=== PATIENT | male | born 1950 | race Caucasian/White ===

== ENCOUNTER → 2016-08-15 | Outpatient (CLI) | payer MEDICAID ==
[2016-08-15 12:03] LABS: Basophils # (A) 0.1 k/uL (0-0.2); Basophils % (A) 1 %; CH 31.1; CHCM 34.1; Eosinophils # (A) 0.3 k/uL (0-0.7); Eosinophils % (A) 3 %; HCT 46.8 % (39.0-53.0); HDW 2.59; HGB 15.7 gm/dL (13.0-17.5); Luc # (Auto) 0.24; Luc % (Auto) 2; Lymphocytes # (A) 2.9 k/uL (1.0-4.8); Lymphocytes % (A) 23 %; MCH 30.7 pg (25.0-35.0); MCHC 33.5 g/dL (31.0-37.0); MCV 91.7 fL (80.0-100.0); Mean Platelet Volume 8.7; Monocytes # (A) 0.8 k/uL (0-1.0); Monocytes % (A) 7 %; Neutrophils # (A) 7.9 k/uL (1.3-7.7); Neutrophils % (A) 65 %; RBC 5.11 m/uL (4.30-5.90); RDW 12.9 % (11.5-15.5); WBC 12.3 k/uL (3.8-10.6); WBC (Perox) 11.82
[2016-08-15 12:16] LABS: ALT 28 U/L (21-72); AST 17 U/L (17-59); Alkaline Phosphatase 65 U/L (38-126); Anion Gap 11 mmol/L; Blood Urea Nitrogen 22 mg/dL (9-20); Calcium 9.6 mg/dL (8.4-10.2); Carbon Dioxide 22 mmol/L (22-30); Chloride 105 mmol/L (98-107); Cholesterol 143 mg/dL (<200); Creatine Kinase 64 U/L (55-170); Glucose 204 mg/dL (74-99); HDL Cholesterol 31 mg/dL (40-60); Non-African American GFR(MDRD) >60 (>60 ml/min/1.73 sqM); Potassium 5.1 mmol/L (3.5-5.1); Sodium 138 mmol/L (137-145); Total Bilirubin 0.4 mg/dL (0.2-1.3); Total Protein 7.7 g/dL (6.3-8.2); Triglycerides 434 mg/dL (<150)
[2016-08-15 12:49] LABS: Prostate Specific Antigen <0.06 ng/mL (0.00-4.00)
== END | disposition home or self-care (01) ==
LOC: LABWHC1 11:32
PROVIDERS: ATTEND Family Medicine
DX: Z00.01 Encounter for general adult medical examination with abnormal findings (principal); E11.9 Type 2 diabetes mellitus without complications; E03.9 Hypothyroidism, unspecified; E78.5 Hyperlipidemia, unspecified; Z12.5 Encounter for screening for malignant neoplasm of prostate
CPT/HCPCS: 36415; 80053; 80061; 82550; 84153; 84439; 84443; 84681; 85025; 86337

== ENCOUNTER 2016-09-28 12:38 | Emergency (ER) | payer MEDICAID ==
[2016-09-28 12:42] VITALS: TEMP 98.3
[2016-09-28 13:30] VITALS: BP 169/74; PULSE 62; RESP 17
--- NOTE | 2016-09-28 13:30 | ED ---
Eye Problem HPI - General Chief complaint: Eye Problems Stated complaint: Lost Vision in Right Eye Time Seen by Provider: 09/28/16 13:05 Source: patient Mode of arrival: ambulatory Limitations: no limitations - History of Present Illness Initial comments: This is a 65-year-old male with history of hypertension and cataract surgery who states he had the sudden onset at 1207 this afternoon of central vision loss in his right eye. He had no headache no nausea vomiting no focal weakness was upper or lower extremities or other complaints. He states since that time the vision is starting to come back. He states it did not come down like a shade Gradually went away quickly. He has no other complaints it was noted when he came to the emergency department blood pressure was elevated he does state that his blood pressure medication weight today. MD chief complaint: vision change - Related Data Home Medications Medication Instructions Recorded Confirmed Aspirin 81 mg PO DAILY 06/05/15 03/04/16 DULoxetine HCL [Cymbalta] 90 mg PO QAM 06/05/15 03/04/16 Insulin Glargine [Lantus] 25 unit SQ BID 06/05/15 03/04/16 Levothyroxine Sodium [Unithroid] 225 mcg PO QAM 06/05/15 03/04/16 Losartan [Cozaar] 100 mg PO QAM 06/05/15 03/04/16 amLODIPine [Norvasc] 10 mg PO QAM 06/05/15 03/04/16 Ascorbic Acid [Vitamin C] 500 mg PO DAILY 02/22/16 03/04/16 Atorvastatin [Lipitor] 20 mg PO HS 02/22/16 03/04/16 Carvedilol [Coreg] 25 mg PO BID 02/22/16 03/04/16 Cephalexin [Keflex] 500 mg PO Q12HR 02/22/16 03/04/16 Cholecalciferol [Vitamin D3] 5,000 unit PO DAILY 02/22/16 03/04/16 Empagliflozin [Jardiance] 25 mg PO QAM 02/22/16 03/04/16 Nitroglycerin Sl Tabs [Nitrostat] 0.4 mg SL DIRECTED PRN 02/22/16 03/04/16 Spironolactone [Aldactone] 25 mg PO BID 02/22/16 03/04/16 Vitamin B Complex 1 tab PO DAILY 02/22/16 03/04/16 Vorapaxar Sulfate [Zontivity] 2.08 mg PO QAM 02/22/16 03/04/16 Zinc Gluconate [Zinc Lozenge] 10 mg PO MOWEFR 02/22/16 03/04/16 hydrALAZINE HCL 25 mg PO BID 02/22/16 03/04/16 sitaGLIPtin [Januvia] 25 mg PO QAM 02/22/16 03/04/16 Fenofibrate Nanocrystallized 145 mg PO QAM 02/23/16 03/04/16 [Tricor] Allergies Allergy/AdvReac Type Severity Reaction Status Date / Time No Known Allergies Allergy Verified 09/28/16 12:42 Review of Systems ROS Statement: Those systems with pertinent positive or pertinent negative responses have been documented in the HPI. ROS Other: All systems not noted in ROS Statement are negative. Past Medical History Past Medical History: Coronary Artery Disease (CAD), Cancer, Hypertension, Myocardial Infarction ([place]), Thyroid Disorder Additional Past Medical History / Comment(s): Prostate and renal and basal cell cancers. Last Myocardial Infarction Date:: MAY 2015 History of Any Multi-Drug Resistant Organisms: None Reported Past Surgical History: Coronary Bypass/CABG, Heart Catheterization, Prostate Surgery Additional Past Surgical History / Comment(s): Partial right nephrectomy, fem pop bypass in apr 07 which became infected and his is still on iv abx. MOS PROCEDURE OF BASAL CELL OF UPPER LIP. Past Anesthesia/Blood Transfusion Reactions: No Reported Reaction Past Psychological History: Depression Smoking Status: Current every day smoker Past Alcohol Use History: None Reported Additional Past Alcohol Use History / Comment(s): 48YR SMOKER, 1/2 PPD. Past Drug Use History: None Reported General Exam - General Exam Comments Initial Comments: This is a well-developed well-nourished awake alert oriented times 3 male Limitations: no limitations General appearance: alert, in no apparent distress Head exam: Present: atraumatic, normocephalic, normal inspection Eye exam: Present: normal appearance, PERRL, EOMI, other (Examination of the eyegrounds is limited no gross had male he is noted) ENT exam: Present: normal exam, mucous membranes moist Neck exam: Present: normal inspection. Absent: tenderness, meningismus, lymphadenopathy Respiratory exam: Present: normal lung sounds bilaterally. Absent: respiratory distress, wheezes, rales, rhonchi, stridor Cardiovascular Exam: Present: regular rate, normal rhythm, normal heart sounds. Absent: systolic murmur, diastolic murmur, rubs, gallop, clicks GI/Abdominal exam: Present: soft, normal bowel sounds. Absent: distended, tenderness, guarding, rebound, rigid Extremities exam: Present: normal inspection, full ROM, normal capillary refill. Absent: tenderness, pedal edema, joint swelling, calf tenderness Back exam: Present: normal inspection Neurological exam: Present: alert, oriented X3, CN II-XII intact Psychiatric exam: Present: normal affect, normal mood Skin exam: Present: warm, dry, intact, normal color. Absent: rash Course Vital Signs 09/28/16 12:40 Temperature 98.3 F Pulse Rate 76 Respiratory 20 Rate Blood Pressure 233/107 O2 Sat by Pulse 95 Oximetry Medical Decision Making - Medical Decision Making Clinically the patient appears unremarkable I did have him schedule the vision loss in a circular grid he does have peripheral vision his central vision is somewhat sketchy. His blood pressure has improved. I did discuss case with Dr. Gonzalez with the patient will follow up immediately after leaving the emergency department. Disposition Clinical Impression: Vision loss of right eye Disposition: HOME SELF-CARE Condition: Stable Additional Instructions: Follow-up with Dr. Gonzalez immediately Referrals: Toby Long MD [Primary Care Provider] - 1-2 days Yovani Gonzalez MD [STAFF PHYSICIAN] - 1-2 days
== END 2016-09-28 13:53 | disposition home or self-care (01) ==
LOC: EC 12:38
DX: H54.7 Unspecified visual loss (principal); I10 Essential (primary) hypertension; E07.9 Disorder of thyroid, unspecified; F17.200 Nicotine dependence, unspecified, uncomplicated; Z85.46 Personal history of malignant neoplasm of prostate; Z85.528 Personal history of other malignant neoplasm of kidney; Z79.82 Long term (current) use of aspirin; Z79.4 Long term (current) use of insulin; Z79.899 Other long term (current) drug therapy
CPT/HCPCS: 99282

== ENCOUNTER → 2017-05-23 | Outpatient (CLI) | payer MEDICAID ==
--- NOTE | 2017-05-23 10:23 | XR ---
EXAMINATION TYPE: XR Hip Bilateral and AP pelvis DATE OF EXAM: 05/23/2017 COMPARISON: NONE HISTORY: Pelvic and bilateral hip pain. TECHNIQUE: A single AP view of the pelvis is obtained. Two views of the bilateral hips are obtained. FINDINGS: There is no acute fracture/dislocation evident in the pelvis. The sacroiliac joints appea r symmetric and felt within normal limits. Numerous surgical clips overlie the lower pelvis in the mi dline just superior to pubic symphysis. Two views of bilateral hips hip show no acute fracture or dislocation. There is well-defined lytic le darin with sclerotic margins intertrochanteric region of right proximal femur measuring 2.5 x 2.3 cm f avor nonaggressive in etiology such as enchondroma. There is moderate axial joint space loss in both hips with mild acetabular spurring. Surgical clips left groin region are seen. Bilateral vascular ca lcification in the groin region is noted. IMPRESSION: There is fairly moderate symmetric degenerative change of both hip joints. Primary 2.5 c m bone lesion intertrochanteric region right proximal femur favor enchondroma or other nonaggressive etiology.
[2017-05-23 10:41] LABS: Basophils # (A) 0.1 k/uL (0-0.2); Basophils % (A) 1 %; Eosinophils # (A) 0.3 k/uL (0-0.7); Eosinophils % (A) 3 %; HCT 45.9 % (39.0-53.0); HGB 15.2 gm/dL (13.0-17.5); Lymphocytes # (A) 3.1 k/uL (1.0-4.8); Lymphocytes % (A) 28 %; MCH 30.1 pg (25.0-35.0); Mean Platelet Volume 8.4; Monocytes # (A) 0.6 k/uL (0-1.0); Monocytes % (A) 6 %; Neutrophils # (A) 6.6 k/uL (1.3-7.7); Neutrophils % (A) 60 %; Platelet Count 324 k/uL (150-450); RBC 5.05 m/uL (4.30-5.90); RDW 12.6 % (11.5-15.5)
[2017-05-23 11:04] LABS: ALT 26 U/L (21-72); AST 19 U/L (17-59); Albumin 4.7 g/dL (3.5-5.0); Alkaline Phosphatase 76 U/L (38-126); Anion Gap 13 mmol/L; Blood Urea Nitrogen 21 mg/dL (9-20); Calcium 10.3 mg/dL (8.4-10.2); Carbon Dioxide 26 mmol/L (22-30); Chloride 101 mmol/L (98-107); Cholesterol 152 mg/dL (<200); Creatine Kinase 98 U/L (55-170); Glucose 246 mg/dL (74-99); HDL Cholesterol 29 mg/dL (40-60); LDL Cholesterol,Calculated 48 mg/dL (0-99); Potassium 4.9 mmol/L (3.5-5.1); Sodium 140 mmol/L (137-145); Total Bilirubin 0.3 mg/dL (0.2-1.3); Triglycerides 375 mg/dL (<150)
[2017-05-23 11:18] LABS: T4, Free (Free Thyroxine) 1.16 ng/dL (0.78-2.19)
[2017-05-23 11:45] LABS: Prostate Specific Antigen <0.10 ng/mL (0.00-4.00)
[2017-05-23 16:52] LABS: Vitamin D 25 Hydroxy 20.9 ng/mL (30.0-100.0)
[2017-05-23 17:40] LABS: Hepatitis A Antibody IgM Non-Reactive (Non-Reactive)
[2017-05-23 17:41] LABS: Hepatitis B Core IgM Non-Reactive (Non-Reactive)
== END | disposition home or self-care (01) ==
LOC: RADXRMAIN 09:56
PROVIDERS: ATTEND Family Medicine
DX: M89.9 Disorder of bone, unspecified (principal); E78.5 Hyperlipidemia, unspecified; E03.9 Hypothyroidism, unspecified; E55.9 Vitamin D deficiency, unspecified; M25.559 Pain in unspecified hip; Z11.59 Encounter for screening for other viral diseases; Z12.5 Encounter for screening for malignant neoplasm of prostate
CPT/HCPCS: 36415; 73521; 80053; 80061; 80074; 82306; 82550; 84153; 84439; 84443; 85025

== ENCOUNTER → 2018-08-06 | Outpatient (CLI) | payer MEDICAID ==
--- NOTE | 2018-08-07 07:36 | US ---
EXAMINATION TYPE: US thyroid st tissue head/neck DATE OF EXAM: 08/06/2018 COMPARISON: NONE CLINICAL HISTORY: E03.9 Hypothyroidism. Pt states on thyroid meds x 3 years, pt states recent abnorma l labs GLAND SIZE: Right Lobe: 3.4 x 1.7 x 1.8 cm Overall Parenchyma: heterogenous Left Lobe: 2.4 x 0.9 x 0.7 cm Overall Parenchyma: heterogeneous Isthmus Thickness: 0.3 cm Bilateral neck scanned, no evidence of lymphadenopathy. Thyroid gland heterogeneous and small in size bilaterally. No definite nodules visualized. IMPRESSION: 1. No suspicious nodules within the small thyroid lobes.
== END ==
LOC: RADUSWWP 15:56
PROVIDERS: ATTEND Nurse Practitioner Adult Health
DX: E03.9 Hypothyroidism, unspecified (principal)
CPT/HCPCS: 76536

== ENCOUNTER 2018-11-17 12:07 | Emergency (ER) | payer MEDICAID ==
--- NOTE | 2018-11-17 12:37 | ED ---
General Adult HPI - General Chief complaint: GI Bleed Stated complaint: GI Bleed Time Seen by Provider: 11/17/18 12:18 Source: patient Mode of arrival: ambulatory Limitations: no limitations - History of Present Illness Initial comments: Dictation was produced using [employer] dictation software. please excuse any grammatical, word or spelling errors. Chief Complaint: 68-year-old male with past medical history coronary artery disease, hypertension status post bypass grafting presents today with GI bleed. History of Present Illness: Patient is a 68-year-old male who is brought in by family members. He was at his primary care physician's office earlier today being evaluated for lightheadedness. Patient also had symptoms of Estratest of bleeding over the last 2-3 days. He has had multiple bowel movements that appeared black. Patient denies any history of GI bleed. He reports feeling lightheaded. He doesn't complain of any pain complaints. Denies any rectal pain or abdominal pain. Patient is not on any anticoagulation medications. He has been feeling faint. Denies any focal neurologic deficits. Family friend at bedside reports that patient does appear much more pale worsen usual. Patient denies any history of liver disease. The ROS documented in this emergency department record has been reviewed and confirmed by me. Those systems with pertinent positive or negative responses have been documented in the HPI. All other systems are other negative and/or noncontributory. PHYSICAL EXAM: General Impression: Alert and oriented x3, not in acute distress, pale HEENT: Normocephalic atraumatic, extra-ocular movements intact, pupils equal and reactive to light bilaterally, mucous membranes moist. Cardiovascular: Heart regular rate and rhythm, S1&S2 audible, no murmurs, rubs or gallops Chest: Lungs clear to auscultation bilaterally, no rhonchi, no wheeze, no rales Abdomen: Bowel sounds present, abdomen soft, non-tender, non-distended, no organomegaly Musculoskeletal: Pulses present and equal in all extremities, no peripheral edema Motor: no focal deficits noted Neurological: CN II-XII grossly intact, no focal motor or sensory deficits noted Skin: Intact with no visualized rashes Psych: Normal affect and mood ED course: 68 yo male presents with clinical presentation concerning for symp tomatic GI bleed. Vital signs upon arrival shows blood pressure of 77/44, rest of vital signs within acceptable limits. After initial fluids patient has blood pressure 115/70. To evaluation obtained. Patient is leukocytosis of 15.0. This is elevated from last available labs from April of last year. Patient is a hemoglobin of 8.5 which is lower right 2 last year. Patient did report that he is minimal hemoglobin is around 10. Does have elevated RDW. Coag panel unremarkable. Blood gases negative. Metabolic panel is positive for hyperglycemia 235. No elevated liver markers. Cardiac enzymes negative. Chest x-ray shows no acute processes. Patient is given intravenous fluids he was observed in the emergency department for several hours. Results were discussed with patient. I rec ommended that patient be admitted to the hospital however he refused. 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 Patient is told that his blood pressure was very low when he initially came in and he is evidence of GI bleed with depressed hemoglobin and that for his safety be beneficial to him to be admitted to the hospital. Patient states he does not want to be here because he rather be at home. States that he can take care of self at home and return to emergency department if there are any issues. Patient understands that if he is discharged he could experience significant morbidity and even mortality. He is told that he could bleed out and possibly e fidencio . He understands this risk and continues to endorse wanting to be discharge. He understands that this is against my recommendation. Patient given Protonix. IV push and given a prescription for protonix take twice a day. He is given referral to outpatient gastroenterology. Patient understands that he should return to emergency department with any worsening symptoms. At time of discussion patient is understandable and coherent. EKG interpretation: Ventricular rate 59, sinus bradycardia, MO interval 150, QS 90, QTc 439. No MO prolongation, no QTC prolongation, no ST or T-wave changes noted. Overall, this EKG is unremarkable - Related Data Home Medications Medication Instructions Recorded Confirmed Aspirin 81 mg PO DAILY 06/05/15 11/17/18 DULoxetine HCL [Cymbalta] 90 mg PO QAM 06/05/15 11/17/18 Insulin Glargine [Lantus] 45 unit SQ BID 06/05/15 11/17/18 Levothyroxine Sodium [Unithroid] 225 mcg PO QAM 06/05/15 11/17/18 Losartan [Cozaar] 100 mg PO QAM 06/05/15 11/17/18 amLODIPine [Norvasc] 10 mg PO QAM 06/05/15 11/17/18 Ascorbic Acid [Vitamin C] 500 mg PO DAILY 02/22/16 11/17/18 Atorvastatin [Lipitor] 20 mg PO HS 02/22/16 11/17/18 Carvedilol [Coreg] 25 mg PO BID 02/22/16 11/17/18 Cephalexin [Keflex] 500 mg PO Q12HR 02/22/16 11/17/18 Cholecalciferol [Vitamin D3] 5,000 unit PO DAILY 02/22/16 11/17/18 Nitroglycerin Sl Tabs [Nitrostat] 0.4 mg SL DIRECTED PRN 02/22/16 11/17/18 Spironolactone [Aldactone] 25 mg PO BID 02/22/16 11/17/18 Vitamin B Complex 1 tab PO DAILY 02/22/16 11/17/18 hydrALAZINE HCL 25 mg PO BID 02/22/16 11/17/18 Fenofibrate Nanocrystallized 145 mg PO QAM 02/23/16 11/17/18 [Tricor] Clopidogrel [Plavix] 75 mg PO DAILY 11/17/18 11/17/18 INSULIN LISPRO (HumaLOG) [HumaLOG] See Protocol SQ AC-TID 11/17/18 11/17/18 Previous Rx's Medication Instructions Recorded Pantoprazole [Protonix] 40 mg PO BID 12 Days #24 tablet. 11/17/18 Allergies Allergy/AdvReac Type Severity Reaction Status Date / Time No Known Allergies Allergy Verified 11/17/18 13:20 Review of Systems ROS Statement: Those systems with pertinent positive or pertinent negative responses have been documented in the HPI. ROS Other: All systems not noted in ROS Statement are negative. Past Medical History Past Medical History: Coronary Artery Disease (CAD), Cancer, Hypertension, Myocardial Infarction ([place]), Thyroid Disorder Additional Past Medical History / Comment(s): Prostate and renal and basal cell cancers. Last Myocardial Infarction Date:: MAY 2015 History of Any Multi-Drug Resistant Organisms: None Reported Past Surgical History: Coronary Bypass/CABG, Heart Catheterization, Prostate Surgery Additional Past Surgical History / Comment(s): Partial right nephrectomy, fem pop bypass in apr 07 which became infected and his is still on iv abx. MOS PROCEDURE OF BASAL CELL OF UPPER LIP. Past Anesthesia/Blood Transfusion Reactions: No Reported Reaction Past Psychological History: Depression Smoking Status: Current every day smoker Past Alcohol Use History: None Reported Past Drug Use History: None Reported General Exam Limitations: no limitations Course Vital Signs 11/17/18 11/17/18 11/17/18 12:13 12:32 13:27 Temperature 97.0 F L 98 F Pulse Rate 54 L 58 L 55 L Respiratory 22 20 16 Rate Blood Pressure 77/44 115/70 102/48 O2 Sat by Pulse 98 97 100 Oximetry 11/17/18 11/17/18 14:00 14:47 Temperature Pulse Rate 66 63 Respiratory 18 18 Rate Blood Pressure 117/52 121/49 O2 Sat by Pulse 99 99 Oximetry Medical Decision Making - Lab Data Result diagrams: 11/17/18 12:28 11/17/18 12:28 Lab Results 11/17/18 11/17/18 11/17/18 Range/Units 12:28 12:28 12:28 WBC 15.0 H (3.8-10.6) k/uL RBC 2.77 L (4.30-5.90) m/uL Hgb 8.5 L (13.0-17.5) gm/dL Hct 25.7 L (39.0-53.0) % MCV 92.6 (80.0-100.0) fL MCH 30.5 (25.0-35.0) pg MCHC 33.0 (31.0-37.0) g/dL RDW 15.7 H (11.5-15.5) % Plt Count 421 (150-450) k/uL Neutrophils % 70 % Lymphocytes % 20 % Monocytes % 5 % Eosinophils % 2 % Basophils % 1 % Neutrophils # 10.4 H (1.3-7.7) k/uL Lymphocytes # 3.1 (1.0-4.8) k/uL Monocytes # 0.8 (0-1.0) k/uL Eosinophils # 0.4 (0-0.7) k/uL Basophils # 0.1 (0-0.2) k/uL PT (9.0-12.0) sec INR (<1.2) VBG pH (7.31-7.41) VBG pCO2 (37-51) mmHg VBG HCO3 (24-28) mmol/L Sodium 138 (137-145) mmol/L Potassium 4.3 (3.5-5.1) mmol/L Chloride 106 (98-107) mmol/L Carbon Dioxide 21 L (22-30) mmol/L Anion Gap 11 mmol/L BUN 46 H (9-20) mg/dL Creatinine 1.52 H (0.66-1.25) mg/dL Est GFR (CKD-EPI)AfAm 53 (>60 ml/min/1.73 sqM) Est GFR (CKD-EPI)NonAf 46 (>60 ml/min/1.73 sqM) Glucose 235 H (74-99) mg/dL Plasma Lactic Acid Fidencio (0.7-2.0) mmol/L Calcium 9.0 (8.4-10.2) mg/dL Magnesium 1.9 (1.6-2.3) mg/dL Total Bilirubin 0.2 (0.2-1.3) mg/dL AST 14 L (17-59) U/L ALT 19 L (21-72) U/L Alkaline Phosphatase 45 (38-126) U/L Ammonia (<30) umol/L Troponin I (0.000-0.034) ng/mL NT-Pro-B Natriuret Pep pg/mL Total Protein 6.1 L (6.3-8.2) g/dL Albumin 3.6 (3.5-5.0) g/dL Lipase 65 (23-300) U/L Blood Type O Positive Blood Type Confirm Blood Type Recheck CABO Indicated Antibody Screen NEGATIVE Spec Expiration Date 11/20/2018232711/17/18 11/17/18 11/17/18 Range/Units 12:28 12:28 12:28 WBC (3.8-10.6) k/uL RBC (4.30-5.90) m/uL Hgb (13.0-17.5) gm/dL Hct (39.0-53.0) % MCV (80.0-100.0) fL MCH (25.0-35.0) pg MCHC (31.0-37.0) g/dL RDW (11.5-15.5) % Plt Count (150-450) k/uL Neutrophils % % Lymphocytes % % Monocytes % % Eosinophils % % Basophils % % Neutrophils # (1.3-7.7) k/uL Lymphocytes # (1.0-4.8) k/uL Monocytes # (0-1.0) k/uL Eosinophils # (0-0.7) k/uL Basophils # (0-0.2) k/uL PT 11.6 (9.0-12.0) sec INR 1.1 (<1.2) VBG pH (7.31-7.41) VBG pCO2 (37-51) mmHg VBG HCO3 (24-28) mmol/L Sodium (137-145) mmol/L Potassium (3.5-5.1) mmol/L Chloride (98-107) mmol/L Carbon Dioxide (22-30) mmol/L Anion Gap mmol/L BUN (9-20) mg/dL Creatinine (0.66-1.25) mg/dL Est GFR (CKD-EPI)AfAm (>60 ml/min/1.73 sqM) Est GFR (CKD-EPI)NonAf (>60 ml/min/1.73 sqM) Glucose (74-99) mg/dL Plasma Lactic Acid Fidencio 1.6 (0.7-2.0) mmol/L Calcium (8.4-10.2) mg/dL Magnesium (1.6-2.3) mg/dL Total Bilirubin (0.2-1.3) mg/dL AST (17-59) U/L ALT (21-72) U/L Alkaline Phosphatase (38-126) U/L Ammonia <9 (<30) umol/L Troponin I (0.000-0.034) ng/mL NT-Pro-B Natriuret Pep 50 pg/mL Total Protein (6.3-8.2) g/dL Albumin (3.5-5.0) g/dL Lipase (23-300) U/L Blood Type Blood Type Confirm Blood Type Recheck Antibody Screen Spec Expiration Date 11/17/18 11/17/18 11/17/18 Range/Units 12:28 12:28 12:29 WBC (3.8-10.6) k/uL RBC (4.30-5.90) m/uL Hgb (13.0-17.5) gm/dL Hct (39.0-53.0) % MCV (80.0-100.0) fL MCH (25.0-35.0) pg MCHC (31.0-37.0) g/dL RDW (11.5-15.5) % Plt Count (150-450) k/uL Neutrophils % % Lymphocytes % % Monocytes % % Eosinophils % % Basophils % % Neutrophils # (1.3-7.7) k/uL Lymphocytes # (1.0-4.8) k/uL Monocytes # (0-1.0) k/uL Eosinophils # (0-0.7) k/uL Basophils # (0-0.2) k/uL PT (9.0-12.0) sec INR (<1.2) VBG pH 7.37 (7.31-7.41) VBG pCO2 38 (37-51) mmHg VBG HCO3 21 L (24-28) mmol/L Sodium (137-145) mmol/L Potassium (3.5-5.1) mmol/L Chloride (98-107) mmol/L Carbon Dioxide (22-30) mmol/L Anion Gap mmol/L BUN (9-20) mg/dL Creatinine (0.66-1.25) mg/dL Est GFR (CKD-EPI)AfAm (>60 ml/min/1.73 sqM) Est GFR (CKD-EPI)NonAf (>60 ml/min/1.73 sqM) Glucose (74-99) mg/dL Plasma Lactic Acid Fidencio (0.7-2.0) mmol/L Calcium (8.4-10.2) mg/dL Magnesium (1.6-2.3) mg/dL Total Bilirubin (0.2-1.3) mg/dL AST (17-59) U/L ALT (21-72) U/L Alkaline Phosphatase (38-126) U/L Ammonia (<30) umol/L Troponin I <0.012 (0.000-0.034) ng/mL NT-Pro-B Natriuret Pep pg/mL Total Protein (6.3-8.2) g/dL Albumin (3.5-5.0) g/dL Lipase (23-300) U/L Blood Type Blood Type Confirm O Positive Blood Type Recheck Antibody Screen Spec Expiration Date Disposition Clinical Impression: GI bleed Disposition: Left Against Medical Advice Condition: Poor Instructions (If sedation given, give patient instructions): Gastrointestinal Bleeding (ED) Prescriptions: Pantoprazole [Protonix] 40 mg PO BID 12 Days #24 tablet.dr Is patient prescribed a controlled substance at d/c from ED?: No Referrals: oTby Long MD [Primary Care Provider] - 1-2 days Time of Disposition: 14:50
[2018-11-17 12:55] LABS: Basophils # (A) 0.1 k/uL (0-0.2); Basophils % (A) 1 %; Eosinophils # (A) 0.4 k/uL (0-0.7); Eosinophils % (A) 2 %; HCT 25.7 % (39.0-53.0); HGB 8.5 gm/dL (13.0-17.5); Lymphocytes # (A) 3.1 k/uL (1.0-4.8); Lymphocytes % (A) 20 %; MCH 30.5 pg (25.0-35.0); MCV 92.6 fL (80.0-100.0); Mean Platelet Volume 9.2; Monocytes # (A) 0.8 k/uL (0-1.0); Monocytes % (A) 5 %; Neutrophils # (A) 10.4 k/uL (1.3-7.7); Neutrophils % (A) 70 %; Platelet Count 421 k/uL (150-450); RBC 2.77 m/uL (4.30-5.90); RDW 15.7 % (11.5-15.5)
[2018-11-17 13:03] LABS: Albumin 3.6 g/dL (3.5-5.0); INR 1.1 (<1.2); Magnesium 1.9 mg/dL (1.6-2.3); Potassium 4.3 mmol/L (3.5-5.1); Prothrombin Time 11.6 sec (9.0-12.0); Total Bilirubin 0.2 mg/dL (0.2-1.3); Total Protein 6.1 g/dL (6.3-8.2)
[2018-11-17 13:04] LABS: Ammonia <9 umol/L (<30); Lactic Acid, Venous 1.6 mmol/L (0.7-2.0)
[2018-11-17 13:23] LABS: VBG PH 7.37 (7.31-7.41)
--- NOTE | 2018-11-17 13:23 | XR ---
EXAMINATION TYPE: XR chest 1V portable DATE OF EXAM: 11/17/2018 HISTORY: dizziness/gi bleed. REFERENCE: None. FINDINGS: There has been a midline sternotomy. The heart is mildly enlarged. Lungs appear clear. Ther e is blunting of the left CP angle. I could not exclude a small left effusion. IMPRESSION: 1. CARDIOMEGALY. 2. I COULD NOT EXCLUDE A SMALL LEFT EFFUSION.
[2018-11-17 13:29] VITALS: TEMP 98
[2018-11-17 14:47] VITALS: RESP 18
[2018-11-17] MEDS ORDERED: PANTOPRAZOLE 40 MG/10 ML VIAL IVP ONE (14:48)
[2018-11-17 16:37] VITALS: BP 124/58; PULSE 60
== END 2018-11-17 15:15 | disposition left against medical advice (07) ==
LOC: EC 12:07
DX: K92.2 Gastrointestinal hemorrhage, unspecified (principal); D72.829 Elevated white blood cell count, unspecified; R73.9 Hyperglycemia, unspecified; I25.10 Atherosclerotic heart disease of native coronary artery without angina pectoris; I10 Essential (primary) hypertension; I25.2 Old myocardial infarction; E07.9 Disorder of thyroid, unspecified; F32.9 Major depressive disorder, single episode, unspecified; F17.200 Nicotine dependence, unspecified, uncomplicated; Z85.46 Personal history of malignant neoplasm of prostate; Z85.828 Personal history of other malignant neoplasm of skin; Z85.528 Personal history of other malignant neoplasm of kidney; Z95.1 Presence of aortocoronary bypass graft; Z95.818 Presence of other cardiac implants and grafts; Z79.82 Long term (current) use of aspirin; Z79.4 Long term (current) use of insulin; Z79.890 Hormone replacement therapy; Z79.02 Long term (current) use of antithrombotics/antiplatelets; Z79.899 Other long term (current) drug therapy; Z53.29 Procedure and treatment not carried out because of patient's decision for other reasons
CPT/HCPCS: 36415; 71045; 80053; 82140; 82803; 83605; 83690; 83735; 83880; 84484; 85025; 85610; 86850; 86900; 86901; 93005; 99284

== ENCOUNTER 2018-11-19 12:09 | Inpatient (IN) | payer MEDICAID, MEDICARE ==
--- NOTE | 2018-11-19 12:39 | ED ---
General Adult HPI - General Chief complaint: Syncope Stated complaint: GI Bleed Time Seen by Provider: 11/19/18 12:20 Source: patient Mode of arrival: ambulatory Limitations: no limitations - History of Present Illness Initial comments: Dictation was produced using [employer] dictation software. please excuse any grammatical, word or spelling errors. Chief Complaint: Patient is a 68-year-old male presents after syncope. History of Present Illness: [id number] male he was seen by me 2 days ago for the same complaint. Patient had episode of syncope. He was also follow up with primary care physician today. He was seen in the waiting room and thought to be unstable. He has history of GI bleed. Patient was seen 2 days ago by myself. He did have low hemoglobin. Patient has no complaints at this time. He is with a family friend states that he had episode of syncope today while walking. Patient did slump and slide needing the wall to support his weight. He was slowly let down 2 days ago patient signed out AGAINST MEDICAL ADVICE. He states he does not have any physical complaints today. The ROS documented in this emergency department record has been reviewed and confirmed by me. Those systems with pertinent positive or negative responses have been documented in the HPI. All other systems are other negative and/or noncontributory. PHYSICAL EXAM: General Impression: Alert and oriented x3, not in acute distress, pale HEENT: Normocephalic atraumatic, extra-ocular movements intact, pupils equal and reactive to light bilaterally, mucous membranes moist. Cardiovascular: Heart regular rate and rhythm, S1&S2 audible, no murmurs, rubs or gallops Chest: Lungs clear to auscultation bilaterally, no rhonchi, no wheeze, no rales Abdomen: Bowel sounds present, abdomen soft, non-tender, non-distended, no organomegaly Musculoskeletal: Pulses present and equal in all extremities, no peripheral edema Motor: no focal deficits noted Neurological: CN II-XII grossly intact, no focal motor or sensory deficits noted Skin: Intact with no visualized rashes Psych: Normal affect and mood ED course: 68 yo Male presents after episode of syncope. Patient suffered from gastric intestinal bleed recently. Upon arrival shows heart rate of 57, rest of vital signs within acceptable limits. Patient has no GI bleed. Patient hemodynamically stable upon arrival. His blood pressure was remeasured and found to be 8358. His given intravenous fluids. Lab return evaluation obtained showing hemoglobin of 7.0. Metabolic panel shows mild acidosis that is non-gap. There is slight elevation of renal markers. Repeat vital signs are improved. Patient transfuse 1 unit of PRBCs. Patient given Protonix. Will be admitted with GI consultation. EKG interpretation: Ventricular rate 57, sinus bradycardia, NV interval 160, QS 180, QTc 436. No NV prolongation, no QTC prolongation, no ST or T-wave changes noted. Compared to EKG from 11/17/2018 with no significant changes. - Related Data Home Medications Medication Instructions Recorded Confirmed Aspirin 81 mg PO DAILY 06/05/15 11/19/18 Insulin Glargine [Lantus] 45 unit SQ BID@0500,1700 06/05/15 11/19/18 Losartan [Cozaar] 100 mg PO QAM 06/05/15 11/19/18 amLODIPine [Norvasc] 10 mg PO QAM 06/05/15 11/19/18 Ascorbic Acid [Vitamin C] 500 mg PO DAILY 02/22/16 11/19/18 Atorvastatin [Lipitor] 20 mg PO HS 02/22/16 11/19/18 Carvedilol [Coreg] 25 mg PO BID 02/22/16 11/19/18 Cephalexin [Keflex] 500 mg PO Q12HR 02/22/16 11/19/18 Cholecalciferol [Vitamin D3] 5,000 unit PO DAILY 02/22/16 11/19/18 Nitroglycerin Sl Tabs [Nitrostat] 0.4 mg SL DIRECTED PRN 02/22/16 11/19/18 Spironolactone [Aldactone] 25 mg PO BID 02/22/16 11/19/18 Vitamin B Complex 1 tab PO DAILY 02/22/16 11/19/18 hydrALAZINE HCL 25 mg PO BID 02/22/16 11/19/18 Fenofibrate Nanocrystallized 145 mg PO QAM 02/23/16 11/19/18 [Tricor] Clopidogrel [Plavix] 75 mg PO DAILY 11/17/18 11/19/18 Ascorbic Acid [Vitamin C] 500 mg PO DAILY 11/19/18 11/19/18 DULoxetine HCL [Cymbalta] 90 mg PO DAILY 11/19/18 11/19/18 INSULIN LISPRO (humaLOG) [humaLOG] See Protocol PO ACHS 11/19/18 11/19/18 Levothyroxine Sodium [Synthroid] 25 mcg PO DAILY 11/19/18 11/19/18 Levothyroxine Sodium [Synthroid] 200 mcg PO DAILY 11/19/18 11/19/18 Magnesium Oxide [Clarke] 500 mg PO DAILY 11/19/18 11/19/18 cloNIDine HCL [Catapres] 0.1 mg PO TID 11/19/18 11/19/18 Previous Rx's Medication Instructions Recorded Pantoprazole [Protonix] 40 mg PO BID 12 Days #24 tablet. 11/17/18 Allergies Allergy/AdvReac Type Severity Reaction Status Date / Time No Known Allergies Allergy Verified 11/19/18 12:12 Review of Systems ROS Statement: Those systems with pertinent positive or pertinent negative responses have been documented in the HPI. ROS Other: All systems not noted in ROS Statement are negative. Past Medical History Past Medical History: Coronary Artery Disease (CAD), Cancer, GI Bleed, Hypertension, Myocardial Infarction ([place]), Syncope, Thyroid Disorder Additional Past Medical History / Comment(s): Prostate and renal and basal cell cancers. Last Myocardial Infarction Date:: MAY 2015 History of Any Multi-Drug Resistant Organisms: None Reported Past Surgical History: Coronary Bypass/CABG, Heart Catheterization, Prostate Surgery Additional Past Surgical History / Comment(s): Partial right nephrectomy, fem pop bypass in apr 07 which became infected and his is still on iv abx. MOS PROCEDURE OF BASAL CELL OF UPPER LIP. Past Anesthesia/Blood Transfusion Reactions: No Reported Reaction Past Psychological History: Depression Smoking Status: Current every day smoker Past Alcohol Use History: None Reported Past Drug Use History: None Reported General Exam Limitations: no limitations Course Vital Signs 11/19/18 11/19/18 12:12 12:42 Temperature 98.2 F Pulse Rate 57 L 57 L Respiratory 18 18 Rate Blood Pressure 106/50 83/58 O2 Sat by Pulse 99 100 Oximetry Medical Decision Making - Lab Data Result diagrams: 11/19/18 12:34 11/19/18 12:34 Lab Results 11/19/18 11/19/18 11/19/18 Range/Units 12:34 12:34 12:34 WBC 10.0 (3.8-10.6) k/uL RBC 2.24 L (4.30-5.90) m/uL Hgb 7.0 L D (13.0-17.5) gm/dL Hct 21.1 L (39.0-53.0) % MCV 94.5 (80.0-100.0) fL MCH 31.5 (25.0-35.0) pg MCHC 33.3 (31.0-37.0) g/dL RDW 16.1 H (11.5-15.5) % Plt Count 354 (150-450) k/uL Anisocytosis Slight PT 11.6 (9.0-12.0) sec INR 1.1 (<1.2) Sodium 137 (137-145) mmol/L Potassium 3.9 (3.5-5.1) mmol/L Chloride 108 H (98-107) mmol/L Carbon Dioxide 21 L (22-30) mmol/L Anion Gap 8 mmol/L BUN 24 H (9-20) mg/dL Creatinine 1.31 H (0.66-1.25) mg/dL Est GFR (CKD-EPI)AfAm 64 (>60 ml/min/1.73 sqM) Est GFR (CKD-EPI)NonAf 55 (>60 ml/min/1.73 sqM) Glucose 135 H (74-99) mg/dL Calcium 8.8 (8.4-10.2) mg/dL Disposition Clinical Impression: GI bleed, Syncope Disposition: ADMITTED IP TO THIS [facility] Condition: Fair Referrals: Toby Long MD [Primary Care Provider] - 1-2 days Decision Time: 13:58
[2018-11-19] MEDS ORDERED: SODIUM CHLORIDE 0.9% 1,000 ML IV ONE (12:43)
[2018-11-19 13:00] LABS: INR 1.1 (<1.2); Prothrombin Time 11.6 sec (9.0-12.0)
[2018-11-19 13:01] LABS: Calcium 8.8 mg/dL (8.4-10.2); Potassium 3.9 mmol/L (3.5-5.1)
[2018-11-19 13:17] LABS: Anisocytosis Slight; Basophils # (A) 0.1 k/uL (0-0.2); Basophils % (A) 1 %; Eosinophils # (A) 0.3 k/uL (0-0.7); Eosinophils % (A) 3 %; HCT 21.1 % (39.0-53.0); Lymphocytes # (A) 2.5 k/uL (1.0-4.8); Lymphocytes % (A) 25 %; MCH 31.5 pg (25.0-35.0); MCHC 33.3 g/dL (31.0-37.0); MCV 94.5 fL (80.0-100.0); Mean Platelet Volume 9.1; Monocytes # (A) 0.6 k/uL (0-1.0); Monocytes % (A) 6 %; Neutrophils # (A) 6.4 k/uL (1.3-7.7); Neutrophils % (A) 64 %; Platelet Count 354 k/uL (150-450); RBC 2.24 m/uL (4.30-5.90); RDW 16.1 % (11.5-15.5)
[2018-11-19] MEDS ORDERED: NALOXONE 0.4 MG/ML 1 ML VIAL IV PRN (13:53)
[2018-11-19] MEDS ORDERED: ACETAMINOPHEN TAB 325 MG TAB PO PRN (13:53)
[2018-11-19] MEDS ORDERED: PANTOPRAZOLE 40 MG/10 ML VIAL IVP ONE (13:53)
[2018-11-19] MEDS: SODIUM CHLORIDE 0.9% 1,000 ML IV SCH (14:06)
[2018-11-19 14:21] LABS: Glucose,Whole Blood 119 mg/dL (75-99)
[2018-11-19 14:52] LABS: Polychromasia Present
[2018-11-19 17:23] VITALS: BMI 32.1
[2018-11-19 17:45] LABS: Glucose,Whole Blood 85 mg/dL (75-99)
[2018-11-19 21:16] LABS: Glucose,Whole Blood 75 mg/dL (75-99)
[2018-11-19] MEDS: ATORVASTATIN 20 MG TAB PO SCH (21:46)
[2018-11-19] MEDS: CEPHALEXIN 500 MG CAP PO SCH (21:46)
--- NOTE | 2018-11-19 22:20 | P.HPIM ---
History of Present Illness H&P Date: 11/19/18 Chief Complaint: Dark stools History of presenting complaint: This is a very pleasant 68-year-old patient of Dr. Long. Chronic stable medical conditions include coronary artery disease, hypertension, hypothyroid and blind in the right eye. Patient for his ago had about 6 bouts of dark starry stools. Patient felt pale and diaphoretic. Patient presented to ER. Systolic blood pressure was 77. Was given IV fluids. Patient decided to leave AMA. Patient and went to see his family doctor today. That in the waiting room he nearly passed out. He was sent down to the ER again. Hemoglobin was found to be 7.. Unit of blood was ordered. Patient has been feeling dizzy lightheaded. Tired. Rundown. No chest pain. Patient had been on aspirin and Plavix. That he stopped taking 3 days ago. Review of systems: GEN.: Weak tired EYES: Blind in the right eye HEENT: None NECK: None RESPIRATORY: Baseline shortness of breath and wheezing CARDIOVASCULAR: No chest pain GASTROINTESTINAL: No abdominal pain. 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 Lives by himself. 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 EYES: [Pupils equal. Conjunctiva pale l. HEENT: External appearance of nose and ears normal, oral cavity grossly normal. NECK: JVD not raised; masses not palpable. HEART: First and second heart sounds are normal; no edema. LUNGS: Respiratory rate normal; decreased breath sounds and some wheezing. ABDOMEN: Soft, nontender, liver spleen not palpable, no masses palpable. PSYCH: Alert and oriented x3; mood and affect normal. NEUROLOGICAL: Cranial nerves grossly intact; no facial asymmetry, power and sensation grossly intact, blind in the right eye. LYMPHATICS: No lymph nodes palpable in the axilla and neck MUSCULOSKELETAL: Evidence of OA especially in the hands Investigations: White count and hemoglobin 7 platelets 354 potassium 3.9 BUN 24 creatinine 1.31 Assessment: -Acute severe GI bleed suspected to be upper in a patient who takes both aspirin and Plavix -Acute GI blood loss anemia symptomatic, patient given a unit of blood -Coronary artery disease with a prior history of bypass -Hypotension from GI blood loss -History of essential hypertension -Hypothyroid -Blind in the right eye -Peripheral arterial disease -Chronic nicotine dependence patient cigarette smoker -Acute COPD exacerbation in a current smoker Plan: Home medications were resumed. Hold off any antihypertensive. Antiplatelet agents have been held. Keep a close eye on H&H. GI is being consulted. We'll start the patient on bronchodilators. Patient is advised against smoking. Patient is declining a nicotine patch Past Medical History Past Medical History: Coronary Artery Disease (CAD), Cancer, GI Bleed, Hypertension, Myocardial Infarction ([place]), Syncope, Thyroid Disorder Additional Past Medical History / Comment(s): Prostate and renal and basal cell cancers. right eye blind Last Myocardial Infarction Date:: MAY 2015 History of Any Multi-Drug Resistant Organisms: None Reported Past Surgical History: Coronary Bypass/CABG, Heart Catheterization, Prostate Surgery Additional Past Surgical History / Comment(s): Partial right nephrectomy, fem pop bypass in apr 07 which became infected and his is still on oral abx. PROCEDURE OF BASAL CELL OF UPPER LIP. Past Anesthesia/Blood Transfusion Reactions: No Reported Reaction Past Psychological History: Depression Smoking Status: Current every day smoker Past Alcohol Use History: None Reported Additional Past Alcohol Use History / Comment(s): 48YR SMOKER, 1/2 PPD. Past Drug Use History: None Reported - Past Family History Father Additional Family Medical History / Comment(s): killed in war Mother Family Medical History: Diabetes Mellitus Additional Family Medical History / Comment(s): lung cancer Brother(s) Additional Family Medical History / Comment(s): suicide Sister(s) Family Medical History: Cancer Additional Family Medical History / Comment(s): breast cancer Medications and Allergies Home Medications Medication Instructions Recorded Confirmed Type Aspirin 81 mg PO DAILY 06/05/15 11/19/18 History Insulin Glargine [Lantus] 45 unit SQ BID@0500,1700 06/05/15 11/19/18 History Losartan [Cozaar] 100 mg PO QAM 06/05/15 11/19/18 History amLODIPine [Norvasc] 10 mg PO QAM 06/05/15 11/19/18 History Ascorbic Acid [Vitamin C] 500 mg PO DAILY 02/22/16 11/19/18 History Atorvastatin [Lipitor] 20 mg PO HS 02/22/16 11/19/18 History Carvedilol [Coreg] 25 mg PO BID 02/22/16 11/19/18 History Cephalexin [Keflex] 500 mg PO Q12HR 02/22/16 11/19/18 History Cholecalciferol [Vitamin D3] 5,000 unit PO DAILY 02/22/16 11/19/18 History Nitroglycerin Sl Tabs [Nitrostat] 0.4 mg SL DIRECTED PRN 02/22/16 11/19/18 History Spironolactone [Aldactone] 25 mg PO BID 02/22/16 11/19/18 History Vitamin B Complex 1 tab PO DAILY 02/22/16 11/19/18 History hydrALAZINE HCL 25 mg PO BID 02/22/16 11/19/18 History Fenofibrate Nanocrystallized 145 mg PO QAM 02/23/16 11/19/18 History [Tricor] Clopidogrel [Plavix] 75 mg PO DAILY 11/17/18 11/19/18 History Pantoprazole [Protonix] 40 mg PO BID 12 Days #24 tablet. 11/17/18 11/19/18 Rx Ascorbic Acid [Vitamin C] 500 mg PO DAILY 11/19/18 11/19/18 History DULoxetine HCL [Cymbalta] 90 mg PO DAILY 11/19/18 11/19/18 History INSULIN LISPRO (humaLOG) [humaLOG] See Protocol PO ACHS 11/19/18 11/19/18 History Levothyroxine Sodium [Synthroid] 25 mcg PO DAILY 11/19/18 11/19/18 History Levothyroxine Sodium [Synthroid] 200 mcg PO DAILY 11/19/18 11/19/18 History Magnesium Oxide [Clarke] 500 mg PO DAILY 11/19/18 11/19/18 History cloNIDine HCL [Catapres] 0.1 mg PO TID 11/19/18 11/19/18 History Allergies Allergy/AdvReac Type Severity Reaction Status Date / Time No Known Allergies Allergy Verified 11/19/18 12:12 Physical Exam Vitals: Vital Signs Temp Pulse Pulse Resp BP BP Pulse Ox 11/19/18 20:00 98.2 F 57 L 18 127/60 96 11/19/18 18:28 99.6 F 64 16 116/53 100 11/19/18 16:36 98.6 F 66 20 95/60 100 11/19/18 16:10 99.2 F 64 18 114/56 99 11/19/18 16:03 98.9 F 61 18 83/57 100 11/19/18 15:37 99 F 69 20 97/46 100 11/19/18 14:16 61 20 100/49 99 11/19/18 12:42 57 L 18 83/58 100 11/19/18 12:12 98.2 F 57 L 18 106/50 99 Intake and Output 11/19/18 11/19/18 11/19/18 06:59 14:59 22:59 Intake Total 310 Balance 310 Intake: Oral 0 Blood Product 310 Rc As-1 Unit 310 [id number] Other: Voiding Method Urinal # Voids 0 # Bowel Movements 0 Weight 92.986 kg Results CBC & Chem 7: 11/19/18 12:34 11/19/18 12:34 Labs: Abnormal Lab Results - Last 24 Hours (Table) 11/19/18 11/19/18 11/19/18 Range/Units 12:34 12:34 12:35 RBC 2.24 L (4.30-5.90) m/uL Hgb 7.0 L D (13.0-17.5) gm/dL Hct 21.1 L (39.0-53.0) % RDW 16.1 H (11.5-15.5) % Chloride 108 H (98-107) mmol/L Carbon Dioxide 21 L (22-30) mmol/L BUN 24 H (9-20) mg/dL Creatinine 1.31 H (0.66-1.25) mg/dL Glucose 135 H (74-99) mg/dL POC Glucose (mg/dL) (75-99) mg/dL Crossmatch See Detail 11/19/18 Range/Units 14:20 RBC (4.30-5.90) m/uL Hgb (13.0-17.5) gm/dL Hct (39.0-53.0) % RDW (11.5-15.5) % Chloride (98-107) mmol/L Carbon Dioxide (22-30) mmol/L BUN (9-20) mg/dL Creatinine (0.66-1.25) mg/dL Glucose (74-99) mg/dL POC Glucose (mg/dL) 119 H (75-99) mg/dL Crossmatch Thrombosis Risk Factor Assmnt - Choose All That Apply Any of the Below Risk Factors Present?: Yes Each Factor Represents 1 point: Obesity (BMI >25) Other Risk Factors: Yes Each Risk Factor Represents 2 Points: Age 61-74 years Thrombosis Risk Factor Assessment Total Risk Factor Score: 3 Thrombosis Risk Factor Assessment Level: Moderate Risk
[2018-11-19] MEDS: IPRATROPIUM-ALBUTEROL 3 ML NEB INHALATION SCH (23:14)
[2018-11-20 04:46] LABS: Glucose,Whole Blood 73 mg/dL (75-99)
[2018-11-20] MEDS: INSULIN ASPART (NovoLOG) 100 UNIT/ML VIAL SQ SCH ×5 (04:56→21:00)
[2018-11-20 05:47] LABS: Glucose,Whole Blood 83 mg/dL (75-99)
[2018-11-20 06:53] LABS: Basophils # (A) 0.1 k/uL (0-0.2); Basophils % (A) 1 %; Eosinophils # (A) 0.2 k/uL (0-0.7); Eosinophils % (A) 2 %; HCT 24.3 % (39.0-53.0); HGB 7.7 gm/dL (13.0-17.5); Lymphocytes # (A) 1.9 k/uL (1.0-4.8); Lymphocytes % (A) 18 %; MCHC 31.6 g/dL (31.0-37.0); MCV 91.8 fL (80.0-100.0); Mean Platelet Volume 8.6; Monocytes # (A) 0.8 k/uL (0-1.0); Monocytes % (A) 7 %; Neutrophils # (A) 7.5 k/uL (1.3-7.7); Neutrophils % (A) 71 %; Platelet Count 326 k/uL (150-450); RBC 2.65 m/uL (4.30-5.90); RDW 15.6 % (11.5-15.5); WBC 10.6 k/uL (3.8-10.6)
[2018-11-20] MEDS: LEVOTHYROXINE 25 MCG TAB PO SCH (07:26)
[2018-11-20] MEDS: LEVOTHYROXINE 100 MCG TAB PO SCH (07:26)
[2018-11-20] MEDS: SODIUM CHLORIDE 0.9% 1,000 ML IV SCH ×2 (07:43→16:02)
[2018-11-20] MEDS: DULoxetine HCL 30 MG CAPSULE.DR PO SCH (08:20)
[2018-11-20] MEDS: MAGNESIUM OXIDE 400 MG TAB PO SCH (08:20)
[2018-11-20] MEDS: CEPHALEXIN 500 MG CAP PO SCH ×2 (08:20→21:00)
[2018-11-20] MEDS: FENOFIBRATE 160 MG TAB PO SCH (08:20)
[2018-11-20] MEDS: CHOLECALCIFEROL 1,000 UNIT TAB PO SCH (08:27)
[2018-11-20] MEDS: IPRATROPIUM-ALBUTEROL 3 ML NEB INHALATION SCH ×4 (08:28→22:03)
[2018-11-20] MEDS: NON FORMULARY DRUG (Vitamin B Complex [Vitamin B Complex] 1 TAB) PO SCH (08:28)
[2018-11-20] MEDS ORDERED: PANTOPRAZOLE 40 MG/10 ML VIAL IV SCH (09:00)
[2018-11-20 12:01] LABS: Glucose,Whole Blood 116 mg/dL (75-99)
[2018-11-20] MEDS ORDERED: BISACODYL 5 MG TABLET.DR PO STA (12:18)
--- NOTE | 2018-11-20 12:25 | P.CONS ---
History of Present Illness - Reason for Consult Consult date: 11/20/18 GI bleed Requesting physician: Aravind Edouard - Chief Complaint Dark bowel movements - History of Present Illness 68-year-old male past medical history of CAD maintained on dual antiplatelet therapy, hypertension, right eye blindness admitted with near syncope, dark tarry bowel movements diaphoresis systolic blood pressures in the 70s. Patient states last Monday he had 6 bowel movements back to back that were dark near black in color. Denies gross hematochezia or hematemesis. No history GI bleed peptic ulcer disease EtOH abuse. No history of EGD colonoscopy. Denies abdominal pain. No NSAIDs or Pepto-Bismol. No excessive aspirin usage. No iron supplements. Patient stopped his aspirin and Plavix on Monday. No history of gastric or bowel surgeries. Admission hemoglobin 7.0. MCV 94. Platelets 326. INR 1.1. BUN 24. Creatinine 1.3. Received 1 unit of blood present hemoglobin 7.7. Previous hemoglobin on 11/17/2018 was 8.5 and in April 2017 was 15.2. Review of Systems Constitutional: Denies fever, chills, sweats, weight gain, or loss. Lightheadedness and dizziness. HEENT: Negative for migraines, blurred vision or loss, earaches, drainage, tinnitus, oral mucosal lesions, dysphagia, or odynophagia. Cardiac: Negative for chest pain, arrhythmias, or palpitation. Respiratory: Negative for shortness of breath, hemoptysis, cough, or sputum production. Gastrointestinal: See HPI for pertinent findings. Genitourinary: Negative for hematuria, urgency, frequency, polyuria, dysuria, or penile discharge. Musculoskeletal: Negative for muscle aches, swelling, arthritis, and arthralgias. Neurologic: Negative for stroke or TIA. Endocrine: Negative for thyroid problems. Skin: Negative for rash or itching. Psychiatric: Negative history for depression and anxiety Past Medical History Past Medical History: Coronary Artery Disease (CAD), Cancer, GI Bleed, Hyp ertension, Myocardial Infarction ([place]), Syncope, Thyroid Disorder Additional Past Medical History / Comment(s): Prostate and renal and basal cell cancers. right eye blind Last Myocardial Infarction Date:: MAY 2015 History of Any Multi-Drug Resistant Organisms: None Reported Past Surgical History: Coronary Bypass/CABG, Heart Catheterization, Prostate Surgery Additional Past Surgical History / Comment(s): Partial right nephrectomy, fem pop bypass in apr 07 which became infected and his is still on oral abx. PROCEDURE OF BASAL CELL OF UPPER LIP. Past Anesthesia/Blood Transfusion Reactions: No Reported Reaction Past Psychological History: Depression Smoking Status: Current every day smoker Past Alcohol Use History: None Reported Additional Past Alcohol Use History / Comment(s): 48YR SMOKER, 1/2 PPD. Past Drug Use History: None Reported - Past Family History Father Additional Family Medical History / Comment(s): killed in war Mother Family Medical History: Diabetes Mellitus Additional Family Medical History / Comment(s): lung cancer Brother(s) Additional Family Medical History / Comment(s): suicide Sister(s) Family Medical History: Cancer Additional Family Medical History / Comment(s): breast cancer Medications and Allergies Home Medications Medication Instructions Recorded Confirmed Type Aspirin 81 mg PO DAILY 06/05/15 11/19/18 History Insulin Glargine [Lantus] 45 unit SQ BID@0500,1700 06/05/15 11/19/18 History Losartan [Cozaar] 100 mg PO QAM 06/05/15 11/19/18 History amLODIPine [Norvasc] 10 mg PO QAM 06/05/15 11/19/18 History Ascorbic Acid [Vitamin C] 500 mg PO DAILY 02/22/16 11/19/18 History Atorvastatin [Lipitor] 20 mg PO HS 02/22/16 11/19/18 History Carvedilol [Coreg] 25 mg PO BID 02/22/16 11/19/18 History Cephalexin [Keflex] 500 mg PO Q12HR 02/22/16 11/19/18 History Cholecalciferol [Vitamin D3] 5,000 unit PO DAILY 02/22/16 11/19/18 History Nitroglycerin Sl Tabs [Nitrostat] 0.4 mg SL DIRECTED PRN 02/22/16 11/19/18 History Spironolactone [Aldactone] 25 mg PO BID 02/22/16 11/19/18 History Vitamin B Complex 1 tab PO DAILY 02/22/16 11/19/18 History hydrALAZINE HCL 25 mg PO BID 02/22/16 11/19/18 History Fenofibrate Nanocrystallized 145 mg PO QAM 02/23/16 11/19/18 History [Tricor] Clopidogrel [Plavix] 75 mg PO DAILY 11/17/18 11/19/18 History Pantoprazole [Protonix] 40 mg PO BID 12 Days #24 tablet. 11/17/18 11/19/18 Rx Ascorbic Acid [Vitamin C] 500 mg PO DAILY 11/19/18 11/19/18 History DULoxetine HCL [Cymbalta] 90 mg PO DAILY 11/19/18 11/19/18 History INSULIN LISPRO (humaLOG) [humaLOG] See Protocol PO ACHS 11/19/18 11/19/18 History Levothyroxine Sodium [Synthroid] 25 mcg PO DAILY 11/19/18 11/19/18 History Levothyroxine Sodium [Synthroid] 200 mcg PO DAILY 11/19/18 11/19/18 History Magnesium Oxide [Clarke] 500 mg PO DAILY 11/19/18 11/19/18 History cloNIDine HCL [Catapres] 0.1 mg PO TID 11/19/18 11/19/18 History Allergies Allergy/AdvReac Type Severity Reaction Status Date / Time No Known Allergies Allergy Verified 11/19/18 12:12 Physical Exam Vitals: Vital Signs Temp Pulse Pulse Resp BP BP Pulse Ox 11/20/18 04:00 98.2 F 61 18 123/59 96 11/20/18 00:00 98.1 F 58 L 18 131/62 97 11/19/18 23:25 84 16 11/19/18 23:14 83 16 11/19/18 20:00 98.2 F 57 L 18 127/60 96 11/19/18 18:28 99.6 F 64 16 116/53 100 11/19/18 16:36 98.6 F 66 20 95/60 100 11/19/18 16:10 99.2 F 64 18 114/56 99 11/19/18 16:03 98.9 F 61 18 83/57 100 11/19/18 15:37 99 F 69 20 97/46 100 11/19/18 14:16 61 20 100/49 99 11/19/18 12:42 57 L 18 83/58 100 11/19/18 12:12 98.2 F 57 L 18 106/50 99 Intake and Output 11/19/18 11/20/18 11/20/18 22:59 06:59 14:59 Intake Total 310 Output Total 1825 Balance 310 -1825 Intake: Oral 0 Blood Product 310 Rc As-1 Unit 310 [id number] Output: Urine 1825 Other: Voiding Method Urinal Urinal # Voids 0 0 # Bowel Movements 0 0 Weight 93.6 kg General appearance: The patient is alert, oriented, in no acute distress. HET: Head is normocephalic and atraumatic. Pupils are equal and reactive. Oropharynx is clear without lesions. Neck: Supple without lymphadenopathy. Trachea midline. Heart: S1 S2. Regular rate and rhythm. Lungs: No crackles or wheezes are heard. Abdomen: Soft, nontender, nondistended with bowel sounds. No peritoneal signs. No palpable organomegaly or masses. Extremities: Normal skin color and turgor. No cyanosis, rash, ulceration, clubbing, or edema. Radial and pedal pulses are 2/4 bilaterally. Neurological: No focal deficits. Strength and sensation are grossly intact. Results CBC & Chem 7: 11/20/18 05:44 11/19/18 12:34 Labs: Abnormal Lab Results - Last 24 Hours (Table) 11/19/18 11/19/18 11/19/18 Range/Units 12:34 12:34 12:35 RBC 2.24 L (4.30-5.90) m/uL Hgb 7.0 L D (13.0-17.5) gm/dL Hct 21.1 L (39.0-53.0) % RDW 16.1 H (11.5-15.5) % Chloride 108 H (98-107) mmol/L Carbon Dioxide 21 L (22-30) mmol/L BUN 24 H (9-20) mg/dL Creatinine 1.31 H (0.66-1.25) mg/dL Glucose 135 H (74-99) mg/dL POC Glucose (mg/dL) (75-99) mg/dL Crossmatch See Detail 11/19/18 11/20/18 11/20/18 Range/Units 14:20 04:44 05:44 RBC 2.65 L (4.30-5.90) m/uL Hgb 7.7 L (13.0-17.5) gm/dL Hct 24.3 L (39.0-53.0) % RDW 15.6 H (11.5-15.5) % Chloride (98-107) mmol/L Carbon Dioxide (22-30) mmol/L BUN (9-20) mg/dL Creatinine (0.66-1.25) mg/dL Glucose (74-99) mg/dL POC Glucose (mg/dL) 119 H 73 L (75-99) mg/dL Crossmatch Assessment and Plan (1) GI bleed Narrative/Plan: 68-year-old gentleman with a history of CAD maintained on dual antiplatelet therapy for several years presents with acute episode of multiple dark colored near black bowel movements on Monday 6 without recurrence as well as acute symptomatic normocytic anemia with component of acute blood loss. And underlying upper pathology possible small bowel source, possible lower pathology cannot be excluded. Current Visit: Yes Status: Acute Code(s): K92.2 - GASTROINTESTINAL HEMORRHAGE, UNSPECIFIED SNOMED Code(s): 84721951 (2) Melena Current Visit: Yes Status: Acute Code(s): K92.1 - MELENA SNOMED Code(s): 7929675 (3) Coronary artery disease Current Visit: Yes Status: Acute Code(s): I25.10 - ATHSCL HEART DISEASE OF [place] CORONARY ARTERY W/O ANG PCTRS SNOMED Code(s): 42649768 (4) Encounter for monitoring antiplatelet therapy Current Visit: Yes Status: Acute Code(s): Z51.81 - ENCOUNTER FOR THERAPEUTIC DRUG LEVEL MONITORING; Z79.02 - LONG-TERM (CURRENT) USE OF ANTITHROMBOTICS/ANTIPLATELETS SNOMED Code(s): 893321404 (5) Syncope Current Visit: Yes Status: Acute Code(s): R55 - SYNCOPE AND COLLAPSE SNOMED Code(s): 346116993 (6) Acute blood loss anemia Current Visit: Yes Status: Acute Code(s): D62 - ACUTE POSTHEMORRHAGIC ANEMIA SNOMED Code(s): 173826916 Plan: 1. Protonix 40 mg twice daily. CBC monitoring. EGD colonoscopy possible small ENDOSCOPY TOMORROW. CLEAR LIQUIDS TODAY. NOTHING BY MOUTH AFTER MIDNIGHT. Iron indices. The quality and reliability engineer has discussed the risks, benefits and alternative therapies for the above-mentioned procedure and for both sedation/analgesia as well as necessary blood product administration, if indicated, as they pertain to this patient. The patient has indicated understanding and acceptance of the risks and procedures discussed. Thank you for this kind referral and the opportunity to participate in the care of your patient. This consultation was discussed with Dr. Alonzo. The i mpression and plan of care have been directed as dictated.
[2018-11-20] MEDS ORDERED: PEG 3350-NA SULF,BICARB,CL/KCL 4,000 ML BOTTLE PO ONE (16:00)
[2018-11-20 16:55] LABS: Glucose,Whole Blood 118 mg/dL (75-99)
--- NOTE | 2018-11-20 19:36 | P.PN ---
Progress Note - Text Progress Note Date: 11/20/18 Chief Complaint: Dark stools Interval history: This is a very pleasant 68-year-old patient of Dr. Long. Chronic stable medical conditions include coronary artery disease, hypertension, hypothyroid and blind in the right eye. Patient for his ago had about 6 bouts of dark starry stools. Patient felt pale and diaphoretic. Patient presented to ER. Systolic blood pressure was 77. Was given IV fluids. Patient decided to leave AMA. Patient and went to see his family doctor today. That in the waiting room he nearly passed out. He was sent down to the ER again. Hemoglobin was found to be 7.. Unit of blood was ordered. Patient has been feeling dizzy lighth eaded. Tired. Rundown. No chest pain. Patient had been on aspirin and Plavix. That he stopped taking 3 days ago. Today-no further bleeding. Seen by GI. Schedule for endoscopy tomorrow. No chest pain, but tired family visiting.. Review of systems: Was done for constitutional, cardiovascular, GI, pulmonary. relevant finding as above Active Medications Acetaminophen (Tylenol Tab) 650 mg PO Q6HR PRN PRN Reason: Mild Pain or Fever > 100.5 Albuterol/Ipratropium (Duoneb 0.5 Mg-3 Mg/3 Ml Soln) 3 ml INHALATION RT-QID [facility] Last Admin: 11/20/18 15:02 Dose: 3 ml Documented by: Atorvastatin Calcium (Lipitor) 20 mg PO HS [facility] Last Admin: 11/19/18 21:46 Dose: 20 mg Documented by: Cephalexin (Keflex) 500 mg PO Q12HR [facility] Last Admin: 11/20/18 08:20 Dose: 500 mg Documented by: Cholecalciferol (Vitamin D3 (25 Mcg = 1000 Iu)) 5,000 unit PO DAILY [facility] Last Admin: 11/20/18 08:27 Dose: 5,000 unit Documented by: Duloxetine HCl (Cymbalta) 90 mg PO DAILY [facility] Last Admin: 11/20/18 08:20 Dose: 90 mg Documented by: Fenofibrate (Lofibra) 160 mg PO DAILY [facility] Last Admin: 11/20/18 08:20 Dose: 160 mg Documented by: Sodium Chloride (Saline 0.9%) 1,000 mls @ 80 mls/hr IV .[id number] [facility] Last Admin: 11/20/18 16:02 Dose: 80 mls/hr Documented by: Insulin Aspart (Novolog) 0 unit SQ ACHS [facility]; Protocol Last Admin: 11/20/18 17:16 Dose: Not Given Documented by: Insulin Detemir (Levemir) 45 unit SQ BID@0500,1700 [facility] Levothyroxine Sodium (Synthroid) 200 mcg PO DAILY@0630 [facility] Last Admin: 11/20/18 07:26 Dose: 200 mcg Documented by: Levothyroxine Sodium (Synthroid) 25 mcg PO DAILY@0630 [facility] Last Admin: 11/20/18 07:26 Dose: 25 mcg Documented by: Magnesium Oxide (Mag-Ox) 400 mg PO DAILY [facility] Last Admin: 11/20/18 08:20 Dose: 400 mg Documented by: Naloxone HCl (Narcan) 0.2 mg IV Q2M PRN PRN Reason: Opioid Reversal Non-Formulary Medication (Vitamin B Complex [Vitamin B Complex]) 1 tab PO DAILY [facility] Last Admin: 11/20/18 08:28 Dose: Not Given Documented by: Pantoprazole Sodium (Protonix) 40 mg IV DAILY [facility] Last Admin: 11/20/18 08:22 Dose: 40 mg Documented by: Physical examination: VITAL SIGNS: 98.3, 57, 18, 140/57, 97% room air GENERAL: Sitting at the edge of the bed, tired. EYES: [Pupils equal. Conjunctiva pale l. HEENT: External appearance of nose and ears normal, oral cavity grossly normal. NECK: JVD not raised; masses not palpable. HEART: First and second heart sounds are normal; no edema. LUNGS: Respiratory rate normal; decreased breath sounds and some wheezing. ABDOMEN: Soft, nontender, liver spleen not palpable, no masses palpable. PSYCH: Alert and oriented x3; mood and affect normal. MUSCULOSKELETAL: Evidence of OA especially in the hands Investigations: White count 10.6; 7.7 Accu-Cheks 73, 83, 116 Assessment: -Acute severe GI bleed suspected to be upper in a patient who takes both aspirin and Plavix -Acute GI blood loss anemia symptomatic, patient given a unit of blood -Coronary artery disease with a prior history of bypass -Hypotension from GI blood loss -History of essential hypertension -Hypothyroid -Blind in the right eye -Peripheral arterial disease -Chronic nicotine dependence patient cigarette smoker -Acute COPD exacerbation in a current smoker Plan: Ending endoscopy. Care was discussed with the patient. We will cut back the dose of Levemir. Keep a close eye on hemoglobin.
[2018-11-20 20:13] LABS: Glucose,Whole Blood 170 mg/dL (75-99)
[2018-11-20] MEDS: PANTOPRAZOLE 40 MG TABLET PO SCH (21:00)
[2018-11-20] MEDS: ATORVASTATIN 20 MG TAB PO SCH (21:00)
[2018-11-20] MEDS ORDERED: INSULIN DETEMIR (LEVEMIR) 100 UNIT/ML SYR SQ SCH (21:00)
[2018-11-21 01:50] LABS: Ferritin 14.9 ng/mL (22.0-322.0); Iron Saturation 3.85 (15.00-50.00)
[2018-11-21] MEDS: SODIUM CHLORIDE 0.9% 1,000 ML IV SCH ×2 (05:14→19:35)
[2018-11-21] MEDS: PANTOPRAZOLE 40 MG TABLET PO SCH ×2 (06:06→17:20)
[2018-11-21] MEDS: LEVOTHYROXINE 100 MCG TAB PO SCH (06:06)
[2018-11-21] MEDS: LEVOTHYROXINE 25 MCG TAB PO SCH (06:06)
[2018-11-21 06:28] LABS: Glucose,Whole Blood 111 mg/dL (75-99)
[2018-11-21] MEDS: INSULIN ASPART (NovoLOG) 100 UNIT/ML VIAL SQ SCH ×3 (06:35→17:20)
[2018-11-21 06:55] LABS: Basophils # (A) 0.1 k/uL (0-0.2); Basophils % (A) 1 %; Eosinophils # (A) 0.3 k/uL (0-0.7); Eosinophils % (A) 3 %; HCT 25.6 % (39.0-53.0); HGB 8.3 gm/dL (13.0-17.5); Lymphocytes # (A) 2.1 k/uL (1.0-4.8); Lymphocytes % (A) 25 %; MCH 30.4 pg (25.0-35.0); MCHC 32.5 g/dL (31.0-37.0); MCV 93.7 fL (80.0-100.0); Mean Platelet Volume 8.7; Monocytes # (A) 0.6 k/uL (0-1.0); Monocytes % (A) 7 %; Neutrophils # (A) 5.2 k/uL (1.3-7.7); Neutrophils % (A) 62 %; Platelet Count 369 k/uL (150-450); RBC 2.73 m/uL (4.30-5.90); RDW 15.9 % (11.5-15.5); WBC 8.3 k/uL (3.8-10.6)
[2018-11-21] MEDS: IPRATROPIUM-ALBUTEROL 3 ML NEB INHALATION SCH ×4 (08:12→19:49)
[2018-11-21] MEDS ORDERED: INSULIN DETEMIR (LEVEMIR) 100 UNIT/ML SYR SQ SCH (09:00)
[2018-11-21] MEDS: CEPHALEXIN 500 MG CAP PO SCH (11:22)
[2018-11-21 11:45] LABS: Glucose,Whole Blood 119 mg/dL (75-99)
[2018-11-21] MEDS ORDERED: PROPOFOL 10 MG/ML 20 ML VIAL IV ONE (12:17)
[2018-11-21] MEDS ORDERED: LIDOCAINE 1% INJ 10MG/ML (20 ML MDV) ONE (12:17)
[2018-11-21] MEDS ORDERED: IV FLUID CONTINUATION 100 ML IV ONE (12:17)
[2018-11-21] MEDS ORDERED: LACTATED RINGERS 500 ML IV ONE (12:30)
[2018-11-21 13:24] VITALS: RESP 18; TEMP 98.1
--- NOTE | 2018-11-21 13:39 | P.PCN ---
Date of Procedure: 11/21/18 Procedure(s) Performed: Brief history: Patient is a pleasant 68-year-old white male, admitted hospital with severe symptomatic anemia and black tarry stools of 1 day duration. His hemoglobin was 7 g/dL requiring 1 unit of blood transfusion. Today hemoglobin is up to 8.3 g/dL. He is scheduled for an elective upper endoscopy as well as colonoscopy to evaluate further. No history of prior EGD or colonoscopy in the past Procedure performed: Esophagogastroduodenoscopy with biopsy Colonoscopy with snare polypectomy Preoperative diagnosis: Severe symptomatic anemia/black tarry stools of undetermined duration Anesthesia: MAC Procedure: After informed consent was obtained from the patient was brought into the endoscopy unit and IV sedation was administered by anesthesia under continuous monitoring. Initially upper endoscopy was done. The Olympus GF 160 video endoscope was inserted inserted into the mouth and esophagus intubated without any difficulty and was gradually advanced into the stomach and duodenum and carefully examined. The bulb and second part of the duodenum appeared normal. The scope was then withdrawn into the stomach adequately insufflated with air and upon careful examination the antrum and body, and fundus appeared normal. There was a large ulcerated lesion involving the cardia of the stomach extending into the GE junction from 40-40 cm from the incisors and multiple biopsies were done from both the GE junction and the cardia of the stomach. The scope was th en withdrawn into the esophagus. The GE junction was located at 40 cm to the incisors. It appeared regular with no erythema erosions or ulcerations. Rest of the esophagus appeared normal. Patient tolerated the procedure well. At this time the patient continued to remain sedation. Initial digital rectal examination was normal. Olympus CF 160 video colonoscope was then inserted into the rectum and gradually advanced to the cecum without any difficulty. Careful examination was performed as the scope was gradually being withdrawn. The prep was fair. There were 5 polyps in the ascending colon measuring between 1-1.5 cm in size removed by snare polypectomy. In the hepatic flexure of the colon for polyps status post measuring about 2.5 cm in size and others 1 cm to 1.5 cm removed by snare polypectomy. In the transverse colon there were 9 polyps measuring between 1-2 cm in size removed by snare polypectomy. In the descending colon there was a 6 polyps between 1-2 cm in size removed by snare polypectomy. In the sigmoid colon there were 5 polyps and a 2 cm in size removed by snare polypectomy. In the mid rectum at 10 cm from anal was there was a 3 to 4 centimeters broad-based polyp removed by piecemeal snare polypectomy and only 90% the polyp was removed. Retroflexion was performed in the rectum and no lesions were noted. Patient tolerated the procedure well. Impression: 1. Upper endoscopy revealed a large ulcerated lesion involving the GE junction and the cardia of the stomach extending from 40-43 cm from the incisors, suspicious for neoplasm, status post multiple biopsies 2. Colonoscopy revealed" a) 5 polyps in ascending colon measuring between 1-1.5 cm in size status post polypectomy b) 4 polyps in the hepatic flexure measuring between 1 cm 2 cm in size removed by snare polypectomy c) 9 polyps in the transverse colon measuring between 1-2 cm in size removed by snare polypectomy d) 6 polyps in the ascending colon measuring between 1-2 cm in size status post polypectomy e) 5 polyps in the sigmoid colon measuring between under 2 cm in size status post polypectomy f) 3-4 cm broad-based mid rectal polyp at 10 cm from the anal verge status post piecemeal snare polypectomy and complete polypectomy and argon not accomplished Recommendations: Findings of this examination were discussed with the patient. At this time will await the biopsy results. He will be scheduled for CT of the chest abdomen and pelvis to evaluate the ulcerated lesion at the GE junction that was suspicious for neoplasm. He will remain on a clear liquid diet today. Obtain oncology consultation. In regards to colon polyps and is to have a repeat colonoscopy in 3-6 months based on the biopsy results
[2018-11-21] MEDS: MAGNESIUM OXIDE 400 MG TAB PO SCH (14:24)
[2018-11-21] MEDS: FENOFIBRATE 160 MG TAB PO SCH (14:24)
[2018-11-21] MEDS: DULoxetine HCL 30 MG CAPSULE.DR PO SCH (14:24)
[2018-11-21] MEDS: CHOLECALCIFEROL 1,000 UNIT TAB PO SCH (14:24)
[2018-11-21] MEDS: NON FORMULARY DRUG (Vitamin B Complex [Vitamin B Complex] 1 TAB) PO SCH (14:44)
[2018-11-21 15:04] VITALS: BP 140/64
--- NOTE | 2018-11-21 16:14 | CT ---
EXAMINATION TYPE: CT ChestAbdPelvis wo con DATE OF EXAM: 11/21/2018 COMPARISON: Correlation pelvis radiographs 05/23/2017 HISTORY: 68-year-old male evaluate for metastasis TECHNIQUE: Contiguous axial scanning of the chest, abdomen, and pelvis without IV contrast. Coronal a nd sagittal reconstructions performed. CT DLP: 803.1 mGycm Automated exposure control for dose reduction was used. FINDINGS: Chest: Median sternotomy wires are present. There is chronic nonunion of the patient's sternotomy with fract ure of multiple inferior sternotomy wires. Heart upper limits of normal in size. Retained epicardial pacer leads. Low attenuation of the blood p ool can be seen in the setting of anemia. Mild atherosclerotic arch calcifications. Conventional arch vessel branching anatomy with mild athero sclerotic arch calcifications. Large caliber to the main right and left pulmonary arteries measuring 2.9 and 2.6 cm, respectively, s uggesting underlying pulmonary artery hypertension. No thoracic lymphadenopathy by CT size criteria. There is asymmetric left greater than right mild booking clerk ecomastia. Small 9 mm groundglass nodule posterior right upper lobe. Band of atelectasis or scarring at the inferior lingula with an adjacent irregular patchy density, ax ial image 45. Otherwise, no consolidation or pleural effusion is seen. ABDOMEN: Lack of IV contrast limits assessment of the solid abdominal viscera, lymph nodes, and vascular struc tures. Noncontrast appearance of the liver, gallbladder, adrenal glands, and spleen with anterior splenule s how no gross abnormality. Area of dystrophic appearing calcification right lateral aspect of the panc reatic head possible sequela of prior pancreatitis. 4 mm nonobstructive right lower pole renal calculus. Indeterminate 9 mm exophytic nodule upper pole left kidney. No mesenteric or retroperitoneal lymphadenopathy. Moderate to advanced atherosclerotic calcifications lower abdominal aorta and iliac arteries with a l eft iliac artery stent in place. Normal appendix. Gassy colon. No pericolonic inflammatory change. Pelvis: Circumferential bladder wall thickening. Surgical clips related to prior prostatectomy. Suspected right femoral bypass graft. No abnormal fluid collection in the pelvis or pelvic lymphadeno beatriz seen. Bones: A 2.0 x 2.2 cm lucent lesion with sclerotic margin in the right intertrochanteric region shows a narr ow zone of transition and suggestion of some internal fat density. No significant change from 05/23/19 18 radiographs. Benign etiology including a liposclerosing myxofibrous lesion are considered. Moderate endplate spondylosis mid to lower thoracic spine. Ununited median sternotomy as mentioned above. IMPRESSION: 1. CHRONIC UNUNITED MEDIAN STERNOTOMY WITH SOME FRACTURED INFERIOR STERNOTOMY WIRES. 2. SMALL 9 MM GROUNDGLASS NODULE POSTERIOR RIGHT UPPER LOBE COULD REPRESENT A SMALL INFECTIOUS/INFLAM MATORY FOCUS. SIX-MONTH FOLLOW-UP CHEST CT CAN REASSESS. 3. SUSPECT UNDERLYING PULMONARY ARTERIAL HYPERTENSION. 4. LIMITED ASSESSMENT OF THE SOLID ABDOMINAL VISCERA AND VASCULAR STRUCTURES DUE TO LACK OF IV CONTRA ST. 5. DYSTROPHIC CALCIFICATIONS IN THE REGION OF THE PANCREATIC HEAD MAY REPRESENT SEQUELA OF PRIOR PANC REATITIS. SIX-MONTH FOLLOW-UP CONTRAST ENHANCED CT OF THE ABDOMEN CAN REASSESS. 6. CIRCUMFERENTIAL BLADDER WALL THICKENING COULD REPRESENT CHRONIC BLADDER WALL HYPERTROPHY OR CYSTIT IS. THERE ARE POSTSURGICAL CHANGES OF PRIOR PROSTATECTOMY.
[2018-11-21 16:32] LABS: Glucose,Whole Blood 134 mg/dL (75-99)
[2018-11-21] MEDS ORDERED: SODIUM FERRIC GLUCONAT-SUCROSE 125 MG in SODIUM CHLORIDE 0.9% 100 ML IVPB SCH (19:15)
[2018-11-21 19:55] LABS: ALT 14 U/L (21-72); AST 22 U/L (17-59); African American GFR (CKD) >90 (>60 ml/min/1.73 sqM); Albumin 3.8 g/dL (3.5-5.0); Alkaline Phosphatase 42 U/L (38-126); Anion Gap 11 mmol/L; Blood Urea Nitrogen 12 mg/dL (9-20); Carbon Dioxide 21 mmol/L (22-30); Chloride 105 mmol/L (98-107); Glucose 177 mg/dL (74-99); Non-African American GFR(CKD) 84 (>60 ml/min/1.73 sqM); Potassium 3.9 mmol/L (3.5-5.1); Sodium 137 mmol/L (137-145); Total Bilirubin 0.2 mg/dL (0.2-1.3); Total Protein 6.5 g/dL (6.3-8.2)
[2018-11-21 19:56] LABS: Partial Thromboplastin Time 24.2 sec (22.0-30.0); Prothrombin Time 11.1 sec (9.0-12.0)
[2018-11-21 20:39] LABS: Glucose,Whole Blood 152 mg/dL (75-99)
[2018-11-21 22:39] VITALS: PULSE 60
--- NOTE | 2018-11-21 23:00 | P.DS ---
Providers Date of admission: 11/19/18 13:53 Expected date of discharge: 11/21/18 Attending physician: Aravind Edouard Consults: 11/19/18 12:40 Consult Physician Stat Consulting Provider: Jc Yadav Consult Reason/Comments: GI bleed Do you want consulting provider notified?: Yes 11/21/18 14:22 Consult Physician Routine Consulting Provider: Aaron Godoy Consult Reason/Comments: GE junction/esophageal mass Do you want consulting provider notified?: Yes Primary care physician: Toby Long [facility] Course: Hospital course: This is a very pleasant 68-year-old patient of Dr. Long. Chronic stable medical conditions include coronary artery disease, hypertension, hypothyroid and blind in the right eye. Patient for his ago had about 6 bouts of dark starry stools. Patient felt pale and diaphoretic. Patient presented to ER. Systolic blood pressure was 77. Was given IV fluids. Patient decided to leave AMA. Patient and went to see his family doctor today. That in the waiting room he nearly passed out. He was sent down to the ER again. Hemoglobin was found to be 7.. Unit of blood was ordered. Patient has been feeling dizzy lightheaded. Tired. Rundown. No chest pain. Patient had been on aspirin and Plavix. That he stopped taking 3 days ago. Patient did get a unit of blood. Patient did undergo EGD and colonoscopy by Dr. Trupti Alonzo. Earlier today with Valeria from GI discussed the results with me. Large ulcerated mass was found in the cardia of the stomach. There were innumerable polyps in the colon. Several of which were taken out. I came to see the patient in the evening. He wanted to go home. I did explain to him that multiple biopsies were done. And is under the clear liquid. See how he does with diet if he does not started bleeding heavily again. Patient is very insistent and does not want to stay. He was told to return to the ER he starts bleeding. He did see that he was to follow-up with Dr. Vince at [facility]. Told about to take the aspirin and Plavix at the present time. Patient insisted on going home. Consultation: Dr. Trupti Alonzo from GI Dr. Godoy from oncology Physical examination: VITAL SIGNS: 98.1, 60, 18, 140/64 GENERAL: Sitting at the edge of the bed, tired. EYES: [Pupils equal. Conjunctiva pale l. HEENT: External appearance of nose and ears normal, oral cavity grossly normal. NECK: JVD not raised; masses not palpable. HEART: First and second heart sounds are normal; no edema. LUNGS: Respiratory rate normal; decreased breath sounds and some wheezing. ABDOMEN: Soft, nontender, liver spleen not palpable, no masses palpable. PSYCH: Alert and oriented x3; mood and affect but anxious. MUSCULOSKELETAL: Evidence of OA especially in the hands Investigations: Hemoglobin 8.3 from this morning Assessment: -Acute severe GI bleed, the large ulcerated mass in the stomach -Multiple polyps in the colon several of which were snared -Acute GI blood loss anemia symptomatic, patient given a unit of blood -Coronary artery disease with a prior history of bypass -Hypotension from GI blood loss -History of essential hypertension -Hypothyroid -Blind in the right eye -Peripheral arterial disease -Chronic nicotine dependence patient cigarette smoker -Acute COPD exacerbation in a current smoker Plan: Patient is repeatedly asked to stay back. Patient adamant about going home. Told to hold of aspirin and Plavix. I did start some of his blood pressure medication held of the other ones. I did tell the patient is leaving AMA Discussion and discharge planning more than 35 minutes. Patient Condition at Discharge: Undetermined Plan - Discharge Summary Discharge Rx Participant: No New Discharge Prescriptions: New Ipratropium/Albuterol Sulfate [Combivent Respimat Inhaler] 2 puff INHALATION QID #1 inhaler Continue Losartan [Cozaar] 100 mg PO QAM Cholecalciferol [Vitamin D3 (25 Mcg = 1000 Iu)] 5,000 unit PO DAILY Spironolactone [Aldactone] 25 mg PO BID Atorvastatin [Lipitor] 20 mg PO HS Carvedilol [Coreg] 25 mg PO BID Vitamin B Complex 1 tab PO DAILY Nitroglycerin Sl Tabs [Nitrostat] 0.4 mg SL DIRECTED PRN PRN Reason: Chest Pain Ascorbic Acid [Vitamin C] 500 mg PO DAILY Fenofibrate Nanocrystallized [Tricor] 145 mg PO QAM Pantoprazole [Protonix] 40 mg PO BID 12 Days #24 tablet. Magnesium Oxide [Clarke] 500 mg PO DAILY Levothyroxine Sodium [Synthroid] 200 mcg PO DAILY Levothyroxine Sodium [Synthroid] 25 mcg PO DAILY DULoxetine HCL [Cymbalta] 90 mg PO DAILY INSULIN LISPRO (humaLOG) [humaLOG] See Protocol PO ACHS Changed Insulin Glargine [Lantus] 35 unit SQ BID@0500,1700 #0 Discontinued amLODIPine [Norvasc] 10 mg PO QAM Aspirin 81 mg PO DAILY Cephalexin [Keflex] 500 mg PO Q12HR hydrALAZINE HCL 25 mg PO BID Clopidogrel [Plavix] 75 mg PO DAILY Ascorbic Acid [Vitamin C] 500 mg PO DAILY cloNIDine HCL [Catapres] 0.1 mg PO TID Discharge Medication List Losartan [Cozaar] 100 mg PO QAM 06/05/15 [History] Ascorbic Acid [Vitamin C] 500 mg PO DAILY 02/22/16 [History] Atorvastatin [Lipitor] 20 mg PO HS 02/22/16 [History] Carvedilol [Coreg] 25 mg PO BID 02/22/16 [History] Cholecalciferol [Vitamin D3 (25 Mcg = 1000 Iu)] 5,000 unit PO DAILY 02/22/16 [History] Nitroglycerin Sl Tabs [Nitrostat] 0.4 mg SL DIRECTED PRN 02/22/16 [History] Spironolactone [Aldactone] 25 mg PO BID 02/22/16 [History] Vitamin B Complex 1 tab PO DAILY 02/22/16 [History] Fenofibrate Nanocrystallized [Tricor] 145 mg PO QAM 02/23/16 [History] Pantoprazole [Protonix] 40 mg PO BID 12 Days #24 tablet. 11/17/18 [Rx] DULoxetine HCL [Cymbalta] 90 mg PO DAILY 11/19/18 [History] INSULIN LISPRO (humaLOG) [humaLOG] See Protocol PO ACHS 11/19/18 [History] Levothyroxine Sodium [Synthroid] 25 mcg PO DAILY 11/19/18 [History] Levothyroxine Sodium [Synthroid] 200 mcg PO DAILY 11/19/18 [History] Magnesium Oxide [Clarke] 500 mg PO DAILY 11/19/18 [History] Insulin Glargine [Lantus] 35 unit SQ BID@0500,1700 #0 11/21/18 [Rx] Ipratropium/Albuterol Sulfate [Combivent Respimat Inhaler] 2 puff INHALATION QID #1 inhaler 11/21/18 [Rx] Follow up Appointment(s)/Referral(s): Emily Betancourt ANPBC [Nurse Practitioner] - 1 Week (office closed at time of DC patient will make follow up apt.) Toby Long MD [Primary Care Provider] - 1-2 days (office closed at time of DC patient will make follow up apt.) Ronit Alonzo MD [STAFF PHYSICIAN] - 1 Week (office closed at time of DC patient will make follow up apt.) Patient Instructions/Handouts: Gastrointestinal Bleeding (DC), Iron Rich Diet (DC) Activity/Diet/Wound Care/Special Instructions: 1. Take all medication as directed. 2. Avoid foods that can be irritating to your intestines (See dietary teaching). 3. Avoid motrin (ibuprofen) and aleve (naproxen). These medications can increase your risk of internal bleeding. Tylenol (acetaminophen) is safe to take as long as you do not have any liver disease. 4. Avoid drinking alcohol and smoking, these can also irritate your intestines and increase risk of internal bleeding. 5. Increase activity gradually, do not overexert yourself. Your blood count is lower and your body will need time to recover
== END 2018-11-21 22:39 | disposition home or self-care (01) | DRG 378 ==
LOC: EC 12:09 → 3SCARD 13:53
PROVIDERS: ADMIT Hospitalist; ATTEND Hospitalist
PROC: 30233N1 Transfusion of Nonautologous Red Blood Cells into Peripheral Vein, Percutaneous Approach (ICD-10-PCS; 2018-11-19)
PROC: 0DBN8ZX Excision of Sigmoid Colon, Via Natural or Artificial Opening Endoscopic, Diagnostic (ICD-10-PCS; 2018-11-21)
PROC: 0DBP8ZX Excision of Rectum, Via Natural or Artificial Opening Endoscopic, Diagnostic (ICD-10-PCS; 2018-11-21)
PROC: 0DBM8ZX Excision of Descending Colon, Via Natural or Artificial Opening Endoscopic, Diagnostic (ICD-10-PCS; 2018-11-21)
PROC: 0DB68ZX Excision of Stomach, Via Natural or Artificial Opening Endoscopic, Diagnostic (ICD-10-PCS; 2018-11-21)
PROC: 0DBK8ZX Excision of Ascending Colon, Via Natural or Artificial Opening Endoscopic, Diagnostic (ICD-10-PCS; principal; 2018-11-21 11:55)
PROC: 0DBL8ZX Excision of Transverse Colon, Via Natural or Artificial Opening Endoscopic, Diagnostic (ICD-10-PCS; 2018-11-21 11:55)
DX: K25.4 Chronic or unspecified gastric ulcer with hemorrhage (principal); D62 Acute posthemorrhagic anemia; E87.2 Acidosis; J44.1 Chronic obstructive pulmonary disease with (acute) exacerbation; D12.2 Benign neoplasm of ascending colon; D12.3 Benign neoplasm of transverse colon; D12.4 Benign neoplasm of descending colon; D12.5 Benign neoplasm of sigmoid colon; K63.5 Polyp of colon; K62.1 Rectal polyp; E03.9 Hypothyroidism, unspecified; F17.210 Nicotine dependence, cigarettes, uncomplicated; F32.9 Major depressive disorder, single episode, unspecified; H54.61 Unqualified visual loss, right eye, normal vision left eye; I10 Essential (primary) hypertension; I25.10 Atherosclerotic heart disease of native coronary artery without angina pectoris; I25.2 Old myocardial infarction; I73.9 Peripheral vascular disease, unspecified; Z79.02 Long term (current) use of antithrombotics/antiplatelets; Z79.4 Long term (current) use of insulin; Z79.82 Long term (current) use of aspirin; Z79.890 Hormone replacement therapy; Z79.899 Other long term (current) drug therapy; Z80.1 Family history of malignant neoplasm of trachea, bronchus and lung; Z80.3 Family history of malignant neoplasm of breast; Z83.3 Family history of diabetes mellitus; Z90.5 Acquired absence of kidney; Z95.1 Presence of aortocoronary bypass graft; Z85.46 Personal history of malignant neoplasm of prostate; Z85.828 Personal history of other malignant neoplasm of skin; Z85.528 Personal history of other malignant neoplasm of kidney; Z81.8 Family history of other mental and behavioral disorders; Z51.81 Encounter for therapeutic drug level monitoring; Z66 Do not resuscitate; M19.042 Primary osteoarthritis, left hand; M19.041 Primary osteoarthritis, right hand
CPT/HCPCS: 36415; 43239; 45385; 71250; 74176; 80048; 80053; 82728; 83540; 83550; 85025; 85610; 85730; 86850; 86900; 86901; 86920; 88305; 93005; 94640; 94760; 96361; 96374; 99285

== ENCOUNTER → 2018-12-08 | Outpatient (CLI) | payer MEDICAID, MEDICARE ==
--- NOTE | 2018-12-10 16:49 | PE ---
Nuclear medicine PET/CT history: Adenocarcinoma of gastroesophageal junction, initial Patient received 9.4 mCi F-18 FDG intravenously in delayed scanning was performed from the skull base to the mid thighs. Localization and attenuation correction CT scan was performed. Correlation CT chest abdomen pelvis 11/21/2018 Neck and chest: There is no evident cervical, mediastinal, supraclavicular, axillary, or hilar adenop athy. Coronary artery calcifications are dense, patient is post median sternotomy. Epicardial pacing leads are present. Some minimal patchy density within the lingula is noted. No pleural or pericardial effusion. Emphysematous changes are present within the lungs. No suspicious hypermetabolic uptake. ABDOMEN: At the level of the gastroesophageal junction there is some hypermetabolic uptake present. S UV is 4.8. No evident adenopathy. No liver mass. Postop changes are noted to the left groin, patient is post prostatectomy. Nonobstructive calculi present within the right kidney. Calcifications present at the level of the pancreatic head. Osseous structures are stable. Nonaggressive appearing lesion in the right femur, no hypermetabolic u ptake. Degenerative disc changes in the visualized spine. IMPRESSION: Metastatic disease is not evident
== END | disposition home or self-care (01) ==
LOC: RADPETMAIN 15:27
PROVIDERS: ATTEND Internal Medicine Hematology & Oncology
DX: I25.10 Atherosclerotic heart disease of native coronary artery without angina pectoris (principal); J43.9 Emphysema, unspecified; N20.0 Calculus of kidney; K86.89 Other specified diseases of pancreas; G31.89 Other specified degenerative diseases of nervous system; M47.9 Spondylosis, unspecified; C15.5 Malignant neoplasm of lower third of esophagus
CPT/HCPCS: 78815; A9552

== ENCOUNTER 2018-12-19 06:41 | Day surgery (SDC) | payer MEDICAID, MEDICARE ==
[2018-12-17 15:05] VITALS: BMI 33.0
[~2018-12-19 06:41] MED LIST: DEXAMETHASONE SOD PHOSPHATE 10 MG/ML 1 ML VIAL IV ONE; HEPARIN SODIUM,PORCINE 5,000 UNIT/ML 1 ML VIAL SQ ONE; HYDROmorphone 0.5 MG/0.5 ML SYRINGE IVP PRN; LACTATED RINGERS 1,000 ML IV SCH; LIDOCAINE 1% 20 ML VIAL (10MG/ML) FOR IV START INTRADERMA PRN; MIDAZOLAM 2 MG/2 ML VIAL IV PRN; ONDANSETRON 4 MG/2 ML VIAL IVP ONE; Pre Op ABX Message 1 EACH MISC MISCELLANE ONE; fentaNYL (PF) 50 MCG/ML 2 ML AMP IV PRN
[2018-12-19 07:12] VITALS: TEMP 97.8
[2018-12-19] MEDS ORDERED: LACTATED RINGERS 1,000 ML IV ONE (07:17)
[2018-12-19 07:24] LABS: Glucose,Whole Blood 122 mg/dL (75-99)
[2018-12-19] MEDS ORDERED: PROPOFOL 10 MG/ML 20 ML VIAL IV ONE (08:00)
[2018-12-19] MEDS ORDERED: LIDOCAINE 1% INJ 10MG/ML (20 ML MDV) ONE (08:00)
[2018-12-19] MEDS ORDERED: fentaNYL (PF) 50 MCG/ML 2 ML AMP ONE (08:00)
[2018-12-19] MEDS ORDERED: MIDAZOLAM 2 MG/2 ML VIAL ONE (08:00)
[2018-12-19] MEDS ORDERED: LIDOCAINE 1% INJ 10MG/ML (20 ML MDV) SQ ONE (08:00)
[2018-12-19] MEDS ORDERED: NALOXONE 0.4 MG/ML 1 ML VIAL IV PRN (09:01)
--- NOTE | 2018-12-19 09:02 | P.OP ---
Date of Procedure: 12/19/18 Procedure(s) Performed: PREOPERATIVE DIAGNOSIS: GE junction adenocarcinoma POSTOPERATIVE DIAGNOSIS: Same PROCEDURE: Port-A-Cath placement SURGEON: Gerardo EBL: Minimal ANESTHESIA: Sedation COMPLICATIONS: None OPERATIVE PROCEDURE: Patient was brought and placed on the operative table in the supine position. The patient was sedated per anesthesia that time. The chest and neck were prepped and draped in usual sterile fashion. The ultrasound probe was used to identify the location of the right internal jugular vein. The skin was localized with lidocaine. The Seldinger needle was advanced into the IJ under ultrasound guidance. The wire was advanced through the needle under fluoroscopic guidance into the superior vena cava. A port pocket was created in the right infraclavicular location. The catheter was tunneled from the wire entrance site to the port pocket. The port was then connected to the catheter. The dilator introducer was threaded over the guidewire. The guidewire and dilator were then removed. The catheter was advanced through the introducer and introducer was then removed. The tip was seen to be in the right atrial junction. Port was flushed with both saline and a Hep-Lock solution. There was good flow both in and out of the port. The port was sutured in underlying tis sues using 3-0 silk sutures. The subcutaneous tissues were reapproximated using 3-0 Vicryl sutures and the skin at both locations using 4-0 Monocryl sutures. Skin glue and sterile dressings then applied. DISPOSITION: Stable to recovery room
--- NOTE | 2018-12-19 09:17 | FL ---
Fluoroscopy INDICATION: Pain FINDINGS: Fluoroscopy time: 11 seconds. Images obtained: 1. IMPRESSIONS: 1. Documentation of fluoroscopy.
[2018-12-19 09:24] LABS: Glucose,Whole Blood 132 mg/dL (75-99)
[2018-12-19 10:31] VITALS: RESP 18
--- NOTE | 2018-12-19 10:46 | XR ---
EXAMINATION TYPE: XR chest 1V portable DATE OF EXAM: 12/19/2018 COMPARISON: 11/17/2018 INDICATION: Mediport insertion TECHNIQUE: Single frontal view of the chest is obtained. FINDINGS: The heart size is normal. Multiple broken sternotomy wires are present. The pulmonary vasculature is normal. The lungs are clear. Port is been placed on the right with the tip in the region of the superior vena cava. No pneumothora x is evident. IMPRESSION: 1. No acute pulmonary process. 2. Placement of a right central venous catheter with tip in the superior vena cava region.
[2018-12-19 10:55] VITALS: BP 139/62; PULSE 61
== END 2018-12-19 11:19 | disposition home or self-care (01) ==
LOC: OR 06:41
PROVIDERS: ATTEND Surgery
DX: C16.0 Malignant neoplasm of cardia (principal); I25.10 Atherosclerotic heart disease of native coronary artery without angina pectoris; Z95.1 Presence of aortocoronary bypass graft; I25.2 Old myocardial infarction; I10 Essential (primary) hypertension; E11.9 Type 2 diabetes mellitus without complications; F32.9 Major depressive disorder, single episode, unspecified; E03.9 Hypothyroidism, unspecified; N20.0 Calculus of kidney; H54.40 Blindness, one eye, unspecified eye; C44.01 Basal cell carcinoma of skin of lip; F17.200 Nicotine dependence, unspecified, uncomplicated; Z79.02 Long term (current) use of antithrombotics/antiplatelets; Z79.890 Hormone replacement therapy; Z79.4 Long term (current) use of insulin; Z79.899 Other long term (current) drug therapy; Z85.528 Personal history of other malignant neoplasm of kidney; Z90.5 Acquired absence of kidney; Z85.46 Personal history of malignant neoplasm of prostate; Z90.79 Acquired absence of other genital organ(s); Z80.1 Family history of malignant neoplasm of trachea, bronchus and lung; Z80.3 Family history of malignant neoplasm of breast; Z81.8 Family history of other mental and behavioral disorders
CPT/HCPCS: 36561; 77001; 76937; C1788; J2250; J1100; J2405; J2001; J3010; J1642; J2704; 71045

== ENCOUNTER → 2019-03-02 | Outpatient (CLI) | payer MEDICAID ==
--- NOTE | 2019-03-05 10:59 | PE ---
Nuclear medicine PET/CT HISTORY: Esophageal carcinoma, subsequent Patient received 12.3 mCi F-18 FDG intravenously in delayed scanning was performed from skull base to the mid thighs. Localization and attenuation correction CT scan was performed. Correlation to prior nuclear medicine PET/CT dated 12/08/2018 Neck and chest: There is no suspicious hypermetabolic uptake. No evident adenopathy along the cervica l or supraclavicular regions, no mediastinal, axillary, or hilar adenopathy. Coronary artery calcific ations present. No evident lung mass. No pleural or pericardial effusion. Some pleural thickening emiliana ng the left lateral chest margin at the level of the lingula is stable and likely reflects scarring. Port-A-Cath present via right jugular approach, port in the right pectoral region, tip of the cathete r is at the level of the distal superior vena cava. Patient is post median sternotomy. There are frac tured sternal wires, nonunion is present ABDOMEN: There is some thickening of the distal esophagus, there is some associated hypermetabolic up take along the distal esophagus, cardia the stomach stenting towards the body, SUV is 5.3 with some a ssociated wall thickening as compared to prior SUV 4.8. Nonobstructive calculus present at the lower pole the right kidney, suspect there are some additional punctate nonobstructive calculi, there are a lso vascular calcifications. No evident liver mass on this noncontrast exam, however, the medial aspe ct of the right lobe of liver immediately adjacent to the abnormal esophagus there is some mild uptak e noted, SUV 3.4. No retroperitoneal adenopathy or ascites. Aorta shows atheromatous change. Fat-cont aining area along the right flank the inferior margin of the posterior aspect of the liver shows some associated calcification, nonaggressive appearance and no associated hypermetabolic uptake, may be p ostprocedural. The urinary bladder shows a thickened wall and is irregular in appearance. Patient is likely post pro statectomy, multiple surgical clips present. Postop changes are noted to the left groin. No suspiciou s hypermetabolic uptake. Osseous structures are unremarkable. IMPRESSION: Uptake along the stomach and distal esophagus may be related to patient's diagnosis or tr eatment. There is some mild uptake along the medial aspect of the right lobe of the liver as describe d. Additional findings above.
== END | disposition home or self-care (01) ==
LOC: RADPETMAIN 09:31
PROVIDERS: ATTEND Internal Medicine Hematology & Oncology
DX: C15.5 Malignant neoplasm of lower third of esophagus (principal); I25.10 Atherosclerotic heart disease of native coronary artery without angina pectoris; J92.9 Pleural plaque without asbestos; N20.0 Calculus of kidney; I70.0 Atherosclerosis of aorta; K76.89 Other specified diseases of liver; R93.41 Abnormal radiologic findings on diagnostic imaging of renal pelvis, ureter, or bladder; Z92.21 Personal history of antineoplastic chemotherapy; Z96.89 Presence of other specified functional implants; Z95.828 Presence of other vascular implants and grafts; Z98.890 Other specified postprocedural states
CPT/HCPCS: 78815; A9552

== ENCOUNTER → 2019-03-26 | Outpatient (CLI) | payer MEDICAID | END | disposition home or self-care (01) | LOC: CPPFTMAIN 10:09 | PROVIDERS: ATTEND Thoracic Surgery (Cardiothoracic Vascular Surgery) | DX: Z01.818 Encounter for other preprocedural examination (principal); C15.9 Malignant neoplasm of esophagus, unspecified | CPT/HCPCS: 94060; 94726; 94729 ==

== ENCOUNTER → 2019-03-28 | Outpatient (CLI) | payer MEDICAID ==
[~2019-03-28] MED LIST changes: -DEXAMETHASONE SOD PHOSPHATE 10 MG/ML 1 ML VIAL IV ONE; -HEPARIN SODIUM,PORCINE 5,000 UNIT/ML 1 ML VIAL SQ ONE; -HYDROmorphone 0.5 MG/0.5 ML SYRINGE IVP PRN; -LACTATED RINGERS 1,000 ML IV SCH; -LIDOCAINE 1% 20 ML VIAL (10MG/ML) FOR IV START INTRADERMA PRN; -MIDAZOLAM 2 MG/2 ML VIAL IV PRN; -ONDANSETRON 4 MG/2 ML VIAL IVP ONE; -Pre Op ABX Message 1 EACH MISC MISCELLANE ONE; +REGADENOSON 0.4 MG/5 ML SYRINGE IV ONE; -fentaNYL (PF) 50 MCG/ML 2 ML AMP IV PRN
--- NOTE | 2019-03-28 12:28 | EST ---
EXERCISE STRESS AGE: 68 SEX: M HT: 66" WT: 165 PROTOCOL: Lexiscan Cardiolite Stress Test. HEART RATE REST: 60 BLOOD PRESSURE REST: 137/59 MAXIMUM HEART RATE ACHIEVED: 72 MAXIMUM BLOOD PRESSURE: 137/59 INDICATIONS: Preoperative cardiac evaluation. CLINICAL INFORMATION: Baseline EKG shows sinus rhythm, normal axis, normal intervals. The patient was given intravenous Lexiscan as per protocol. Did not have chest pain or diagnostic ST-segment depression. CONCLUSION: 1. Negative stress test by EKG criteria. 2. Cardiolite portion of the stress test will be reported separately. MMODL / IJN: [id number] /
--- NOTE | 2019-03-28 13:03 | NM ---
EXAMINATION TYPE: NM stress lexiscan cardiolite DATE OF EXAM: 03/28/2019 COMPARISON: NONE HISTORY: Preoperative examination. TECHNIQUE: After the intravenous administration of 10.65 mCi Tc 99m Sestamibi - Cardiolite resting S PECT images acquired 60 minutes post injection. The patient received 0.4mg Lexiscan, 26 mCi Tc 99m Sestamibi - Stress images obtained 30 minutes post injection FINDINGS: Review of stress and rest SPECT images demonstrates no distinct reversible abnormality. Fixed defect s are seen in the ventricular apex and septal wall, small involving approximately 3 segments. Apical defect likely represents physiologic apical thinning whereas the septal defect represents prior infar ct. Gated analysis shows hypokinesis of the septal wall with an estimated left ventricular ejection f raction of 60 %. TID is within normal limits calculated at 1.0. IMPRESSION: 1. No scintigraphic evidence for reversible ischemia. 2. 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
== END | disposition home or self-care (01) ==
LOC: RADNMMAIN 08:41
PROVIDERS: ATTEND Thoracic Surgery (Cardiothoracic Vascular Surgery)
DX: Z01.818 Encounter for other preprocedural examination (principal); C15.9 Malignant neoplasm of esophagus, unspecified; I25.2 Old myocardial infarction
CPT/HCPCS: 93017; 78452; A9500; J2785

== ENCOUNTER → 2019-06-22 | Outpatient (CLI) | payer MEDICAID ==
--- NOTE | 2019-06-24 08:15 | PE ---
EXAMINATION TYPE: PET CT fusion skull to thigh DATE OF EXAM: 06/22/2019 COMPARISON: Prior PET/CT March 02, 2019 and older study December 08, 2018 HISTORY: Esophageal cancer progress study. Originally diagnosed December 2019 completed chemotherapy and radiation treatment February. TECHNIQUE: Following the intravenous administration of 11.96 mCi of F-18 FDG, whole body images are performed from the skull base to the midthigh. Images are reviewed on the computer in the coronal, a xial, and sagittal planes. Reconstructed rotating images are created on independent workstation and reviewed on the computer. A noncontrast correction CT is performed in conjunction with the PET scan . SCAN: Subsequent Scan FINDINGS: SKULL BASE AND NECK: No new areas of suspicious hypermetabolic uptake. CHEST, MEDIASTINUM, AND HILAR REGION: No recurrent areas of suspicious hypermetabolic uptake includin g along course of the esophagus. ABDOMEN AND PELVIS: Normal excretion is seen. Nonspecific bowel uptake. No new suspicious hypermetabo lic uptake. OSSEOUS STRUCTURES: No new areas of suspicious hypermetabolic uptake. OTHER CT: Moderate to severe calcified plaque right carotid bulb redemonstrated. Stable right internal jugular Mediport catheter. 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 Tiny nonobstructing bilateral renal calculi are redemonstrated. Surgical clips in the pelvis present from prostatectomy are redemonstrated. Small fat-containing left inguinal hernia. Surgical clips left groin region. Moderate to advanced atherosclerotic change aorta extending into branch vessels. Multilevel spinal spine. Facet arthropathy lower lumbar levels. IMPRESSION: No new areas of suspicious hypermetabolic uptake to suggest recurrent local or metastatic active malignancy.
== END | disposition home or self-care (01) ==
LOC: RADPETMAIN 11:23
PROVIDERS: ATTEND Internal Medicine Hematology & Oncology
DX: C15.5 Malignant neoplasm of lower third of esophagus (principal); Z92.21 Personal history of antineoplastic chemotherapy
CPT/HCPCS: 78815; A9552

== ENCOUNTER → 2020-05-11 | Outpatient (CLI) | payer MEDICARE ==
--- NOTE | 2020-05-11 17:13 | US ---
EXAMINATION TYPE: US carotid duplex BILAT DATE OF EXAM: 05/11/2020 COMPARISON: NONE CLINICAL HISTORY: R09.89 carotid bruit. Right carotid bruit per patient; CABG, smoker, HTN EXAM MEASUREMENTS: RIGHT: Peak Systolic Velocity (PSV) cm/sec ----- Right CCA: 77.0 ----- Right ICA: 123.8 proximal ----- Right ECA: 115.5 ICA/CCA ratio: 1.6 RIGHT: End Diastole cm/sec ----- Right CCA: 22.0 ----- Right ICA: 28.5 ----- Right ECA: 0.0 LEFT: Peak Systolic Velocity (PSV) cm/sec ----- Left CCA: 81.1 ----- Left ICA: 70.0 ----- Left ECA: 110.9 ICA/CCA ratio: 0.9 LEFT: End Diastole cm/sec ----- Left CCA: 11.1 ----- Left ICA: 23.1 ----- Left ECA: 9.8 VERTEBRALS (direction of flow): Right Vertebral: Antegrade Left Vertebral: Antegrade Rhythm: Normal Grayscale, color Doppler, spectral Doppler imaging performed of the carotid arteries. Elevated velocity noted within the common carotid artery on the right could be related to tortuosity. Irregular mixed plaque is seen at bilateral carotid bifurcation. Elevated PSV is noted in tortuous pr oximal Right CCA and in mid Left CCA with mild intimal wall thickening. IMPRESSION: No hemodynamic significant stenosis of the proximal internal carotid arteries by Doppler criteria, an indirect measurement of carotid stenosis. There are elevated, carotid artery velocities , carotid CTA or MRA may be of benefit. Criteria for Assigning % of Stenosis / Diameter reduction (Estimation based on the indirect measurements of the internal carotid artery velocities (ICA PSV). 1. Normal (no stenosis)=ICA PSV < 125 cm/s: ratio < 2.0: ICA EDV<40 cm/s. 2. Less than 50% stenosis=ICA PSV < 125 cm/s: ratio < 2.0: ICA EDV<40 cm/s. 3. 50 to 69% stenosis=ICA PSV of 125 to 230 cm/s: ration 2.0 ? 4.0: ICA EDV 40-100 cm/s. 4. Greater than 70% stenosis to near occlusion= ICA PSV > 230 cm/s: ratio > 4.0: ICA EDV > 100 cm/s. 5. Near occlusion= ICA PSV velocities may be low or undetectable: variable ratio and ICA EDV. 6. Total occlusion=unable to detect flow.
== END | disposition home or self-care (01) ==
LOC: RADUSWWP 16:17
PROVIDERS: ATTEND Family Medicine
DX: R09.89 Other specified symptoms and signs involving the circulatory and respiratory systems (principal)
CPT/HCPCS: 93880

== ENCOUNTER → 2020-05-15 | Outpatient (CLI) | payer MEDICARE ==
--- NOTE | 2020-05-19 17:13 | PE ---
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 Also diagnosed with esophageal cancer in October 2018 with completion of radiation and chemotherapy in February 2019. TECHNIQUE: Following the intravenous administration of 13.1 mCi of F-18 FDG, whole body images are performed from the skull base to the midthigh. Images are reviewed on the computer in the coronal, a xial, and sagittal planes. Reconstructed rotating images are created on independent workstation and reviewed on the computer. A localization and attenuation correction CT is performed in conjunction with the PET scan. Glucose level: 184 mg/dL Injection site: Right AC COMPARISON: 06/22/2019, 03/02/2019. FINDINGS: PET: There is increasing soft tissue nodularity along the medial right supraclavicular region and extendin g down into the right mediastinum axial images 61 through 72). However, this does not show any discre te increased FDG uptake. Otherwise, no cervical lymphadenopathy is seen. Mildly enlarged precarinal and lower right peritracheal lymph nodes measuring up to 1.2 cm, increased from 5 mm, previously, but again, not showing any discrete increased FDG uptake. Redemonstrated round masses within the dorsal subcutaneous layer of the left arm measuring 2.8 and 1. 6 cm. These continue to show [id number] increased FDG uptake, max SUV 3.2. Moderate circumferential thickening distal esophagus. Adjacent focal opacity at the medial left base measuring 5.4 x 3.1 cm should be reassessed on follow-up. No discrete FDG uptake here. Possible postt reatment change. Average liver SUV 2.0. Mild diffuse thickening of the left internal gland without discrete FDG uptake, unchanged. Oval area of mixed fatty and soft tissue density along the right lateral pararenal space measuring 3. 7 x 1.7 cm, unchanged from 06/22/2019, possible old postinflammatory or postsurgical sequela. No discr ete FDG uptake. Increasing size of left periaortic retroperitoneal lymph nodes currently measuring up to 1.6 cm, refe r to axial image 174. 1.3 cm aortocaval lymph node, axial image 172. No discrete FDG uptake. Physiologic FDG uptake within the abdomen and pelvis. ATTENUATION CORRECTION CT: Visualized intracranial structures, paranasal sinuses and mastoid air cells are clear. Orotracheal co lumn is clear. And discarded calcifications of the bilateral carotid bifurcations. Right anterior merry st wall injection port catheter tip at the lower SVC. Heart borderline in size without pericardial effusion. Median sternotomy wires are present but there is sternal dehiscence. Retained epicardial pacer leads. Mild to moderate atherosclerotic arch calcifi cations. Conventional arch vessel branching anatomy. There is moderate diffuse bronchial wall thicken ing, increased from 06/22/2019. Mild underlying centrilobular emphysema. Patchy opacity inferior lingu la slightly increased. Trace left pleural effusion. Some septal lines in the mid and lower lungs. Nonobstructive 4 mm right renal calculus. No dilated small bowel, free fluid, free air. Moderate to s evere atherosclerotic change infrarenal abdominal aorta and iliac arteries with a left common iliac a rtery stent noted. Wrey-lq-oeeaqnlx stool throughout the colon. Proximal sigmoid diverticulosis witho ut pericolonic inflammatory change. Moderate to severe circumferential bladder wall thickening. Surgical clips from prior prostatectomy. No abnormal fluid collection in the pelvis or pelvic adenopathy. Some vascular postsurgical change in the left inguinal region. Bones: Stable peripherally sclerotic centrally lucent lesion within the intertrochanteric proximal ri ght femur without any discrete FDG uptake. IMPRESSION: 1. Increasing soft tissue in the medial right supraclavicular region extending down into the right pineda perior mediastinum could represent lymphadenopathy (reactive or postinflammatory) and shows no discre te FDG uptake. CT follow-up is recommended. If persistent increase in size, tissue sampling will be r ecommended. 2. Mildly enlarged precarinal and lower right paratracheal lymph nodes measuring up to 1.2 cm have in creased in size versus 5 mm, previously. Again, no associated hypermetabolism. CT follow-up recommend ed. 3. Moderate circumferential wall thickening distal esophagus. There is adjacent focal opacity at the medial left base measuring 5.4 x 3.1 cm. This also does not show any discrete FDG uptake. Possible po st radiation therapy change given patient's history of esophageal cancer. CT follow-up recommended. L ow-grade neoplasm of the lung is not excluded at this time. 4. A couple retroperitoneal lymph nodes also show increase in size measuring up to 1.6 cm left para-a ortic and 1.3 cm aortocaval. Possibly reactive/post inflammatory. No associated FDG uptake. Again, CT follow-up recommended. 5. A couple stable, mildly hypermetabolic masses in the subcutaneous adipose layer of the dorsal left arm measuring 2.8 and 1.6 cm. If no prior workup, recommend physical exam correlation and possible t argeted ultrasound. 6. Borderline heart size, some septal lines in the lower lungs, and trace right effusion. Correlate f or any signs/symptoms of fluid overload state/mild CHF. 7. Bladder wall thickening may be chronic in this patient. Clinically to exclude cystitis.
== END | disposition home or self-care (01) ==
LOC: RADPETMAIN 14:46
PROVIDERS: ATTEND Family Medicine
DX: K22.8 Other specified diseases of esophagus (principal); M79.89 Other specified soft tissue disorders; R59.9 Enlarged lymph nodes, unspecified; R91.8 Other nonspecific abnormal finding of lung field; N32.89 Other specified disorders of bladder; N30.90 Cystitis, unspecified without hematuria
CPT/HCPCS: 78815; A9552

== ENCOUNTER 2020-05-29 05:26 | Emergency (ER) | payer MEDICARE ==
[2020-05-29] MEDS ORDERED: GLUCAGON 1 MG/ML VIAL IVP STA (06:01)
--- NOTE | 2020-05-29 06:40 | ED ---
General Adult HPI - General Source: patient Mode of arrival: ambulatory Limitations: no limitations - History of Present Illness -: hour(s) Location: chest Radiation: non-radiation Quality: dull Consistency: constant Improves with: none Worsens with: none Associated Symptoms: nausea/vomiting Treatments Prior to Arrival: none <Toni Esparza - Last Filed: 05/29/20 06:06> <Dwayne Nelson - Last Filed: 05/29/20 09:56> - General Chief complaint: ENT Stated complaint: Trouble Swallowing Time Seen by Provider: 05/29/20 05:42 - History of Present Illness Initial comments: This patient is 69-year-old man who presents to be evaluated for suspected esophageal food impaction. Patient states that he had been eating turkey last night. He states he was able to swallow but then on the second bite he felt like something lodged. He indicates the low retrosternal area. The patient states she was not able to eat or drink anything after that. He states that when he tries to drink even liquids he will regurgitate liquid. This has happened a couple of times within the past month but she states she was able to clear things at home. Tonight things did not clear so he presents here. In addition the patient states that he has past history of malignancy at the border of the esophagus and stomach. This was found in 2017 and he finished treatment in February 2019. The patient states that he did have a PET scan for follow-up approximately 10 days ago and was told that there was no suspicious uptake. (Toni Esparza) - Related Data Home Medications Medication Instructions Recorded Confirmed Losartan [Cozaar] 100 mg PO QAM 06/05/15 12/17/18 Atorvastatin [Lipitor] 20 mg PO HS 02/22/16 12/17/18 Carvedilol [Coreg] 25 mg PO BID 02/22/16 12/17/18 Nitroglycerin Sl Tabs [Nitrostat] 0.4 mg SL DIRECTED PRN 02/22/16 12/17/18 Spironolactone [Aldactone] 25 mg PO BID 02/22/16 12/17/18 DULoxetine HCL [Cymbalta] 90 mg PO DAILY 11/19/18 12/17/18 INSULIN LISPRO (humaLOG) [humaLOG] See Protocol PO ACHS 11/19/18 12/17/18 Levothyroxine Sodium [Synthroid] 25 mcg PO DAILY 11/19/18 12/17/18 Levothyroxine Sodium [Synthroid] 200 mcg PO DAILY 11/19/18 12/17/18 Cephalexin [Keflex] 500 mg PO Q12HR 12/17/18 12/17/18 Clopidogrel [Plavix] 75 mg PO DAILY 12/17/18 12/17/18 Insulin Glargine [Lantus] 80 unit SQ AC-BRKFST 12/17/18 12/17/18 amLODIPine [Norvasc] 10 mg PO DAILY 12/17/18 12/17/18 Previous Rx's Medication Instructions Recorded Pantoprazole [Protonix] 40 mg PO BID 12 Days #24 tablet. 11/17/18 Ipratropium/Albuterol Sulfate 2 puff INHALATION QID #1 inhaler 11/21/18 [Combivent Respimat Inhaler] Allergies Allergy/AdvReac Type Severity Reaction Status Date / Time No Known Allergies Allergy Verified 05/29/20 05:41 Review of Systems ROS Other: All systems not noted in ROS Statement are negative. Constitutional: Denies: fever Respiratory: Denies: cough, dyspnea Cardiovascular: Reports: chest pain. Denies: palpitations, orthopnea, syncope Gastrointestinal: Reports: nausea, vomiting. Denies: abdominal pain, diarrhea, hematemesis Genitourinary: Denies: dysuria, hematuria Musculoskeletal: Denies: back pain Skin: Denies: rash Neurological: Denies: headache <Toni Esparza - Last Filed: 05/29/20 06:06> ROS Other: All systems not noted in ROS Statement are negative. <Dwayne Nelson - Last Filed: 05/29/20 09:56> ROS Statement: Those systems with pertinent positive or pertinent negative responses have been documented in the HPI. Past Medical History Past Medical History: Coronary Artery Disease (CAD), Cancer, Diabetes Mellitus, Eye Disorder, GI Bleed, Hyperlipidemia, Hypertension, Myocardial Infarction (AR), Prostate Disorder, Sleep Apnea/CPAP/BIPAP, Syncope, Thyroid Disorder, Vascular Disorder Additional Past Medical History / Comment(s): Prostate, renal cell, and basal cell cancers. HX kidney stones. Right eye blind. GE CA Currently. Uses CPAP. Last Myocardial Infarction Date:: MAY 2015 History of Any Multi-Drug Resistant Organisms: None Reported Past Surgical History: Coronary Bypass/CABG, Heart Catheterization, Prostate Surgery Additional Past Surgical History / Comment(s): Partial Rt nephrectomy, Lt fem pop bypass in 04/07, which became infected and his is still on oral abx. PROCEDURE OF BASAL CELL OF UPPER LIP. Radical Prostatectomy. CABG X5. EGD, Colonoscopy 11/21/18. Past Anesthesia/Blood Transfusion Reactions: No Reported Reaction Past Psychological History: Depression Smoking Status: Current every day smoker Past Alcohol Use History: None Reported Past Drug Use History: None Reported - Past Family History Father Additional Family Medical History / Comment(s): killed in war Mother Family Medical History: Diabetes Mellitus Additional Family Medical History / Comment(s): Breast, lung cancer Brother(s) Additional Family Medical History / Comment(s): suicide Sister(s) Family Medical History: Cancer Additional Family Medical History / Comment(s): breast cancer <Toni Esparza - Filed: 05/29/20 06:06> General Exam Limitations: no limitations General appearance: alert, in no apparent distress Head exam: Present: atraumatic, normocephalic Eye exam: Present: normal appearance ENT exam: Present: normal oropharynx Neck exam: Present: normal inspection, full ROM Respiratory exam: Present: normal lung sounds bilaterally. Absent: respiratory distress, wheezes, rales, rhonchi, stridor Cardiovascular Exam: Present: regular rate, normal rhythm, normal heart sounds. Absent: systolic murmur, diastolic murmur, rubs, gallop GI/Abdominal exam: Present: soft. Absent: distended, tenderness, guarding, rebound, rigid, mass Extremities exam: Present: normal inspection, normal capillary refill. Absent: pedal edema, calf tenderness Back exam: Present: normal inspection. Absent: CVA tenderness (R), CVA tenderness (L) Neurological exam: Present: alert Skin exam: Present: warm, dry, intact, normal color. Absent: rash <Toni Esparza - Last Filed: 05/29/20 06:06> Course Vital Signs 05/29/20 05/29/20 05/29/20 05:41 07:00 09:24 Temperature 98.6 F Pulse Rate 83 75 Respiratory 16 18 18 Rate Blood Pressure 188/88 157/79 170/85 O2 Sat by Pulse 98 97 Oximetry Medical Decision Making <Toni Esparza - Last Filed: 05/29/20 06:06> <Dwayne Nelson - Last Filed: 05/29/20 09:56> - Medical Decision Making Patient is 69-year-old man presenting with esophageal food impaction. Patient is given glucagon here with no success. Have paged gastroenterology. (Toni Esparza) Dr. Johnson came down and saw the patient and remove the foreign body via endoscopy. Patient will follow-up with Dr. Johnson as an outpatient (Dwayne Nelson) - Lab Data Lab Results 05/29/20 Range/Units 07:13 POC Glucose (mg/dL) 247 H (75-99) mg/dL POC Glu Public Address System Installer ID Brit Trevino Disposition <Toni Esparza - Last Filed: 05/29/20 06:06> Is patient prescribed a controlled substance at d/c from ED?: No Time of Disposition: 09:56 <Dwayne Nelson - Last Filed: 05/29/20 09:56> Clinical Impression: Esophageal foreign body, Esophageal stricture Disposition: HOME SELF-CARE Condition: Good Instructions (If sedation given, give patient instructions): Esophageal Foreign Body (ED) Referrals: Ronit Alonzo MD [STAFF PHYSICIAN] - 1-2 days
[2020-05-29 07:12] VITALS: RESP 18
[2020-05-29 07:15] LABS: Glucose,Whole Blood 247 mg/dL (75-99)
[2020-05-29] MEDS ORDERED: INSULIN REGULAR 100 UNIT/ML VIAL SQ ONE (07:15)
[2020-05-29] MEDS ORDERED: PROPOFOL 10 MG/ML 20 ML VIAL IV ONE (09:19)
[2020-05-29] MEDS ORDERED: LIDOCAINE 1% INJ 10MG/ML (20 ML MDV) ONE (09:19)
[2020-05-29] MEDS ORDERED: SODIUM CHLORIDE 0.9% 500 ML 500 ML IV ONE (09:25)
--- NOTE | 2020-05-29 10:10 | P.PCN ---
Date of Procedure: 05/29/20 Procedure(s) Performed: BRIEF HISTORY: Patient is a 69-year-old, pleasant, white male with history of esophageal cancer diagnosed in 2019 status post chemoradiation therapy and in remission. Prevacid emergency room early this morning after he ate a sandwich 30 sandwich last 7 could not swallow any further. He scheduled for an upper endoscopy foreign body removal. PROCEDURE PERFORMED: Esophagogastroduodenoscopy with foreign body removal PREOPERATIVE DIAGNOSIS: Acute food impaction. IV sedation per anesthesia. PROCEDURE: After informed consent was obtained, the patient was brought into the endoscopy unit. IV sedation was administered by Anesthesia under continuous monitoring. Initially the Olympus GIF-140 video endoscope was inserted into the mouth. Esophagus intubated without any difficulty. It was gradually advanced into the distal esophagus and there was a large food bolus impacted in the distal esophagus. Using a snare and brought out was able to retrieve the impacted meat along with the scope out of the mouth. Subsequently there was small amount of food pieces in the proximal esophagus was gently pushed into the stomach stomach and duodenum and carefully examined. The bulb and the second part of the duodenum appeared normal. The scope at this time was withdrawn to the stomach, adequately insufflated with air, and upon careful examination, mucosa of the antrum, body, cardia and the fundus appeared normal. The scope was then withdrawn into the esophagus. The GE junction was located at 42 cm from the incisors. There was early distal esophageal stricture identified but he did not impede the passage of the scope. The mucosa was slightly friable consistent with radiation esophagitis. There was no evidence of recurrent mass. The rest of the esophagus appeared normal. There were no erosions or ulcerations seen and the patient tolerated the procedure well. IMPRESSION: 1. Distal esophageal early stricture secondary to radiation but no evidence of esophageal mass. 2. Large piece of food bolus in the distal esophagus status post removal as described above. RECOMMENDATIONS: The findings of this examination were discussed with the patient as well as his family. He was advised to have a soft diet today. He'll be seen in office in 2-3 weeks and will plan on upper endoscopy with possible dilation in the near future.
[2020-05-29 10:25] VITALS: BP 123/80; PULSE 73; TEMP 98
--- NOTE | 2020-05-29 10:33 | CONS ---
CONSULTATION DATE OF DICTATION: May 29, 2020. REASON FOR CONSULTATION: Acute food impaction. HISTORY OF PRESENT ILLNESS: The patient is a 69-year-old pleasant white male with history of esophageal cancer diagnosed 2 years ago, status post chemo radiation and in clinical remission. He was eating turkey sandwich last night for dinner and could not swallow any further. He came to the emergency room early this morning and we are consulted for emergency upper endoscopy. The patient has been having intermittent dysphagia to solids for the last one month duration. He never had food impaction in the past. Last EGD in 2018 after his chemoradiation showed no esophageal stricture. The patient denies any heartburn. PAST MEDICAL HISTORY: Significant for hypertension, esophageal cancer as mentioned above, hyperlipidemia, diabetes mellitus, hypothyroidism. MEDICATIONS: Medications at home include Norvasc, Lantus, Plavix, Keflex, Synthroid, Humalog, Cymbalta, Aldactone, Nitrostat, Coreg, Lipitor and Cozaar. ALLERGIES: None. SOCIAL HISTORY: There is remote history of smoking. No alcohol use. FAMILY HISTORY: Unremarkable. REVIEW OF SYSTEMS: CARDIOPULMONARY: He denies any chest pain or shortness of breath. GENITOURINARY: No dysuria or hematuria. MUSCULOSKELETAL: Unremarkable. SKIN: Unremarkable. ENDOCRINE: Unremarkable. PSYCHIATRIC: Unremarkable. NEUROLOGY: Unremarkable. ENT/VISION: Unremarkable. CONSTITUTIONAL: No recent weight loss. No fever, chills, night sweats. ONCOLOGY: Patient states that he just had a PET scan done 10 days ago and it showed pleural effusion. PAST SURGICAL HISTORY: CABG, prostate surgery, right nephrectomy, femoral-popliteal bypass, radical prostatectomy. FAMILY HISTORY: Mother had breast cancer and lung cancer. PHYSICAL EXAMINATION: On physical examination, he appears comfortable, no apparent distress. Vital signs are stable. Blood pressure 170/85, pulse rate 75, temperature 98.6. HEENT EXAMINATION: Unremarkable. Conjunctivae pink. Sclerae anicteric. Oral cavity, no lesions. NECK: No JVD or lymph node enlargement. CHEST: Was clear to auscultation. HEART: Regular rate and rhythm. ABDOMEN: Is soft. Bowel sounds are positive. No organomegaly. EXTREMITIES: No pedal edema. SKIN: No rashes. NEURO: Alert and oriented x3. No focal deficits. LABS: No labs available. IMPRESSION: 1. Acute food impaction. 2. History of esophageal cancer diagnosed in 2019, status post chemo radiation therapy and in clinical remission. RECOMMENDATIONS: Will proceed with EGD with foreign body removal at the bedside. I discussed with the patient risks, benefits and complications and he is agreeable to it. Thank you for this consultation. [place] / ANGEL LUIS: [phone] /
== END 2020-05-29 10:25 | disposition home or self-care (01) ==
LOC: EC 05:26
DX: T18.128A Food in esophagus causing other injury, initial encounter (principal); F32.9 Major depressive disorder, single episode, unspecified; I25.10 Atherosclerotic heart disease of native coronary artery without angina pectoris; E11.9 Type 2 diabetes mellitus without complications; E78.5 Hyperlipidemia, unspecified; I10 Essential (primary) hypertension; I25.2 Old myocardial infarction; G47.33 Obstructive sleep apnea (adult) (pediatric); E07.9 Disorder of thyroid, unspecified; Z79.4 Long term (current) use of insulin; Z79.899 Other long term (current) drug therapy; Z79.02 Long term (current) use of antithrombotics/antiplatelets; Z79.890 Hormone replacement therapy; Z95.1 Presence of aortocoronary bypass graft; Z90.5 Acquired absence of kidney; Z85.46 Personal history of malignant neoplasm of prostate; Z85.528 Personal history of other malignant neoplasm of kidney; Z85.828 Personal history of other malignant neoplasm of skin; F17.200 Nicotine dependence, unspecified, uncomplicated; Z80.3 Family history of malignant neoplasm of breast; Z92.3 Personal history of irradiation; Z92.21 Personal history of antineoplastic chemotherapy
CPT/HCPCS: 36415; 99284; 96374; 43247; J1610; J2001; J2704

== ENCOUNTER 2020-06-22 08:50 | Day surgery (SDC) | payer MEDICARE ==
[2020-06-22 09:41] VITALS: RESP 16; TEMP 98.2
[2020-06-22 12:00] VITALS: BP 149/73; PULSE 68
--- NOTE | 2020-06-22 12:18 | US ---
EXAMINATION TYPE: US biopsy lymph node DATE OF EXAM: 06/22/2020 HISTORY: Abnormal PET/CT, supraclavicular adenopathy. FINDINGS: Maximal barrier technique was utilized. Hand hygiene achieved with soap and water and alco hol-based hand rub. The skin overlying a suitable path to the patient's adenopathy in the right supra clavicular location was localized with ultrasound and the overlying skin prepped and draped. Ultraso und was utilized with sterile technique. Lidocaine was used for local anesthesia. A skin izzy was m zayda with a scalpel. An 18-gauge needle was advanced under direct ultrasound guidance and core specim en obtained of the mass. 2passes were made, one pass submitted in formalin, additional pass on wet Te lfa. Following the procedure, hemostasis achieved and the patient is discharged in stable condition without complication. Impression: status POST ULTRASOUND GUIDED CORE BIOPSY OF right supraclavicular MASS, PATHOLOGY IS MOMO MOTLEY. THIS PROCEDURE IS PERFORMED BY THE UNDERSIGNED.
== END 2020-06-22 11:45 | disposition home or self-care (01) ==
LOC: RADPROMAIN 08:50
PROVIDERS: ATTEND Internal Medicine Hematology & Oncology
DX: C77.0 Secondary and unspecified malignant neoplasm of lymph nodes of head, face and neck (principal); Z79.890 Hormone replacement therapy; Z79.4 Long term (current) use of insulin; Z79.899 Other long term (current) drug therapy; Z95.1 Presence of aortocoronary bypass graft; Z90.5 Acquired absence of kidney; Z90.79 Acquired absence of other genital organ(s); Z98.890 Other specified postprocedural states; Z80.3 Family history of malignant neoplasm of breast; Z80.1 Family history of malignant neoplasm of trachea, bronchus and lung; Z86.19 Personal history of other infectious and parasitic diseases; Z87.891 Personal history of nicotine dependence; D50.9 Iron deficiency anemia, unspecified
CPT/HCPCS: 38505; 76942; 88305; 88341; 88342

== ENCOUNTER 2020-07-10 08:59 | Emergency (ER) | payer MEDICARE ==
[2020-07-10 09:05] VITALS: TEMP 97.7
[2020-07-10] MEDS ORDERED: methylPREDNISolone SOD SUCCI 125 MG/2 ML VIAL IV STA (09:19)
[2020-07-10] MEDS ORDERED: IPRATROPIUM 0.5 MG/2.5 ML NEBU INHALATION STA (09:19)
[2020-07-10] MEDS ORDERED: ALBUTEROL NEBULIZED 2.5 MG/3 ML INHALATION STA (09:19)
--- NOTE | 2020-07-10 09:26 | ED ---
General Adult HPI - General Chief complaint: Shortness of Breath Stated complaint: ALBERT Time Seen by Provider: 07/10/20 09:00 Source: patient, RN notes reviewed, old records reviewed Mode of arrival: wheelchair Limitations: no limitations - History of Present Illness Initial comments: This is a 69-year-old male who has metastatic gastroesophageal cancer. Patient states he resume treatment a week ago. Patient states he's been getting more more short of breath since April but over the last few days is worse. Patient denies any fever chills per patient states he's got quite a cough. Patient denies any chest pain or palpitations. Patient abdominal pain. Patient denies any fever and states his cough is still persistent but no change. Patient states he has metastatic disease to the lymph nodes as well as his long. Patient states he has been a smoker for years and continues to smoke. - Related Data Home Medications Medication Instructions Recorded Confirmed Losartan [Cozaar] 50 mg PO QAM 06/05/15 06/18/20 Carvedilol [Coreg] 25 mg PO BID 02/22/16 06/18/20 Nitroglycerin Sl Tabs [Nitrostat] 0.4 mg SL DIRECTED PRN 02/22/16 06/18/20 DULoxetine HCL [Cymbalta] 90 mg PO DAILY 11/19/18 06/18/20 Levothyroxine Sodium [Synthroid] 50 mcg PO DAILY 11/19/18 06/18/20 Levothyroxine Sodium [Synthroid] 200 mcg PO DAILY 11/19/18 06/18/20 Cephalexin [Keflex] 500 mg PO Q12HR 12/17/18 06/18/20 Insulin Glargine [Lantus] 40 unit SQ [id number] 12/17/18 06/18/20 amLODIPine [Norvasc] 5 mg PO DAILY 12/17/18 06/18/20 Cholecalciferol (Vitamin D3) 4,000 unit PO DAILY 06/18/20 06/18/20 [Vitamin D3 (4,000 Iu)] Insulin NPH Human Isophane 0 units SQ DAILY 06/18/20 06/22/20 [Novolin N Flexpen] Previous Rx's Medication Instructions Recorded Ipratropium/Albuterol Sulfate 2 puff INHALATION QID #1 inhaler 11/21/18 [Combivent Respimat Inhaler] predniSONE [Deltasone] 40 mg PO DAILY #8 tab 07/10/20 Allergies Allergy/AdvReac Type Severity Reaction Status Date / Time No Known Allergies Allergy Verified 07/10/20 09:00 Review of Systems ROS Statement: Those systems with pertinent positive or pertinent negative responses have been documented in the HPI. ROS Other: All systems not noted in ROS Statement are negative. Past Medical History Past Medical History: Coronary Artery Disease (CAD), Cancer, Diabetes Mellitus, Eye Disorder, GI Bleed, Hyperlipidemia, Hypertension, Myocardial Infarction (RI), Prostate Disorder, Sleep Apnea/CPAP/BIPAP, Syncope, Thyroid Disorder, Vascular Disorder Additional Past Medical History / Comment(s): Prostate, renal cell, and basal cell cancers. GastroEsophageal cancer. - treated with chem/rad october 2018 HX kidney stones. Right eye blind. GE CA Currently. Uses CPAP. esophageal stricture Last Myocardial Infarction Date:: MAY 2015 History of Any Multi-Drug Resistant Organisms: None Reported Past Surgical History: Coronary Bypass/CABG, Heart Catheterization, Prostate Ok sohan Additional Past Surgical History / Comment(s): Partial Rt nephrectomy, Lt fem pop bypass in 04/07, which became infected and his is still on oral abx. PROCEDURE OF BASAL CELL OF UPPER LIP. Radical Prostatectomy. CABG X5. EGD, Colonoscopy 11/21/18. Past Anesthesia/Blood Transfusion Reactions: No Reported Reaction Past Psychological History: Depression Smoking Status: Current every day smoker Past Alcohol Use History: None Reported Past Drug Use History: None Reported - Past Family History Father Additional Family Medical History / Comment(s): killed in war Mother Family Medical History: Diabetes Mellitus Additional Family Medical History / Comment(s): Breast, lung cancer Brother(s) Additional Family Medical History / Comment(s): suicide Sister(s) Family Medical History: Cancer Additional Family Medical History / Comment(s): breast cancer General Exam - General Exam Comments Initial Comments: GENERAL: Patient is well-developed and well-nourished. Patient is nontoxic and well- hydrated and is in mild distress. ENT: Neck is soft and supple. No significant lymphadenopathy is noted. Oropharynx is clear. Moist mucous membranes. Neck has full range of motion without eliciting any pain. EYES: The sclera were anicteric and conjunctiva were pink and moist. Extraocular movements were intact and pupils were equal round and reactive to light. Eyelids were unremarkable. PULMONARY: Unlabored respirations. Good breath sounds bilaterally. Patient has diffuse wheezing and some crackles particularly in the left base CARDIOVASCULAR: There is a regular rate and rhythm without any murmurs gallops or rubs. ABDOMEN: Soft and nontender with normal bowel sounds. SKIN: Skin is clear with no lesions or rashes and otherwise unremarkable. NEUROLOGIC: Patient is alert and oriented x3. Cranial nerves II through XII are grossly intact. Motor and sensory are also intact. Normal speech, volume and content. Symmetrical smile. MUSCULOSKELETAL: Normal extremities with adequate strength and full range of motion. No lower extremity swelling or edema. No calf tenderness. LYMPHATICS: No significant lymphadenopathy is noted PSYCHIATRIC: Normal psychiatric evaluation. Limitations: no limitations Course Vital Signs 07/10/20 07/10/20 07/10/20 09:00 09:38 09:57 Temperature 97.7 F Pulse Rate 94 76 Respiratory 22 24 Rate Blood Pressure 128/74 O2 Sat by Pulse 96 Oximetry 07/10/20 10:24 Temperature Pulse Rate 74 Respiratory Rate Blood Pressure O2 Sat by Pulse Oximetry Medical Decision Making - Medical Decision Making EKG shows sinus rhythm with occasional PVCs at a rate of 84 bpm [place] interval 220 QRS is 116 QT interval 392 QTC is 463. Patient's EKG shows no ST segment elevation or depression. Patient's chest x-ray shows lateral effusions and some atelectasis. After the patient received 2 breathing treatments and steroids the patient was breathing much better and her wheezing had improved but he still was wheezing. I spoke with the patient and he did not want to stay he wanted to be discharged home and he was breathing treatments at home. I gave the patient one more breathing treatment and discharge patient home. - Lab Data Result diagrams: 07/10/20 09:27 07/10/20 09:27 Lab Results 07/10/20 07/10/20 07/10/20 Range/Units 09:27 09:27 09:27 WBC 7.1 (3.8-10.6) k/uL RBC 5.94 H (4.30-5.90) m/uL Hgb 17.0 (13.0-17.5) gm/dL Hct 50.9 (39.0-53.0) % MCV 85.6 (80.0-100.0) fL MCH 28.5 (25.0-35.0) pg MCHC 33.3 (31.0-37.0) g/dL RDW 13.6 (11.5-15.5) % Plt Count 351 (150-450) k/uL MPV 7.9 Neutrophils % 81 % Lymphocytes % 13 % Monocytes % 3 % Eosinophils % 2 % Basophils % 1 % Neutrophils # 5.8 (1.3-7.7) k/uL Lymphocytes # 0.9 L (1.0-4.8) k/uL Monocytes # 0.2 (0-1.0) k/uL Eosinophils # 0.1 (0-0.7) k/uL Basophils # 0.1 (0-0.2) k/uL PT 11.7 (9.0-12.0) sec INR 1.1 (<1.2) APTT 25.4 (22.0-30.0) sec Sodium 135 L (137-145) mmol/L Potassium 3.5 (3.5-5.1) mmol/L Chloride 95 L (98-107) mmol/L Carbon Dioxide 30 (22-30) mmol/L Anion Gap 10 mmol/L BUN 14 (9-20) mg/dL Creatinine 0.86 (0.66-1.25) mg/dL Est GFR (CKD-EPI)AfAm >90 (>60 ml/min/1.73 sqM) Est GFR (CKD-EPI)NonAf 87 (>60 ml/min/1.73 sqM) Glucose 171 H (74-99) mg/dL Plasma Lactic Acid Darrin (0.7-2.0) mmol/L Calcium 9.5 (8.4-10.2) mg/dL Total Bilirubin 0.9 (0.2-1.3) mg/dL AST 22 (17-59) U/L ALT 10 (4-49) U/L Alkaline Phosphatase 107 (38-126) U/L Troponin I (0.000-0.034) ng/mL NT-Pro-B Natriuret Pep pg/mL Total Protein 7.4 (6.3-8.2) g/dL Albumin 4.1 (3.5-5.0) g/dL Coronavirus (PCR) (Not Detectd) 07/10/20 07/10/20 07/10/20 Range/Units 09:27 09:27 09:27 WBC (3.8-10.6) k/uL RBC (4.30-5.90) m/uL Hgb (13.0-17.5) gm/dL Hct (39.0-53.0) % MCV (80.0-100.0) fL MCH (25.0-35.0) pg MCHC (31.0-37.0) g/dL RDW (11.5-15.5) % Plt Count (150-450) k/uL MPV Neutrophils % % Lymphocytes % % Monocytes % % Eosinophils % % Basophils % % Neutrophils # (1.3-7.7) k/uL Lymphocytes # (1.0-4.8) k/uL Monocytes # (0-1.0) k/uL Eosinophils # (0-0.7) k/uL Basophils # (0-0.2) k/uL PT (9.0-12.0) sec INR (<1.2) APTT (22.0-30.0) sec Sodium (137-145) mmol/L Potassium (3.5-5.1) mmol/L Chloride (98-107) mmol/L Carbon Dioxide (22-30) mmol/L Anion Gap mmol/L BUN (9-20) mg/dL Creatinine (0.66-1.25) mg/dL Est GFR (CKD-EPI)AfAm (>60 ml/min/1.73 sqM) Est GFR (CKD-EPI)NonAf (>60 ml/min/1.73 sqM) Glucose (74-99) mg/dL Plasma Lactic Acid Darrin 1.3 (0.7-2.0) mmol/L Calcium (8.4-10.2) mg/dL Total Bilirubin (0.2-1.3) mg/dL AST (17-59) U/L ALT (4-49) U/L Alkaline Phosphatase (38-126) U/L Troponin I 0.018 (0.000-0.034) ng/mL NT-Pro-B Natriuret Pep 381 pg/mL Total Protein (6.3-8.2) g/dL Albumin (3.5-5.0) g/dL Coronavirus (PCR) (Not Detectd) 07/10/20 Range/Units 09:27 WBC (3.8-10.6) k/uL RBC (4.30-5.90) m/uL Hgb (13.0-17.5) gm/dL Hct (39.0-53.0) % MCV (80.0-100.0) fL MCH (25.0-35.0) pg MCHC (31.0-37.0) g/dL RDW (11.5-15.5) % Plt Count (150-450) k/uL MPV Neutrophils % % Lymphocytes % % Monocytes % % Eosinophils % % Basophils % % Neutrophils # (1.3-7.7) k/uL Lymphocytes # (1.0-4.8) k/uL Monocytes # (0-1.0) k/uL Eosinophils # (0-0.7) k/uL Basophils # (0-0.2) k/uL PT (9.0-12.0) sec INR (<1.2) APTT (22.0-30.0) sec Sodium (137-145) mmol/L Potassium (3.5-5.1) mmol/L Chloride (98-107) mmol/L Carbon Dioxide (22-30) mmol/L Anion Gap mmol/L BUN (9-20) mg/dL Creatinine (0.66-1.25) mg/dL Est GFR (CKD-EPI)AfAm (>60 ml/min/1.73 sqM) Est GFR (CKD-EPI)NonAf (>60 ml/min/1.73 sqM) Glucose (74-99) mg/dL Plasma Lactic Acid Darrin (0.7-2.0) mmol/L Calcium (8.4-10.2) mg/dL Total Bilirubin (0.2-1.3) mg/dL AST (17-59) U/L ALT (4-49) U/L Alkaline Phosphatase (38-126) U/L Troponin I (0.000-0.034) ng/mL NT-Pro-B Natriuret Pep pg/mL Total Protein (6.3-8.2) g/dL Albumin (3.5-5.0) g/dL Coronavirus (PCR) Not Detected (Not Detectd) Disposition Clinical Impression: COPD exacerbation, History of lung cancer Disposition: HOME SELF-CARE Instructions (If sedation given, give patient instructions): COPD (Chronic Obstructive Pulmonary Disease) (ED) Prescriptions: predniSONE [Deltasone] 40 mg PO DAILY #8 tab Is patient prescribed a controlled substance at d/c from ED?: No Referrals: Toby Long MD [Primary Care Provider] - 1-2 days Time of Disposition: 10:59
--- NOTE | 2020-07-10 09:57 | XR ---
EXAMINATION TYPE: XR chest 1V portable DATE OF EXAM: 07/10/2020 COMPARISON: Chest x-ray December 19, 2018 HISTORY: Shortness of breath TECHNIQUE: Single AP frontal view of the chest is obtained. FINDINGS: Stable right internal jugular Mediport catheter. Overlying broken sternal wires redemonstr ated. Mediastinal clips again seen. Heart size upper limits of normal currently. Chronic parenchymal changes with small to tiny left grea ter than right pleural effusions. Associated left basilar atelectasis and/or infiltrate. Osseous stru ctures are demineralized. IMPRESSION: Chronic changes with multiple tiny left greater right pleural effusions new from prior s tudy. New Left basilar acute atelectasis and/or infiltrate noted.
[2020-07-10 10:07] LABS: Basophils # (A) 0.1 k/uL (0-0.2); Basophils % (A) 1 %; Eosinophils # (A) 0.1 k/uL (0-0.7); Eosinophils % (A) 2 %; HCT 50.9 % (39.0-53.0); Lymphocytes # (A) 0.9 k/uL (1.0-4.8); Lymphocytes % (A) 13 %; MCH 28.5 pg (25.0-35.0); MCHC 33.3 g/dL (31.0-37.0); MCV 85.6 fL (80.0-100.0); Mean Platelet Volume 7.9; Monocytes # (A) 0.2 k/uL (0-1.0); Monocytes % (A) 3 %; Neutrophils # (A) 5.8 k/uL (1.3-7.7); Neutrophils % (A) 81 %; Platelet Count 351 k/uL (150-450); RBC 5.94 m/uL (4.30-5.90); RDW 13.6 % (11.5-15.5); WBC 7.1 k/uL (3.8-10.6)
[2020-07-10 10:14] LABS: ALT 10 U/L (4-49); AST 22 U/L (17-59); African American GFR (CKD) >90 (>60 ml/min/1.73 sqM); Albumin 4.1 g/dL (3.5-5.0); Alkaline Phosphatase 107 U/L (38-126); Anion Gap 10 mmol/L; Blood Urea Nitrogen 14 mg/dL (9-20); Calcium 9.5 mg/dL (8.4-10.2); Carbon Dioxide 30 mmol/L (22-30); Chloride 95 mmol/L (98-107); Glucose 171 mg/dL (74-99); Non-African American GFR(CKD) 87 (>60 ml/min/1.73 sqM); Potassium 3.5 mmol/L (3.5-5.1); Sodium 135 mmol/L (137-145); Total Bilirubin 0.9 mg/dL (0.2-1.3); Total Protein 7.4 g/dL (6.3-8.2)
[2020-07-10 10:17] LABS: INR 1.1 (<1.2); Partial Thromboplastin Time 25.4 sec (22.0-30.0); Prothrombin Time 11.7 sec (9.0-12.0)
[2020-07-10] MEDS ORDERED: IPRATROPIUM-ALBUTEROL 3 ML NEB INHALATION STA (10:57)
[2020-07-10 11:33] VITALS: BP 147/72; PULSE 82; RESP 18
== END 2020-07-10 11:32 | disposition home or self-care (01) ==
LOC: EC 08:59
DX: J44.1 Chronic obstructive pulmonary disease with (acute) exacerbation (principal); Z85.118 Personal history of other malignant neoplasm of bronchus and lung; Z20.822 Contact with and (suspected) exposure to COVID-19; I10 Essential (primary) hypertension; I25.10 Atherosclerotic heart disease of native coronary artery without angina pectoris; E78.5 Hyperlipidemia, unspecified; E11.9 Type 2 diabetes mellitus without complications; F32.9 Major depressive disorder, single episode, unspecified; Z79.4 Long term (current) use of insulin; Z79.899 Other long term (current) drug therapy
CPT/HCPCS: 36415; 94640 ×2; 93005; 83880; 80053; 83605; 84484; 85025; 85610; 85730; 87635; 71045; 99285; 96374; J2930

== ENCOUNTER → 2020-10-02 | Outpatient (CLI) | payer MEDICARE ==
--- NOTE | 2020-10-05 06:28 | PE ---
EXAMINATION TYPE: PET CT fusion skull to thigh DATE OF EXAM: 10/02/2020 COMPARISON: Prior PET/CT May 15, 2020 and older studies. HISTORY: Esophageal cancer progress study. Originally diagnosed 2019 with radiation treatment. C ompleted chemotherapy October 10, 2020. TECHNIQUE: Following the intravenous administration of 12.54 mCi of F-18 FDG, whole body images are performed from the skull base to the midthigh. Images are reviewed on the computer in the coronal, a xial, and sagittal planes. Reconstructed rotating images are created on independent workstation and reviewed on the computer. A localization and attenuation correction CT is performed in conjunction with the PET scan. Blood glucose level equals 154. SCAN: Subsequent Scan FINDINGS: SKULL BASE AND NECK: No new areas of suspicious hypermetabolic uptake. Redemonstrated round masses within the subcutaneous layer of the left arm measuring 2.8 and 1.6 cm. T hese continue to show mild increased FDG uptake, max SUV . CHEST, MEDIASTINUM, AND HILAR REGION: No new or recurrent areas of suspicious hypermetabolic uptake i ncluding along course of the esophagus. Persistent moderate concentric wall thickening distally. Stable focal 5 x 3 cm lateral left basilar opacity remains ametabolic axial image 118 current study. ABDOMEN AND PELVIS: Normal excretion is seen. Nonspecific bowel uptake. No new suspicious hypermetabo lic uptake. OSSEOUS STRUCTURES: No new areas of suspicious hypermetabolic uptake. OTHER CT: Moderate to severe calcified plaque right carotid bulb redemonstrated. Stable right internal jugular Mediport catheter. 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 Tiny nonobstructing bilateral renal calculi are redemonstrated. Surgical clips in the pelvis present from prostatectomy are redemonstrated. Small fat-containing left inguinal hernia. Surgical clips left groin region. Moderate to advanced atherosclerotic change aorta extending into branch vessels. Multilevel spinal spine. Facet arthropathy lower lumbar levels. IMPRESSION: No new areas of suspicious hypermetabolic uptake to suggest recurrent local or metastatic active malignancy.
== END | disposition home or self-care (01) ==
LOC: RADPETMAIN 14:24
PROVIDERS: ATTEND Internal Medicine Hematology & Oncology
DX: Z85.01 Personal history of malignant neoplasm of esophagus (principal)
CPT/HCPCS: 78815; A9552

== ENCOUNTER → 2021-01-29 | Outpatient (CLI) | payer MEDICARE ==
--- NOTE | 2021-02-02 08:20 | PE ---
Nuclear medicine PET/CT HISTORY: Esophageal carcinoma, subsequent Patient received 10.5 mCi F-18 FDG intravenously in delayed scanning was performed from the skull bas e to the mid thighs. A localization and attenuation correction CT scan was performed. Exam is correla jorge luis prior nuclear medicine PET/CT 10/02/2020 Chest and neck: There is no cervical or supraclavicular adenopathy. There is a port coursing via righ t jugular approach with distal tip in the cavoatrial junction level, port is over the right chest. Th ere is no mediastinal, axillary, or hilar adenopathy. Dense coronary artery calcification is present. There is no evident lung mass. No suspicious hypermetabolic uptake or evident pleural or pericardial effusion. No suspicious esophageal uptake. ABDOMEN: There is no evident liver mass, no retroperitoneal adenopathy or suspicious uptake. There is no ascites. No pelvic adenopathy. Osseous structures are stable, mild uptake noted along the sternotomy site is likely postinflammatory , suspected nonunion. There is uptake along the soft tissues of the proximal left upper extremity whi ch is showing SUV 2.4, uptake seen on prior exam at this level shows a similar appearance, soft tissu e masses are noted on prior exam at this level. IMPRESSION: Subcutaneous masses in the left upper extremity are indeterminate and again seen. No lorena tional suspicious uptake is evident.
== END | disposition home or self-care (01) ==
LOC: RADPETMAIN 09:06
PROVIDERS: ATTEND Internal Medicine Hematology & Oncology
DX: C15.5 Malignant neoplasm of lower third of esophagus (principal); I25.10 Atherosclerotic heart disease of native coronary artery without angina pectoris; R22.32 Localized swelling, mass and lump, left upper limb
CPT/HCPCS: 78815; A9552

== ENCOUNTER 2021-05-06 20:33 | Emergency (ER) | payer MEDICARE ==
--- NOTE | 2021-05-06 21:11 | ED ---
SOB HPI - General Chief Complaint: Shortness of Breath Stated Complaint: ALBERT,Sent in by PCP-High Troponin Level Time Seen by Provider: 05/06/21 21:07 Source: patient Mode of arrival: ambulatory Limitations: no limitations - History of Present Illness Initial Comments: This patient is a 70-year-old man who is here to be evaluated for a minimally elevated troponin level. The patient relates that he had seen his primary physician around 1 in the afternoon today as a follow-up related to pleural effusions and a pneumonia that were diagnosed approximately 12-13 days ago. The patient states that he has been taking Bumex for the past 6 days. He followed up today and had labs drawn and then received a call this evening that his troponin was 0.55. The patient states that he has not had any episodes of chest pain. He did have a troponin drawn prior to starting the Bumex and it was normal. The patient relates that he has had decrease in the leg edema he had been experiencing and had lost over 8 pounds since going on the diuretic. The patient is denying any other anginal type symptoms except he is having shortness of breath that is been going on since the first of the year when he had been diagnosed with the effusions and pneumonia. -: hour(s) Severity scale (1-10): 0 Improves With: nothing Worsens With: nothing Known History Of: congestive heart failure Associated Symptoms: cough Treatments Prior to Arrival: oxygen - Related Data Home Oxygen Therapy: Yes Home Medications Medication Instructions Recorded Confirmed Losartan [Cozaar] 50 mg PO DAILY 06/05/15 05/06/21 Carvedilol [Coreg] 25 mg PO DAILY 02/22/16 05/06/21 DULoxetine HCL [Cymbalta] 30 mg PO DAILY 11/19/18 05/06/21 Levothyroxine Sodium [Synthroid] 200 mcg PO DAILY 11/19/18 05/06/21 Cephalexin [Keflex] 500 mg PO Q12HR 12/17/18 05/06/21 Insulin Glargine [Lantus Vial] 26 unit SQ AC-BRKFST 12/17/18 05/06/21 DULoxetine HCL [Cymbalta] 60 mg PO DAILY 07/10/20 05/06/21 Levothyroxine Sodium [Synthroid] 50 mcg PO DAILY 07/10/20 05/06/21 amLODIPine [Norvasc] 5 mg PO DAILY 07/10/20 05/06/21 Albuterol Inhaler [Ventolin Hfa 2 puff INHALATION RT-Q4H PRN 05/06/21 05/06/21 Inhaler] Atorvastatin [Lipitor] 10 mg PO DAILY 05/06/21 05/06/21 Budesonide 1 mg INHALATION RT-DAILY 05/06/21 05/06/21 Bumetanide [BUMEX] 2 mg PO DAILY 05/06/21 05/06/21 Gabapentin [Neurontin] 200 mg PO TID 05/06/21 05/06/21 INSULIN ASPART (NovoLOG) [NovoLOG See Protocol SQ AC-TID 05/06/21 05/06/21 (formulary)] Ipratropium-Albuterol Nebulize 3 ml INHALATION RT-Q4H PRN 05/06/21 05/06/21 [Duoneb 0.5 mg-3 mg/3 ml Soln] Allergies Allergy/AdvReac Type Severity Reaction Status Date / Time No Known Allergies Allergy Verified 05/06/21 20:42 Review of Systems ROS Statement: Those systems with pertinent positive or pertinent negative responses have been documented in the HPI. ROS Other: All systems not noted in ROS Statement are negative. Constitutional: Denies: fever, chills Respiratory: Reports: cough. Denies: dyspnea, wheezes, hemoptysis Cardiovascular: Reports: dyspnea on exertion, orthopnea, edema. Denies: chest pain, palpitations, syncope Gastrointestinal: Denies: abdominal pain, nausea, vomiting, melena, hematochezia Genitourinary: Denies: dysuria, hematuria Musculoskeletal: Denies: back pain Skin: Denies: rash Neurological: Denies: headache, weakness, numbness Past Medical History Past Medical History: Coronary Artery Disease (CAD), Cancer, Diabetes Mellitus, Eye Disorder, GI Bleed, Hyperlipidemia, Hypertension, Myocardial Infarction ([place]), Prostate Disorder, Sleep Apnea/CPAP/BIPAP, Syncope, Thyroid Disorder, Vascular Disorder Additional Past Medical History / Comment(s): Prostate, renal cell, and basal cell cancers. GastroEsophageal cancer. - treated with chem/rad october 2018 HX kidney stones. Right eye blind. GE CA Currently. Uses CPAP. esophageal stricture Last Myocardial Infarction Date:: MAY 2015 History of Any Multi-Drug Resistant Organisms: None Reported Past Surgical History: Coronary Bypass/CABG, Heart Catheterization, Prostate Surgery Additional Past Surgical History / Comment(s): Partial Rt nephrectomy, Lt fem pop bypass in 04/07, which became infected and his is still on oral abx. PROCEDURE OF BASAL CELL OF UPPER LIP. Radical Prostatectomy. CABG X5. EGD, Colonoscopy 11/21/18. Past Anesthesia/Blood Transfusion Reactions: No Reported Reaction Past Psychological History: Depression Smoking Status: Current every day smoker Past Alcohol Use History: None Reported Past Drug Use History: None Reported - Past Family History Father Additional Family Medical History / Comment(s): killed in war Mother Family Medical History: Diabetes Mellitus Additional Family Medical History / Comment(s): Breast, lung cancer Brother(s) Additional Family Medical History / Comment(s): suicide Sister(s) Family Medical History: Cancer Additional Family Medical History / Comment(s): breast cancer General Exam Limitations: no limitations General appearance: alert, in no apparent distress Head exam: Present: atraumatic, normocephalic Neck exam: Present: normal inspection Respiratory exam: Present: normal lung sounds bilaterally, rales, rhonchi. Absent: respiratory distress, wheezes, stridor Cardiovascular Exam: Present: regular rate, normal rhythm, normal heart sounds. Absent: systolic murmur, diastolic murmur, rubs, gallop GI/Abdominal exam: Present: soft. Absent: distended, tenderness, guarding, rebound, rigid, mass Extremities exam: Present: normal inspection, normal capillary refill, pedal edema (Trace edema at the ankles bilaterally). Absent: calf tenderness Back exam: Present: normal inspection. Absent: CVA tenderness (R), CVA tenderness (L) Neurological exam: Present: alert Skin exam: Present: warm, dry, intact, normal color. Absent: rash Course Vital Signs 05/06/21 05/07/21 05/07/21 20:36 00:00 00:03 Temperature 98.6 F 98.3 F Pulse Rate 98 75 Respiratory 18 18 16 Rate Blood Pressure 138/76 154/79 O2 Sat by Pulse 97 98 Oximetry Medical Decision Making - Medical Decision Making Patient is 70-year-old man here to have evaluation of dyspnea. His workup did reveal mildly elevated d-dimer. I discussed this with the patient and recommended CT to rule out pulmonary embolism. The patient is declining to have that. 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 He does agree to return should there be any worsening of his condition. I discussed the x-ray finding of pneumonia and he is also fairly confident that this represents resolving pneumonia he is being treated for. He states that he does have family to help care for him at home and he would much rather be there continues treatment. He will return here if he is feeling worse in anyway - Lab Data Result diagrams: 05/06/21 21:35 05/06/21 21:35 Lab Results 05/06/21 05/06/21 05/06/21 Range/Units 21:35 21:35 21:35 WBC 12.9 H (3.8-10.6) k/uL RBC 5.19 (4.30-5.90) m/uL Hgb 15.5 (13.0-17.5) gm/dL Hct 46.5 (39.0-53.0) % MCV 89.6 (80.0-100.0) fL MCH 29.9 (25.0-35.0) pg MCHC 33.3 (31.0-37.0) g/dL RDW 13.6 (11.5-15.5) % Plt Count 307 (150-450) k/uL MPV 7.5 Neutrophils % 81 % Lymphocytes % 9 % Monocytes % 7 % Eosinophils % 2 % Basophils % 0 % Neutrophils # 10.5 H (1.3-7.7) k/uL Lymphocytes # 1.2 (1.0-4.8) k/uL Monocytes # 0.9 (0-1.0) k/uL Eosinophils # 0.2 (0-0.7) k/uL Basophils # 0.0 (0-0.2) k/uL PT 11.1 (9.0-12.0) sec INR 1.1 (<1.2) APTT 25.1 (22.0-30.0) sec D-Dimer 1.23 H (<0.60) mg/L FEU Sodium 131 L (137-145) mmol/L Potassium 3.6 (3.5-5.1) mmol/L Chloride 98 (98-107) mmol/L Carbon Dioxide 26 (22-30) mmol/L Anion Gap 7 mmol/L BUN 25 H (9-20) mg/dL Creatinine 0.75 (0.66-1.25) mg/dL Est GFR (CKD-EPI)AfAm >90 (>60 ml/min/1.73 sqM) Est GFR (CKD-EPI)NonAf >90 (>60 ml/min/1.73 sqM) Glucose 110 H (74-99) mg/dL Plasma Lactic Acid Darrin (0.7-2.0) mmol/L Calcium 9.0 (8.4-10.2) mg/dL Total Bilirubin 0.5 (0.2-1.3) mg/dL AST 28 (17-59) U/L ALT 22 (4-49) U/L Alkaline Phosphatase 149 H (38-126) U/L Troponin I (0.000-0.034) ng/mL NT-Pro-B Natriuret Pep pg/mL Total Protein 6.4 (6.3-8.2) g/dL Albumin 3.3 L (3.5-5.0) g/dL Procalcitonin (0.02-0.09) ng/mL Coronavirus (PCR) (Not Detectd) 05/06/21 05/06/21 05/06/21 Range/Units 21:35 21:35 21:39 WBC (3.8-10.6) k/uL RBC (4.30-5.90) m/uL Hgb (13.0-17.5) gm/dL Hct (39.0-53.0) % MCV (80.0-100.0) fL MCH (25.0-35.0) pg MCHC (31.0-37.0) g/dL RDW (11.5-15.5) % Plt Count (150-450) k/uL MPV Neutrophils % % Lymphocytes % % Monocytes % % Eosinophils % % Basophils % % Neutrophils # (1.3-7.7) k/uL Lymphocytes # (1.0-4.8) k/uL Monocytes # (0-1.0) k/uL Eosinophils # (0-0.7) k/uL Basophils # (0-0.2) k/uL PT (9.0-12.0) sec INR (<1.2) APTT (22.0-30.0) sec D-Dimer (<0.60) mg/L FEU Sodium (137-145) mmol/L Potassium (3.5-5.1) mmol/L Chloride (98-107) mmol/L Carbon Dioxide (22-30) mmol/L Anion Gap mmol/L BUN (9-20) mg/dL Creatinine (0.66-1.25) mg/dL Est GFR (CKD-EPI)AfAm (>60 ml/min/1.73 sqM) Est GFR (CKD-EPI)NonAf (>60 ml/min/1.73 sqM) Glucose (74-99) mg/dL Plasma Lactic Acid Darrin (0.7-2.0) mmol/L Calcium (8.4-10.2) mg/dL Total Bilirubin (0.2-1.3) mg/dL AST (17-59) U/L ALT (4-49) U/L Alkaline Phosphatase (38-126) U/L Troponin I <0.012 (0.000-0.034) ng/mL NT-Pro-B Natriuret Pep 334 pg/mL Total Protein (6.3-8.2) g/dL Albumin (3.5-5.0) g/dL Procalcitonin 0.04 (0.02-0.09) ng/mL Coronavirus (PCR) (Not Detectd) 05/06/21 05/06/21 Range/Units 21:55 21:55 WBC (3.8-10.6) k/uL RBC (4.30-5.90) m/uL Hgb (13.0-17.5) gm/dL Hct (39.0-53.0) % MCV (80.0-100.0) fL MCH (25.0-35.0) pg MCHC (31.0-37.0) g/dL RDW (11.5-15.5) % Plt Count (150-450) k/uL MPV Neutrophils % % Lymphocytes % % Monocytes % % Eosinophils % % Basophils % % Neutrophils # (1.3-7.7) k/uL Lymphocytes # (1.0-4.8) k/uL Monocytes # (0-1.0) k/uL Eosinophils # (0-0.7) k/uL Basophils # (0-0.2) k/uL PT (9.0-12.0) sec INR (<1.2) APTT (22.0-30.0) sec D-Dimer (<0.60) mg/L FEU Sodium (137-145) mmol/L Potassium (3.5-5.1) mmol/L Chloride (98-107) mmol/L Carbon Dioxide (22-30) mmol/L Anion Gap mmol/L BUN (9-20) mg/dL Creatinine (0.66-1.25) mg/dL Est GFR (CKD-EPI)AfAm (>60 ml/min/1.73 sqM) Est GFR (CKD-EPI)NonAf (>60 ml/min/1.73 sqM) Glucose (74-99) mg/dL Plasma Lactic Acid Darrin 0.7 (0.7-2.0) mmol/L Calcium (8.4-10.2) mg/dL Total Bilirubin (0.2-1.3) mg/dL AST (17-59) U/L ALT (4-49) U/L Alkaline Phosphatase (38-126) U/L Troponin I (0.000-0.034) ng/mL NT-Pro-B Natriuret Pep pg/mL Total Protein (6.3-8.2) g/dL Albumin (3.5-5.0) g/dL Procalcitonin (0.02-0.09) ng/mL Coronavirus (PCR) Not Detected (Not Detectd) - EKG Data -: EKG Interpreted by Me EKG shows normal: sinus rhythm, axis (Rightward axis), QRS complexes (Possible old anterior infact) Rate: normal (Rate 76 bpm) Disposition Clinical Impression: Pneumonia, D-dimer, elevated Disposition: HOME SELF-CARE Condition: Good Instructions (If sedation given, give patient instructions): Pneumonia (ED) Is patient prescribed a controlled substance at d/c from ED?: No Referrals: Toby Long MD [Primary Care Provider] - 1-2 days
[2021-05-06 21:54] LABS: Basophils % (A) 0 %; Eosinophils # (A) 0.2 k/uL (0-0.7); Eosinophils % (A) 2 %; HCT 46.5 % (39.0-53.0); HGB 15.5 gm/dL (13.0-17.5); Lymphocytes # (A) 1.2 k/uL (1.0-4.8); Lymphocytes % (A) 9 %; MCH 29.9 pg (25.0-35.0); MCHC 33.3 g/dL (31.0-37.0); MCV 89.6 fL (80.0-100.0); Mean Platelet Volume 7.5; Monocytes # (A) 0.9 k/uL (0-1.0); Monocytes % (A) 7 %; Neutrophils # (A) 10.5 k/uL (1.3-7.7); Neutrophils % (A) 81 %; Platelet Count 307 k/uL (150-450); RBC 5.19 m/uL (4.30-5.90); RDW 13.6 % (11.5-15.5); WBC 12.9 k/uL (3.8-10.6)
[2021-05-06 22:09] LABS: ALT 22 U/L (4-49); AST 28 U/L (17-59); African American GFR (CKD) >90 (>60 ml/min/1.73 sqM); Albumin 3.3 g/dL (3.5-5.0); Alkaline Phosphatase 149 U/L (38-126); Anion Gap 7 mmol/L; Blood Urea Nitrogen 25 mg/dL (9-20); Carbon Dioxide 26 mmol/L (22-30); Chloride 98 mmol/L (98-107); Glucose 110 mg/dL (74-99); Non-African American GFR(CKD) >90 (>60 ml/min/1.73 sqM); Potassium 3.6 mmol/L (3.5-5.1); Sodium 131 mmol/L (137-145); Total Bilirubin 0.5 mg/dL (0.2-1.3); Total Protein 6.4 g/dL (6.3-8.2)
--- NOTE | 2021-05-06 22:09 | XR ---
EXAMINATION: XR chest 2V DATE AND TIME: 05/06/2021 9:44 PM CLINICAL INDICATION: PHH; difficulty breathing TECHNIQUE: Departmental protocol COMPARISON: 06/30/2020 FINDINGS: Right IJ port and sternal sutures redemonstrated. There is a moderate marked findings reticular pattern of increased density symmetrically throughout t he lungs, consistent with interstitial phase pulmonary edema. There are [id number] bilateral pleural effusions, greater in volume on the left. There is assoc iated by basilar passive atelectasis because of these pleural effusions. The pleural spaces are negative. The cardiac silhouette appears mildly enlarged on this AP view. The skeletal structures and soft tissues are negative for acute findings. IMPRESSION: Pulmonary and pleural findings as above. Radiographically impossible to exclude concurrent atypical pneumonia in this radiographic setting.
[2021-05-06 22:14] LABS: INR 1.1 (<1.2); Partial Thromboplastin Time 25.1 sec (22.0-30.0); Prothrombin Time 11.1 sec (9.0-12.0)
[2021-05-07 00:17] VITALS: BP 154/79; PULSE 75; RESP 16; TEMP 98.3
== END 2021-05-07 00:03 | disposition home or self-care (01) ==
LOC: EC 20:33
DX: J18.9 Pneumonia, unspecified organism (principal); R79.1 Abnormal coagulation profile; I25.10 Atherosclerotic heart disease of native coronary artery without angina pectoris; E11.9 Type 2 diabetes mellitus without complications; E78.5 Hyperlipidemia, unspecified; I10 Essential (primary) hypertension; I25.2 Old myocardial infarction; E07.9 Disorder of thyroid, unspecified; F32.A Depression, unspecified; F17.200 Nicotine dependence, unspecified, uncomplicated; Z79.4 Long term (current) use of insulin; Z85.01 Personal history of malignant neoplasm of esophagus; Z87.442 Personal history of urinary calculi; Z95.1 Presence of aortocoronary bypass graft; Z20.822 Contact with and (suspected) exposure to COVID-19
CPT/HCPCS: 36415; 71046; 80053; 83605; 83880; 84145; 84484; 85025; 85379; 85610; 85730; 87040; 87635; 93005; 99285

== ENCOUNTER 2021-05-10 09:44 | Inpatient (IN) | payer MEDICARE ==
[2021-05-10] MEDS ORDERED: ALBUTEROL NEBULIZED 2.5 MG/3 ML INHALATION STA (10:34)
[2021-05-10] MEDS ORDERED: SODIUM CHLORIDE 0.9% 500 ML 500 ML IV STA (10:34)
[2021-05-10] MEDS ORDERED: methylPREDNISolone SOD SUCCI 125 MG/2 ML VIAL IV STA (10:34)
[2021-05-10] MEDS ORDERED: IPRATROPIUM 0.5 MG/2.5 ML NEBU INHALATION STA (10:34)
--- NOTE | 2021-05-10 10:44 | ED ---
General Adult HPI - General Chief complaint: Shortness of Breath Stated complaint: ALBERT Time Seen by Provider: 05/10/21 09:45 Source: patient, family, RN notes reviewed, old records reviewed Mode of arrival: wheelchair Limitations: no limitations - History of Present Illness Initial comments: This is a 70-year-old male who has a past medical history significant for bypass surgery years ago, COPD, diabetes, hypertension and high cholesterol. Patient states he has been having more more difficulty breathing since the first of year he was seen in the ER previously and eventually sent home. Patient states at one point his troponin was elevated but on follow-up it had come down. Patient denies any fevers or chills. Patient denies any cough. Patient denies chest pain or palpitations. Patient denies any swelling to the legs or calf tenderness. Patient denies any abdominal pain patient denies nausea vomiting diarrhea. - Related Data Home Medications Medication Instructions Recorded Confirmed Losartan [Cozaar] 50 mg PO DAILY 06/05/15 05/10/21 Carvedilol [Coreg] 25 mg PO DAILY 02/22/16 05/10/21 DULoxetine HCL [Cymbalta] 30 mg PO DAILY 11/19/18 05/10/21 Levothyroxine Sodium [Synthroid] 200 mcg PO DAILY 11/19/18 05/10/21 Cephalexin [Keflex] 500 mg PO Q12H 12/17/18 05/10/21 DULoxetine HCL [Cymbalta] 60 mg PO DAILY 07/10/20 05/10/21 Levothyroxine Sodium [Synthroid] 50 mcg PO DAILY 07/10/20 05/10/21 amLODIPine [Norvasc] 5 mg PO DAILY 07/10/20 05/10/21 Albuterol Inhaler [Ventolin Hfa 2 puff INHALATION RT-Q4H PRN 05/06/21 05/10/21 Inhaler] Atorvastatin [Lipitor] 10 mg PO DAILY 05/06/21 05/10/21 Budesonide 1 mg INHALATION RT-DAILY 05/06/21 05/10/21 Gabapentin [Neurontin] 200 mg PO TID 05/06/21 05/10/21 INSULIN ASPART (NovoLOG) [NovoLOG See Protocol SQ AC-TID 05/06/21 05/10/21 (formulary)] Ipratropium-Albuterol Nebulize 3 ml INHALATION RT-Q4H PRN 05/06/21 05/10/21 [Duoneb 0.5 mg-3 mg/3 ml Soln] Insulin Glargine,Hum.rec.anlog 26 unit SQ AC-BRKFST 05/10/21 05/10/21 [Lantus Solostar Pen] Spironolactone [Aldactone] 25 mg PO BID 05/10/21 05/10/21 Allergies Allergy/AdvReac Type Severity Reaction Status Date / Time No Known Allergies Allergy Verified 05/10/21 09:49 Review of Systems ROS Statement: Those systems with pertinent positive or pertinent negative responses have been documented in the HPI. ROS Other: All systems not noted in ROS Statement are negative. Past Medical History Past Medical History: Coronary Artery Disease (CAD), Cancer, Diabetes Mellitus, Eye Disorder, GI Bleed, Hyperlipidemia, Hypertension, Myocardial Infarction ([place]), Prostate Disorder, Sleep Apnea/CPAP/BIPAP, Syncope, Thyroid Disorder, Vascular Disorder Additional Past Medical History / Comment(s): Prostate, renal cell, and basal cell cancers. GastroEsophageal cancer. - treated with chem/rad october 2018 HX kidney stones. Right eye blind. GE CA Currently. Uses CPAP. esophageal stricture Last Myocardial Infarction Date:: MAY 2015 History of Any Multi-Drug Resistant Organisms: None Reported Past Surgical History: Coronary Bypass/CABG, Heart Catheterization, Prostate Surgery Additional Past Surgical History / Comment(s): Partial Rt nephrectomy, Lt fem pop bypass in 04/07, which became infected and his is still on oral abx. PROCEDURE OF BASAL CELL OF UPPER LIP. Radical Prostatectomy. CABG X5. EGD, Colonoscopy 11/21/18. Past Anesthesia/Blood Transfusion Reactions: No Reported Reaction Past Psychological History: Depression Smoking Status: Current every day smoker Past Alcohol Use History: None Reported Past Drug Use History: None Reported - Past Family History Father Additional Family Medical History / Comment(s): killed in war Mother Family Medical History: Diabetes Mellitus Additional Family Medical History / Comment(s): Breast, lung cancer Brother(s) Additional Family Medical History / Comment(s): suicide Sister(s) Family Medical History: Cancer Additional Family Medical History / Comment(s): breast cancer General Exam - General Exam Comments Initial Comments: GENERAL: Patient is well-developed and well-nourished. Patient is nontoxic and well- hydrated and is in moderate distress. ENT: Neck is soft and supple. No significant lymphadenopathy is noted. Oropharynx is clear. Moist mucous membranes. Neck has full range of motion without eliciting any pain. EYES: The sclera were anicteric and conjunctiva were pink and moist. Extraocular movements were intact and pupils were equal round and reactive to light. Eyelids were unremarkable. PULMONARY: Diffuse expiratory wheezing CARDIOVASCULAR: There is a regular rate and rhythm without any murmurs gallops or rubs. ABDOMEN: Soft and nontender with normal bowel sounds. SKIN: Skin is clear with no lesions or rashes and otherwise unremarkable. NEUROLOGIC: Patient is alert and oriented x3. Cranial nerves II through XII are grossly intact. Motor and sensory are also intact. Normal speech, volume and content. Symmetrical smile. MUSCULOSKELETAL: Normal extremities with adequate strength and full range of motion. LYMPHATICS: No significant lymphadenopathy is noted PSYCHIATRIC: Normal psychiatric evaluation. Limitations: no limitations Course Vital Signs 05/10/21 05/10/21 05/10/21 09:45 10:29 11:16 Temperature 97.8 F 96.4 F L Pulse Rate 57 L 54 L 53 L Respiratory 18 12 Rate Blood Pressure 111/56 119/86 O2 Sat by Pulse 98 97 Oximetry 05/10/21 05/10/21 05/10/21 11:31 11:47 12:04 Temperature Pulse Rate 54 L 56 L 57 L Respiratory 25 H Rate Blood Pressure 111/68 O2 Sat by Pulse 96 Oximetry Medical Decision Making - Medical Decision Making EKG shows sinus bradycardia 57 bpm MA interval 146 QRS is 94 Q-T intervals 424 QTC is 412. Patient's EKG shows no ST segment elevation or depression. CT chest shows no PE however has bilateral pleural effusions and pulmonary edema. I spoke with some physicians and they agreed to admit the patient with the patient wrote admitting orders and consult cardiology. - Lab Data Result diagrams: 05/10/21 11:10 05/10/21 11:10 Lab Results 05/10/21 05/10/21 05/10/21 Range/Units 11:10 11:10 11:10 WBC 12.7 H (3.8-10.6) k/uL RBC 4.77 (4.30-5.90) m/uL Hgb 14.5 (13.0-17.5) gm/dL Hct 42.7 (39.0-53.0) % MCV 89.7 (80.0-100.0) fL MCH 30.3 (25.0-35.0) pg MCHC 33.8 (31.0-37.0) g/dL RDW 13.3 (11.5-15.5) % Plt Count 280 (150-450) k/uL MPV 8.4 Neutrophils % 84 % Lymphocytes % 8 % Monocytes % 6 % Eosinophils % 1 % Basophils % 0 % Neutrophils # 10.6 H (1.3-7.7) k/uL Lymphocytes # 1.1 (1.0-4.8) k/uL Monocytes # 0.7 (0-1.0) k/uL Eosinophils # 0.1 (0-0.7) k/uL Basophils # 0.0 (0-0.2) k/uL PT 11.1 (9.0-12.0) sec INR 1.0 (<1.2) APTT 25.4 (22.0-30.0) sec D-Dimer 1.33 H (<0.60) mg/L FEU Sodium 133 L (137-145) mmol/L Potassium 4.6 (3.5-5.1) mmol/L Chloride 102 (98-107) mmol/L Carbon Dioxide 27 (22-30) mmol/L Anion Gap 4 mmol/L BUN 19 (9-20) mg/dL Creatinine 0.80 (0.66-1.25) mg/dL Est GFR (CKD-EPI)AfAm >90 (>60 ml/min/1.73 sqM) Est GFR (CKD-EPI)NonAf 90 (>60 ml/min/1.73 sqM) Glucose 100 H (74-99) mg/dL Plasma Lactic Acid Darrin (0.7-2.0) mmol/L Calcium 9.0 (8.4-10.2) mg/dL Magnesium 2.1 (1.6-2.3) mg/dL Total Bilirubin 0.7 (0.2-1.3) mg/dL AST 25 (17-59) U/L ALT 17 (4-49) U/L Alkaline Phosphatase 146 H (38-126) U/L Troponin I (0.000-0.034) ng/mL Total Protein 6.3 (6.3-8.2) g/dL Albumin 3.2 L (3.5-5.0) g/dL Coronavirus (PCR) (Not Detectd) 05/10/21 05/10/21 05/10/21 Range/Units 11:10 11:10 12:03 WBC (3.8-10.6) k/uL RBC (4.30-5.90) m/uL Hgb (13.0-17.5) gm/dL Hct (39.0-53.0) % MCV (80.0-100.0) fL MCH (25.0-35.0) pg MCHC (31.0-37.0) g/dL RDW (11.5-15.5) % Plt Count (150-450) k/uL MPV Neutrophils % % Lymphocytes % % Monocytes % % Eosinophils % % Basophils % % Neutrophils # (1.3-7.7) k/uL Lymphocytes # (1.0-4.8) k/uL Monocytes # (0-1.0) k/uL Eosinophils # (0-0.7) k/uL Basophils # (0-0.2) k/uL PT (9.0-12.0) sec INR (<1.2) APTT (22.0-30.0) sec D-Dimer (<0.60) mg/L FEU Sodium (137-145) mmol/L Potassium (3.5-5.1) mmol/L Chloride (98-107) mmol/L Carbon Dioxide (22-30) mmol/L Anion Gap mmol/L BUN (9-20) mg/dL Creatinine (0.66-1.25) mg/dL Est GFR (CKD-EPI)AfAm (>60 ml/min/1.73 sqM) Est GFR (CKD-EPI)NonAf (>60 ml/min/1.73 sqM) Glucose (74-99) mg/dL Plasma Lactic Acid Darrin 1.3 (0.7-2.0) mmol/L Calcium (8.4-10.2) mg/dL Magnesium (1.6-2.3) mg/dL Total Bilirubin (0.2-1.3) mg/dL AST (17-59) U/L ALT (4-49) U/L Alkaline Phosphatase (38-126) U/L Troponin I <0.012 (0.000-0.034) ng/mL Total Protein (6.3-8.2) g/dL Albumin (3.5-5.0) g/dL Coronavirus (PCR) Not Detected (Not Detectd) Critical Care Time Critical Care Time: Yes Total Critical Care Time: 35 Disposition Clinical Impression: Acute pulmonary edema, Bilateral pleural effusion, COPD exacerbation Disposition: ADMITTED IP TO THIS HOSP Referrals: Toby Long MD [Primary Care Provider] - 1-2 days Time of Disposition: 13:04
[2021-05-10 11:42] LABS: ALT 17 U/L (4-49); AST 25 U/L (17-59); African American GFR (CKD) >90 (>60 ml/min/1.73 sqM); Albumin 3.2 g/dL (3.5-5.0); Alkaline Phosphatase 146 U/L (38-126); Anion Gap 4 mmol/L; Blood Urea Nitrogen 19 mg/dL (9-20); Carbon Dioxide 27 mmol/L (22-30); Chloride 102 mmol/L (98-107); Glucose 100 mg/dL (74-99); Magnesium 2.1 mg/dL (1.6-2.3); Non-African American GFR(CKD) 90 (>60 ml/min/1.73 sqM); Partial Thromboplastin Time 25.4 sec (22.0-30.0); Potassium 4.6 mmol/L (3.5-5.1); Prothrombin Time 11.1 sec (9.0-12.0); Sodium 133 mmol/L (137-145); Total Bilirubin 0.7 mg/dL (0.2-1.3); Total Protein 6.3 g/dL (6.3-8.2)
[2021-05-10 12:20] LABS: Basophils % (A) 0 %; Eosinophils # (A) 0.1 k/uL (0-0.7); Eosinophils % (A) 1 %; HCT 42.7 % (39.0-53.0); HGB 14.5 gm/dL (13.0-17.5); Lymphocytes # (A) 1.1 k/uL (1.0-4.8); Lymphocytes % (A) 8 %; MCH 30.3 pg (25.0-35.0); MCHC 33.8 g/dL (31.0-37.0); MCV 89.7 fL (80.0-100.0); Mean Platelet Volume 8.4; Monocytes # (A) 0.7 k/uL (0-1.0); Monocytes % (A) 6 %; Neutrophils # (A) 10.6 k/uL (1.3-7.7); Neutrophils % (A) 84 %; Platelet Count 280 k/uL (150-450); RBC 4.77 m/uL (4.30-5.90); RDW 13.3 % (11.5-15.5); WBC 12.7 k/uL (3.8-10.6)
--- NOTE | 2021-05-10 12:50 | CT ---
EXAMINATION TYPE: CT chest angio for PE DATE OF EXAM: 05/10/2021 COMPARISON: Prior PET/CT January 29, 2021 HISTORY: Difficulty breathing x 18 days, elevated d-dimer. History of esophageal cancer. CT DLP: 396.2 mGycm. Automated Exposure Control for Dose Reduction was Utilized. CONTRAST: CTA scan of the thorax is performed with IV Contrast, patient injected with 100 mL of Isovue 370, pul monary embolism protocol. MIP Images are created on CT scanner and reviewed. FINDINGS: LUNGS: Moderate-sized bilateral pleural effusions are now present. Associated compressive atelectasis is seen. Diffuse groundglass opacities consistent with mild edema. Patient unable to hold breath. MEDIASTINUM: There is satisfactory enhancement of the pulmonary artery and its branches, there is no CT evidence for pulmonary embolism. Satisfactory enhancement of the aorta without aneurysm or dissec tion. Post-CABG changes with mediastinal clips and sternal wires is redemonstrated. Sternal nonunion redemonstrated. Right hilar consolidation and/or adenopathy axial image 77 is now present. Abnormal w all thickening of the esophagus again seen. OTHER: Exaggerated thoracic kyphosis. Underlying scoliosis.. IMPRESSION: 1. No CT evidence for acute pulmonary embolism. 2. Suspect CHF exacerbation or fluid overload state as there are moderate-size bilateral pleural effu sions and mild to moderate alveolar edema now present. Correlate clinically.
[2021-05-10] MEDS ORDERED: FUROSEMIDE 10 MG/ML 4 ML VIAL IV STA (13:04)
[2021-05-10] MEDS ORDERED: MAGNESIUM HYDROXIDE 2,400 MG/10 ML CUP PO PRN (14:29)
[2021-05-10] MEDS ORDERED: bisacodyL 5 MG TABLET.DR PO PRN (14:29)
[2021-05-10] MEDS ORDERED: NALOXONE 0.4 MG/ML 1 ML VIAL IV PRN (14:29)
[2021-05-10] MEDS ORDERED: ONDANSETRON 4 MG/2 ML VIAL IVP PRN (14:29)
[2021-05-10] MEDS ORDERED: ALPRAZolam 0.25 MG TAB PO PRN (14:29)
[2021-05-10] MEDS ORDERED: ACETAMINOPHEN TAB 325 MG TAB PO PRN (14:29)
[2021-05-10 14:41] LABS: Glucose,Whole Blood 116 mg/dL (75-99)
[2021-05-10] MEDS ORDERED: NICOTINE 14MG/24HR PATCH TRANSDERM SCH (14:45)
[2021-05-10] MEDS: IPRATROPIUM-ALBUTEROL 3 ML NEB INHALATION PRN ×2 (15:10→19:10)
--- NOTE | 2021-05-10 15:26 | P.HPIM ---
History of Present Illness H&P Date: 05/10/21 Chief Complaint: Shortness of breath This is a 70-year-old male who has a past medical history significant for coronary artery disease status post CABG 5 on 2015 , esophageal cancer status post chemoradiation in 2018. With recurrence on 2020 status post chemotherapy last therapy was in February 2021, history of COPD with ongoing tobacco abuse, diabetes, hypertension and dyslipidemia. Patient states he has been having more more difficulty breathing since the first of year he was seen in the ER previously and eventually sent home. Patient was treated for pneumonia per his primary care physician Dr. Long. His primary care physician ordered oxygen for him the patient stated that he just started oxygen 3 L few days ago. He denies any chest pain. Patient denies any fevers or chills. Patient denies any palpitations. Patient was complaining of lower extremity edema was on Bumex that was discontinued due to side effects. He has been diuresed with Aldactone 25 twice a day. Patient denies any abdominal pain patient denies nausea vomiting diarrhe Review of Systems All 14 review of systems evaluated and all negative except for above. Past Medical History Past Medical History: Coronary Artery Disease (CAD), Cancer, Diabetes Mellitus, Eye Disorder, GI Bleed, Hyperlipidemia, Hypertension, Myocardial Infarction ([place]), Prostate Disorder, Sleep Apnea/CPAP/BIPAP, Syncope, Thyroid Disorder, Vascular Disorder Additional Past Medical History / Comment(s): Prostate, renal cell, and basal cell cancers. GastroEsophageal cancer. - treated with chem/rad october 2018 HX k idney stones. Right eye blind. GE CA Currently. Uses CPAP. esophageal stricture Last Myocardial Infarction Date:: MAY 2015 History of Any Multi-Drug Resistant Organisms: None Reported Past Surgical History: Coronary Bypass/CABG, Heart Catheterization, Prostate Surgery Additional Past Surgical History / Comment(s): Partial Rt nephrectomy, Lt fem pop bypass in 04/07, which became infected and his is still on oral abx. PROCEDURE OF BASAL CELL OF UPPER LIP. Radical Prostatectomy. CABG X5. EGD, Colonoscopy 11/21/18. Past Anesthesia/Blood Transfusion Reactions: No Reported Reaction Past Psychological History: Depression Smoking Status: Current every day smoker Past Alcohol Use History: None Reported Past Drug Use History: None Reported - Past Family History Father Additional Family Medical History / Comment(s): killed in war Mother Family Medical History: Diabetes Mellitus Additional Family Medical History / Comment(s): Breast, lung cancer Brother(s) Additional Family Medical History / Comment(s): suicide Sister(s) Family Medical History: Cancer Additional Family Medical History / Comment(s): breast cancer Medications and Allergies Home Medications Medication Instructions Recorded Confirmed Type Losartan [Cozaar] 50 mg PO DAILY 06/05/15 05/10/21 History Carvedilol [Coreg] 25 mg PO DAILY 02/22/16 05/10/21 History DULoxetine HCL [Cymbalta] 30 mg PO DAILY 11/19/18 05/10/21 History Levothyroxine Sodium [Synthroid] 200 mcg PO DAILY 11/19/18 05/10/21 History Cephalexin [Keflex] 500 mg PO Q12H 12/17/18 05/10/21 History DULoxetine HCL [Cymbalta] 60 mg PO DAILY 07/10/20 05/10/21 History Levothyroxine Sodium [Synthroid] 50 mcg PO DAILY 07/10/20 05/10/21 History amLODIPine [Norvasc] 5 mg PO DAILY 07/10/20 05/10/21 History Albuterol Inhaler [Ventolin Hfa 2 puff INHALATION RT-Q4H PRN 05/06/21 05/10/21 History Inhaler] Atorvastatin [Lipitor] 10 mg PO DAILY 05/06/21 05/10/21 History Budesonide 1 mg INHALATION RT-DAILY 05/06/21 05/10/21 History Gabapentin [Neurontin] 200 mg PO TID 05/06/21 05/10/21 History INSULIN ASPART (NovoLOG) [NovoLOG See Protocol SQ AC-TID 05/06/21 05/10/21 History (formulary)] Ipratropium-Albuterol Nebulize 3 ml INHALATION RT-Q4H PRN 05/06/21 05/10/21 History [Duoneb 0.5 mg-3 mg/3 ml Soln] Insulin Glargine,Hum.rec.anlog 26 unit SQ AC-BRKFST 05/10/21 05/10/21 History [Lantus Solostar Pen] Nicotine 21Mg/24Hr Patch [Habitrol] 1 patch TRANSDERM DAILY 05/10/21 05/10/21 History Spironolactone [Aldactone] 25 mg PO BID 05/10/21 05/10/21 History Allergies Allergy/AdvReac Type Severity Reaction Status Date / Time No Known Allergies Allergy Verified 05/10/21 09:49 Physical Exam Vitals: Vital Signs Temp Pulse Resp BP Pulse Ox 05/10/21 12:04 57 L 25 H 111/68 96 05/10/21 11:47 56 L 05/10/21 11:31 54 L 05/10/21 11:16 53 L 05/10/21 10:29 96.4 F L 54 L 12 119/86 97 05/10/21 09:45 97.8 F 57 L 18 111/56 98 Intake and Output 05/09/21 05/10/21 05/10/21 22:59 06:59 14:59 Other: Weight 74.843 kg General: Mild distress, appears older than his stated age Derm: warm, dry Head: atraumatic, normocephalic, symmetric Eyes: EOMI, no lid lag, anicteric sclera Mouth: no lip lesion, mucus membranes moist Cardiovascular: S1S2 reg, no murmur, positive posterior tibial pulse bilateral, Lungs: Diminished air entry bilaterally with bilateral wheezing and rhonchi Abdominal: soft, nontender to palpation, no guarding, no appreciable organomegaly Ext: 2+ pitting edema bilaterally. Neuro: CN II-XI grossly intact, no focal neuro deficits Psych: Alert, oriented, appropriate affect Results CBC & Chem 7: 05/10/21 11:10 05/10/21 11:10 Labs: Abnormal Lab Results - Last 24 Hours (Table) 05/10/21 05/10/21 05/10/21 Range/Units 11:10 11:10 11:10 WBC 12.7 H (3.8-10.6) k/uL Neutrophils # 10.6 H (1.3-7.7) k/uL D-Dimer 1.33 H (<0.60) mg/L FEU Sodium 133 L (137-145) mmol/L Glucose 100 H (74-99) mg/dL POC Glucose (mg/dL) (75-99) mg/dL Alkaline Phosphatase 146 H (38-126) U/L Albumin 3.2 L (3.5-5.0) g/dL 05/10/21 Range/Units 14:23 WBC (3.8-10.6) k/uL Neutrophils # (1.3-7.7) k/uL D-Dimer (<0.60) mg/L FEU Sodium (137-145) mmol/L Glucose (74-99) mg/dL POC Glucose (mg/dL) 116 H (75-99) mg/dL Alkaline Phosphatase (38-126) U/L Albumin (3.5-5.0) g/dL Assessment and Plan Assessment: Assessment and plan: #Acute hypoxic respiratory failure secondary to acute COPD exacerbation, acute CHF exacerbation and bilateral pleural effusion #Acute CHF exacerbation -Unknown ejection fraction -2-D echo ordered -Lasix 40 mg IV push twice daily -Resume Aldactone 25 twice a day -Strict ins and outs -Chek proBNP -Network Systems Administrator consulted #Acute COPD exacerbation. -Bronchodilator treatments -IV Solu-Medrol -Azithromycin 500 mg daily -Pulmonary consulted #Leukocytosis -Secondary to above -Patient afebrile -Negative COVID-19 PCR -Culture 2 ordered -Empirically on azithromycin -Resume home chronic antibiotic suppression with Keflex #Bilateral pleural effusion -Most likely secondary to CHF we need to rule out malignancy since patient without history of esophageal cancer -Patient will need pleural fluid studies including cytology after the procedure is done -Pulmonary consulted for thoracentesis -Resume diuresis #History of coronary disease status post CABG 5 in 2015 -Patient denied any chest pain -Patient does not follow up with cardiology -Patient is not on any antiplatelet or statin therapy -Check lipid panel -EKG showed sinus bradycardia rate of 57 with non- specific T wave or ST segment changes -Decrease Coreg to 3.25 twice daily -Cardiology consulted #History of peripheral arterial disease status post left lower extremity bypass in 2014 status post removal due to infection -Patient on chronic antibiotic suppression plus Keflex 500 mg twice daily #Hypertension -Soft Blood pressure -Holding losartan and Norvasc (Resume when it is indicated) -Decrease Coreg to 3.125 twice daily #Ongoing tobacco abuse -Patient smoked one pack per day for the past 50 years -Was counseled regarding smoking cessation -Start nicotine patch #History of esophageal cancer status post chemo radiation in 2018 -Patient has recurrence on 2020 with last chemo on February 2021 -Consult hematology oncology #History of prostate cancer status post radical prostatectomy on 2008 #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
[2021-05-10 16:52] LABS: T4, Free (Free Thyroxine) 2.73 ng/dL (0.78-2.19)
[2021-05-10 17:09] LABS: Glucose,Whole Blood 253 mg/dL (75-99)
[2021-05-10] MEDS: GABAPENTIN 100 MG CAP PO SCH (17:13)
[2021-05-10] MEDS: HYDROCORTISONE SUCCINATE 100 MG/2 ML VIAL IV SCH (17:14)
[2021-05-10] MEDS: INSULIN ASPART (NovoLOG) 100 UNIT/ML VIAL SQ SCH ×2 (17:14→21:45)
[2021-05-10] MEDS: ENOXAPARIN 40 MG/0.4 ML SYRINGE SQ SCH (17:14)
[2021-05-10] MEDS ORDERED: methylPREDNISolone SOD SUCCI 125 MG/2 ML VIAL IV SCH (18:00)
[2021-05-10 19:31] LABS: Glucose,Whole Blood 204 mg/dL (75-99)
[2021-05-10] MEDS: CEPHALEXIN 500 MG CAP PO SCH (20:45)
[2021-05-10] MEDS: FUROSEMIDE 10 MG/ML 4 ML VIAL IV SCH (20:45)
[2021-05-10] MEDS: carvediloL 3.125 MG TAB PO SCH (20:45)
[2021-05-10] MEDS: SPIRONOLACTONE 25 MG TAB PO SCH (20:45)
[2021-05-10 21:25] LABS: Glucose,Whole Blood 146 mg/dL (75-99)
[2021-05-11] MEDS ORDERED: FUROSEMIDE 10 MG/ML 4 ML VIAL IV SCH
[2021-05-11] MEDS: GABAPENTIN 100 MG CAP PO SCH ×4 (00:25→22:16)
[2021-05-11] MEDS: HYDROCORTISONE SUCCINATE 100 MG/2 ML VIAL IV SCH ×2 (00:26→13:39)
[2021-05-11] MEDS: IPRATROPIUM-ALBUTEROL 3 ML NEB INHALATION PRN ×3 (03:44→23:35)
[2021-05-11 06:02] LABS: Basophils % (A) 0 %; Eosinophils % (A) 0 %; HCT 46.3 % (39.0-53.0); HGB 15.1 gm/dL (13.0-17.5); Lymphocytes # (A) 0.9 k/uL (1.0-4.8); Lymphocytes % (A) 7 %; MCH 29.4 pg (25.0-35.0); MCHC 32.6 g/dL (31.0-37.0); Mean Platelet Volume 7.6; Monocytes # (A) 0.6 k/uL (0-1.0); Monocytes % (A) 4 %; Neutrophils # (A) 11.7 k/uL (1.3-7.7); Neutrophils % (A) 88 %; Platelet Count 370 k/uL (150-450); RBC 5.15 m/uL (4.30-5.90); WBC 13.2 k/uL (3.8-10.6)
[2021-05-11 06:22] LABS: Glucose,Whole Blood 190 mg/dL (75-99)
--- NOTE | 2021-05-11 06:41 | XR ---
EXAMINATION TYPE: XR chest 2V DATE OF EXAM: 05/11/2021 COMPARISON: Chest x-ray 5 days ago. CTA chest yesterday. HISTORY: Shortness of breath and pleural effusions. History of esophageal cancer. TECHNIQUE: Frontal and lateral views of the chest are obtained. FINDINGS: Stable right internal jugular Mediport catheter. Overlying sternal wires and mediastinal c lips redemonstrated. Persistent small to moderate-sized bilateral pleural effusions and mild intersti tial edema with associated basilar compressive atelectasis cardiac silhouette size stable and within normal limits. Osseous structures are demineralized. IMPRESSION: [id number] sized bilateral pleural effusions and mild bilateral interstitial connor a remain present. Correlate for fluid overload state. No significant change from one day earlier.
[2021-05-11 06:56] LABS: ALT 17 U/L (4-49); AST 19 U/L (17-59); Alkaline Phosphatase 138 U/L (38-126); Blood Urea Nitrogen 25 mg/dL (9-20); Calcium 9.5 mg/dL (8.4-10.2); Total Bilirubin 0.5 mg/dL (0.2-1.3)
[2021-05-11 07:23] LABS: African American GFR (CKD) 81 (>60 ml/min/1.73 sqM); Albumin 3.4 g/dL (3.5-5.0); Anion Gap 8 mmol/L; Carbon Dioxide 26 mmol/L (22-30); Chloride 99 mmol/L (98-107); Glucose 229 mg/dL (74-99); Non-African American GFR(CKD) 70 (>60 ml/min/1.73 sqM); Potassium 4.5 mmol/L (3.5-5.1); Sodium 133 mmol/L (137-145); Total Protein 6.6 g/dL (6.3-8.2)
[2021-05-11] MEDS: INSULIN ASPART (NovoLOG) 100 UNIT/ML VIAL SQ SCH ×4 (07:46→22:19)
[2021-05-11] MEDS: LEVOTHYROXINE 100 MCG TAB PO SCH (07:46)
[2021-05-11] MEDS: LEVOTHYROXINE 50 MCG TAB PO SCH (07:46)
[2021-05-11] MEDS: AZITHROMYCIN 500 MG in SODIUM CHLORIDE 0.9% 250 ML IVPB SCH (09:34)
[2021-05-11] MEDS: NICOTINE 21MG/24HR PATCH TRANSDERM SCH (09:34)
[2021-05-11] MEDS: FUROSEMIDE 10 MG/ML 4 ML VIAL IV SCH ×2 (09:35→22:17)
[2021-05-11] MEDS: ATORVASTATIN 10 MG TAB PO SCH (09:35)
[2021-05-11] MEDS: ENOXAPARIN 40 MG/0.4 ML SYRINGE SQ SCH (09:35)
[2021-05-11] MEDS: CEPHALEXIN 500 MG CAP PO SCH ×2 (09:35→22:16)
[2021-05-11] MEDS: DULoxetine HCL 60 MG CAPSULE.DR PO SCH (09:35)
[2021-05-11] MEDS: DULoxetine HCL 30 MG CAPSULE.DR PO SCH ×2 (09:36→09:41)
[2021-05-11] MEDS: INSULIN DETEMIR (LEVEMIR) 100 UNIT/ML SYR SQ SCH (09:36)
[2021-05-11] MEDS: carvediloL 3.125 MG TAB PO SCH ×2 (09:36→17:35)
[2021-05-11] MEDS: SPIRONOLACTONE 25 MG TAB PO SCH ×2 (09:37→22:17)
[2021-05-11] MEDS: ASPIRIN 81 MG PO SCH (09:37)
--- NOTE | 2021-05-11 10:14 | ECHOF ---
Referral Reason:acute CHF MEASUREMENTS -------- HEIGHT: 170.2 cm WEIGHT: 74.8 kg BP: 113/73 RVIDd: 3.3 cm (< 3.3) IVSd: 1.6 cm (0.6 - 1.1) LVIDd: 4.5 cm (3.9 - 5.3) LVPWd: 1.4 cm (0.6 - 1.1) IVSs: 2.1 cm LVIDs: 3.1 cm LVPWs: 1.9 cm LAESV Index (A-L): 34.51 ml/m Ao Diam: 4.2 cm (2.0 - 3.7) AV Cusp: 2.2 cm (1.5 - 2.6) LA Diam: 4.9 cm (2.7 - 3.8) MV EXCURSION: 19.171 mm (> 18.000) MV EF SLOPE: 50 mm/s (70 - 150) EPSS: 1.0 cm MV E Torsten: 1.23 m/s MV DecT: 255 ms MV A Torsten: 1.36 m/s MV E/A Ratio: 0.91 FINDINGS -------- Sinus rhythm. This was a technically adequate study. The left ventricular size is normal. There is moderate concentric left ventricular hypertrophy. O verall left ventricular systolic function is normal with, an EF between 55 - 60 %. Septal wall silvano on is delayed and consistent with prior cardiac surgery. The right ventricle is mildly enlarged. LA is midly dilated 29-33ml/m2. The right atrial size is normal. Interatrial and interventricular septum intact. There is mild aortic valve sclerosis. There is no evidence of aortic regurgitation. There is no e vidence of aortic stenosis. Mild mitral annular calcification present. Mild mitral regurgitation is present. Mild tricuspid regurgitation present. There is no evidence of pulmonary hypertension. The right v entricular systolic pressure, as measured by Doppler, is {RVSP}. Trace/mild (physiologic) pulmonic regurgitation. The aortic root size is normal. IVC Not well visulized. There is a moderate, generalized pericardial effusion present. CONCLUSIONS -------- 1. The left ventricular size is normal. 2. There is moderate concentric left ventricular hypertrophy. 3. Overall left ventricular systolic function is normal with, an EF between 55 - 60 %. 4. The right ventricle is mildly enlarged. 5. LA is midly dilated 29-33ml/m2. 6. There is mild aortic valve sclerosis. 7. Mild mitral annular calcification present. 8. Mild mitral regurgitation is present. 9. Mild tricuspid regurgitation present. 10. Trace/mild (physiologic) pulmonic regurgitation. 11. There is a moderate, generalized pericardial effusion present. DISPLAY SCREEN FABRICATOR: Tania Sun RDCS
--- NOTE | 2021-05-11 10:23 | P.CNPUL ---
History of Present Illness Consult date: 05/11/21 Requesting physician: Ike Mtz Reason for consult: dyspnea, COPD, abnormal CXR/CT Chief complaint: Shortness of breath History of present illness: This a very pleasant 70-year-old male patient who follows with Dr. Long as his primary care provider. He has a history of coronary artery disease with previous coronary artery bypass grafting in 2016, Esophageal cancer treated with chemoradiation, prostate cancer is post prostatectomy, Renal cell cancer with previous right partial nephrectomy, peripheral vascular disease with previous fem-pop bypass, chronic and ongoing tobacco dependence, hypertension, hyperlipidemia, diabetes mellitus, hypothyroidism, depression. For the past 10 days he's been having issues with increasing shortness of breath, hoarseness, lower extremity edema. He was seen by his PCP I 04/27/2021 and was started on Demadex for 10 days. He did lose weight his edema improved however he presented to the emergency room yesterday with continued shortness breath even at rest. CT angiogram ruled out pulmonary embolism. There is suspected CHF with fluid volume overload and moderate size bilateral pleural effusions and mild to moderate alveolar edema. Echocardiogram is pending. EKG revealed sinus bradycardia with no significant ST or T wave abnormalities. White count 13.2. Hemoglobin 15.1. Sodium 133. Potassium 4.5. Creatinine 1.06. Glucose 229. AST 19. ALT 17. Alk phos 138. Troponin negative times one. ProBNP 600. TSH less than 0.015. Free T4 2 0.73. Coronavirus by PCR not detected. D-dimer 1.33. He's been initiated on Lasix 40 mg IV every 12 hours. He is seen today in consultation in the emergency department. He is currently sitting up in a chair at the bedside. Awake and alert in no acute distress. States he is breathing a bit easier today compared to yesterday. He is maintaining O2 saturation in the low 90s on 3 L/m per nasal cannula. He's been afebrile. Hemodynamically stable. No I & O measured. Current weight 74.8 kg. Review of Systems REVIEW OF SYSTEMS: CONSTITUTIONAL: Denies any recent significant weight loss or weight gain. EYES: Denies change in vision. EARS, NOSE, MOUTH, THROAT: Positive for hoarseness. CARDIOVASCULAR: Denies chest pain, palpitations or syncopal episodes. RESPIRATORY: Positive for shortness of breath, cough, congestion no hemoptysis. GASTROINTESTINAL: Denies change in appetite, denies abdominal pain GENITOURINARY: Denies hematuria, denies infections. MUSKULOSKELETAL: Positive for swelling of lower extremities. INTEGUMENTARY: Denies rash, denies eczema. NEUROLOGICAL: Denies recent memory loss, no recent seizure activity. PSYCHIATRIC: Denies anxiety, denies depression. HEMATOLOGIC/LYMPHATIC: Denies anemia, denies enlarged lymph nodes. Past Medical History Past Medical History: Coronary Artery Disease (CAD), Cancer, Diabetes Mellitus, Eye Disorder, GI Bleed, Hyperlipidemia, Hypertension, Myocardial Infarction ([place]), Prostate Disorder, Sleep Apnea/CPAP/BIPAP, Syncope, Thyroid Disorder, Vascular Disorder Additional Past Medical History / Comment(s): Prostate, renal cell, and basal cell cancers. GastroEsophageal cancer. - treated with chem/rad october 2018 HX kidney stones. Right eye blind. GE CA Currently. Uses CPAP. esophageal stricture Last Myocardial Infarction Date:: MAY 2015 History of Any Multi-Drug Resistant Organisms: None Reported Past Surgical History: Coronary Bypass/CABG, Heart Catheterization, Prostate Surgery Additional Past Surgical History / Comment(s): Partial Rt nephrectomy, Lt fem pop bypass in 04/07, which became infected and his is still on oral abx. PROCEDURE OF BASAL CELL OF UPPER LIP. Radical Prostatectomy. CABG X5. EGD, Colonoscopy 11/21/18. Past Anesthesia/Blood Transfusion Reactions: No Reported Reaction Past Psychological History: Depression Smoking Status: Current every day smoker Past Alcohol Use History: None Reported Past Drug Use History: None Reported - Past Family History Father Additional Family Medical History / Comment(s): killed in war Mother Family Medical History: Diabetes Mellitus Additional Family Medical History / Comment(s): Breast, lung cancer Brother(s) Additional Family Medical History / Comment(s): suicide Sister(s) Family Medical History: Cancer Additional Family Medical History / Comment(s): breast cancer Medications and Allergies Home Medications Medication Instructions Recorded Confirmed Type Losartan [Cozaar] 50 mg PO DAILY 06/05/15 05/10/21 History Carvedilol [Coreg] 25 mg PO DAILY 02/22/16 05/10/21 History DULoxetine HCL [Cymbalta] 30 mg PO DAILY 11/19/18 05/10/21 History Levothyroxine Sodium [Synthroid] 200 mcg PO DAILY 11/19/18 05/10/21 History Cephalexin [Keflex] 500 mg PO Q12H 12/17/18 05/10/21 History DULoxetine HCL [Cymbalta] 60 mg PO DAILY 07/10/20 05/10/21 History Levothyroxine Sodium [Synthroid] 50 mcg PO DAILY 07/10/20 05/10/21 History amLODIPine [Norvasc] 5 mg PO DAILY 07/10/20 05/10/21 History Albuterol Inhaler [Ventolin Hfa 2 puff INHALATION RT-Q4H PRN 05/06/21 05/10/21 History Inhaler] Atorvastatin [Lipitor] 10 mg PO DAILY 05/06/21 05/10/21 History Budesonide 1 mg INHALATION RT-DAILY 05/06/21 05/10/21 History Gabapentin [Neurontin] 200 mg PO TID 05/06/21 05/10/21 History INSULIN ASPART (NovoLOG) [NovoLOG See Protocol SQ AC-TID 05/06/21 05/10/21 History (formulary)] Ipratropium-Albuterol Nebulize 3 ml INHALATION RT-Q4H PRN 05/06/21 05/10/21 History [Duoneb 0.5 mg-3 mg/3 ml Soln] Insulin Glargine,Hum.rec.anlog 26 unit SQ AC-BRKFST 05/10/21 05/10/21 History [Lantus Solostar Pen] Nicotine 21Mg/24Hr Patch [Habitrol] 1 patch TRANSDERM DAILY 05/10/21 05/10/21 History Spironolactone [Aldactone] 25 mg PO BID 05/10/21 05/10/21 History Allergies Allergy/AdvReac Type Severity Reaction Status Date / Time No Known Allergies Allergy Verified 05/10/21 09:49 Physical Exam Vitals: Vital Signs Temp Pulse Resp BP Pulse Ox 05/11/21 08:16 87 18 123/90 93 L 05/11/21 07:29 88 18 05/11/21 07:20 87 18 97 05/11/21 06:43 97.1 F L 92 21 113/73 95 05/11/21 05:00 88 22 134/72 97 05/11/21 03:57 96 01/18/22 03:44 92 05/11/21 03:30 28 H 92 L 05/11/21 00:07 89 20 100/58 93 L 05/10/21 21:00 86 22 134/80 95 05/10/21 19:12 86 05/10/21 18:00 83 16 139/77 97 05/10/21 15:26 80 05/10/21 15:10 80 05/10/21 15:00 68 22 148/63 98 05/10/21 12:04 57 L 25 H 111/68 96 05/10/21 11:47 56 L 05/10/21 11:31 54 L 05/10/21 11:16 53 L 05/10/21 10:29 96.4 F L 54 L 12 119/86 97 GENERAL EXAM: Alert, pleasant 70-year-old gentleman, on 3 L nasal cannula, fairly comfortable in no apparent distress. HEAD: Normocephalic. EYES: Normal reaction of pupils, equal size. NOSE: Clear with pink turbinates. THROAT: No erythema or exudates. NECK: No masses, no JVD. CHEST: No chest wall deformity. LUNGS: Equal air entry with bilateral end extremities, crackles in the posterior bases, diminished. CVS: S1 and S2 normal with no audible murmur, regular rhythm. ABDOMEN: No hepatosplenomegaly, normal bowel sounds, no guarding or rigidity. SPINE: No scoliosis or deformity SKIN: No rashes CENTRAL NERVOUS SYSTEM: No focal deficits, tone is normal in all 4 extremities. EXTREMITIES: There is 1+ peripheral edema. No clubbing, no cyanosis. Peripheral pulses are intact. Results - Laboratory Findings CBC and BMP: 05/11/21 05:37 05/11/21 05:37 PT/INR, D-dimer PT 11.1 sec (9.0-12.0) 05/10/21 11:10 INR 1.0 (<1.2) 05/10/21 11:10 D-Dimer 1.33 mg/L FEU (<0.60) H 05/10/21 11:10 Abnormal lab findings: Abnormal Labs 05/10/21 05/10/21 05/10/21 11:10 11:10 11:10 WBC 12.7 H Neutrophils # 10.6 H Lymphocytes # D-Dimer 1.33 H Sodium 133 L BUN Glucose 100 H POC Glucose (mg/dL) Hemoglobin A1c Alkaline Phosphatase 146 H Albumin 3.2 L TSH Free T4 05/10/21 05/10/21 05/10/21 11:10 14:23 17:08 WBC Neutrophils # Lymphocytes # D-Dimer Sodium BUN Glucose POC Glucose (mg/dL) 116 H 253 H Hemoglobin A1c Alkaline Phosphatase Albumin TSH <0.015 L Free T4 2.73 H 05/10/21 05/10/21 05/11/21 19:30 21:21 05:37 WBC Neutrophils # Lymphocytes # D-Dimer Sodium BUN Glucose POC Glucose (mg/dL) 204 H 146 H Hemoglobin A1c 7.8 H Alkaline Phosphatase Albumin TSH Free T4 05/11/21 05/11/21 05/11/21 05:37 05:37 06:19 WBC 13.2 H Neutrophils # 11.7 H Lymphocytes # 0.9 L D-Dimer Sodium 133 L BUN 25 H Glucose 229 H POC Glucose (mg/dL) 190 H Hemoglobin A1c Alkaline Phosphatase 138 H Albumin 3.4 L TSH Free T4 - Diagnostic Findings Chest x-ray: image reviewed CT scan - chest: image reviewed Assessment and Plan Assessment: 1 Acute hypoxemic respiratory failure secondary to acute exacerbation of suspected systolic versus diastolic congestive heart failure, bilateral pleural effusions, COPD exacerbation. COVID-19 screen negative. 2 Acute exacerbation of suspected systolic versus diastolic congestive heart failure, currently on IV diuretics 3 Acute exacerbation of chronic obstructive pulmonary disease 4 Chronic and ongoing tobacco dependence 5 History of coronary disease with previous coronary artery bypass grafting in 2015 6 Hypertension 7 Hyperlipidemia 8 Hypothyroidism 9 History of prostate cancer with previous radical prostatectomy in 2008 10 History of esophageal cancer status post chemo/radiation in 2018, recurrence and status post chemotherapy in February 2021 11 Diabetes mellitus 12 History of peripheral vascular disease with previous left fem-pop bypass 2014 13 History of renal cell carcinoma with partial right nephrectomy 14 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 Plan: The patient was seen and evaluated Chest x-ray, CAT scans and labs reviewed Continue with IV diuretics, Aldactone Follow-up chest x-ray, ultrasound of the chest in a.m. May consider thoracentesis, diagnostic versus therapeutic Echocardiogram pending Initiate DuoNeb inhalations, IV Solu-Medrol, empiric antibiotics NicoDerm patch in place, educated regarding the importance of complete smoking cessation Lovenox for DVT prophylaxis Titrate the FiO2 as tolerated We will continue to follow and make further recommendations based on his clinical status I, the cosigning physician, performed a history & physical examination of the patient. Lungs sounds bilateral bases, diminished, end expiratory wheeze. Maintaining good O2 saturations in the 90s on 3 L/m per nasal cannula. I discussed the assessment and plan of care with my nurse practitioner, Palmira Schwartz. I attest to the above consultation as dictated by her. Time with Patient: Greater than 30
--- NOTE | 2021-05-11 10:48 | P.CRDCN ---
History of Present Illness History of present illness: This is a 70-year-old male who has a past medical history significant for coronary artery disease status post CABG 5 on 2016 at [facility] , esophageal cancer status post chemoradiation in 2019. With recurrence on 2020 status post chemotherapy last therapy was in February 2021, history of COPD with ongoing tobacco abuse (smokes 2PPD states he quit 2 days ago), type 2 diabetes, hypertension and dyslipidemia. He does not follow with a float phlebotomist. He presents with progressively worsening shortness of breath. Started new years sabrina. States he was exposed to a neighbor with pneumonia/RSV. He went to his PCP started on steroids and antibiotics. Since then he states his breathing has not improved. For the past 2 days he has noticed symptoms of cough, dyspnea on exertion, shortness of breath, orthopnea and PND. He has had to prop himself up to sleep, he cannot sleep lying flat. He denies any chest pain, lightheadedness, dizziness, syncope or near syncope. He denies any recent cardiac workup. He denies history of stroke or heart failure. He states he did have PET scan 3 mon ths ago which he states was told it was ok/no progression. He also states about 2 weeks ago he was started on Bumex 2mg daily. DIAGNOSTICS EKG reveals sinus bradycardia, heart rate 57, no acute ST or T-wave abnormalities. Prior EKG was similar findings. Echocardiogram revealed EF 5560 percent, mild mature tissue, mild tricuspid regurgitation. Moderate generalized pericardial effusion CT chest without any evidence of pulmonary was in, CHF exacerbation, fluid overload state, moderate sized bilateral pleural effusions, mild to moderate alveolar edema Laboratory reviewed, WBC 13.2, hemoglobin 15.1, platelets 370, sodium 133, potassium 4.5, BUN 25, serum creatinine 1.0, magnesium 2.0, BNP 600, troponin negative 1 REVIEW OF SYSTEMS At the time of my exam: CONSTITUTIONAL: Denies fever or chills. CARDIOVASCULAR: Denies chest pain, +shortness of breath,+ orthopnea, +PND Denies palpitations. RESPIRATORY: Denies cough. GASTROINTESTINAL: Denies abdominal pain, diarrhea, constipation, nausea or vomiting. MUSCULOSKELETAL: Denies myalgias. NEUROLOGIC: Denies numbness, tingling, headacbe or weakness. ENDOCRINE: Denies fatigue, weight change, polydipsia or polyurina. GENITOURINARY: Denies burning, hematuria or urgency with micturation. HEMATOLOGIC: Denies history of anemia or bleeding. PHYSICAL EXAMINATION Vitals reviewed CONSTITUTIONAL: No apparent distress. HEENT: Head is normocephalic. Pupils are equal, round. Sclerae anicteric. Mucous membranes of the mouth are moist. No JVD. No carotid bruit. CHEST EXAMINATION: Lungs are diminished, bilateral crackles in the bases noted to auscultation. No chest wall tenderness is noted on palpation or with deep breathing. HEART EXAMINATION: Regular rate and rhythm. S1, S2 heard. No murmurs, gallops or rub. ABDOMEN: Soft, nontender. Positive bowel sounds. EXTREMITIES: 2+ peripheral pulses, no lower extremity edema and no calf t enderness. NEUROLOGIC EXAMINATION: Patient is awake, alert and oriented x3. ASSESSMENT Acute on chronic diastolic heart failure COPD exacerbation Moderate pericardial effusion Chronic nicotine dependence Coronary artery disease status post CABG 5 on 2015 at [facility] History of esophageal cancer Type 2 diabetes History of hypertension Dyslipidemia. PLAN We will continue IV Lasix 40 mg twice a day. Monitor I/Os, daily weights, renal function and electrolytes Continue aspirin, statin, Carvedilol, spironolactone Pulmonary following, patient started on IV antibiotics and duonebs and steroids Further recommendations based on clinical course Nurse Practitioner note has been reviewed, I agree with a documented findings and plan of care. Patient was seen and examined. Past Medical History Past Medical History: Coronary Artery Disease (CAD), Cancer, Diabetes Mellitus, Eye Disorder, GI Bleed, Hyperlipidemia, Hypertension, Myocardial Infarction ([place]), Prostate Disorder, Sleep Apnea/CPAP/BIPAP, Syncope, Thyroid Disorder, Vascular Disorder Additional Past Medical History / Comment(s): Prostate, renal cell, and basal cell cancers. GastroEsophageal cancer. - treated with chem/rad october 2018 HX kidney stones. Right eye blind. GE CA Currently. Uses CPAP. esophageal stricture Last Myocardial Infarction Date:: MAY 2015 History of Any Multi-Drug Resistant Organisms: None Reported Past Surgical History: Coronary Bypass/CABG, Heart Catheterization, Prostate Surgery Additional Past Surgical History / Comment(s): Partial Rt nephrectomy, Lt fem pop bypass in 04/07, which became infected and his is still on oral abx. PROCEDURE OF BASAL CELL OF UPPER LIP. Radical Prostatectomy. CABG X5. EGD, Colonoscopy 11/21/18. Past Anesthesia/Blood Transfusion Reactions: No Reported Reaction Past Psychological History: Depression Smoking Status: Current every day smoker Past Alcohol Use History: None Reported Past Drug Use History: None Reported - Past Family History Father Additional Family Medical History / Comment(s): killed in war Mother Family Medical History: Diabetes Mellitus Additional Family Medical History / Comment(s): Breast, lung cancer Brother(s) Additional Family Medical History / Comment(s): suicide Sister(s) Family Medical History: Cancer Additional Family Medical History / Comment(s): breast cancer Medications and Allergies Home Medications Medication Instructions Recorded Confirmed Type Losartan [Cozaar] 50 mg PO DAILY 06/05/15 05/10/21 History Carvedilol [Coreg] 25 mg PO DAILY 02/22/16 05/10/21 History DULoxetine HCL [Cymbalta] 30 mg PO DAILY 11/19/18 05/10/21 History Levothyroxine Sodium [Synthroid] 200 mcg PO DAILY 11/19/18 05/10/21 History Cephalexin [Keflex] 500 mg PO Q12H 12/17/18 05/10/21 History DULoxetine HCL [Cymbalta] 60 mg PO DAILY 07/10/20 05/10/21 History Levothyroxine Sodium [Synthroid] 50 mcg PO DAILY 07/10/20 05/10/21 History amLODIPine [Norvasc] 5 mg PO DAILY 07/10/20 05/10/21 History Albuterol Inhaler [Ventolin Hfa 2 puff INHALATION RT-Q4H PRN 05/06/21 05/10/21 History Inhaler] Atorvastatin [Lipitor] 10 mg PO DAILY 05/06/21 05/10/21 History Budesonide 1 mg INHALATION RT-DAILY 05/06/21 05/10/21 History Gabapentin [Neurontin] 200 mg PO TID 05/06/21 05/10/21 History INSULIN ASPART (NovoLOG) [NovoLOG See Protocol SQ AC-TID 05/06/21 05/10/21 History (formulary)] Ipratropium-Albuterol Nebulize 3 ml INHALATION RT-Q4H PRN 05/06/21 05/10/21 History [Duoneb 0.5 mg-3 mg/3 ml Soln] Insulin Glargine,Hum.rec.anlog 26 unit SQ AC-BRKFST 05/10/21 05/10/21 History [Lantus Solostar Pen] Nicotine 21Mg/24Hr Patch [Habitrol] 1 patch TRANSDERM DAILY 05/10/21 05/10/21 History Spironolactone [Aldactone] 25 mg PO BID 05/10/21 05/10/21 History Allergies Allergy/AdvReac Type Severity Reaction Status Date / Time No Known Allergies Allergy Verified 05/10/21 09:49 Physical Exam Vitals: Vital Signs Temp Pulse Resp BP Pulse Ox 05/11/21 07:29 88 18 05/11/21 07:20 87 18 97 05/11/21 06:43 97.1 F L 92 21 113/73 95 05/11/21 05:00 88 22 134/72 97 05/11/21 03:57 96 05/11/21 03:44 92 05/11/21 03:30 28 H 92 L 05/11/21 00:07 89 20 100/58 93 L 05/10/21 21:00 86 22 134/80 95 05/10/21 19:12 86 05/10/21 18:00 83 16 139/77 97 05/10/21 15:26 80 05/10/21 15:10 80 05/10/21 15:00 68 22 148/63 98 05/10/21 12:04 57 L 25 H 111/68 96 05/10/21 11:47 56 L 05/10/21 11:31 54 L 05/10/21 11:16 53 L 05/10/21 10:29 96.4 F L 54 L 12 119/86 97 05/10/21 09:45 97.8 F 57 L 18 111/56 98 Results 05/11/21 05:37 05/11/21 05:37 Cardiac Enzymes 05/10/21 05/10/21 05/11/21 Range/Units 11:10 11:10 05:37 AST 25 19 (17-59) U/L Troponin I <0.012 (0.000-0.034) ng/mL Coagulation 05/10/21 Range/Units 11:10 PT 11.1 (9.0-12.0) sec APTT 25.4 (22.0-30.0) sec CBC 05/10/21 05/11/21 Range/Units 11:10 05:37 WBC 12.7 H 13.2 H (3.8-10.6) k/uL RBC 4.77 5.15 (4.30-5.90) m/uL Hgb 14.5 15.1 (13.0-17.5) gm/dL Hct 42.7 46.3 (39.0-53.0) % Plt Count 280 370 (150-450) k/uL Comprehensive Metabolic Panel 05/10/21 05/11/21 Range/Units 11:10 05:37 Sodium 133 L 133 L (137-145) mmol/L Potassium 4.6 4.5 (3.5-5.1) mmol/L Chloride 102 99 (98-107) mmol/L Carbon Dioxide 27 26 (22-30) mmol/L BUN 19 25 H (9-20) mg/dL Creatinine 0.80 1.06 (0.66-1.25) mg/dL Glucose 100 H 229 H (74-99) mg/dL Calcium 9.0 9.5 (8.4-10.2) mg/dL AST 25 19 (17-59) U/L ALT 17 17 (4-49) U/L Alkaline Phosphatase 146 H 138 H (38-126) U/L Total Protein 6.3 6.6 (6.3-8.2) g/dL Albumin 3.2 L 3.4 L (3.5-5.0) g/dL Current Medications Generic Name Dose Route Start Last Admin Trade Name Freq PRN Reason Stop Dose Admin Acetaminophen 650 mg 05/10/21 14:29 Acetaminophen Tab 325 Mg Tab PO Q6HR PRN Mild Pain or Fever > 100.5 Albuterol/Ipratropium 3 ml 05/10/21 14:34 05/11/21 07:20 Ipratropium-Albuterol 3 Ml Neb INHALATION 3 ml RT-Q4H PRN Administration Shortness Of Breath Alprazolam 0.25 mg 05/10/21 14:29 Alprazolam 0.25 Mg Tab PO Q6HR PRN Anxiety Atorvastatin Calcium 10 mg 05/11/21 09:00 Atorvastatin 10 Mg Tab PO DAILY SRIDHAR Bisacodyl 5 mg 05/10/21 14:29 Bisacodyl 5 Mg Tablet.Dr PO DAILY PRN Constipation Carvedilol 3.125 mg 05/10/21 17:30 05/10/21 20:45 Carvedilol 3.125 Mg Tab PO 3.125 mg BID-W/MEALS [facility] Administration Cephalexin 500 mg 05/10/21 21:00 05/10/21 20:45 Cephalexin 500 Mg Cap PO 500 mg Q12H [facility] Administration Duloxetine HCl 30 mg 05/11/21 09:00 Duloxetine Hcl 30 Mg Capsule. PO DAILY [facility] Duloxetine HCl 60 mg 05/11/21 09:00 Duloxetine Hcl 60 Mg Capsule. PO DAILY [facility] Enoxaparin Sodium 40 mg 05/10/21 15:00 05/10/21 17:14 Enoxaparin 40 Mg/0.4 Ml Syringe SQ 40 mg DAILY [facility] Administration Furosemide 40 mg 05/10/21 21:00 05/10/21 20:45 Furosemide 10 Mg/Ml 4 Ml Vial IV 40 mg Q12HR [facility] Administration Gabapentin 200 mg 05/10/21 16:00 05/11/21 00:25 Gabapentin 100 Mg Cap PO 200 mg TID [facility] Administration Hydrocortisone Sodium Succinate 60 mg 05/10/21 16:00 05/11/21 00:26 Hydrocortisone Succinate 100 Mg/2 Ml Vial IV 60 mg Q8HR [facility] Administration Azithromycin 500 mg/ Sodium 250 mls @ 250 mls/hr 05/11/21 09:00 Chloride IVPB 05/14/21 23:59 DAILY [facility] Insulin Aspart 0 unit 05/10/21 17:30 05/11/21 07:46 Insulin Aspart (Novolog) 100 Unit/Ml Vial SQ 2 unit ACHS [facility] Administration Protocol Insulin Detemir 26 unit 05/11/21 07:30 Insulin Detemir (Levemir) 100 Unit/Ml Syr SQ AC-BRKFST [facility] Levothyroxine Sodium 50 mcg 05/11/21 06:30 05/11/21 07:46 Levothyroxine 50 Mcg Tab PO 50 mcg DAILY@0630 [facility] Administration Levothyroxine Sodium 200 mcg 05/11/21 06:30 05/11/21 07:46 Levothyroxine 100 Mcg Tab PO 200 mcg DAILY@0630 [facility] Administration Magnesium Hydroxide 2,400 mg 05/10/21 14:29 Magnesium Hydroxide 2,400 Mg/10 Ml Cup PO DAILY PRN Constipation Naloxone HCl 0.2 mg 05/10/21 14:29 Naloxone 0.4 Mg/Ml 1 Ml Vial IV Q2M PRN Opioid Reversal Nicotine 1 patch 05/10/21 14:45 05/10/21 15:11 Nicotine 14mg/24hr Patch TRANSDERM Not Given DAILY SRIDHAR Ondansetron HCl 4 mg 05/10/21 14:29 Ondansetron 4 Mg/2 Ml Vial IVP Q8HR PRN Nausea And Vomiting Spironolactone 25 mg 05/10/21 21:00 05/10/21 20:45 Spironolactone 25 Mg Tab PO 25 mg BID SRIDHAR Administration 05/11/21 05:37 05/11/21 05:37
[2021-05-11 10:54] LABS: Chol/HDL Ratio 3.15 Ratio; LDL Cholesterol,Calculated 70.5 mg/dL (0.0-131.0)
--- NOTE | 2021-05-11 11:09 | P.PN ---
<Terry Moreau - Last Filed: 05/11/21 12:47> Subjective Progress Note Date: 05/11/21 Hospital course: Patient is a very pleasant 70-year-old male with a past medical history CAD [facility] post quintuple bypass in 2015, hypertension, hyperlipidemia, diabetes mellitus, COPD with ongoing tobacco use/dependence home oxygen dependent on 3 L O2, esophageal cancer status post chemotherapy and radiation with reoccurrence 02/2021, prostate cancer status post prostatectomy, renal cell cancer with previous right partial nephrectomy, peripheral vascular disease with previous stenting and fem-pop bypass, and hypothyroidism. Patient presented to the hospital on 05/10/21 with a chief complaint of increasing shortness of breath. Chest CTA revealed moderate sized bilateral pleural effusions and mild to moderate alveolar edema suspected CHF exacerbation. Chest x-ray showing small to moderate-sized bilateral pleural effusions and mild bilateral interstitial edema correlating for fluid overload concerning for CHF exacerbation. Patient was admitted under our services for acute respiratory failure with hypoxia, COPD exacerbation, and acute diastolic heart failure exacerbation. Consults to pulmonology, cardiology, and hematology/oncology have been placed. Physical exam: Patient seen and fully evaluated at bedside this morning. He was sitting up in the chair and reports feeling significantly better than he felt upon arrival yesterday. He continues to report mild shortness of breath worsened with exertion. He denies having any headache, lightheadedness, dizziness, chest pain, palpitations, or experiencing any numbness/tingling/weakness in his extremities. Patient was on 3 L O2 via nasal cannula at time of assessment. Vital signs reviewed and stable. General: Nontoxic, no distress and appears stated age. Derm: Skin warm and dry, normal coloration for ethnicity. Head: Atraumatic, normocephalic and symmetric. Eyes: EOMs intact, no lid lag, and anicteric sclera Mouth: no lip lesions, mucus membranes moist Cardiovascular: Regular rate and rhythm with normal S1S2, no murmur, positive posterior tibial pulses bilaterally, and cap refill < 2 seconds. Lungs: Respirations even, regular, and unlabored on 3 L O2 via nasal cannula. Lungs diminished, crackles at bilateral bases and soft expiratory wheezes bilaterally. No rhonchi, rales, or accessory muscle usage. Abdominal: soft, nontender to palpation, no guarding, no appreciable organomegaly Ext: ROM intact. No gross muscle atrophy, no edema, no contractures Neuro: Speech clear, face symmetrical and CN II-XII grossly intact with no noted focal neuro deficits Psych: Alert and oriented to person, place, time, and situation. Appropriate and pleasant affect. Assessment and Plan of Care: Acute respiratory failure with hypoxia possibly multi-factorial secondary to COPD exacerbation accompanied by acute exacerbation of diastolic heart failure and bilateral pleural effusions rule out metastatic process COPD with acute exacerbation Diastolic heart failure with exacerbation, ejection fraction 55-60% Moderate pericardial effusion Bilateral pleural effusions Long-standing history of encouragement use of tobacco products Esophageal cancer status post chemotherapy and radiation in 2018 with reoccurrence 02/2021 -Oxygenation to be administered and titrated as needed to maintain SPO2 equal to or greater than 92% -Telemetry monitoring. -Pulse-oximetry -Duonebs scheduled for times daily and as needed for SOB and/or wheezing -Incentive Spirometry -Steroids: Solu-Medrol 60 mg IVP every 6 hours -Antibiotics: Azithromycin -Pulmonology following appreciate recommendations -Diuretics: Aldactone 25 mg twice daily and Lasix 40 mg every 12 hours. -DVT prophylaxis with Lovenox. -Close monitoring of intake and output -Daily weights -Consult to cardiology -Echocardiogram revealed EF between 55 and 60% with moderate generalized pericardial effusion present. -Consult to oncology secondary to pleural effusions inpatient with esophageal cancer, possible metastatic process. -Continue to encourage smoking cessation and the risks of continued use, nicotine patch. Type 2 insulin-dependent diabetes mellitus -Continue Levemir 26 units daily and placed on glycemic protocol with NovoLog sliding scale. History of coronary disease status post CABG 5 in 2015 -Patient denied any chest pain -Patient does not follow up with cardiology -Patient is not on any antiplatelet or statin therapy -Check lipid panel -EKG showed sinus bradycardia rate of 57 with non- specific T wave or ST segment changes -Decrease Coreg to 3.25 twice daily -Cardiology consulted History of peripheral arterial disease status post left lower extremity bypass in 2014 status post removal due to infection -Patient on chronic antibiotic suppression with Keflex 500 mg twice daily, we will continue with his daily medication regimen at this time Hypertension -Monitor vital signs and Continue daily medication regimen with losartan and carvedilol. Hyperlipidemia -Continue daily medication regimen with atorvastatin 10 mg daily. Hypothyroidism -Continue daily medication regimen with levothyroxine. Depression -Continue daily medication regimen with Cymbalta. DVT prophylaxis: Lovenox Discussed with: Patient and RN Anticipated discharge date: Clinical course to determine Anticipated discharge place: Home A total of 45 minutes was spent on the care of this complex patient more than 50% of the time was spent in counseling and care coordination. Objective - Vital Signs Vital signs: Vital Signs Temp 97.1 F L 05/11/21 06:43 Pulse 80 05/11/21 10:23 Resp 18 05/11/21 10:23 BP 143/80 05/11/21 10:23 Pulse Ox 93 L 05/11/21 08:16 Intake & Output 05/10/21 05/11/21 05/11/21 18:59 06:59 18:59 Weight 74.843 kg 74.843 kg - Labs CBC & Chem 7: 05/11/21 05:37 05/11/21 05:37 Labs: Abnormal Lab Results - Last 24 Hours (Table) 05/10/21 05/10/21 05/10/21 Range/Units 11:10 11:10 11:10 WBC 12.7 H (3.8-10.6) k/uL Neutrophils # 10.6 H (1.3-7.7) k/uL Lymphocytes # (1.0-4.8) k/uL D-Dimer 1.33 H (<0.60) mg/L FEU Sodium 133 L (137-145) mmol/L BUN (9-20) mg/dL Glucose 100 H (74-99) mg/dL POC Glucose (mg/dL) (75-99) mg/dL Hemoglobin A1c (0.0-6.0) % Alkaline Phosphatase 146 H (38-126) U/L Albumin 3.2 L (3.5-5.0) g/dL TSH (0.465-4.680) mIU/L Free T4 (0.78-2.19) ng/dL 05/10/21 05/10/21 05/10/21 Range/Units 11:10 14:23 17:08 WBC (3.8-10.6) k/uL Neutrophils # (1.3-7.7) k/uL Lymphocytes # (1.0-4.8) k/uL D-Dimer (<0.60) mg/L FEU Sodium (137-145) mmol/L BUN (9-20) mg/dL Glucose (74-99) mg/dL POC Glucose (mg/dL) 116 H 253 H (75-99) mg/dL Hemoglobin A1c (0.0-6.0) % Alkaline Phosphatase (38-126) U/L Albumin (3.5-5.0) g/dL TSH <0.015 L (0.465-4.680) mIU/L Free T4 2.73 H (0.78-2.19) ng/dL 05/10/21 05/10/21 05/11/21 Range/Units 19:30 21:21 05:37 WBC (3.8-10.6) k/uL Neutrophils # (1.3-7.7) k/uL Lymphocytes # (1.0-4.8) k/uL D-Dimer (<0.60) mg/L FEU Sodium (137-145) mmol/L BUN (9-20) mg/dL Glucose (74-99) mg/dL POC Glucose (mg/dL) 204 H 146 H (75-99) mg/dL Hemoglobin A1c 7.8 H (0.0-6.0) % Alkaline Phosphatase (38-126) U/L Albumin (3.5-5.0) g/dL TSH (0.465-4.680) mIU/L Free T4 (0.78-2.19) ng/dL 05/11/21 05/11/21 05/11/21 Range/Units 05:37 05:37 06:19 WBC 13.2 H (3.8-10.6) k/uL Neutrophils # 11.7 H (1.3-7.7) k/uL Lymphocytes # 0.9 L (1.0-4.8) k/uL D-Dimer (<0.60) mg/L FEU Sodium 133 L (137-145) mmol/L BUN 25 H (9-20) mg/dL Glucose 229 H (74-99) mg/dL POC Glucose (mg/dL) 190 H (75-99) mg/dL Hemoglobin A1c (0.0-6.0) % Alkaline Phosphatase 138 H (38-126) U/L Albumin 3.4 L (3.5-5.0) g/dL TSH (0.465-4.680) mIU/L Free T4 (0.78-2.19) ng/dL <Mehreen Linsdey - Last Filed: 05/11/21 17:39> Subjective I reviewed the documentation as provided by the DEVENDRA above, who is the original author of this note. I agree with the documented assessment and plan, with the following changes: None Objective - Vital Signs Vital signs: Vital Signs Temp 97.1 F L 05/11/21 06:43 Pulse 84 05/11/21 15:35 Resp 25 H 05/11/21 13:00 BP 121/73 05/11/21 13:00 Pulse Ox 94 L 05/11/21 13:00 Intake & Output 05/10/21 05/11/21 05/11/21 18:59 06:59 18:59 Weight 74.843 kg 74.843 kg - Labs CBC & Chem 7: 05/11/21 05:37 05/11/21 05:37 Labs: Abnormal Lab Results - Last 24 Hours (Table) 05/10/21 05/10/21 05/11/21 Range/Units 19:30 21:21 05:37 WBC (3.8-10.6) k/uL Neutrophils # (1.3-7.7) k/uL Lymphocytes # (1.0-4.8) k/uL Sodium (137-145) mmol/L BUN (9-20) mg/dL Glucose (74-99) mg/dL POC Glucose (mg/dL) 204 H 146 H (75-99) mg/dL Hemoglobin A1c 7.8 H (0.0-6.0) % Alkaline Phosphatase (38-126) U/L Albumin (3.5-5.0) g/dL 05/11/21 05/11/21 05/11/21 Range/Units 05:37 05:37 06:19 WBC 13.2 H (3.8-10.6) k/uL Neutrophils # 11.7 H (1.3-7.7) k/uL Lymphocytes # 0.9 L (1.0-4.8) k/uL Sodium 133 L (137-145) mmol/L BUN 25 H (9-20) mg/dL Glucose 229 H (74-99) mg/dL POC Glucose (mg/dL) 190 H (75-99) mg/dL Hemoglobin A1c (0.0-6.0) % Alkaline Phosphatase 138 H (38-126) U/L Albumin 3.4 L (3.5-5.0) g/dL 05/11/21 05/11/21 Range/Units 12:21 17:34 WBC (3.8-10.6) k/uL Neutrophils # (1.3-7.7) k/uL Lymphocytes # (1.0-4.8) k/uL Sodium (137-145) mmol/L BUN (9-20) mg/dL Glucose (74-99) mg/dL POC Glucose (mg/dL) 162 H 126 H (75-99) mg/dL Hemoglobin A1c (0.0-6.0) % Alkaline Phosphatase (38-126) U/L Albumin (3.5-5.0) g/dL Microbiology - Last 24 Hours (Table) 05/10/21 11:35 Blood Culture - Preliminary Blood No Growth after 24 hours 05/10/21 11:20 Blood Culture - Preliminary Blood No Growth after 24 hours
[2021-05-11] MEDS: amLODIPine 5 MG TAB PO SCH (11:15)
[2021-05-11] MEDS: LOSARTAN 50 MG TAB PO SCH (11:16)
[2021-05-11 12:23] LABS: Glucose,Whole Blood 162 mg/dL (75-99)
[2021-05-11] MEDS: methylPREDNISolone SOD SUCCI 125 MG/2 ML VIAL IV SCH ×2 (13:46→17:35)
--- NOTE | 2021-05-11 15:07 | P.CONS ---
History of Present Illness - Reason for Consult Consult date: 05/11/21 Hx esophageal adenocarcinoma Requesting physician: Dilcia Hall - Chief Complaint SOB - History of Present Illness Mr. Jones is a pleasant male patient pt of Dr. Polk who presented to the emergency department in the summer of 2018 with complaints of black tarry stool, 3-4 day 3 days. His hemoglobin was 7. He received PRBCs. He was on aspirin and Plavix which he stopped 3 days prior. 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 GE junction also positive with adenocarcinoma with mucinous and signet ring cell features involving the submucosal space. He was referred to Oncology. Subsequently referred to [facility] for opinion from Dr. Tyler Scott, who recommended Josemanuel-adjuvant versus definitive chemo/rads with carboplatin and taxol. PET scan showed no metastatic disease. He was started on chemotherapy/XRT. follow-up PET scan in February showed persistent esophageal FDG uptake. 03/2019 patient completed radiation. Pat reflected treatment of disease. Patient opted to forego surgery. 07/12/19 PET DONNA. Patient again declined consideration for surgical resection, EGD and EUS not done. 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 Placed on FOLFOX. He had resolution of the supraclavicular lymph [id number] in September. patient opted out of cycles 11 and 12 of chemotherapy. PET scan January/2021, no evidence of disease. Next PET scan due in September. Patient will follow-up with Dr. Polk in May. patient presents to the ER with complaints of shortness of breath. CTA was negative for pulmonary embolism, was found to have bilateral pleural effusions, alveolar edema. The swelling in his legs is better since starting diuresis. He is still noted to be short of breath sitting in the chair. Patient denies fevers, chills, nausea, vomiting, chest pain, difficulty swallowing, painful swallowing, acute changes in bowel or bladder habits. Review of Systems 10 point review of systems is negative except as stated in HPI Past Medical History Past Medical History: Coronary Artery Disease (CAD), Cancer, Diabetes Mellitus, Eye Disorder, GI Bleed, Hyperlipidemia, Hypertension, Myocardial Infarction (CT), Prostate Disorder, Sleep Apnea/CPAP/BIPAP, Syncope, Thyroid Disorder, Vascular Disorder Additional Past Medical History / Comment(s): Prostate, renal cell, and basal cell cancers. GastroEsophageal cancer. - treated with chem/rad october 2018 HX kidney stones. Right eye blind. GE CA Currently. Uses CPAP. esophageal stricture Last Myocardial Infarction Date:: MAY 2015 History of Any Multi-Drug Resistant Organisms: None Reported Past Surgical History: Coronary Bypass/CABG, Heart Catheterization, Prostate Surgery Additional Past Surgical History / Comment(s): Partial Rt nephrectomy, Lt fem pop bypass in 04/07, which became infected and his is still on oral abx. PROCEDURE OF BASAL CELL OF UPPER LIP. Radical Prostatectomy. CABG X5. EGD, Colonoscopy 11/21/18. Past Anesthesia/Blood Transfusion Reactions: No Reported Reaction Past Psychological History: Depression Smoking Status: Current every day smoker Past Alcohol Use History: None Reported Past Drug Use History: None Reported - Past Family History Father Additional Family Medical History / Comment(s): killed in war Mother Family Medical History: Diabetes Mellitus Additional Family Medical History / Comment(s): Breast, lung cancer Brother(s) Additional Family Medical History / Comment(s): suicide Sister(s) Family Medical History: Cancer Additional Family Medical History / Comment(s): breast cancer Medications and Allergies Home Medications Medication Instructions Recorded Confirmed Type Losartan [Cozaar] 50 mg PO DAILY 06/05/15 05/10/21 History Carvedilol [Coreg] 25 mg PO DAILY 02/22/16 05/10/21 History DULoxetine HCL [Cymbalta] 30 mg PO DAILY 11/19/18 05/10/21 History Levothyroxine Sodium [Synthroid] 200 mcg PO DAILY 11/19/18 05/10/21 History Cephalexin [Keflex] 500 mg PO Q12H 12/17/18 05/10/21 History DULoxetine HCL [Cymbalta] 60 mg PO DAILY 07/10/20 05/10/21 History Levothyroxine Sodium [Synthroid] 50 mcg PO DAILY 07/10/20 05/10/21 History amLODIPine [Norvasc] 5 mg PO DAILY 07/10/20 05/10/21 History Albuterol Inhaler [Ventolin Hfa 2 puff INHALATION RT-Q4H PRN 05/06/21 05/10/21 History Inhaler] Atorvastatin [Lipitor] 10 mg PO DAILY 05/06/21 05/10/21 History Budesonide 1 mg INHALATION RT-DAILY 05/06/21 05/10/21 History Gabapentin [Neurontin] 200 mg PO TID 05/06/21 05/10/21 History INSULIN ASPART (NovoLOG) [NovoLOG See Protocol SQ AC-TID 05/06/21 05/10/21 History (formulary)] Ipratropium-Albuterol Nebulize 3 ml INHALATION RT-Q4H PRN 05/06/21 05/10/21 History [Duoneb 0.5 mg-3 mg/3 ml Soln] Insulin Glargine,Hum.rec.anlog 26 unit SQ AC-BRKFST 05/10/21 05/10/21 History [Lantus Solostar Pen] Nicotine 21Mg/24Hr Patch [Habitrol] 1 patch TRANSDERM DAILY 05/10/21 05/10/21 History Spironolactone [Aldactone] 25 mg PO BID 05/10/21 05/10/21 History Allergies Allergy/AdvReac Type Severity Reaction Status Date / Time No Known Allergies Allergy Verified 05/10/21 09:49 Physical Exam Vitals: Vital Signs Temp Pulse Resp BP Pulse Ox 05/11/21 08:16 87 18 123/90 93 L 05/11/21 07:29 88 18 05/11/21 07:20 87 18 97 05/11/21 06:43 97.1 F L 92 21 113/73 95 05/11/21 05:00 88 22 134/72 97 05/11/21 03:57 96 05/11/21 03:44 92 05/11/21 03:30 28 H 92 L 05/11/21 00:07 89 20 100/58 93 L 05/10/21 21:00 86 22 134/80 95 05/10/21 19:12 86 05/10/21 18:00 83 16 139/77 97 05/10/21 15:26 80 05/10/21 15:10 80 05/10/21 15:00 68 22 148/63 98 05/10/21 12:04 57 L 25 H 111/68 96 05/10/21 11:47 56 L 05/10/21 11:31 54 L 05/10/21 11:16 53 L 05/10/21 10:29 96.4 F L 54 L 12 119/86 97 05/10/21 09:45 97.8 F 57 L 18 111/56 98 - Constitutional General appearance: average body habitus, cooperative, mild distress - EENT Eyes: anicteric sclerae, EOMI ENT: hearing grossly normal, normal oropharynx - Neck Neck: no lymphadenopathy - Respiratory Respiratory: bilateral: diminished (bases), rales, wheezing - Cardiovascular Rhythm: regular Heart sounds: normal: S1, S2 leg Peripheral Edema: bilateral: 1+ - Gastrointestinal General gastrointestinal: no absent bowel sounds, no decreased bowel sounds, no distended, no hepatomegaly, no hyperactive bowel sounds, normal bowel sounds, no organomegaly, no rigid, no scaphoid, soft, no splenomegaly, no tenderness, no umbilical hernia, no ventral hernia - Neurologic Neurologic: CNII-XII intact - Musculoskeletal Musculoskeletal: strength equal bilaterally - Psychiatric Psychiatric: A&O x's 3, appropriate affect, intact judgment & insight Results CBC & Chem 7: 05/11/21 05:37 05/11/21 05:37 Labs: Abnormal Lab Results - Last 24 Hours (Table) 05/10/21 05/10/21 05/10/21 Range/Units 11:10 11:10 11:10 WBC 12.7 H (3.8-10.6) k/uL Neutrophils # 10.6 H (1.3-7.7) k/uL Lymphocytes # (1.0-4.8) k/uL D-Dimer 1.33 H (<0.60) mg/L FEU Sodium 133 L (137-145) mmol/L BUN (9-20) mg/dL Glucose 100 H (74-99) mg/dL POC Glucose (mg/dL) (75-99) mg/dL Alkaline Phosphatase 146 H (38-126) U/L Albumin 3.2 L (3.5-5.0) g/dL TSH (0.465-4.680) mIU/L Free T4 (0.78-2.19) ng/dL 05/10/21 05/10/21 05/10/21 Range/Units 11:10 14:23 17:08 WBC (3.8-10.6) k/uL Neutrophils # (1.3-7.7) k/uL Lymphocytes # (1.0-4.8) k/uL D-Dimer (<0.60) mg/L FEU Sodium (137-145) mmol/L BUN (9-20) mg/dL Glucose (74-99) mg/dL POC Glucose (mg/dL) 116 H 253 H (75-99) mg/dL Alkaline Phosphatase (38-126) U/L Albumin (3.5-5.0) g/dL TSH <0.015 L (0.465-4.680) mIU/L Free T4 2.73 H (0.78-2.19) ng/dL 05/10/21 05/10/21 05/11/21 Range/Units 19:30 21:21 05:37 WBC 13.2 H (3.8-10.6) k/uL Neutrophils # 11.7 H (1.3-7.7) k/uL Lymphocytes # 0.9 L (1.0-4.8) k/uL D-Dimer (<0.60) mg/L FEU Sodium (137-145) mmol/L BUN (9-20) mg/dL Glucose (74-99) mg/dL POC Glucose (mg/dL) 204 H 146 H (75-99) mg/dL Alkaline Phosphatase (38-126) U/L Albumin (3.5-5.0) g/dL TSH (0.465-4.680) mIU/L Free T4 (0.78-2.19) ng/dL 05/11/21 05/11/21 Range/Units 05:37 06:19 WBC (3.8-10.6) k/uL Neutrophils # (1.3-7.7) k/uL Lymphocytes # (1.0-4.8) k/uL D-Dimer (<0.60) mg/L FEU Sodium 133 L (137-145) mmol/L BUN 25 H (9-20) mg/dL Glucose 229 H (74-99) mg/dL POC Glucose (mg/dL) 190 H (75-99) mg/dL Alkaline Phosphatase 138 H (38-126) U/L Albumin 3.4 L (3.5-5.0) g/dL TSH (0.465-4.680) mIU/L Free T4 (0.78-2.19) ng/dL Comments: echo report reviewed Chest x-ray: report reviewed CT scan - chest: report reviewed Assessment and Plan (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 Right supraclavicular lymph node recurr ence 2019 with 10/12 cycles of FOLFOX. Last PET scan in January was neg for any disease. Current Visit: No Status: Chronic Priority: Medium Code(s): C80.1 - MALIGNANT (PRIMARY) NEOPLASM, UNSPECIFIED SNOMED Code(s): 690062894 Plan: if patient noes not have a response to diuresis there may be a consideration for thoracentesis to palliate symptoms. If that were the case, would request cytology be sent on any pleural fluid. If patient does well with diuresis/medical management then he will keep scheduled follow-up appointments w marc Polk and PET scan in September. Defer recommendations and mgmt of pleural effusion to Cardiology and Pulmonary Doctor attests: I performed a history and physical examination of this patient, developed impression and plan of care, discussed with dictator. I agree with dictators note, documented as a scribe.
[2021-05-11] MEDS: IPRATROPIUM-ALBUTEROL 3 ML NEB INHALATION SCH ×3 (15:20→19:25)
[2021-05-11 17:38] LABS: Glucose,Whole Blood 126 mg/dL (75-99)
[2021-05-11 19:59] LABS: Glucose,Whole Blood 166 mg/dL (75-99)
[2021-05-12] MEDS: methylPREDNISolone SOD SUCCI 125 MG/2 ML VIAL IV SCH ×5 (00:16→23:52)
[2021-05-12] MEDS: IPRATROPIUM-ALBUTEROL 3 ML NEB INHALATION PRN (03:55)
[2021-05-12] MEDS: LEVOTHYROXINE 100 MCG TAB PO SCH (05:44)
[2021-05-12] MEDS: LEVOTHYROXINE 50 MCG TAB PO SCH (05:45)
[2021-05-12 06:33] LABS: African American GFR (CKD) 72 (>60 ml/min/1.73 sqM); Anion Gap 7 mmol/L; Blood Urea Nitrogen 34 mg/dL (9-20); Calcium 9.4 mg/dL (8.4-10.2); Carbon Dioxide 27 mmol/L (22-30); Chloride 99 mmol/L (98-107); Glucose 168 mg/dL (74-99); Magnesium 2.1 mg/dL (1.6-2.3); Non-African American GFR(CKD) 62 (>60 ml/min/1.73 sqM); Potassium 4.8 mmol/L (3.5-5.1); Sodium 133 mmol/L (137-145)
[2021-05-12 07:18] LABS: Glucose,Whole Blood 162 mg/dL (75-99)
--- NOTE | 2021-05-12 07:44 | US ---
EXAMINATION TYPE: US chest DATE OF EXAM: 05/12/2021 COMPARISON: NONE CLINICAL HISTORY: Bilateral effusion. Pleural effusions, TECHNIQUE: Targeted ultrasound of the posterior lower bilateral EXAM MEASUREMENTS: Right Pleural Effusion pocket size: 5.0 cm Right skin surface to fluid distance: 2.7 cm Left Pleural Effusion pocket size: 6.9 cm Left skin surface to fluid distance: 2.4 cm Right side marked for possible thoracentesis outside the dept. Left side marked for possible thoracentesis outside the dept. Pulmonologists are able to review the images in the patient?s EMR. IMPRESSIONS: 1. Bilateral pleural effusions
[2021-05-12] MEDS: IPRATROPIUM-ALBUTEROL 3 ML NEB INHALATION SCH ×4 (07:47→20:17)
--- NOTE | 2021-05-12 08:05 | XR ---
EXAMINATION TYPE: XR chest 1V portable DATE OF EXAM: 05/12/2021 COMPARISON: 05/11/2021 INDICATION: Bilateral effusions TECHNIQUE: Single frontal view of the chest is obtained. FINDINGS: The heart size is normal. The pulmonary vasculature is normal. Small bilateral pleural effusions are present. Some linear opacities are within the left mid and lowe r lung field may be related to atelectasis. Port is present on the right with the tip in the superior vena cava region. Sternotomy wires are present. IMPRESSION: 1. Small bilateral pleural effusions, stable. 2. Suggestion of platelike atelectasis in the left lower lung field
[2021-05-12] MEDS: ENOXAPARIN 40 MG/0.4 ML SYRINGE SQ SCH (08:15)
[2021-05-12] MEDS: INSULIN DETEMIR (LEVEMIR) 100 UNIT/ML SYR SQ SCH (08:15)
[2021-05-12] MEDS: INSULIN ASPART (NovoLOG) 100 UNIT/ML VIAL SQ SCH ×4 (08:15→21:49)
[2021-05-12] MEDS: NICOTINE 21MG/24HR PATCH TRANSDERM SCH (08:15)
[2021-05-12] MEDS: LOSARTAN 50 MG TAB PO SCH (08:16)
[2021-05-12] MEDS: DULoxetine HCL 30 MG CAPSULE.DR PO SCH (08:16)
[2021-05-12] MEDS: carvediloL 3.125 MG TAB PO SCH ×2 (08:16→17:59)
[2021-05-12] MEDS: SPIRONOLACTONE 25 MG TAB PO SCH ×2 (08:16→21:51)
[2021-05-12] MEDS: amLODIPine 5 MG TAB PO SCH (08:16)
[2021-05-12] MEDS: GABAPENTIN 100 MG CAP PO SCH ×3 (08:16→21:51)
[2021-05-12] MEDS: ASPIRIN 81 MG PO SCH (08:17)
[2021-05-12] MEDS: FUROSEMIDE 10 MG/ML 4 ML VIAL IV SCH (08:17)
[2021-05-12] MEDS: ATORVASTATIN 10 MG TAB PO SCH (08:17)
[2021-05-12] MEDS: DULoxetine HCL 60 MG CAPSULE.DR PO SCH (08:17)
[2021-05-12] MEDS: CEPHALEXIN 500 MG CAP PO SCH ×2 (08:17→21:51)
[2021-05-12] MEDS: AZITHROMYCIN 500 MG in SODIUM CHLORIDE 0.9% 250 ML IVPB SCH (08:37)
--- NOTE | 2021-05-12 10:07 | XR ---
EXAMINATION TYPE: XR chest 1V portable DATE OF EXAM: 05/12/2021 COMPARISON: 05/12/2021 earlier exam INDICATION: Postthoracentesis left TECHNIQUE: Single frontal view of the chest is obtained. FINDINGS: The heart size is borderline. The pulmonary vasculature is normal. Small bilateral pleural effusions are present. Left-sided pleural effusion is diminished over the int erval. No pneumothorax is evident. 40s on the right with the tip in the superior vena cava region. Sternotomy wires are in the midline. IMPRESSION: 1. No pneumothorax post left thoracentesis. Left-sided pleural effusion is diminished. 2. Stable small to moderate right pleural effusion
--- NOTE | 2021-05-12 10:21 | P.PN ---
Subjective Progress Note Date: 05/12/21 HISTORY OF PRESENT ILLNESS: This is a 70-year-old male who has a past medical history significant for coronary artery disease status post CABG 5 on 2016 at [facility] , esoph ageal cancer status post chemoradiation in 2019. With recurrence on 2020 status post chemotherapy last therapy was in February 2021, history of COPD with ongoing tobacco abuse (smokes 2PPD states he quit 2 days ago), type 2 diabetes, hypertension and dyslipidemia. He does not follow with a lamina searcher. He presents with progressively worsening shortness of breath. Started new years sabrina. States he was exposed to a neighbor with pneumonia/RSV. He went to his PCP started on steroids and antibiotics. Since then he states his breathing has not improved. For the past 2 days he has noticed symptoms of cough, dyspnea on exertion, shortness of breath, orthopnea and PND. He has had to prop himself up to sleep, he cannot sleep lying flat. He denies any chest pain, lightheadedness, dizziness, syncope or near syncope. He denies any recent cardiac workup. He denies history of stroke or heart failure. He states he did have PET scan 3 months ago which he states was told it was ok/no progression. He also states about 2 weeks ago he was started on Bumex 2mg daily. DIAGNOSTICS EKG reveals sinus bradycardia, heart rate 57, no acute ST or T-wave abnormalities. Prior EKG was similar findings. Echocardiogram revealed EF 5560 percent, mild mature tissue, mild tricuspid regurgitation. Moderate generalized pericardial effusion CT chest without any evidence of pulmonary was in, CHF exacerbation, fluid overload state, moderate sized bilateral pleural effusions, mild to moderate alveolar edema Laboratory reviewed, WBC 13.2, hemoglobin 15.1, platelets 370, sodium 133, potassium 4.5, BUN 25, serum creatinine 1.0, magnesium 2.0, BNP 600, troponin negative 1 05/12/2021 Patient examined this morning. Patient is sitting up in the chair. Patient denies chest pain or pressure. He states his shortness of breath is improving. He remains on IV Lasix. BUN 34. Creatinine 1.17. Pulmonary is following for possible thoracentesis. PHYSICAL EXAM: VITAL SIGNS: Reviewed. GENERAL: Well-developed in no acute distress. NECK: Supple. No JVD or thyromegaly LUNGS: Respirations even and unlabored. Lungs diminished bilaterally. HEART: Regular rate and rhythm. S1 and S2 heard. EXTREMITIES: Normal range of motion. No clubbing or cyanosis. Peripheral pulses intact. No lower extremity edema ASSESSMENT: Acute on chronic diastolic heart failure COPD exacerbation Moderate pericardial effusion Bilateral pleural effusions Chronic nicotine dependence Coronary artery disease status post CABG 5 on 2015 at [facility] History of esophageal cancer, status post chemotherapy February 2021 Type 2 diabetes History of hypertension Dyslipidemia PLAN: Continue current cardiac medications Discontinue IV lasix. Begin oral lasix 40mg BID Pulmonary following. Possible thoracentesis Further recommendations pending patient's course Nurse practitioner note has been reviewed by physician. Signing provider agrees with the documented findings, assessment, and plan of care. Objective - Vital Signs Vital signs: Vital Signs Temp 97.5 F L 05/12/21 04:00 Pulse 88 05/12/21 07:58 Resp 16 05/12/21 04:00 BP 143/85 05/12/21 04:00 Pulse Ox 91 L 05/12/21 07:47 Intake & Output 05/11/21 05/12/21 05/12/21 18:59 06:59 18:59 Weight 74.843 kg Other: Voiding Method Toilet Toilet Urinal Urinal - Labs CBC & Chem 7: 05/11/21 05:37 05/12/21 05:39 Labs: Abnormal Lab Results - Last 24 Hours (Table) 05/11/21 05/11/21 05/11/21 Range/Units 12:21 17:34 19:57 Sodium (137-145) mmol/L BUN (9-20) mg/dL Glucose (74-99) mg/dL POC Glucose (mg/dL) 162 H 126 H 166 H (75-99) mg/dL 05/12/21 05/12/21 Range/Units 05:39 07:17 Sodium 133 L (137-145) mmol/L BUN 34 H (9-20) mg/dL Glucose 168 H (74-99) mg/dL POC Glucose (mg/dL) 162 H (75-99) mg/dL Microbiology - Last 24 Hours (Table) 05/10/21 11:35 Blood Culture - Preliminary Blood No Growth after 24 hours 05/10/21 11:20 Blood Culture - Preliminary Blood No Growth after 24 hours
--- NOTE | 2021-05-12 10:35 | P.PN ---
<Terry Moreau - Last Filed: 05/12/21 10:11> Subjective Progress Note Date: 05/12/21 Hospital course: Patient is a very pleasant 70-year-old male with a past medical history CAD st atus post quintuple bypass in 2015, hypertension, hyperlipidemia, diabetes mellitus, COPD with ongoing tobacco use/dependence home oxygen dependent on 3 L O2, esophageal cancer status post chemotherapy and radiation with reoccurrence 02/2021, prostate cancer status post prostatectomy, renal cell cancer with previous right partial nephrectomy, peripheral vascular disease with previous stenting and fem-pop bypass, and hypothyroidism. Patient presented to the hospital on 05/10/21 with a chief complaint of increasing shortness of breath. Chest CTA revealed moderate sized bilateral pleural effusions and mild to moderate alveolar edema suspected CHF exacerbation. Chest x-ray showing small to moderate-sized bilateral pleural effusions and mild bilateral interstitial edema correlating for fluid overload concerning for CHF exacerbation. Patient was admitted under our services for acute respiratory failure with hypoxia, COPD exacerbation, and acute diastolic heart failure exacerbation. Consults to pulmonology, cardiology, and hematology/oncology have been placed. Physical exam: Patient seen and fully evaluated at bedside this morning. He was sitting up in the chair and continues to report feeling better stating that last night was the first night he was able to sleep this year. Ultrasound of chest was completed this morning revealing bilateral pleural fusoins and the chest was marked on bilateral sides for site of possible thoracentesis. Awaiting chief passenger ship steward/stewardess to review ultrasound to determine if thoracentesis will be performed. Pt remains on baseline 3L O2. Lungs with diffuse rhocnchi and expiratory wheezes. He denies dizziness, lightheadedness, headache, chest pain, palpitations, abdominal pain, nausea, or experiencing any numbness/tingling/weakness in his extremities. Vital signs reviewed and stable. General: Nontoxic, no distress and appears stated age. Derm: Skin warm and dry, normal coloration for ethnicity. Head: Atraumatic, normocephalic and symmetric. Eyes: EOMs intact, no lid lag, and anicteric sclera Mouth: no lip lesions, mucus membranes moist Cardiovascular: Regular rate and rhythm with normal S1S2, no murmur, positive posterior tibial pulses bilaterally, and cap refill < 2 seconds. Lungs: Respirations even, regular, and unlabored on 3 L O2 via nasal cannula. Lungs diminished, diffuse rhonchi and soft expiratory wheezes bilaterally. No accessory muscle usage. Abdominal: soft, nontender to palpation, no guarding, no appreciable organomegaly Ext: ROM intact. No gross muscle atrophy, no edema, no contractures Neuro: Speech clear, face symmetrical and CN II-XII grossly intact with no noted focal neuro deficits Psych: Alert and oriented to person, place, time, and situation. Appropriate and pleasant affect. Assessment and Plan of Care: Acute respiratory failure with hypoxia possibly multi-factorial secondary to COPD exacerbation accompanied by acute exacerbation of diastolic heart failure and bilateral pleural effusions rule out metastatic process COPD with acute exacerbation Moderate pericardial effusion Bilateral pleural effusions Long-standing history of encouragement use of tobacco products Esophageal cancer status post chemotherapy and radiation in 2018 with reoccurrence 02/2021 -Oxygenation to be administered and titrated as needed to maintain SPO2 equal to or greater than 92% -Telemetry monitoring. -Pulse-oximetry -Duonebs scheduled for times daily and as needed for SOB and/or wheezing -Incentive Spirometry -Steroids: Solu-Medrol 60 mg IVP every 6 hours -Antibiotics: Azithromycin -Pulmonology following, evaluating for possible thoracentesis -DVT prophylaxis with Lovenox. -Consult to oncology secondary to pleural effusions inpatient with esophageal cancer, possible metastatic process. -Continue to encourage smoking cessation and the risks of continued use, nicotine patch. Diastolic heart failure with exacerbation, ejection fraction 55-60% History of coronary disease status post CABG 5 in 2015 -Patient denied any chest pain -Patient does not follow up with cardiology -Patient is not on any antiplatelet therapy -Lipid profile unremarkable -EKG showed sinus bradycardia rate of 57 with non- specific T wave or ST segment changes -Decreased Coreg to 3.25 twice daily -Diuretics: Aldactone 25 mg twice daily and Lasix 40 mg every 12 hours. -Close monitoring of intake and output -Daily weights -Consult to cardiology -Echocardiogram revealed EF between 55 and 60% with moderate generalized pericardial effusion present. -Cardiology following Type 2 insulin-dependent diabetes mellitus -Continue Levemir 26 units daily and placed on glycemic protocol with NovoLog sliding scale. History of peripheral arterial disease status post left lower extremity bypass in 2015 status post removal due to infection -Patient on chronic antibiotic suppression with Keflex 500 mg twice daily, we will continue with his daily medication regimen at this time Hypertension -Monitor vital signs and Continue daily medication regimen with losartan and carvedilol. Hyperlipidemia -Continue daily medication regimen with atorvastatin 10 mg daily. Hypothyroidism -Continue daily medication regimen with levothyroxine. Depression -Continue daily medication regimen with Cymbalta. DVT prophylaxis: Lovenox Discussed with: Patient and RN Anticipated discharge date: Clinical course to determine Anticipated discharge place: Home A total of 45 minutes was spent on the care of this complex patient more than 50% of the time was spent in counseling and care coordination. Objective - Vital Signs Vital signs: Vital Signs Temp 97.5 F L 05/12/21 04:00 Pulse 88 05/12/21 07:58 Resp 16 05/12/21 04:00 BP 143/85 05/12/21 04:00 Pulse Ox 91 L 05/12/21 07:47 Intake & Output 05/11/21 05/12/21 05/12/21 18:59 06:59 18:59 Weight 74.843 kg Other: Voiding Method Toilet Toilet Urinal Urinal - Labs CBC & Chem 7: 05/11/21 05:37 05/12/21 05:39 Labs: Abnormal Lab Results - Last 24 Hours (Table) 05/11/21 05/11/21 05/11/21 Range/Units 12:21 17:34 19:57 Sodium (137-145) mmol/L BUN (9-20) mg/dL Glucose (74-99) mg/dL POC Glucose (mg/dL) 162 H 126 H 166 H (75-99) mg/dL 05/12/21 05/12/21 Range/Units 05:39 07:17 Sodium 133 L (137-145) mmol/L BUN 34 H (9-20) mg/dL Glucose 168 H (74-99) mg/dL POC Glucose (mg/dL) 162 H (75-99) mg/dL Microbiology - Last 24 Hours (Table) 05/10/21 11:35 Blood Culture - Preliminary Blood No Growth after 24 hours 05/10/21 11:20 Blood Culture - Preliminary Blood No Growth after 24 hours <Ike Mtz - Last Filed: 05/13/21 09:13> Subjective agree with note and plan Objective - Vital Signs Vital signs: Vital Signs Temp 97.7 F 05/13/21 05:35 Pulse 95 05/13/21 06:31 Resp 20 05/13/21 05:35 BP 159/73 05/13/21 05:35 Pulse Ox 95 05/13/21 05:35 Intake & Output 05/12/21 05/13/21 05/13/21 18:59 06:59 18:59 Intake Total 570 Output Total 600 Balance -30 Weight 72.59 kg 72.7 kg Intake: Oral 570 Output: Urine 600 Other: Voiding Method Toilet Urinal - Labs CBC & Chem 7: 05/11/21 05:37 05/12/21 05:39 Labs: Abnormal Lab Results - Last 24 Hours (Table) 05/12/21 05/12/21 05/12/21 Range/Units 12:26 17:11 20:59 POC Glucose (mg/dL) 235 H 218 H 215 H (75-99) mg/dL Microbiology - Last 24 Hours (Table) 05/12/21 09:25 Gram Stain - Preliminary Pleural Fluid Body Fluid Culture - Preliminary 05/12/21 09:25 Anaerobic Culture - Preliminary Pleural Fluid 05/12/21 09:25 Acid Fast Bacilli Culture - Preliminary Pleural Fluid 05/12/21 09:25 Fungal Culture - Preliminary Pleural Fluid 05/10/21 11:35 Blood Culture - Preliminary Blood No Growth after 48 hours 05/10/21 11:20 Blood Culture - Preliminary Blood No Growth after 48 hours
[2021-05-12 12:27] LABS: Glucose,Whole Blood 235 mg/dL (75-99)
--- NOTE | 2021-05-12 13:49 | P.PN ---
Subjective Progress Note Date: 05/12/21 Principal diagnosis: Acute exacerbation of CHF, bilateral pleural effusions This a very pleasant 70-year-old male patient who follows with Dr. Long as his primary care provider. He has a history of coronary artery disease with previous coronary artery bypass grafting in 2016, Esophageal cancer treated with chemoradiation, prostate cancer is post prostatectomy, Renal cell cancer with previous right partial nephrectomy, peripheral vascular disease with previous fem-pop bypass, chronic and ongoing tobacco dependence, hypertension, hyperlipidemia, diabetes mellitus, hypothyroidism, depression. For the past 10 days he's been having issues with increasing shortness of breath, hoarseness, lower extremity edema. He was seen by his PCP I 04/27/2021 and was started on Demadex for 10 days. He did lose weight his edema improved however he presented to the emergency room yesterday with continued shortness breath even at rest. CT angiogram ruled out pulmonary embolism. There is suspected CHF with fluid volume overload and moderate size bilateral pleural effusions and mild to moderate alveolar edema. Echocardiogram is pending. EKG revealed sinus bradycardia with no significant ST or T wave abnormalities. White count 13.2. Hemoglobin 15.1. Sodium 133. Potassium 4.5. Creatinine 1.06. Glucose 229. AST 19. ALT 17. Alk phos 138. Troponin negative times one. ProBNP 600. TSH less than 0.015. Free T4 2 0.73. Coronavirus by PCR not detected. D-dimer 1.33. He's been initiated on Lasix 40 mg IV every 12 hours. He is seen today in consultation in the emergency department. He is currently sitting up in a chair at the bedside. Awake and alert in no acute distress. States he is breathing a bit easier today compared to yesterday. He is maintaining O2 saturation in the low 90s on 3 L/m per nasal cannula. He's been afebrile. Hemodynamically stable. No I & O measured. Current weight 74.8 kg. On 05/12/2021 patient seen in follow-up on medical surgical floor, he sitting up in the recliner, he is currently on 4 L of oxygen, and his pulse ox is 92-97%, vital signs have been stable, his been afebrile, he does get short of breath with activity, but appears to be in no acute distress, he remains on diuretics, exact net fluid balance is difficult to estimate his there is no accurate intake and output recorded, and no accurate weight recorded. But overall patient states his breathing much easier, ultrasound chest has been completed showing l eft greater than right pleural effusions, with right pleural effusion pocket of 5 cm, and left pleural effusion pocket of 6.9 cm, patient was offered left-sided thoracentesis today which he decided to proceed with an 1450 ML of straw-colored pleural fluid was removed and sent for analysis, cytology, and cultures. Patient tolerated procedure very well, follow up chest x-ray postprocedure showed no pneumothorax post left thoracentesis, and a left-sided pleural effusion which was diminished, and stable small to moderate sized right pleural effusion. Objective - Vital Signs Vital signs: Vital Signs Temp 98.7 F 05/12/21 12:48 Pulse 89 05/12/21 12:48 Resp 17 05/12/21 12:48 BP 113/57 05/12/21 12:48 Pulse Ox 92 L 05/12/21 12:48 Intake & Output 05/11/21 05/12/21 05/12/21 18:59 06:59 18:59 Weight 74.843 kg Other: Voiding Method Toilet Toilet Urinal Urinal - Exam GENERAL EXAM: Alert, very pleasant, 70-year-old white male, with a pulse ox of 92% on 4 L of oxygen comfortable in no apparent distress. HEAD: Normocephalic/atraumatic. EYES: Normal reaction of pupils, equal size. Conjunctiva pink, sclera white. NOSE: Clear with pink turbinates. THROAT: No erythema or exudates. NECK: No masses, no JVD, no thyroid enlargement, no adenopathy. CHEST: No chest wall deformity. Symmetrical expansion. LUNGS: Equal air entry with diminished breath sounds with bibasilar crackles CVS: Regular rate and rhythm, normal S1 and S2, no gallops, no murmurs, no rubs ABDOMEN: Soft, nontender. No hepatosplenomegaly, normal bowel sounds, no guarding or rigidity. EXTREMITIES: No clubbing, no edema, no cyanosis, 2+ pulses and upper and lower extremities. MUSCULOSKELETAL: Muscle strength and tone normal. SPINE: No scoliosis or deformity SKIN: No rashes CENTRAL NERVOUS SYSTEM: Alert and oriented -3. No focal deficits, tone is normal in all 4 extremities. PSYCHIATRIC: Alert and oriented -3. Appropriate affect. Intact judgment and insight. - Labs CBC & Chem 7: 05/11/21 05:37 05/12/21 05:39 Labs: Abnormal Lab Results - Last 24 Hours (Table) 05/11/21 05/11/21 05/12/21 Range/Units 17:34 19:57 05:39 Sodium 133 L (137-145) mmol/L BUN 34 H (9-20) mg/dL Glucose 168 H (74-99) mg/dL POC Glucose (mg/dL) 126 H 166 H (75-99) mg/dL 05/12/21 05/12/21 Range/Units 07:17 12:26 Sodium (137-145) mmol/L BUN (9-20) mg/dL Glucose (74-99) mg/dL POC Glucose (mg/dL) 162 H 235 H (75-99) mg/dL Microbiology - Last 24 Hours (Table) 05/10/21 11:35 Blood Culture - Preliminary Blood No Growth after 24 hours 05/10/21 11:20 Blood Culture - Preliminary Blood No Growth after 24 hours Assessment and Plan Plan: Assessment: #1. Acute hypoxic respiratory failure secondary to acute exacerbation of diastolic CHF, bilateral pleural effusions, COPD exacerbation. COVID-19 screen was negative. #2. Bilateral pleural effusions, left greater than right, status post left- sided thoracentesis today on 05/12/2021 would removal of 1450 mL of yellow colored pleural fluid which was sent for analysis, cytology and cultures. Postprocedure chest x-ray shows no evidence of pneumothorax #3. Acute exacerbation of COPD #4. Chronic and ongoing tobacco dependence #5. History of CAD with previous coronary artery bypass grafting in 2016 #6. Hypertension #7. Hyperlipidemia #8. Hypothyroidism #9. History of prostate cancer with previous radical prostatectomy in 2008 #10. History of esophageal cancer status post chemoradiation in 2018, recurrence is status post chemotherapy in February 2021 #11. Diabetes mellitus type 2 #12. History of peripheral vascular disease with previous left fem-pop bypass in 2014 #13. History of renal cell carcinoma with partial right nephrectomy #14. 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 Plan: Today's chest x-ray and ultrasound the chest reviewed We completed left-sided thoracentesis with removal of 1450 mL of yellow colored pleural fluid which was sent for cytology, pleural fluid analysis and cultures Patient tolerated procedure well, postprocedure chest x-ray shows no evidence of pneumothorax Continue diuretics per cardiology Daily labs, including electrolytes and renal profile, Follow-up chest x-ray tomorrow Daily weight, accurate intake and output CONTINUE to follow I performed a history & physical examination of the patient and discussed their management with my nurse practitioner, Shyann Cummings. I reviewed the nurse practitioner's note and agree with the documented findings and plan of care. Lung sounds are positive for dim breath sounds throughout the lung bello. The findings and the impression was discussed with the patient. I attest to the documentation by the nurse practitioner. Time with Patient: Less than 30
[2021-05-12 13:56] VITALS: BMI 25.0
--- NOTE | 2021-05-12 14:13 | OP ---
OPERATIVE REPORT OPERATIVE REPORT: Left-sided thoracentesis. PREOPERATIVE DIAGNOSIS: Large left-sided pleural effusion. POSTOPERATIVE DIAGNOSIS: Large left-sided pleural effusion. ANESTHESIA USED: Four mL of 1% lidocaine. PROCEDURE DESCRIPTION: The patient was placed in a sitting-upright position. The area below the left scapula, which was earlier localized by ultrasound, was prepared in a sterile fashion. Drapes were applied. The area was basically at the level of the tip of the scapula and eighth intercostal space. Again, area was locally anesthetized with lidocaine. A 26-gauge needle was inserted at the same site and advanced into the pleural space until the fluid was localized with the needle. Then a small tiny incision was made with a scalpel, and a standard thoracentesis catheter was inserted at the same site, advanced into the pleural space, and as the fluid was obtained, the catheter was advanced over the needle and the needle was pulled out of the pleural space. Roughly 1450 mL of slightly yellow fluid, freely flowing, was removed from the left pleural space. Procedure was well tolerated. No evidence of any immediate complications. Chest x-ray was ordered and is pending at the time of this dictation. The fluid obtained was sent for different diagnostic studies. Again, fluid was obtained and no complications. MMODL / IJN: [id number] /
[2021-05-12] MEDS: FUROSEMIDE 40 MG TAB PO SCH (15:22)
[2021-05-12 17:12] LABS: Glucose,Whole Blood 218 mg/dL (75-99)
--- NOTE | 2021-05-12 17:57 | P.PN ---
Subjective Progress Note Date: 05/12/21 Principal diagnosis: Eso adeno, pleural effusion In f/u pt reports significant reduction in the swelling of his BLE, his breathing is stable. Objective - Vital Signs Vital signs: Vital Signs Temp 98.7 F 05/12/21 12:48 Pulse 89 05/12/21 12:48 Resp 17 05/12/21 12:48 BP 113/57 05/12/21 12:48 Pulse Ox 92 L 05/12/21 12:48 Intake & Output 05/11/21 05/12/21 05/12/21 18:59 06:59 18:59 Weight 74.843 kg 72.59 kg Other: Voiding Method Toilet Toilet Urinal Urinal - Constitutional General appearance: Present: cooperative, no acute distress, thin - EENT Eyes: Present: anicteric sclerae, EOMI ENT: Present: hearing grossly normal - Respiratory Details: O2 4L Respiratory: bilateral: rales, rhonchi, wheezing - Cardiovascular Rhythm: regular Heart sounds: normal: S1, S2 - Neurologic Neurologic: Present: CNII-XII intact - Musculoskeletal Musculoskeletal: Present: generalized weakness - Psychiatric Psychiatric: Present: A&O x's 3, appropriate affect, intact judgment & insight - Labs CBC & Chem 7: 05/11/21 05:37 05/12/21 05:39 Labs: Abnormal Lab Results - Last 24 Hours (Table) 05/11/21 05/11/21 05/12/21 Range/Units 17:34 19:57 05:39 Sodium 133 L (137-145) mmol/L BUN 34 H (9-20) mg/dL Glucose 168 H (74-99) mg/dL POC Glucose (mg/dL) 126 H 166 H (75-99) mg/dL 05/12/21 05/12/21 Range/Units 07:17 12:26 Sodium (137-145) mmol/L BUN (9-20) mg/dL Glucose (74-99) mg/dL POC Glucose (mg/dL) 162 H 235 H (75-99) mg/dL Microbiology - Last 24 Hours (Table) 05/10/21 11:35 Blood Culture - Preliminary Blood No Growth after 48 hours 05/10/21 11:20 Blood Culture - Preliminary Blood No Growth after 48 hours Assessment and Plan (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 Right supraclavicular lymph node recurrence 2019 with 10/12 cycles of FOLFOX. Last PET scan in January was neg for any disease. Current Visit: No Status: Chronic Priority: Medium Code(s): C80.1 - MALIGNANT (PRIMARY) NEOPLASM, UNSPECIFIED SNOMED Code(s): 138459194 Plan: Pt having good response to diuresis, he is s/p thoracentesis with symptom improvement, cytology sent, pending path. Urgency of F/U with Dr. Polk once path reported. PET scan currently planned for September. Defer recommendations and mgmt of pleural effusion to Cardiology and Pulmonary
[2021-05-12 19:57] LABS: Glucose, BF Source Pleural Fluid; Glucose, Body Fluid 163 mg/dL; LDH, Body Fluid Source Pleural Fluid; Total Protein, Body Fluid 3670 mg/dL
[2021-05-12 21:01] LABS: Glucose,Whole Blood 215 mg/dL (75-99)
[2021-05-13] MEDS: LEVOTHYROXINE 100 MCG TAB PO SCH (05:47)
[2021-05-13] MEDS: methylPREDNISolone SOD SUCCI 125 MG/2 ML VIAL IV SCH ×2 (05:47→12:22)
[2021-05-13] MEDS: LEVOTHYROXINE 50 MCG TAB PO SCH (05:48)
[2021-05-13] MEDS: IPRATROPIUM-ALBUTEROL 3 ML NEB INHALATION PRN (06:20)
[2021-05-13] MEDS: INSULIN DETEMIR (LEVEMIR) 100 UNIT/ML SYR SQ SCH (08:31)
[2021-05-13] MEDS: NICOTINE 21MG/24HR PATCH TRANSDERM SCH (08:31)
[2021-05-13] MEDS: INSULIN ASPART (NovoLOG) 100 UNIT/ML VIAL SQ SCH ×2 (08:31→12:45)
[2021-05-13] MEDS: ENOXAPARIN 40 MG/0.4 ML SYRINGE SQ SCH (08:32)
[2021-05-13] MEDS: DULoxetine HCL 30 MG CAPSULE.DR PO SCH (08:32)
[2021-05-13] MEDS: amLODIPine 5 MG TAB PO SCH (08:32)
[2021-05-13] MEDS: GABAPENTIN 100 MG CAP PO SCH (08:32)
[2021-05-13] MEDS: LOSARTAN 50 MG TAB PO SCH (08:32)
[2021-05-13] MEDS: SPIRONOLACTONE 25 MG TAB PO SCH (08:33)
[2021-05-13] MEDS: DULoxetine HCL 60 MG CAPSULE.DR PO SCH (08:33)
[2021-05-13] MEDS: FUROSEMIDE 40 MG TAB PO SCH (08:33)
[2021-05-13] MEDS: ATORVASTATIN 10 MG TAB PO SCH (08:33)
[2021-05-13] MEDS: ASPIRIN 81 MG PO SCH (08:33)
[2021-05-13] MEDS: CEPHALEXIN 500 MG CAP PO SCH (08:33)
[2021-05-13] MEDS: carvediloL 3.125 MG TAB PO SCH (08:40)
[2021-05-13] MEDS ORDERED: AZITHROMYCIN 500 MG TAB PO SCH (09:00)
[2021-05-13] MEDS: IPRATROPIUM-ALBUTEROL 3 ML NEB INHALATION SCH ×2 (09:31→12:45)
[2021-05-13 09:50] LABS: Glucose,Whole Blood 159 mg/dL (75-99)
[2021-05-13 10:34] LABS: African American GFR (CKD) 100.3 (60.0-200.0); Anion Gap 12.3 mmol/L (10.00-18.00); BUN/Creat Ratio 33.41 Ratio (12.00-20.00); Blood Urea Nitrogen 28.8 mg/dL (9.0-27.0); Calcium 9.1 mg/dL (8.7-10.3); Carbon Dioxide 26.4 mmol/L (20.0-27.5); Non-African American GFR(CKD) 86.6 (60.0-200.0); Potassium 4.1 mmol/L (3.5-5.5)
--- NOTE | 2021-05-13 10:36 | P.PN ---
Subjective Progress Note Date: 05/13/21 Principal diagnosis: Hx of eso adeno, new pleural effusion In f/u pt reports no progression of swelling, breathing cont to improve, his cough is still congested. Objective - Vital Signs Vital signs: Vital Signs Temp 97.7 F 05/13/21 05:35 Pulse 95 05/13/21 06:31 Resp 13 05/13/21 08:00 BP 159/73 05/13/21 05:35 Pulse Ox 95 05/13/21 05:35 Intake & Output 05/12/21 05/13/21 05/13/21 18:59 06:59 18:59 Intake Total 570 Output Total 600 Balance -30 Weight 72.59 kg 72.7 kg Intake: Oral 570 Output: Urine 600 Other: Voiding Method Toilet Toilet Urinal Urinal - Constitutional General appearance: Present: average body habitus, cooperative, no acute distress - EENT Eyes: Present: anicteric sclerae, EOMI ENT: Present: hearing grossly normal - Respiratory Respiratory: left: other, bilateral: rhonchi - Cardiovascular Rhythm: regular Heart sounds: normal: S1, S2 Abnormal Heart Sounds: Absent: systolic murmur, diastolic murmur, rub, S3 Gallop, S4 Gallop, click, other - Peripheral edema foot Peripheral Edema: bilateral: Trace - Neurologic Neurologic: Present: CNII-XII intact - Musculoskeletal Musculoskeletal: Present: strength equal bilaterally - Psychiatric Psychiatric: Present: A&O x's 3, appropriate affect, intact judgment & insight - Labs CBC & Chem 7: 05/11/21 05:37 05/12/21 05:39 Labs: Abnormal Lab Results - Last 24 Hours (Table) 05/12/21 05/12/21 05/12/21 Range/Units 12:26 17:11 20:59 POC Glucose (mg/dL) 235 H 218 H 215 H (75-99) mg/dL 05/13/21 Range/Units 07:27 POC Glucose (mg/dL) 159 H (75-99) mg/dL Microbiology - Last 24 Hours (Table) 05/12/21 09:25 Gram Stain - Preliminary Pleural Fluid Body Fluid Culture - Preliminary 05/12/21 09:25 Anaerobic Culture - Preliminary Pleural Fluid 05/12/21 09:25 Acid Fast Bacilli Culture - Preliminary Pleural Fluid 05/12/21 09:25 Fungal Culture - Preliminary Pleural Fluid 05/10/21 11:35 Blood Culture - Preliminary Blood No Growth after 48 hours 05/10/21 11:20 Blood Culture - Preliminary Blood No Growth after 48 hours Assessment and Plan (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 Right supraclavicular lymph node recurrence 2019 with 10/12 cycles of FOLFOX. Last PET scan in January was neg for any disease. Pending cytology on pleural fluid. F/U with Dr. Polk scheduled. Will be watching for cytology, f/u appt will be moved if necessary. Current Visit: No Status: Chronic Priority: Medium Code(s): C80.1 - MALIGNANT (PRIMARY) NEOPLASM, UNSPECIFIED SNOMED Code(s): 778497558 Plan: Pt having good response to diuresis, he is s/p thoracentesis with symptom improvement, cytology sent, pending path. Defer recommendations and mgmt of pleural effusion to Cardiology and Pulmonary Pt ok from Hem/Onc once cleared by Attending and other Consulting MDs Attests: I have seen and examined pt, performed H&P, developed impression and plan of care. Discussed with dictator, agree with dictation, documented as a scribe.
--- NOTE | 2021-05-13 10:51 | XR ---
EXAMINATION TYPE: XR chest 1V portable DATE OF EXAM: 05/13/2021 COMPARISON: 05/12/2021 INDICATION: CHF TECHNIQUE: Single frontal view of the chest is obtained. FINDINGS: The heart size is normal. The pulmonary vasculature is prominent. Bibasilar infiltrates are present. Small amount of fluid may be present.. Catheter is present on the right with the tip in the superior vena cava region. IMPRESSION: 1. Bibasilar infiltrates with suggestion of some minimal small pleural fluid collections.
--- NOTE | 2021-05-13 12:07 | P.PN ---
Subjective Progress Note Date: 05/13/21 HISTORY OF PRESENT ILLNESS: This is a 70-year-old male who has a past medical history significant for coronary artery disease status post CABG 5 on 2016 at [facility] , esoph ageal cancer status post chemoradiation in 2019. With recurrence on 2020 status post chemotherapy last therapy was in February 2021, history of COPD with ongoing tobacco abuse (smokes 2PPD states he quit 2 days ago), type 2 diabetes, hypertension and dyslipidemia. He does not follow with a fiber designer. He presents with progressively worsening shortness of breath. Started new years sabrina. States he was exposed to a neighbor with pneumonia/RSV. He went to his PCP started on steroids and antibiotics. Since then he states his breathing has not improved. For the past 2 days he has noticed symptoms of cough, dyspnea on exertion, shortness of breath, orthopnea and PND. He has had to prop himself up to sleep, he cannot sleep lying flat. He denies any chest pain, lightheadedness, dizziness, syncope or near syncope. He denies any recent cardiac workup. He denies history of stroke or heart failure. He states he did have PET scan 3 months ago which he states was told it was ok/no progression. He also states about 2 weeks ago he was started on Bumex 2mg daily. DIAGNOSTICS EKG reveals sinus bradycardia, heart rate 57, no acute ST or T-wave abnormalities. Prior EKG was similar findings. Echocardiogram revealed EF 5560 percent, mild mature tissue, mild tricuspid regurgitation. Moderate generalized pericardial effusion CT chest without any evidence of pulmonary was in, CHF exacerbation, fluid overload state, moderate sized bilateral pleural effusions, mild to moderate alveolar edema Laboratory reviewed, WBC 13.2, hemoglobin 15.1, platelets 370, sodium 133, potassium 4.5, BUN 25, serum creatinine 1.0, magnesium 2.0, BNP 600, troponin negative 1 05/12/2021 Patient examined this morning. Patient is sitting up in the chair. Patient denies chest pain or pressure. He states his shortness of breath is improving. He remains on IV Lasix. BUN 34. Creatinine 1.17. Pulmonary is following for possible thoracentesis. 05/13/2021 Patient examined this morning. He is sitting up in the chair. He underwent left-sided thoracentesis yesterday per pulmonary with removal of 1450 mL. Patient states he feels significantly better today. He denies chest pain or pressure. Denies shortness of breath. Chest x-ray today reveals bibasilar infiltrates with suggestion of some minimal small pleural fluid collections. Patient is very anxious to be discharged home today. PHYSICAL EXAM: VITAL SIGNS: Reviewed. GENERAL: Well-developed in no acute distress. NECK: Supple. No JVD or thyromegaly LUNGS: Respirations even and unlabored. Lungs diminished bilaterally. HEART: Regular rate and rhythm. S1 and S2 heard. EXTREMITIES: Normal range of motion. No clubbing or cyanosis. Peripheral pulses intact. No lower extremity edema ASSESSMENT: Acute on chronic diastolic heart failure COPD exacerbation Moderate pericardial effusion Bilateral pleural effusions Chronic nicotine dependence Coronary artery disease status post CABG 5 on 2015 at [facility] History of esophageal cancer, status post chemotherapy February 2021 Type 2 diabetes History of hypertension Dyslipidemia PLAN: Continue current cardiac medications Patient may be discharged home today from a cardiac standpoint He is to follow up outpatient with Dr. Alonzo Nurse practitioner note has been reviewed by physician. Signing provider agrees with the documented findings, assessment, and plan of care. Objective - Vital Signs Vital signs: Vital Signs Temp 97.7 F 05/13/21 05:35 Pulse 115 H 05/13/21 11:03 Resp 13 05/13/21 08:00 BP 159/73 05/13/21 05:35 Pulse Ox 95 05/13/21 11:03 Intake & Output 05/12/21 05/13/21 05/13/21 18:59 06:59 18:59 Intake Total 570 Output Total 600 Balance -30 Weight 72.59 kg 72.7 kg Intake: Oral 570 Output: Urine 600 Other: Voiding Method Toilet Toilet Urinal Urinal - Labs CBC & Chem 7: 05/11/21 05:37 05/13/21 06:21 Labs: Abnormal Lab Results - Last 24 Hours (Table) 05/12/21 05/12/21 05/12/21 Range/Units 12:26 17:11 20:59 Sodium (135-145) mmol/L Chloride (96-109) mmol/L BUN (9.0-27.0) mg/dL BUN/Creatinine Ratio (12.00-20.00) Ratio Glucose (70-110) mg/dL POC Glucose (mg/dL) 235 H 218 H 215 H (75-99) mg/dL 05/13/21 05/13/21 Range/Units 06:21 07:27 Sodium 134 L (135-145) mmol/L Chloride 95 L (96-109) mmol/L BUN 28.8 H (9.0-27.0) mg/dL BUN/Creatinine Ratio 33.41 H (12.00-20.00) Ratio Glucose 174 H (70-110) mg/dL POC Glucose (mg/dL) 159 H (75-99) mg/dL Microbiology - Last 24 Hours (Table) 05/12/21 09:25 Gram Stain - Preliminary Pleural Fluid Body Fluid Culture - Preliminary 05/12/21 09:25 Anaerobic Culture - Preliminary Pleural Fluid 05/12/21 09:25 Acid Fast Bacilli Culture - Preliminary Pleural Fluid 05/12/21 09:25 Fungal Culture - Preliminary Pleural Fluid 05/10/21 11:35 Blood Culture - Preliminary Blood No Growth after 48 hours 05/10/21 11:20 Blood Culture - Preliminary Blood No Growth after 48 hours
[2021-05-13 12:30] LABS: Glucose,Whole Blood 260 mg/dL (75-99)
[2021-05-13 12:58] VITALS: BP 136/78; PULSE 104; RESP 20; TEMP 98.3
--- NOTE | 2021-05-13 12:58 | P.PN ---
Subjective Progress Note Date: 05/13/21 This a very pleasant 70-year-old male patient who follows with Dr. Long as his primary care provider. He has a history of coronary artery disease with previous coronary artery bypass grafting in 2016, Esophageal cancer treated with chemoradiation, prostate cancer is post prostatectomy, Renal cell cancer with previous right partial nephrectomy, peripheral vascular disease with previous fem-pop bypass, chronic and ongoing tobacco dependence, hypertension, hyperlipidemia, diabetes mellitus, hypothyroidism, depression. For the past 10 days he's been having issues with increasing shortness of breath, hoarseness, lower extremity edema. He was seen by his PCP I 04/27/2021 and was started on Demadex for 10 days. He did lose weight his edema improved however he presented to the emergency room yesterday with continued shortness breath even at rest. CT angiogram ruled out pulmonary embolism. There is suspected CHF with fluid volume overload and moderate size bilateral pleural effusions and mild to moderate alveolar edema. Echocardiogram is pending. EKG revealed sinus bradycardia with no significant ST or T wave abnormalities. White count 13.2. Hemoglobin 15.1. Sodium 133. Potassium 4.5. Creatinine 1.06. Glucose 229. AST 19. ALT 17. Alk phos 138. Troponin negative times one. ProBNP 600. TSH less than 0.015. Free T4 2 0.73. Coronavirus by PCR not detected. D-dimer 1.33. He's been initiated on Lasix 40 mg IV every 12 hours. He is seen today in consultation in the emergency department. He is currently sitting up in a chair at the bedside. Awake and alert in no acute distress. States he is breathing a bit easier today compared to yesterday. He is maintaining O2 s aturation in the low 90s on 3 L/m per nasal cannula. He's been afebrile. Hemodynamically stable. No I & O measured. Current weight 74.8 kg. On 05/12/2021 patient seen in follow-up on medical surgical floor, he sitting up in the recliner, he is currently on 4 L of oxygen, and his pulse ox is 92-97%, vital signs have been stable, his been afebrile, he does get short of breath with activity, but appears to be in no acute distress, he remains on diuretics, exact net fluid balance is difficult to estimate his there is no accurate intake and output recorded, and no accurate weight recorded. But overall patient states his breathing much easier, ultrasound chest has been completed showing left greater than right pleural effusions, with right pleural effusion pocket of 5 cm, and left pleural effusion pocket of 6.9 cm, patient was offered left-sided thoracentesis today which he decided to proceed with an 1450 ML of straw-colored pleural fluid was removed and sent for analysis, cytology, and cultures. Patient tolerated procedure very well, follow up chest x-ray postprocedure showed no pneumothorax post left thoracentesis, and a left-sided pleural effusion which was diminished, and stable small to moderate sized right pleural effusion. The patient is seen today 05/13/2021 in follow-up on the regular medical floor. He is currently sitting up in a chair at the bedside. Awake and alert in no acute distress. He is maintaining O2 saturations in the 90s on 4 L/m per nasal cannula. He is continued on DuoNeb inhalations, IV Solu-Medrol, antibiotics in the form of azithromycin. Chest x-ray continues show by basilar infiltrates with some minimal effusions. Cytology from pleural fluid still pending. Fluid analysis reveals an exudate with a protein of 3.6. Glucose 163. LDH 130. Objective - Vital Signs Vital signs: Vital Signs Temp 97.7 F 05/13/21 05:35 Pulse 88 05/13/21 12:45 Resp 13 05/13/21 08:00 BP 159/73 05/13/21 05:35 Pulse Ox 95 05/13/21 11:03 Intake & Output 05/12/21 05/13/21 05/13/21 18:59 06:59 18:59 Intake Total 570 Output Total 600 Balance -30 Weight 72.59 kg 72.7 kg Intake: Oral 570 Output: Urine 600 Other: Voiding Method Toilet Toilet Urinal Urinal - Exam GENERAL EXAM: Alert, very pleasant, 70-year-old male, with a pulse ox of 96% on 4 L of oxygen comfortable in no apparent distress. HEAD: Normocephalic/atraumatic. EYES: Normal reaction of pupils, equal size. Conjunctiva pink, sclera white. NOSE: Clear with pink turbinates. THROAT: No erythema or exudates. NECK: No masses, no JVD, no thyroid enlargement, no adenopathy. CHEST: No chest wall deformity. Symmetrical expansion. LUNGS: Equal air entry with diminished breath sounds with bibasilar crackles CVS: Regular rate and rhythm, normal S1 and S2, no gallops, no murmurs, no rubs ABDOMEN: Soft, nontender. No hepatosplenomegaly, normal bowel sounds, no guarding or rigidity. EXTREMITIES: No clubbing, no edema, no cyanosis, 2+ pulses and upper and lower extremities. MUSCULOSKELETAL: Muscle strength and tone normal. SPINE: No scoliosis or deformity SKIN: No rashes CENTRAL NERVOUS SYSTEM: No focal deficits, tone is normal in all 4 extremities. PSYCHIATRIC: Alert and oriented -3. Appropriate affect. Intact judgment and insight. - Labs CBC & Chem 7: 05/11/21 05:37 05/13/21 06:21 Labs: Abnormal Lab Results - Last 24 Hours (Table) 05/12/21 05/12/21 05/13/21 Range/Units 17:11 20:59 06:21 Sodium 134 L (135-145) mmol/L Chloride 95 L (96-109) mmol/L BUN 28.8 H (9.0-27.0) mg/dL BUN/Creatinine Ratio 33.41 H (12.00-20.00) Ratio Glucose 174 H (70-110) mg/dL POC Glucose (mg/dL) 218 H 215 H (75-99) mg/dL 05/13/21 05/13/21 Range/Units 07:27 12:24 Sodium (135-145) mmol/L Chloride (96-109) mmol/L BUN (9.0-27.0) mg/dL BUN/Creatinine Ratio (12.00-20.00) Ratio Glucose (70-110) mg/dL POC Glucose (mg/dL) 159 H 260 H (75-99) mg/dL Microbiology - Last 24 Hours (Table) 05/12/21 09:25 Gram Stain - Preliminary Pleural Fluid Body Fluid Culture - Preliminary 05/12/21 09:25 Anaerobic Culture - Preliminary Pleural Fluid 05/12/21 09:25 Acid Fast Bacilli Culture - Preliminary Pleural Fluid 05/12/21 09:25 Fungal Culture - Preliminary Pleural Fluid 05/10/21 11:35 Blood Culture - Preliminary Blood No Growth after 48 hours 05/10/21 11:20 Blood Culture - Preliminary Blood No Growth after 48 hours Assessment and Plan Assessment: 1 Acute hypoxemic respiratory failure secondary to acute exacerbation of suspected systolic versus diastolic congestive heart failure, bilateral pleural effusions, COPD exacerbation. COVID-19 screen negative. Status post left-sided thoracentesis with 1450 MLS of slightly yellow fluid removed. Appears to be exudative in nature with a protein of 3.7. Cytology pending. 2 Acute exacerbation of suspected systolic versus diastolic congestive heart failure, currently on IV diuretics 3 Acute exacerbation of chronic obstructive pulmonary disease 4 Chronic and ongoing tobacco dependence 5 History of coronary disease with previous coronary artery bypass grafting in 2015 6 Hypertension 7 Hyperlipidemia 8 Hypothyroidism 9 History of prostate cancer with previous radical prostatectomy in 2008 10 History of esophageal cancer status post chemo/radiation in 2018, recurrence and status post chemotherapy in February 2021 11 Diabetes mellitus 12 History of peripheral vascular disease with previous left fem-pop bypass 2014 13 History of renal cell carcinoma with partial right nephrectomy 14 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 Cytology pending. Hoping to go home today Resume his home pulmonary medications Evaluate for possible home oxygen Again educated regarding the importance of complete smoking cessation He will follow-up with Dr. Hackett in the office next week I, the cosigning physician, performed a history & physical examination of the patient. Lungs sounds with crackles in the bilateral bases, diminished. Maintaining good O2 saturations in the 90s on 4 L/m per nasal cannula. I discus sed the assessment and plan of care with my nurse practitioner, Palmira Schwartz. I attest to the above note as dictated by her.
--- NOTE | 2021-05-13 15:27 | P.DS ---
<Terry Moreau - Last Filed: 05/13/21 15:16> Providers Expected date of discharge: 05/13/21 Hospital Course: Discharge Diagnosis: Acute respiratory failure with hypoxia possibly multi-factorial secondary to COPD exacerbation accompanied by acute exacerbation of diastolic heart failure and bilateral pleural effusions rule out metastatic process COPD with acute exacerbation Moderate pericardial effusion Bilateral pleural effusions status post thoracentesis with removal of 1450 mL of pleural fluid Long-standing history of continued use of tobacco products Esophageal cancer status post chemotherapy and radiation in 2018 with reoccurrence 02/2021 Diastolic heart failure with exacerbation, ejection fraction 55-60% History of coronary disease status post CABG 5 in 2015 Type 2 insulin-dependent diabetes mellitus History of peripheral arterial disease status post left lower extremity bypass in 2014 status post removal due to infection Hypertension Hyperlipidemia Hypothyroidism Depression Hospital Course: Patient is a very pleasant 70-year-old male with a past medical history CAD status post quintuple bypass in 2015, hypertension, hyperlipidemia, diabetes mellitus, COPD with ongoing tobacco use/dependence home oxygen dependent on 3 L O2, esophageal cancer status post chemotherapy and radiation with reoccurrence 02/2021, prostate cancer status post prostatectomy, renal cell cancer with previous right partial nephrectomy, peripheral vascular disease with previous stenting and fem-pop bypass, and hypothyroidism. Patient presented to the hospital on 05/10/21 with a chief complaint of increasing shortness of breath. Chest CTA revealed moderate sized bilateral pleural effusions and mild to moderate alveolar edema suspected CHF exacerbation. Chest x-ray showing small to moderate-sized bilateral pleural effusions and mild bilateral interstitial edema correlating for fluid overload concerning for CHF exacerbation. Patient was admitted under our services for acute respiratory failure with hypoxia, COPD exacerbation, and acute diastolic heart failure exacerbation. Consults to pulmonology, cardiology, and hematology/oncology have been placed. Ultrasound of chest was completed this morning revealing bilateral pleural fusoins and the chest was marked on bilateral sides for thoracentesis. On 05/12/21 patient underwent thoracentesis with removal of 1450 mL of straw-colored pleural fluid which was sent for analysis, cytology, and cultures. Repeat chest x-ray completed on 05/13/21 showing basilar infiltrates with minimal effusions. Patient reported feeling much better status post thoracentesis and denies having any shortness of breath at rest, chest pain, palpitations, or any other complaints at this time.. He remains on baseline 3 L O2. Pulmonology recommending patient follow-up in their office in one week for cytology results and cultures as they are still pending and cardiology recommending patient to continue current cardiac medication regimen and follow up outpatient with Dr. Alonzo in 1 week. Patient is medically stable for discharge home at this time and recommended to follow-up as scheduled with hematology/oncology, cardiology, pulmonology and PCP. Physical exam: Vital signs reviewed and stable. General: Nontoxic, no distress and appears stated age. Derm: Skin warm and dry, normal coloration for ethnicity. Head: Atraumatic, normocephalic and symmetric. Eyes: EOMs intact, no lid lag, and anicteric sclera Mouth: no lip lesions, mucus membranes moist Cardiovascular: Regular rate and rhythm with normal S1S2, no murmur, positive posterior tibial pulses bilaterally, and cap refill < 2 seconds. Lungs: Respirations even, regular, and unlabored on 3 L O2 via nasal cannula. Lungs diminished use of crackles at bases. No rhonchi, rales, or wheezes this morning. No accessory muscle usage. Abdominal: soft, nontender to palpation, no guarding, no appreciable organomegaly Ext: ROM intact. No gross muscle atrophy, no edema, no contractures Neuro: Speech clear, face symmetrical and CN II-XII grossly intact with no noted focal neuro deficits Psych: Alert and oriented to person, place, time, and situation. Appropriate and pleasant affect. A total of 45 minutes of time were spent preparing this complex discharge summary. Patient Condition at Discharge: Stable Plan - Discharge Summary Discharge Rx Participant: No New Discharge Prescriptions: New predniSONE See Taper PO DAILY 12 Days #30 tab Azithromycin [Zithromax] 500 mg PO DAILY 3 Days #3 tab Aspirin 81 mg PO DAILY 30 Days #30 tab carvediloL [Coreg] 3.125 mg PO BID-W/MEALS 30 Days #60 tab Furosemide [Lasix] 40 mg PO BID@0900,1600 30 Days #60 tab Continue Losartan [Cozaar] 50 mg PO DAILY Levothyroxine Sodium [Synthroid] 200 mcg PO DAILY DULoxetine HCL [Cymbalta] 30 mg PO DAILY Cephalexin [Keflex] 500 mg PO Q12H amLODIPine [Norvasc] 5 mg PO DAILY DULoxetine HCL [Cymbalta] 60 mg PO DAILY Levothyroxine Sodium [Synthroid] 50 mcg PO DAILY Albuterol Inhaler [Ventolin Hfa Inhaler] 2 puff INHALATION RT-Q4H PRN PRN Reason: Shortness Of Breath Atorvastatin [Lipitor] 10 mg PO DAILY INSULIN ASPART (NovoLOG) [NovoLOG (formulary)] See Protocol SQ AC-TID Budesonide 1 mg INHALATION RT-DAILY Gabapentin [Neurontin] 200 mg PO TID Ipratropium-Albuterol Nebulize [Duoneb 0.5 mg-3 mg/3 ml Soln] 3 ml INHALATION RT-Q4H PRN PRN Reason: Shortness Of Breath Insulin Glargine,Hum.rec.anlog [Lantus Solostar Pen] 26 unit SQ AC-BRKFST Spironolactone [Aldactone] 25 mg PO BID Nicotine 21Mg/24Hr Patch [Habitrol] 1 patch TRANSDERM DAILY Discontinued Carvedilol [Coreg] 25 mg PO DAILY Discharge Medication List Losartan [Cozaar] 50 mg PO DAILY 06/05/15 [History] DULoxetine HCL [Cymbalta] 30 mg PO DAILY 11/19/18 [History] Levothyroxine Sodium [Synthroid] 200 mcg PO DAILY 11/19/18 [History] Cephalexin [Keflex] 500 mg PO Q12H 12/17/18 [History] DULoxetine HCL [Cymbalta] 60 mg PO DAILY 07/10/20 [History] Levothyroxine Sodium [Synthroid] 50 mcg PO DAILY 07/10/20 [History] amLODIPine [Norvasc] 5 mg PO DAILY 07/10/20 [History] Albuterol Inhaler [Ventolin Hfa Inhaler] 2 puff INHALATION RT-Q4H PRN 05/06/21 [History] Atorvastatin [Lipitor] 10 mg PO DAILY 05/06/21 [History] Budesonide 1 mg INHALATION RT-DAILY 05/06/21 [History] Gabapentin [Neurontin] 200 mg PO TID 05/06/21 [History] INSULIN ASPART (NovoLOG) [NovoLOG (formulary)] See Protocol SQ AC-TID 05/06/21 [History] Ipratropium-Albuterol Nebulize [Duoneb 0.5 mg-3 mg/3 ml Soln] 3 ml INHALATION RT-Q4H PRN 05/06/21 [History] Insulin Glargine,Hum.rec.anlog [Lantus Solostar Pen] 26 unit SQ AC-BRKFST 05/10/21 [History] Nicotine 21Mg/24Hr Patch [Habitrol] 1 patch TRANSDERM DAILY 05/10/21 [History] Spironolactone [Aldactone] 25 mg PO BID 05/10/21 [History] Aspirin 81 mg PO DAILY 30 Days #30 tab 05/13/21 [Rx] Azithromycin [Zithromax] 500 mg PO DAILY 3 Days #3 tab 05/13/21 [Rx] Furosemide [Lasix] 40 mg PO BID@0900,1600 30 Days #60 tab 05/13/21 [Rx] carvediloL [Coreg] 3.125 mg PO BID-W/MEALS 30 Days #60 tab 05/13/21 [Rx] predniSONE See Taper PO DAILY 12 Days #30 tab 05/13/21 [Rx] Follow up Appointment(s)/Referral(s): Sarah Hackett MD [STAFF PHYSICIAN] - 05/20/21 10:00 am Toby Long MD [Primary Care Provider] - 05/17/21 10:30 am Davin Polk MD [STAFF PHYSICIAN] - 06/18/21 2:15 pm Keshav Alonzo MD [STAFF PHYSICIAN] - 1 Week Patient Instructions/Handouts: Pulmonary Edema (DC), How to Stop Smoking (DC), Type 2 Diabetes in Adults: New Diagnosis (DC), Thoracentesis (DC) Activity/Diet/Wound Care/Special Instructions: Activity: As tolerated. Take breaks as needed. Diet: Heart healthy and carb consistent diet. Avoid salts, or foods with hidden salts such as canned or boxed foods and frozen dinners. Extra salt makes your heart work harder and traps the fluid in your body for longer. Special Instructions: Take all of your medications as directed and remember to keep all of your doctor's appointments and follow-ups as needed. Wishing you very happy new year!!! 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 Your compassion for our profession is truly inspiring!!! Thank you for allowing us to participate in your care, it was truly a pleasure having you for our patient!!! Discharge Disposition: HOME WITH HOME HEALTH SERVICES <Ike Mtz - Last Filed: 05/14/21 16:23> Providers Date of admission: 05/10/21 13:08 Attending physician: Ike Mtz MD Consults: 05/10/21 14:32 Consult Physician Routine Consulting Provider: Brunilda Pisano Consult Reason/Comments: copd exacerbation / B/L pleural effusion Do you want consulting provider notified?: Yes 05/10/21 15:14 Consult Physician Routine Consulting Provider: Aaron Godoy Consult Reason/Comments: esophageal CA with pleural effusion Do you want consulting provider notified?: Yes Primary care physician: Toby Long agree with note and plan
== END 2021-05-13 13:01 | disposition home health service (06) | DRG 291 ==
LOC: EC 09:44 → 3SCARD 13:08 → 4SSUR 05-11 15:39 → 5NMEDONC 05-11 15:43
PROVIDERS: ADMIT Internal Medicine; ATTEND Internal Medicine
PROC: 0W9B3ZZ Drainage of Left Pleural Cavity, Percutaneous Approach (ICD-10-PCS; principal; 2021-05-12)
DX: I11.0 Hypertensive heart disease with heart failure (principal); E43 Unspecified severe protein-calorie malnutrition; I50.33 Acute on chronic diastolic (congestive) heart failure; J96.01 Acute respiratory failure with hypoxia; I31.3 Pericardial effusion (noninflammatory); J44.1 Chronic obstructive pulmonary disease with (acute) exacerbation; E03.9 Hypothyroidism, unspecified; E11.51 Type 2 diabetes mellitus with diabetic peripheral angiopathy without gangrene; Z68.25 Body mass index [BMI] 25.0-25.9, adult; E78.00 Pure hypercholesterolemia, unspecified; I25.10 Atherosclerotic heart disease of native coronary artery without angina pectoris; F17.200 Nicotine dependence, unspecified, uncomplicated; F32.A Depression, unspecified; H54.61 Unqualified visual loss, right eye, normal vision left eye; I25.2 Old myocardial infarction; Z20.822 Contact with and (suspected) exposure to COVID-19; Z79.2 Long term (current) use of antibiotics; Z79.4 Long term (current) use of insulin; Z79.890 Hormone replacement therapy; Z79.899 Other long term (current) drug therapy; Z80.1 Family history of malignant neoplasm of trachea, bronchus and lung; Z80.3 Family history of malignant neoplasm of breast; Z83.3 Family history of diabetes mellitus; Z85.01 Personal history of malignant neoplasm of esophagus; Z85.46 Personal history of malignant neoplasm of prostate; Z85.528 Personal history of other malignant neoplasm of kidney; Z85.828 Personal history of other malignant neoplasm of skin; Z87.442 Personal history of urinary calculi; Z90.5 Acquired absence of kidney; Z90.79 Acquired absence of other genital organ(s); Z92.21 Personal history of antineoplastic chemotherapy; Z92.3 Personal history of irradiation; Z85.819 Personal history of malignant neoplasm of unspecified site of lip, oral cavity, and pharynx; Z95.1 Presence of aortocoronary bypass graft; Z99.81 Dependence on supplemental oxygen; Z87.01 Personal history of pneumonia (recurrent)
CPT/HCPCS: 36415; 71045; 71046; 71275; 76604; 80048; 80053; 80061; 82945; 83036; 83605; 83615; 83735; 83880; 84145; 84157; 84439; 84443; 84484; 85025; 85379; 85610; 85730; 87040; 87070; 87075; 87102; 87116; 87205; 87206; 87252; 87496; 87498; 87502; 87529; 87634; 87635; 87798; 88108; 88305; 88341; 88342; 93005; 93306; 94640; 94644; 94760; 96374; 99291

== ENCOUNTER 2021-05-25 19:55 | Inpatient (IN) | payer MEDICARE ==
[2021-05-25 20:59] LABS: Basophils # (A) 0.1 k/uL (0-0.2); Basophils % (A) 0 %; Eosinophils # (A) 0.3 k/uL (0-0.7); Eosinophils % (A) 2 %; HCT 43.9 % (39.0-53.0); HGB 14.6 gm/dL (13.0-17.5); Lymphocytes # (A) 1.3 k/uL (1.0-4.8); Lymphocytes % (A) 9 %; MCH 29.5 pg (25.0-35.0); MCHC 33.3 g/dL (31.0-37.0); MCV 88.7 fL (80.0-100.0); Mean Platelet Volume 7.4; Monocytes # (A) 0.8 k/uL (0-1.0); Monocytes % (A) 6 %; Neutrophils % (A) 83 %; Platelet Count 378 k/uL (150-450); RBC 4.95 m/uL (4.30-5.90); RDW 13.5 % (11.5-15.5); WBC 14.5 k/uL (3.8-10.6)
[2021-05-25 21:09] LABS: Partial Thromboplastin Time 22.8 sec (22.0-30.0); Prothrombin Time 11.1 sec (9.0-12.0)
--- NOTE | 2021-05-25 21:23 | XR ---
EXAMINATION TYPE: XR chest 2V DATE OF EXAM: 05/25/2021 COMPARISON: 05/20/2021 HISTORY: Short of breath TECHNIQUE: 2 views FINDINGS: There is blunting of the costophrenic angles. There is pulmonary vascular congestion. There are sternal wires. There is right central venous catheter with tip in the superior vena cava. IMPRESSION: Congestive heart failure with pleural effusions. Pulmonary congestion and pleural fluid i ncreased compared to last exam.
[2021-05-25 21:28] LABS: Albumin 3.2 g/dL (3.5-5.0); Calcium 9.1 mg/dL (8.4-10.2); Total Bilirubin 0.5 mg/dL (0.2-1.3); Total Protein 6.1 g/dL (6.3-8.2)
--- NOTE | 2021-05-25 23:55 | ED ---
SOB HPI - General Chief Complaint: Shortness of Breath Stated Complaint: SOB,Weak Time Seen by Provider: 05/25/21 22:51 Source: patient Mode of arrival: wheelchair Limitations: no limitations - History of Present Illness Initial Comments: This patient is a 70-year-old man with history of esophageal cancer recently hospitalized for dyspnea. He had thoracentesis performed in April which does apparently show evidence of malignant cells. The patient states that over the past 2-3 days his respiratory status has worsened. He is not able to sleep lyin g flat. He states he is not getting much rest as he has had be upright more or less 24 hours or he cannot breathe. He does have history of COPD as well and wears continuous nasal cannula oxygen at 3 L. No fever or chills. Cough has not changed there is a little bit of clear sputum. No change in urination or bowel movements. The patient states that he has had slight increase of leg edema, worse on the left though it is always that way, despite taking 2 diuretics at home. MD Complaint: shortness of breath -: days(s) Severity: mild Quality: dull Consistency: constant Improves With: upright position Worsens With: lying flat Known History Of: congestive heart failure Context: other (Left leg edema) Associated Symptoms: denies other symptoms Treatments Prior to Arrival: oxygen, bronchodilator - Related Data Home Oxygen Therapy: Yes Home Oxygen Amount: 3 Liters Home Medications Medication Instructions Recorded Confirmed Losartan [Cozaar] 50 mg PO DAILY 06/05/15 05/25/21 DULoxetine HCL [Cymbalta] 30 mg PO DAILY 11/19/18 05/25/21 Levothyroxine Sodium [Synthroid] 200 mcg PO DAILY 11/19/18 05/25/21 Cephalexin [Keflex] 500 mg PO Q12H 12/17/18 05/25/21 DULoxetine HCL [Cymbalta] 60 mg PO DAILY 07/10/20 05/25/21 Levothyroxine Sodium [Synthroid] 50 mcg PO DAILY 07/10/20 05/25/21 amLODIPine [Norvasc] 5 mg PO DAILY PRN 07/10/20 05/25/21 Albuterol Inhaler [Ventolin Hfa 2 puff INHALATION RT-Q4H PRN 05/06/21 05/25/21 Inhaler] Atorvastatin [Lipitor] 10 mg PO DAILY 05/06/21 05/25/21 Budesonide 1 mg INHALATION RT-DAILY PRN 05/06/21 05/25/21 Gabapentin [Neurontin] 200 mg PO TID 05/06/21 05/25/21 INSULIN ASPART (NovoLOG) [NovoLOG See Protocol SQ AC-TID PRN 05/06/21 05/25/21 (formulary)] Ipratropium-Albuterol Nebulize 3 ml INHALATION RT-Q4H PRN 05/06/21 05/25/21 [Duoneb 0.5 mg-3 mg/3 ml Soln] Insulin Glargine,Hum.rec.anlog 26 unit SQ AC-BRKFST 05/10/21 05/25/21 [Lantus Solostar Pen] Nicotine 21Mg/24Hr Patch [Habitrol] 1 patch TRANSDERM DAILY PRN 05/10/21 05/25/21 Spironolactone [Aldactone] 25 mg PO BID 05/10/21 05/25/21 Furosemide [Lasix] 40 mg PO BID 05/25/21 05/25/21 Latanoprost [Xalatan 0.005%] 1 drop RIGHT EYE HS 05/25/21 05/25/21 dronabinoL [Dronabinol] 5 mg PO HS 05/25/21 05/25/21 predniSONE 5 mg PO DAILY 05/25/21 05/25/21 prednisoLONE ACETATE [Pred Forte 1 drop RIGHT EYE BID 05/25/21 05/25/21 1%] Previous Rx's Medication Instructions Recorded Aspirin 81 mg PO DAILY 30 Days #30 tab 05/13/21 carvediloL [Coreg] 3.125 mg PO BID-W/MEALS 30 Days 05/13/21 #60 tab Allergies Allergy/AdvReac Type Severity Reaction Status Date / Time No Known Allergies Allergy Verified 05/25/21 23:34 Review of Systems ROS Statement: Those systems with pertinent positive or pertinent negative responses have been documented in the HPI. ROS Other: All systems not noted in ROS Statement are negative. Constitutional: Denies: fever, chills Respiratory: Reports: cough, dyspnea. Denies: wheezes, hemoptysis, stridor Cardiovascular: Reports: orthopnea, edema. Denies: chest pain, palpitations, syncope Gastrointestinal: Denies: abdominal pain, vomiting, diarrhea Genitourinary: Denies: dysuria, hematuria Musculoskeletal: Denies: back pain Skin: Denies: rash Neurological: Denies: headache, weakness, numbness Past Medical History Past Medical History: Coronary Artery Disease (CAD), Cancer, Diabetes Mellitus, Eye Disorder, GI Bleed, Hyperlipidemia, Hypertension, Myocardial Infarction ([place]), Prostate Disorder, Sleep Apnea/CPAP/BIPAP, Syncope, Thyroid Disorder, Vascular Disorder Additional Past Medical History / Comment(s): Prostate, renal cell, and basal cell cancers. GastroEsophageal cancer. - treated with chem/rad october 2018 HX kidney stones. Right eye blind. GE CA Currently. Uses CPAP. esophageal stricture Last Myocardial Infarction Date:: MAY 2015 History of Any Multi-Drug Resistant Organisms: None Reported Past Surgical History: Coronary Bypass/CABG, Heart Catheterization, Prostate Surgery Additional Past Surgical History / Comment(s): Partial Rt nephrectomy, Lt fem pop bypass in 04/07, which became infected and his is still on oral abx. PROCEDURE OF BASAL CELL OF UPPER LIP. Radical Prostatectomy. CABG X5. EGD, Colonoscopy 11/21/18. Past Anesthesia/Blood Transfusion Reactions: No Reported Reaction Past Psychological History: Depression Smoking Status: Current every day smoker Past Alcohol Use History: None Reported Past Drug Use History: None Reported - Past Family History Father Additional Family Medical History / Comment(s): killed in war Mother Family Medical History: Diabetes Mellitus Additional Family Medical History / Comment(s): Breast, lung cancer Brother(s) Additional Family Medical History / Comment(s): suicide Sister(s) Family Medical History: Cancer Additional Family Medical History / Comment(s): breast cancer General Exam Limitations: no limitations General appearance: alert, in distress Head exam: Present: atraumatic, normocephalic Eye exam: Present: normal appearance. Absent: scleral icterus, conjunctival injection Neck exam: Present: normal inspection Respiratory exam: Present: respiratory distress, wheezes, decreased breath sounds (Bilateral bases) Cardiovascular Exam: Present: regular rate, normal rhythm, normal heart sounds. Absent: systolic murmur, diastolic murmur, rubs, gallop GI/Abdominal exam: Present: soft. Absent: distended, tenderness, guarding, rebound, rigid, mass Extremities exam: Present: normal capillary refill, pedal edema (Bilateral ankle edema left greater than right). Absent: calf tenderness Back exam: Present: normal inspection. Absent: CVA tenderness (R), CVA tenderness (L) Neurological exam: Present: alert Skin exam: Present: warm, dry, intact, normal color. Absent: rash Course Vital Signs 05/25/21 20:32 Temperature 97.6 F Pulse Rate 80 Respiratory 20 Rate Blood Pressure 109/71 O2 Sat by Pulse 98 Oximetry Medical Decision Making - Lab Data Result diagrams: 05/25/21 20:52 05/25/21 20:52 Lab Results 05/25/21 05/25/21 05/25/21 Range/Units 20:52 20:52 20:52 WBC 14.5 H (3.8-10.6) k/uL RBC 4.95 (4.30-5.90) m/uL Hgb 14.6 (13.0-17.5) gm/dL Hct 43.9 (39.0-53.0) % MCV 88.7 (80.0-100.0) fL MCH 29.5 (25.0-35.0) pg MCHC 33.3 (31.0-37.0) g/dL RDW 13.5 (11.5-15.5) % Plt Count 378 (150-450) k/uL MPV 7.4 Neutrophils % 83 % Lymphocytes % 9 % Monocytes % 6 % Eosinophils % 2 % Basophils % 0 % Neutrophils # 12.0 H (1.3-7.7) k/uL Lymphocytes # 1.3 (1.0-4.8) k/uL Monocytes # 0.8 (0-1.0) k/uL Eosinophils # 0.3 (0-0.7) k/uL Basophils # 0.1 (0-0.2) k/uL PT 11.1 (9.0-12.0) sec INR 1.0 (<1.2) APTT 22.8 (22.0-30.0) sec Sodium 134 L (137-145) mmol/L Potassium 4.0 (3.5-5.1) mmol/L Chloride 100 (98-107) mmol/L Carbon Dioxide 29 (22-30) mmol/L Anion Gap 5 mmol/L BUN 24 H (9-20) mg/dL Creatinine 1.06 (0.66-1.25) mg/dL Est GFR (CKD-EPI)AfAm 81 (>60 ml/min/1.73 sqM) Est GFR (CKD-EPI)NonAf 70 (>60 ml/min/1.73 sqM) Glucose 123 H (74-99) mg/dL Calcium 9.1 (8.4-10.2) mg/dL Total Bilirubin 0.5 (0.2-1.3) mg/dL AST 21 (17-59) U/L ALT 17 (4-49) U/L Alkaline Phosphatase 100 (38-126) U/L Troponin I (0.000-0.034) ng/mL NT-Pro-B Natriuret Pep pg/mL Total Protein 6.1 L (6.3-8.2) g/dL Albumin 3.2 L (3.5-5.0) g/dL 05/25/21 05/25/21 Range/Units 20:52 20:52 WBC (3.8-10.6) k/uL RBC (4.30-5.90) m/uL Hgb (13.0-17.5) gm/dL Hct (39.0-53.0) % MCV (80.0-100.0) fL MCH (25.0-35.0) pg MCHC (31.0-37.0) g/dL RDW (11.5-15.5) % Plt Count (150-450) k/uL MPV Neutrophils % % Lymphocytes % % Monocytes % % Eosinophils % % Basophils % % Neutrophils # (1.3-7.7) k/uL Lymphocytes # (1.0-4.8) k/uL Monocytes # (0-1.0) k/uL Eosinophils # (0-0.7) k/uL Basophils # (0-0.2) k/uL PT (9.0-12.0) sec INR (<1.2) APTT (22.0-30.0) sec Sodium (137-145) mmol/L Potassium (3.5-5.1) mmol/L Chloride (98-107) mmol/L Carbon Dioxide (22-30) mmol/L Anion Gap mmol/L BUN (9-20) mg/dL Creatinine (0.66-1.25) mg/dL Est GFR (CKD-EPI)AfAm (>60 ml/min/1.73 sqM) Est GFR (CKD-EPI)NonAf (>60 ml/min/1.73 sqM) Glucose (74-99) mg/dL Calcium (8.4-10.2) mg/dL Total Bilirubin (0.2-1.3) mg/dL AST (17-59) U/L ALT (4-49) U/L Alkaline Phosphatase (38-126) U/L Troponin I 0.013 (0.000-0.034) ng/mL NT-Pro-B Natriuret Pep 325 pg/mL Total Protein (6.3-8.2) g/dL Albumin (3.5-5.0) g/dL Disposition Referrals: Toby Long MD [Primary Care Provider] - 1-2 days
[2021-05-26] MEDS: prednisoLONE ACETATE 1% OPHTH DROPS 5 ML BTL RIGHT EYE SCH ×3 (00:14→21:49)
[2021-05-26] MEDS ORDERED: NALOXONE 0.4 MG/ML 1 ML VIAL IV PRN (00:53)
[2021-05-26] MEDS ORDERED: MORPHINE SULFATE 4 MG/ML SYRINGE IV PRN (00:53)
[2021-05-26] MEDS ORDERED: ACETAMINOPHEN TAB 325 MG TAB PO PRN (00:53)
[2021-05-26] MEDS ORDERED: ONDANSETRON 4 MG/2 ML VIAL IVP PRN (00:53)
[2021-05-26] MEDS ORDERED: IPRATROPIUM-ALBUTEROL 3 ML NEB INHALATION PRN ×2 (01:30→10:40)
--- NOTE | 2021-05-26 01:33 | P.HPIM ---
History of Present Illness H&P Date: 05/26/21 The patient is a 70-year-old male with a PMH of esophageal cancer status post multiple rounds of chemotherapy and radiation with relapse 2, coronary artery disease status post CABG, diastolic CHF, COPD, chronic hypoxic respiratory failure on 3 L nasal cannula continuous oxygen at home, 2 DM, hypertension, and hyperlipidemia who presents to the emergency room with complaints of shortness of breath. Patient reports that over the past 2-3 days, he has had gradually worsening shortness of breath with orthopnea and nonproductive cough. He reports sleeping in his recliner during this time. Also reports feeling more fatigued than usual as well as a chronic right lower back pain, rated as a 2/10. Of note, the patient was recently discharged from the hospital on 05/13/21 when he was admitted for similar complaints and had undergone thoracentesis with removal of 1450 ml of fluid. Chest x-ray revealed congestive heart failure with pleural effusions bilaterally. Laboratory evaluation was remarkable for leukocytosis of 14.5, BUN 24, and proBNP 325. Review of systems: Pertinent positives and negatives as discussed in HPI, a complete review of systems was performed and all other systems are negative. Physical examination: General: Chronically ill-appearing male no distress, appears at stated age, normal weight Derm: no unusual rashes/lesions no unusual ecchymoses, warm, dry Head: atraumatic, normocephalic, symmetric Eyes: EOMI, no lid lag, anicteric sclera, pupils equal round reactive to light ENT: Nose and ears atraumatic, no thrush, no pharyngeal erythema Neck: No thyromegaly, no cervical lymphadenopathy, trachea midline, supple Mouth: no lip lesion, mucus membranes somewhat dry Cardiovascular: S1S2 reg, no murmur, positive posterior tibial pulse bilateral, no edema, capillary refill less than 2 seconds Lungs: Diffuse rhonchi and wheezing, no accessory muscle use Abdominal: soft, nontender to palpation, no guarding, no appreciable organomegaly, normal bowel sounds Ext: no gross muscle atrophy, muscle strength 5 out of 5 in all 4 extremities grossly, no contractures, Neuro: CN II-XI grossly intact, light touch intact all 4 extremities, finger to nose within normal limits, Psych: Alert, oriented, appropriate affect Assessment/plan Shortness of breath, likely multifactorial secondary to acute COPD exacerbation and large pleural effusion with acute on chronic hypoxic respiratory failure -Start Solu-Medrol -DuoNeb's -Pulmonary consult for possible thoracentesis versus chest tube placement -Supplemental oxygen Chronic conditions: Esophageal cancer, Type II DM, hypertension, hyperlipidemia, coronary artery disease -Continue with home meds -Consult Oncology -Insulin sliding scale blood glucose monitoring -Check A1c DVT prophylaxis -Lovenox The patient is admitted with an anticipated greater than 2 midnight stay for evaluation of SOB CODE STATUS: Full Code Discussed with: Patient Anticipated discharge date: 2-[address]: Home Past Medical History Past Medical History: Coronary Artery Disease (CAD), Cancer, Diabetes Mellitus, Eye Disorder, GI Bleed, Hyperlipidemia, Hypertension, Myocardial Infarction ([place]), Prostate Disorder, Sleep Apnea/CPAP/BIPAP, Syncope, Thyroid Disorder, Vascular Disorder Additional Past Medical History / Comment(s): Prostate, renal cell, and basal cell cancers. GastroEsophageal cancer. - treated with chem/rad october 2018 HX kidney stones. Right eye blind. GE CA Currently. Uses CPAP. esophageal stricture Last Myocardial Infarction Date:: MAY 2015 History of Any Multi-Drug Resistant Organisms: None Reported Past Surgical History: Coronary Bypass/CABG, Heart Catheterization, Prostate Surgery Additional Past Surgical History / Comment(s): Partial Rt nephrectomy, Lt fem pop bypass in 04/07, which became infected and his is still on oral abx. PROCEDURE OF BASAL CELL OF UPPER LIP. Radical Prostatectomy. CABG X5. EGD, Colonoscopy 11/21/18. Past Anesthesia/Blood Transfusion Reactions: No Reported Reaction Past Psychological History: Depression Smoking Status: Current every day smoker Past Alcohol Use History: None Reported Past Drug Use History: None Reported - Past Family History Father Additional Family Medical History / Comment(s): killed in war Mother Family Medical History: Diabetes Mellitus Additional Family Medical History / Comment(s): Breast, lung cancer Brother(s) Additional Family Medical History / Comment(s): suicide Sister(s) Family Medical History: Cancer Additional Family Medical History / Comment(s): breast cancer Medications and Allergies Home Medications Medication Instructions Recorded Confirmed Type Losartan [Cozaar] 50 mg PO DAILY 06/05/15 05/25/21 History DULoxetine HCL [Cymbalta] 30 mg PO DAILY 11/19/18 05/25/21 History Levothyroxine Sodium [Synthroid] 200 mcg PO DAILY 11/19/18 05/25/21 History Cephalexin [Keflex] 500 mg PO Q12H 12/17/18 05/25/21 History DULoxetine HCL [Cymbalta] 60 mg PO DAILY 07/10/20 05/25/21 History Levothyroxine Sodium [Synthroid] 50 mcg PO DAILY 07/10/20 05/25/21 History amLODIPine [Norvasc] 5 mg PO DAILY PRN 07/10/20 05/25/21 History Albuterol Inhaler [Ventolin Hfa 2 puff INHALATION RT-Q4H PRN 05/06/21 05/25/21 History Inhaler] Atorvastatin [Lipitor] 10 mg PO DAILY 05/06/21 05/25/21 History Budesonide 1 mg INHALATION RT-DAILY PRN 05/06/21 05/25/21 History Gabapentin [Neurontin] 200 mg PO TID 05/06/21 05/25/21 History INSULIN ASPART (NovoLOG) [NovoLOG See Protocol SQ AC-TID PRN 05/06/21 05/25/21 History (formulary)] Ipratropium-Albuterol Nebulize 3 ml INHALATION RT-Q4H PRN 05/06/21 05/25/21 History [Duoneb 0.5 mg-3 mg/3 ml Soln] Insulin Glargine,Hum.rec.anlog 26 unit SQ AC-BRKFST 05/10/21 05/25/21 History [Lantus Solostar Pen] Nicotine 21Mg/24Hr Patch [Habitrol] 1 patch TRANSDERM DAILY PRN 05/10/21 05/25/21 History Spironolactone [Aldactone] 25 mg PO BID 05/10/21 05/25/21 History Aspirin 81 mg PO DAILY 30 Days #30 tab 05/13/21 05/25/21 Rx carvediloL [Coreg] 3.125 mg PO BID-W/MEALS 30 Days 05/13/21 05/25/21 Rx #60 tab Furosemide [Lasix] 40 mg PO BID 05/25/21 05/25/21 History Latanoprost [Xalatan 0.005%] 1 drop RIGHT EYE HS 05/25/21 05/25/21 History dronabinoL [Dronabinol] 5 mg PO HS 05/25/21 05/25/21 History predniSONE 5 mg PO DAILY 05/25/21 05/25/21 History prednisoLONE ACETATE [Pred Forte 1 drop RIGHT EYE BID 05/25/21 05/25/21 History 1%] Allergies Allergy/AdvReac Type Severity Reaction Status Date / Time No Known Allergies Allergy Verified 05/25/21 23:34 Physical Exam Vitals: Vital Signs Temp Pulse Resp BP Pulse Ox 05/25/21 20:32 97.6 F 80 20 109/71 98 Intake and Output 05/25/21 05/25/21 05/26/21 14:59 22:59 06:59 Other: Weight 71.214 kg Results CBC & Chem 7: 05/25/21 20:52 05/25/21 20:52 Labs: Abnormal Lab Results - Last 24 Hours (Table) 05/25/21 05/25/21 Range/Units 20:52 20:52 WBC 14.5 H (3.8-10.6) k/uL Neutrophils # 12.0 H (1.3-7.7) k/uL Sodium 134 L (137-145) mmol/L BUN 24 H (9-20) mg/dL Glucose 123 H (74-99) mg/dL Total Protein 6.1 L (6.3-8.2) g/dL Albumin 3.2 L (3.5-5.0) g/dL
--- NOTE | 2021-05-26 01:37 | P.PN ---
Progress Note - Text Progress Note Date: 05/26/21 Advanced Care Planning: Diagnoses: Esophageal cancer, COPD, Type 2 DM, CAD Discussion: Person(s) present and participating in discussion: Patient Summary: Discusse dthe patient's goals of care in extensive detail. The patient reported that in light of his extensive PMH including the esophageal cancer, that he would not wish to undergo CPR or be placed on a ventilator for any reason. He reports wanting to undergo IV pressor support, dialysis, and temporary feeding tubes if needed amongst other elective forms of life-support. He further states that his primary concern moving forward is his quality of life and although he is seeking further treatments for his malignancy including immunotherapy, that he would like to refrain from overly invasive procedures or treatments. Will make the patient a No-Code as per his request. A total of 20 minutes of face to face time was spent discussing advanced care planning.
[2021-05-26] MEDS: IPRATROPIUM-ALBUTEROL 3 ML NEB INHALATION SCH ×5 (02:34→21:17)
[2021-05-26] MEDS: LEVOTHYROXINE 100 MCG TAB PO SCH (05:45)
[2021-05-26] MEDS: LEVOTHYROXINE 50 MCG TAB PO SCH (05:45)
[2021-05-26] MEDS: SODIUM CHLORIDE 0.9% 1,000 ML IV SCH (05:47)
[2021-05-26 06:19] LABS: HCT 46.3 % (39.0-53.0); HGB 15.2 gm/dL (13.0-17.5); MCH 29.6 pg (25.0-35.0); MCHC 32.8 g/dL (31.0-37.0); MCV 90.3 fL (80.0-100.0); Mean Platelet Volume 7.3; Platelet Count 375 k/uL (150-450); RBC 5.13 m/uL (4.30-5.90); RDW 13.4 % (11.5-15.5); WBC 14.3 k/uL (3.8-10.6)
[2021-05-26 06:33] LABS: Calcium 9.2 mg/dL (8.4-10.2); Potassium 3.8 mmol/L (3.5-5.1)
[2021-05-26 07:33] LABS: Glucose,Whole Blood 92 mg/dL (75-99)
[2021-05-26] MEDS: INSULIN ASPART (NovoLOG) 100 UNIT/ML VIAL SQ SCH ×4 (08:07→21:48)
--- NOTE | 2021-05-26 08:28 | P.CONS ---
History of Present Illness - Reason for Consult Consult date: 05/26/21 recent malignant pleural effusion, progressive Esophageal Requesting physician: Esau Mcmillan - Chief Complaint Shortness of Breath - History of Present Illness HPI : Mr. Jones is a pleasant male patient with chronic stable medical conditions including CAD, HTN, Hypothyroid, and legally blind in right eye. He presented to Emergency with bouts of dark tarry stools, approx 3-4 day for 3 days. He felt symptomatic diaphoretic and pale. On presententation hypotensive and hemoglobin was found to be 7. He received a unit of PRBC. He was on aspirin and plavix in which he staopped taking three days prior when he discovered bloody stools. He did undergo EGD and Colonoscopy during admission and a Large ulcerated mass was found in the cardia of the stomach. 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 GE junction also positive with adenocarcinoma with mucinous and signet ring cell features involving the submucosal space. He therefore was referred to Oncology. Subsequently referred to [facility] for opinion from Dr. Tyler Scott. Who recommended Josemanuel-adjuvant versus definitive chemo/rads with carboplatin and taxol. 12.06.18: Seen today in first office visit he is tired, denies current bloody stools or dysphagia. 12/20/18: Had mediport placed by Dr Carrillo on 12/20/18. PET Wagner: No metastatic disease. Tolerated iron infusion well. 01.03.19: Tolerated treatment well, no nausea, able to eat. Persistent crusted lesion on face, bacterial, treated with doxy and mupiricin, if no improvements after 5 days will change to bactrim 01/31/19: C/O fatigue, dysphagia & odynophagia. Completed 2 cycles of full dosee carboplatinum+Taxol with daily XRT. 03/06/19: Feels well, stronger, dysphagia rapidly resolving. PET Scan : persistent distal Esophageal FDG uptake similar to initial PET study. 04/08/19- Completed chemo and XRT, EUS is in process of being sched (in-network Physician not back until ), PET reviewed (reflects treatment of disease), pt opting to forgo surgery. Pt is feeling better. He is requesting to go back to work. He is quitting smoking. Early satiety and discomfort after eating, slow to improve but getting there. He has lost more weight. 10 point ROS is otherwise negative 06/25/19: Feels well, no dysphagia, weight increased, eating normal, totally asymptomatic, PET Scan: DONNA. The patient declined consideration for surgical resection, EGD and EUS not done. 06/30/20: Feels Ok, C/O dry cough, anorexia & weakness. 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 07/30/20: Jeancarlos is doing very well on FOLFOX with minimal side effects and clinical response. Right supraclavicular node has decreased and he is able to tolerate more solid foods. 09/09/20-Pt here today s/p 5 cycles of FOLFOX. He has c/o of cracks in the corners of his mouth, no oral irritation. Noticing balance changes and dizziness when changing positions. Only having cold sensitivity in hands and mouth, it does reslove. No F, N, V, D, constipation, swelling, bleeding, no p ain. No other c/o, all questions and concerns addressed 09/22/20: Feels well, tolerating FOLFOX Chemotherapy well (6 cycles given so far), RSC biopsy-proven lymphadenopathy resolved. Has mild " cold intolerance" holding cold objects, but no neuropathy in upper or lower extremities. Remains fully active, no dysphagia, N/V or diarrhea. 11/20/20: Feels well, fully active, C/O Grade II P neuropathy in hands (stable). No Gi toxicities. 12/15/20: C/O progressive P neuropathy in hands, decided nt to have Cycles 11 & 12 of FOLFOX chemotherapy. 02/02/21: C/O chronic SOB, continues to smoke. 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 05/20/21: Was hospitalized at [facility] with SOB, was found to have large Pleural effusion and bilateral pulmonary infiltrates, diagnostic/Therapeutic Thoracentesis revealed metastatic Adenocarcinoma. He is C/O fatigue, anorexia, loss of stamina & improved but persistent SOB. He was seen by Dr. Polk May 20 regarding progression Review of Systems All systems: negative Constitutional: Reports as per HPI Past Medical History Past Medical History: Coronary Artery Disease (CAD), Cancer, Diabetes Mellitus, Eye Disorder, GI Bleed, Hyperlipidemia, Hypertension, Myocardial Infarction (VT), Prostate Disorder, Sleep Apnea/CPAP/BIPAP, Syncope, Thyroid Disorder, Vascular Disorder Additional Past Medical History / Comment(s): Prostate, renal cell, and basal cell cancers. GastroEsophageal cancer. - treated with chem/rad october 2018 HX kidney stones. Right eye blind. GE CA Currently. Uses CPAP. esophageal stricture Last Myocardial Infarction Date:: MAY 2015 History of Any Multi-Drug Resistant Organisms: None Reported Past Surgical History: Coronary Bypass/CABG, Heart Catheterization, Prostate Surgery Additional Past Surgical History / Comment(s): Partial Rt nephrectomy, Lt fem pop bypass in 04/07, which became infected and his is still on oral abx. PROCEDURE OF BASAL CELL OF UPPER LIP. Radical Prostatectomy. CABG X5. EGD, Colonoscopy 11/21/18. Past Anesthesia/Blood Transfusion Reactions: No Reported Reaction Past Psychological History: Depression Additional Psychological History / Comment(s): Pt resides alone. He was recently given home oxygen. He has a nebulizer. He is independent. Smoking Status: Current every day smoker Past Alcohol Use History: None Reported Additional Past Alcohol Use History / Comment(s): Pt started smoking in 1971 and is a 2 ppd smoker. Past Drug Use History: None Reported - Past Family History Father Additional Family Medical History / Comment(s): killed in war Mother Family Medical History: Diabetes Mellitus Additional Family Medical History / Comment(s): Breast, lung cancer Brother(s) Additional Family Medical History / Comment(s): suicide Sister(s) Family Medical History: Cancer Additional Family Medical History / Comment(s): breast cancer Medications and Allergies Home Medications Medication Instructions Recorded Confirmed Type Losartan [Cozaar] 50 mg PO DAILY 06/05/15 05/25/21 History DULoxetine HCL [Cymbalta] 30 mg PO DAILY 11/19/18 05/25/21 History Levothyroxine Sodium [Synthroid] 200 mcg PO DAILY 11/19/18 05/25/21 History Cephalexin [Keflex] 500 mg PO Q12H 12/17/18 05/25/21 History DULoxetine HCL [Cymbalta] 60 mg PO DAILY 07/10/20 05/25/21 History Levothyroxine Sodium [Synthroid] 50 mcg PO DAILY 07/10/20 05/25/21 History amLODIPine [Norvasc] 5 mg PO DAILY PRN 07/10/20 05/25/21 History Albuterol Inhaler [Ventolin Hfa 2 puff INHALATION RT-Q4H PRN 05/06/21 05/25/21 History Inhaler] Atorvastatin [Lipitor] 10 mg PO DAILY 05/06/21 05/25/21 History Budesonide 1 mg INHALATION RT-DAILY PRN 05/06/21 05/25/21 History Gabapentin [Neurontin] 200 mg PO TID 05/06/21 05/25/21 History INSULIN ASPART (NovoLOG) [NovoLOG See Protocol SQ AC-TID PRN 05/06/21 05/25/21 History (formulary)] Ipratropium-Albuterol Nebulize 3 ml INHALATION RT-Q4H PRN 05/06/21 05/25/21 History [Duoneb 0.5 mg-3 mg/3 ml Soln] Insulin Glargine,Hum.rec.anlog 26 unit SQ AC-BRKFST 05/10/21 05/25/21 History [Lantus Solostar Pen] Nicotine 21Mg/24Hr Patch [Habitrol] 1 patch TRANSDERM DAILY PRN 05/10/21 05/25/21 History Spironolactone [Aldactone] 25 mg PO BID 05/10/21 05/25/21 History Aspirin 81 mg PO DAILY 30 Days #30 tab 05/13/21 05/25/21 Rx carvediloL [Coreg] 3.125 mg PO BID-W/MEALS 30 Days 05/13/21 05/25/21 Rx #60 tab Furosemide [Lasix] 40 mg PO BID 05/25/21 05/25/21 History Latanoprost [Xalatan 0.005%] 1 drop RIGHT EYE HS 05/25/21 05/25/21 History dronabinoL [Dronabinol] 5 mg PO HS 05/25/21 05/25/21 History predniSONE 5 mg PO DAILY 05/25/21 05/25/21 History prednisoLONE ACETATE [Pred Forte 1 drop RIGHT EYE BID 05/25/21 05/25/21 History 1%] Allergies Allergy/AdvReac Type Severity Reaction Status Date / Time No Known Allergies Allergy Verified 05/25/21 23:34 Physical Exam Vitals: Vital Signs Temp Pulse Pulse Resp BP BP Pulse Ox 05/26/21 07:43 97.9 F 90 22 116/74 96 05/26/21 05:23 97.8 F 88 20 119/74 97 05/26/21 05:15 81 18 124/84 96 05/26/21 02:55 94 18 127/90 94 L 05/26/21 02:49 90 05/26/21 02:35 92 05/26/21 00:00 24 05/25/21 20:32 97.6 F 80 20 109/71 98 Intake and Output 05/25/21 05/26/21 05/26/21 22:59 06:59 14:59 Intake Total 20 Balance 20 Intake: Intake, IV Titration 20 Amount Sodium Chloride 0.9% 1, 20 000 ml @ 20 mls/hr IV . Q24H [facility] Rx#:[id number] Other: Voiding Method Urinal Weight 71.214 kg 71.214 kg - Constitutional General appearance: cooperative - EENT Eyes: EOMI ENT: hard of hearing, NA/AT - Neck Neck: normal ROM - Respiratory Respiratory: bilateral: diminished - Cardiovascular Rhythm: regularly irregular - Gastrointestinal General gastrointestinal: soft - Integumentary Integumentary: pale - Musculoskeletal Musculoskeletal: generalized weakness - Psychiatric Psychiatric: A&O x's 3, appropriate affect, intact judgment & insight Results CBC & Chem 7: 05/26/21 06:04 05/26/21 06:04 Labs: Abnormal Lab Results - Last 24 Hours (Table) 05/25/21 05/25/21 05/26/21 Range/Units 20:52 20:52 06:04 WBC 14.5 H 14.3 H (3.8-10.6) k/uL Neutrophils # 12.0 H (1.3-7.7) k/uL Sodium 134 L (137-145) mmol/L Carbon Dioxide (22-30) mmol/L BUN 24 H (9-20) mg/dL Glucose 123 H (74-99) mg/dL Total Protein 6.1 L (6.3-8.2) g/dL Albumin 3.2 L (3.5-5.0) g/dL 05/26/21 Range/Units 06:04 WBC (3.8-10.6) k/uL Neutrophils # (1.3-7.7) k/uL Sodium 136 L (137-145) mmol/L Carbon Dioxide 33 H (22-30) mmol/L BUN 31 H (9-20) mg/dL Glucose 107 H (74-99) mg/dL Total Protein (6.3-8.2) g/dL Albumin (3.5-5.0) g/dL Chest x-ray: report reviewed Assessment and Plan (1) Esophageal adenocarcinoma Current Visit: Yes Status: Acute Code(s): C15.9 - MALIGNANT NEOPLASM OF ESOPHAGUS, UNSPECIFIED SNOMED Code(s): 923607695 (2) Acute CHF Current Visit: No Status: Acute Code(s): I50.9 - HEART FAILURE, UNSPECIFIED SNOMED Code(s): 22542521 (3) Bilateral pleural effusion Narrative/Plan: 05.12.21: Thoracentesis cytology revealing progression Esophageal Carcinoma Current Visit: No Status: Acute Code(s): J90 - PLEURAL EFFUSION, NOT ELSEWHERE CLASSIFIED SNOMED Code(s): 484532192 Plan: Await pulmonary input on thoracentesis PET scan is scheduled Monday as outpatient, will keep but if unable to discharge in time will reschedule for next week, discussed with patient.
[2021-05-26] MEDS ORDERED: amLODIPine 5 MG TAB PO PRN (09:00)
[2021-05-26] MEDS ORDERED: ENOXAPARIN 40 MG/0.4 ML SYRINGE SQ SCH (09:00)
[2021-05-26] MEDS ORDERED: FUROSEMIDE 40 MG TAB PO SCH (09:00)
[2021-05-26] MEDS: SPIRONOLACTONE 25 MG TAB PO SCH ×2 (09:33→21:48)
[2021-05-26] MEDS: ASPIRIN 81 MG PO SCH (09:33)
[2021-05-26] MEDS: methylPREDNISolone SOD SUCCI 125 MG/2 ML VIAL IV SCH ×3 (09:33→23:33)
[2021-05-26] MEDS: ATORVASTATIN 10 MG TAB PO SCH (09:33)
[2021-05-26] MEDS: carvediloL 3.125 MG TAB PO SCH ×2 (09:33→16:53)
[2021-05-26] MEDS: LOSARTAN 50 MG TAB PO SCH (09:33)
[2021-05-26] MEDS: GABAPENTIN 100 MG CAP PO SCH ×3 (09:34→21:48)
[2021-05-26 11:49] LABS: Glucose,Whole Blood 122 mg/dL (75-99)
[2021-05-26] MEDS ORDERED: IPRATROPIUM-ALBUTEROL 3 ML NEB INHALATION SCH (12:00)
[2021-05-26] MEDS: INSULIN DETEMIR (LEVEMIR) 100 UNIT/ML SYR SQ SCH (12:21)
[2021-05-26 12:29] VITALS: BMI 24.5
--- NOTE | 2021-05-26 12:51 | CT ---
EXAMINATION TYPE: CT chest angio for PE DATE OF EXAM: 05/26/2021 COMPARISON: 05/10/2021 HISTORY: SOB CT DLP: 375.8 mGycm CONTRAST: CT chest with contrast and 3D reconstruction with MIP imaging is performed with IV Contrast, patient injected with 70 mL of Isovue 370. Contrast-enhanced CT of the chest was performed through the course of the pulmonary arteries with erika g and mediastinal window settings submitted. 3D reconstruction with MIP imaging was also performed. PULMONARY ARTERIES: The pulmonary arteries and their major tributaries are patent. I do not see malgorzata dence for sizable filling defect to suggest pulmonary embolic process. LUNGS: Moderate bilateral pleural effusions with basilar atelectasis and/or infiltrates persist. Sunny elate for CHF exacerbation. MEDIASTINUM: Thoracic aorta is of normal caliberThe. Heart is is enlarged. No evidence for mediasti nal mass. No mediastinal lymph nodes greater than 1cm. HILAR STRUCTURES: No evidence for mass. No hilar lymph nodes greater than 1 cm. UPPER ABDOMEN: No significant abnormality is seen. IMPRESSION: 1. No evidence for Pulmonary embolism at this time. 2.Moderate bilateral pleural effusions with basilar atelectasis and/or infiltrates persist. Correlate for CHF exacerbation.
--- NOTE | 2021-05-26 14:30 | P.PN ---
Subjective Progress Note Date: 05/26/21 ([facility] Principal diagnosis: shortness of breath Patient is a 70 yo CM with a past medical history of esophageal cancer, as I'll congestive heart failure, COPD, and chronic hypoxic respiratory failure on 3 L nasal cannula who presented to the hospital with shortness of breath. Who was recently admitted here from 05/10 through 05/13 secondary to bilateral pleural effusions. During that hospital stay he had a thoracentesis which did come back consistent with metastatic adenocarcinoma with signet rings consistent with upper GI tract primary. Seen and examined at bedside. He continues to complain of shortness of breath. No nausea or vomiting. Is aware that he will need re-current treatment for his esophageal cancer. No nausea or vomiting. Feeling very full in the chest. General: non toxic, no distress, appears at stated age Derm: warm, dry Head: atraumatic, normocephalic, symmetric Eyes: EOMI, no lid lag, anicteric sclera Mouth: no lip lesion, mucus membranes moist Cardiovascular: S1S2 reg, no murmur, positive posterior tibial pulse bilateral, Lungs: Rhonchi bilaterally , no accessory muscle use Abdominal: soft, nontender to palpation, no guarding, no appreciable organomegaly Ext: no gross muscle atrophy, left pedal edema, no contractures Neuro: CN II-XI grossly intact, no focal neuro deficits Psych: Alert, oriented, appropriate affect Recurrent Left Pleural Effusion Acute exacerabtion of COPD Chronic Hypoxic Respiratory Failure - Pulmonary recommendations. If recurrent pleural effusion consider Pleurx catheter -IV steroids -Bronchodilators -CTA chest: No PE, b/l pleural effusion -No indication for antibiotic at this time Recurrent Esophageal Ca -Oncology recommendations Acute exacerbation of Diastolic congestive heart failure with ejection fraction 55-60% - Coreg, Lasix, Aldactone, Cozaar -Strict I's and O's, daily weight DM II -Levemir -Sliding-scale insulin - A1C 8.2 HTN, controlled -Continue with NorvascHenry -Follow blood pressures Chronic: JUSTIN-Cpap Hypothyroidism Right eye blindness CAD HLD DVT prophylaxis: Heparin Discussed with: Patient, Aliya, Nursing Anticipated discharge: in 2-[address]: home A total of 35 minutes was spent on the care of this complex patient more than 50% of the time was spent in counseling and care coordination. Objective - Vital Signs Vital signs: Vital Signs Temp 97.9 F 05/26/21 07:43 Pulse 76 05/26/21 12:03 Resp 22 05/26/21 07:43 BP 116/74 05/26/21 07:43 Pulse Ox 96 05/26/21 07:43 Intake & Output 05/25/21 05/26/21 05/26/21 18:59 06:59 18:59 Intake Total 20 Balance 20 Weight 71.214 kg 71.214 kg Intake: Intake, IV Titration 20 Amount Sodium Chloride 0.9% 1, 20 000 ml @ 20 mls/hr IV . Q24H [facility] Rx#:[id number] Other: Voiding Method Urinal - Labs CBC & Chem 7: 05/26/21 06:04 05/26/21 06:04 Labs: Abnormal Lab Results - Last 24 Hours (Table) 05/25/21 05/25/21 05/26/21 Range/Units 20:52 20:52 06:04 WBC 14.5 H 14.3 H (3.8-10.6) k/uL Neutrophils # 12.0 H (1.3-7.7) k/uL Sodium 134 L (137-145) mmol/L Carbon Dioxide (22-30) mmol/L BUN 24 H (9-20) mg/dL Glucose 123 H (74-99) mg/dL POC Glucose (mg/dL) (75-99) mg/dL Hemoglobin A1c (0.0-6.0) % Total Protein 6.1 L (6.3-8.2) g/dL Albumin 3.2 L (3.5-5.0) g/dL 05/26/21 05/26/21 05/26/21 Range/Units 06:04 06:04 11:47 WBC (3.8-10.6) k/uL Neutrophils # (1.3-7.7) k/uL Sodium 136 L (137-145) mmol/L Carbon Dioxide 33 H (22-30) mmol/L BUN 31 H (9-20) mg/dL Glucose 107 H (74-99) mg/dL POC Glucose (mg/dL) 122 H (75-99) mg/dL Hemoglobin A1c 8.2 H (0.0-6.0) % Total Protein (6.3-8.2) g/dL Albumin (3.5-5.0) g/dL
--- NOTE | 2021-05-26 14:50 | P.CNPUL ---
History of Present Illness Consult date: 05/26/21 Reason for consult: dyspnea, other Chief complaint: Dyspnea, orthopnea History of present illness: 70-year-old white male patient was recently hospitalized in April 2021 for acute exacerbation of CHF, bilateral pleural effusions, and patient underwent left-sided thoracentesis on May 12 2021, and the pleural fluid analysis was positive for metastatic adenocarcinoma with signet ringed features consistent with upper gastrointestinal tract primary. Patient has previous history of esophageal cancer status post chemoradiation in 2018, and recurrence and post chemotherapy in February 2021. 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 Since his last hospitalization patient was seen by Dr. Riddle in follow-up on 05/20/2021, and discussed starting immunotherapy, and carboplatinum chemotherapy. However patient has not been given a start date yet. Patient presented to the emergency department on 05/25/2021 with worsening dyspnea, orthopnea, patient states he could not lay down flat, was feeling very short of breath. Patient is on home oxygen for his history of COPD, normally wears 3 L/min. Denies any fever or chills, his cough has not changed patient is producing little bit of clear sputum. Patient reports some slight increase in his leg edema worse on the left although he is always has somewhat of a increased swelling in the left leg despite taking 2 diuretics at home. His chest x-ray showing blunting the costophrenic angles, pulmonary vessel congestion, pulmonary congestion pleural fluid are increased compared to his last exam on 05/21/2021. Patient tested negative for COVID-19. His lab work showed white blood cell count of 14.5, hemoglobin of 14.6, his platelet count is 378, correlation profile is within normal limits, sodium is 134, Angelique electrolytes are unremarkable, BUN is 24, creatinine is 1.06, LFTs were within normal limits, troponin was 0.013, proBNP was within normal limits at 325. Patient was placed on IV Lasix at 40 mg every 12 hours, he is given nebulized bronchodilators, he was started on IV Solu-Medrol, he is coughing, he is quite wheezy bronchospastic on today's exam. Review of Systems All systems: negative Constitutional: Denies chills, Denies fever Eyes: denies blurred vision, denies pain Ears, nose, mouth and throat: Denies headache, Denies sore throat Cardiovascular: Denies chest pain, Denies shortness of breath Respiratory: Denies cough Gastrointestinal: Denies abdominal pain, Denies diarrhea, Denies nausea, Denies vomiting Musculoskeletal: Denies myalgias Integumentary: Denies pruritus, Denies rash Neurological: Denies numbness, Denies weakness Psychiatric: Denies anxiety, Denies depression Endocrine: Denies fatigue, Denies weight change Past Medical History Past Medical History: Coronary Artery Disease (CAD), Cancer, Diabetes Mellitus, Eye Disorder, GI Bleed, Hyperlipidemia, Hypertension, Myocardial Infarction (ID), Prostate Disorder, Sleep Apnea/CPAP/BIPAP, Syncope, Thyroid Disorder, Vascular Disorder Additional Past Medical History / Comment(s): Prostate, renal cell, and basal cell cancers. GastroEsophageal cancer. - treated with chem/rad october 2018 HX kidney stones. Right eye blind. Beneq CA Currently. Uses CPAP. esophageal stricture Last Myocardial Infarction Date:: MAY 2015 History of Any Multi-Drug Resistant Organisms: None Reported Past Surgical History: Coronary Bypass/CABG, Heart Catheterization, Prostate Surgery Additional Past Surgical History / Comment(s): Partial Rt nephrectomy, Lt fem pop bypass in 04/07, which became infected and his is still on oral abx. PROCEDURE OF BASAL CELL OF UPPER LIP. Radical Prostatectomy. CABG X5. EGD, Colonoscopy 11/21/18. Past Anesthesia/Blood Transfusion Reactions: No Reported Reaction Past Psychological History: Depression Additional Psychological History / Comment(s): Pt resides alone. He was recently given home oxygen. He has a nebulizer. He is independent. Smoking Status: Current every day smoker Past Alcohol Use History: None Reported Additional Past Alcohol Use History / Comment(s): Pt started smoking in 1971 and is a 2 ppd smoker. Past Drug Use History: None Reported - Past Family History Father Additional Family Medical History / Comment(s): killed in war Mother Family Medical History: Diabetes Mellitus Additional Family Medical History / Comment(s): Breast, lung cancer Brother(s) Additional Family Medical History / Comment(s): suicide Sister(s) Family Medical History: Cancer Additional Family Medical History / Comment(s): breast cancer Medications and Allergies Home Medications Medication Instructions Recorded Confirmed Type Losartan [Cozaar] 50 mg PO DAILY 06/05/15 05/25/21 History DULoxetine HCL [Cymbalta] 30 mg PO DAILY 11/19/18 05/25/21 History Levothyroxine Sodium [Synthroid] 200 mcg PO DAILY 11/19/18 05/25/21 History Cephalexin [Keflex] 500 mg PO Q12H 12/17/18 05/25/21 History DULoxetine HCL [Cymbalta] 60 mg PO DAILY 07/10/20 05/25/21 History Levothyroxine Sodium [Synthroid] 50 mcg PO DAILY 07/10/20 05/25/21 History amLODIPine [Norvasc] 5 mg PO DAILY PRN 07/10/20 05/25/21 History Albuterol Inhaler [Ventolin Hfa 2 puff INHALATION RT-Q4H PRN 05/06/21 05/25/21 History Inhaler] Atorvastatin [Lipitor] 10 mg PO DAILY 05/06/21 05/25/21 History Budesonide 1 mg INHALATION RT-DAILY PRN 05/06/21 05/25/21 History Gabapentin [Neurontin] 200 mg PO TID 05/06/21 05/25/21 History INSULIN ASPART (NovoLOG) [NovoLOG See Protocol SQ AC-TID PRN 05/06/21 05/25/21 History (formulary)] Ipratropium-Albuterol Nebulize 3 ml INHALATION RT-Q4H PRN 05/06/21 05/25/21 History [Duoneb 0.5 mg-3 mg/3 ml Soln] Insulin Glargine,Hum.rec.anlog 26 unit SQ AC-BRKFST 05/10/21 05/25/21 History [Lantus Solostar Pen] Nicotine 21Mg/24Hr Patch [Habitrol] 1 patch TRANSDERM DAILY PRN 05/10/21 05/25/21 History Spironolactone [Aldactone] 25 mg PO BID 05/10/21 05/25/21 History Aspirin 81 mg PO DAILY 30 Days #30 tab 05/13/21 05/25/21 Rx carvediloL [Coreg] 3.125 mg PO BID-W/MEALS 30 Days 05/13/21 05/25/21 Rx #60 tab Furosemide [Lasix] 40 mg PO BID 05/25/21 05/25/21 History Latanoprost [Xalatan 0.005%] 1 drop RIGHT EYE HS 05/25/21 05/25/21 History dronabinoL [Dronabinol] 5 mg PO HS 05/25/21 05/25/21 History predniSONE 5 mg PO DAILY 05/25/21 05/25/21 History prednisoLONE ACETATE [Pred Forte 1 drop RIGHT EYE BID 05/25/21 05/25/21 History 1%] Allergies Allergy/AdvReac Type Severity Reaction Status Date / Time No Known Allergies Allergy Verified 05/25/21 23:34 Physical Exam Vitals: Vital Signs Temp Pulse Pulse Resp BP BP Pulse Ox 05/26/21 12:03 76 05/26/21 11:48 76 05/26/21 08:38 72 05/26/21 08:22 84 05/26/21 07:43 97.9 F 90 22 116/74 96 05/26/21 05:23 97.8 F 88 20 119/74 97 05/26/21 05:15 81 18 124/84 96 05/26/21 02:55 94 18 127/90 94 L 05/26/21 02:49 90 05/26/21 02:35 92 05/26/21 00:00 24 05/25/21 20:32 97.6 F 80 20 109/71 98 Intake and Output 05/25/21 05/26/21 05/26/21 22:59 06:59 14:59 Intake Total 20 Balance 20 Intake: Intake, IV Titration 20 Amount Sodium Chloride 0.9% 1, 20 000 ml @ 20 mls/hr IV . Q24H [facility] Rx#:[id number] Other: Voiding Method Urinal Weight 71.214 kg 71.214 kg 71.214 kg GENERAL EXAM: Alert, very pleasant, 70-year-old white male, with a pulse ox of 96% on 3 L of oxygen comfortable in no apparent distress. HEAD: Normocephalic/atraumatic. EYES: Normal reaction of pupils, equal size. Conjunctiva pink, sclera white. NOSE: Clear with pink turbinates. THROAT: No erythema or exudates. NECK: No masses, no JVD, no thyroid enlargement, no adenopathy. CHEST: No chest wall deformity. Symmetrical expansion. LUNGS: Equal air entry with diffuse wheezes, and diminished breath sounds at bilateral bases CVS: Regular rate and rhythm, normal S1 and S2, no gallops, no murmurs, no rubs ABDOMEN: Soft, nontender. No hepatosplenomegaly, normal bowel sounds, no guarding or rigidity. EXTREMITIES: No clubbing, 1+ edema in lupe lower extremities, no cyanosis, 2+ pulses and upper and lower extremities. MUSCULOSKELETAL: Muscle strength and tone normal. SPINE: No scoliosis or deformity SKIN: No rashes CENTRAL NERVOUS SYSTEM: Alert and oriented -3. No focal deficits, tone is normal in all 4 extremities. PSYCHIATRIC: Alert and oriented -3. Appropriate affect. Intact judgment and insight. Results - Laboratory Findings CBC and BMP: 05/26/21 06:04 05/26/21 06:04 PT/INR, D-dimer PT 11.1 sec (9.0-12.0) 05/25/21 20:52 INR 1.0 (<1.2) 05/25/21 20:52 Abnormal lab findings: Abnormal Labs 05/25/21 05/25/21 05/26/21 20:52 20:52 06:04 WBC 14.5 H 14.3 H Neutrophils # 12.0 H Sodium 134 L Carbon Dioxide BUN 24 H Glucose 123 H POC Glucose (mg/dL) Hemoglobin A1c Total Protein 6.1 L Albumin 3.2 L 05/26/21 05/26/21 05/26/21 06:04 06:04 11:47 WBC Neutrophils # Sodium 136 L Carbon Dioxide 33 H BUN 31 H Glucose 107 H POC Glucose (mg/dL) 122 H Hemoglobin A1c 8.2 H Total Protein Albumin - Diagnostic Findings Chest x-ray: report reviewed, image reviewed CT scan - chest: report reviewed, image reviewed Assessment and Plan Plan: Assessment: #1. Acute exacerbation of COPD #2. Bilateral right greater than left pleural effusions, related to metastatic esophageal adenocarcinoma, and chronic diastolic CHF. #3. Status post left-sided thoracentesis on 05/12/2021 with the removal of 1.4 liters of yellow-colored pleural fluid, with positive cytology for upper GI tract adenocarcinoma, related to esophageal adenocarcinoma #4. Chronic and ongoing history of tobacco dependency #5. History of CAD with previous history of coronary artery bypass grafting in 2016 #6. Hypertension #7. Hyperlipidemia #8. Hypothyroidism #9. History of prostate cancer with previous radical prostatectomy in 2008 #10. History of esophageal cancer status post chemoradiation in 2018, recurrence is status post chemotherapy in February 2021 #11. Diabetes mellitus type 2 #12. History of peripheral vascular disease with previous left fem-pop bypass in 2014 #13. History of renal cell carcinoma with partial right nephrectomy #14. 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 Plan: CTA chest has been obtained, showing no evidence of pulmonary embolism It showed bilateral pleural effusions, right greater than left We will consult cardiothoracic surgery for possibility of Pleurix catheter Continue IV diuretics, continue nebulized bronchodilators and IV steroids We'll continue to follow his clinical course Patient has upcoming PET scan scheduled for this coming 05/28/2021 which is likely to be postponed Otherwise appears to be in no acute distress Continue current medical treatment I performed a history & physical examination of the patient and discussed their management with my nurse practitioner, Shyann Cummings. I reviewed the nurse practitioner's note and agree with the documented findings and plan of care. Rochelle ng sounds are positive for dim breath soundsthroughout the lung bello. The findings and the impression was discussed with the patient. I attest to the documentation by the nurse practitioner. Time with Patient: Greater than 30
[2021-05-26] MEDS: FUROSEMIDE 10 MG/ML 4 ML VIAL IV SCH ×2 (16:17→21:48)
[2021-05-26 16:35] LABS: Glucose,Whole Blood 230 mg/dL (75-99)
[2021-05-26] MEDS: NICOTINE 21MG/24HR PATCH TRANSDERM SCH (16:53)
--- NOTE | 2021-05-26 17:02 | P.GSCN ---
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 Toby Long for his primary care service. The patient has a past medical history for hypertension, hyperlipidemia, thyroid dis order, insulin-dependent diabetes mellitus, peripheral neuropathy, depression, peripheral vascular disease, status post left fem-pop in 2014, coronary artery disease status post CABG 5 in 2015, COPD on 3 L nasal cannula at home, ongoing nicotine dependence, renal cell carcinoma status post partial right nephrectomy in 2008, prostate cancer status post prostatectomy in 2009, and esophageal cancer status post radiation and chemotherapy in 2019. The patient also reports he takes Marinol on a daily basis due to a 20 pound weight loss over the past month. He had a recent admission in April 2001 for an acute exacerbation of CHF, bilateral pleural effusions requiring a left-sided thoracentesis on 05/12/2021 with 1.4 L of slightly yellow fluid drained which showed positive for metastatic adenocarcinoma with significant features consistent with upper gastrointestinal tract primary. Due to the findings of metastatic adenocarcinoma on follow-up with his oncologist on 05/20/2021 he was discussed with the patient starting immunotherapy and carboplatinum chemotherapy, although a start date has not been set. Over the past few days the patient reports he has progressively become more short of breath with exertion with orthopnea and due to his symptoms presented to the emergency department here at [facility] yesterday 05/25/2021. He denies any recent fever, chills, naus ea, vomiting, chest pain, hemoptysis, hematemesis, diarrhea or constipation. The patient does admit to having a productive cough with thin white sputum. On admission his laboratory results showed a WBC count of 14.5, hemoglobin 14.6, platelets 378, INR 1.0, PTT 22.8, sodium 134, potassium 4.0, BUN 24, creatinine 1.06, glucose 123, proBNP 325 and albumin 3.2. The patient reports he has vaccinated and boosted with Moderna vaccine for COVID-19 and a coronavirus PCR was completed in the emergency department which showed not detected. A chest x- ray was completed which showed congestive heart failure with bilateral pleural effusions, and pulmonary congestion. For further evaluation a CT chest in September of her PE protocol was completed which showed no evidence for pulmonary embolism, moderate bilateral pleural effusions with basilar atelectasis and/or infiltrates. Due to the patient's presenting symptoms, and findings of bilateral pleural effusions a consult was placed to pulmonary/critical care medicine and also to cardiothoracic surgery for further evaluation and treatment recommendations including placement of bilateral Pleurx catheters. Review of Systems A 14 point review of systems was completed was negative except as mentioned in the HPI. Past Medical History Past Medical History: Coronary Artery Disease (CAD), Cancer, Heart Failure, COPD, Diabetes Mellitus, Eye Disorder, GI Bleed, Hyperlipidemia, Hypertension, Myocardial Infarction ([place]), Prostate Disorder, Sleep Apnea/CPAP/BIPAP, Syncope, Thyroid Disorder, Vascular Disorder Additional Past Medical History / Comment(s): Prostate, renal cell, and basal cell cancers. GastroEsophageal cancer. - treated with chem/rad october 2018 HX kidney stones. Right eye blind. Directr Currently. Uses CPAP. esophageal stricture. Reports he is blind to his right eye. Last Myocardial Infarction Date:: MAY 2015 History of Any Multi-Drug Resistant Organisms: None Reported Past Surgical History: Coronary Bypass/CABG, Heart Catheterization, Prostate Surgery Additional Past Surgical History / Comment(s): Partial Rt nephrectomy, Lt fem pop bypass in 04/07, which became infected and his is still on oral abx. PROCEDURE OF BASAL CELL OF UPPER LIP. Radical Prostatectomy. CABG X5. EGD, Colonoscopy 11/21/18. Past Anesthesia/Blood Transfusion Reactions: No Reported Reaction Past Psychological History: Depression Additional Psychological History / Comment(s): Pt resides alone. He was recently given home oxygen. He has a nebulizer. He is independent. Smoking Status: Current every day smoker Past Alcohol Use History: None Reported Additional Past Alcohol Use History / Comment(s): Pt started smoking in 1971 and is a 2 ppd smoker. Additional Drug Use History / Comment(s): Daily Marinol use for history of weight loss in hopes to stimulate his appetite. - Past Family History Father Additional Family Medical History / Comment(s): killed in the [place] war Mother Family Medical History: Cancer, Diabetes Mellitus Additional Family Medical History / Comment(s): Breast, lung cancer Brother(s) Additional Family Medical History / Comment(s): suicide Sister(s) Family Medical History: Cancer Additional Family Medical History / Comment(s): breast cancer Medications and Allergies Home Medications Medication Instructions Recorded Confirmed Type Losartan [Cozaar] 50 mg PO DAILY 06/05/15 05/25/21 History DULoxetine HCL [Cymbalta] 30 mg PO DAILY 11/19/18 05/25/21 History Levothyroxine Sodium [Synthroid] 200 mcg PO DAILY 11/19/18 05/25/21 History Cephalexin [Keflex] 500 mg PO Q12H 12/17/18 05/25/21 History DULoxetine HCL [Cymbalta] 60 mg PO DAILY 07/10/20 05/25/21 History Levothyroxine Sodium [Synthroid] 50 mcg PO DAILY 07/10/20 05/25/21 History amLODIPine [Norvasc] 5 mg PO DAILY PRN 07/10/20 05/25/21 History Albuterol Inhaler [Ventolin Hfa 2 puff INHALATION RT-Q4H PRN 05/06/21 05/25/21 History Inhaler] Atorvastatin [Lipitor] 10 mg PO DAILY 05/06/21 05/25/21 History Budesonide 1 mg INHALATION RT-DAILY PRN 05/06/21 05/25/21 History Gabapentin [Neurontin] 200 mg PO TID 05/06/21 05/25/21 History INSULIN ASPART (NovoLOG) [NovoLOG See Protocol SQ AC-TID PRN 05/06/21 05/25/21 History (formulary)] Ipratropium-Albuterol Nebulize 3 ml INHALATION RT-Q4H PRN 05/06/21 05/25/21 Hi story [Duoneb 0.5 mg-3 mg/3 ml Soln] Insulin Glargine,Hum.rec.anlog 26 unit SQ AC-BRKFST 05/10/21 05/25/21 History [Lantus Solostar Pen] Nicotine 21Mg/24Hr Patch [Habitrol] 1 patch TRANSDERM DAILY PRN 05/10/21 05/25/21 History Spironolactone [Aldactone] 25 mg PO BID 05/10/21 05/25/21 History Aspirin 81 mg PO DAILY 30 Days #30 tab 05/13/21 05/25/21 Rx carvediloL [Coreg] 3.125 mg PO BID-W/MEALS 30 Days 05/13/21 05/25/21 Rx #60 tab Furosemide [Lasix] 40 mg PO BID 05/25/21 05/25/21 History Latanoprost [Xalatan 0.005%] 1 drop RIGHT EYE HS 05/25/21 05/25/21 History dronabinoL [Dronabinol] 5 mg PO HS 05/25/21 05/25/21 History predniSONE 5 mg PO DAILY 05/25/21 05/25/21 History prednisoLONE ACETATE [Pred Forte 1 drop RIGHT EYE BID 05/25/21 05/25/21 History 1%] Allergies Allergy/AdvReac Type Severity Reaction Status Date / Time No Known Allergies Allergy Verified 05/25/21 23:34 Surgical - Exam Vital Signs Temp Pulse Resp BP Pulse Ox 97.6 F 80 20 109/71 98 05/25/21 20:32 05/25/21 20:32 05/25/21 20:32 05/25/21 20:32 05/25/21 20:32 - General no distress, no pain, cachectic, chronically ill - Eyes PERRL, normal ocular movement, no pale, no icteric - ENT Voice is hoarse normal pinna, normal nares, normal mucosa, no hearing loss, no congestion, dentures - Neck Lymphadenopathy palpable to his right neck. no bruits, trachea midline, no venous distension, no deviated trachea - Respiratory Lung sounds with scattered rhonchi and wheezes throughout, diminished was bilateral bases. Respirations are symmetrical and nonlabored. Oxygen saturation is 94% on 3 L nasal cannula. Productive cough with thin white sputum. - Cardiovascular Regular rhythm and rate. S1 and S2 present, negative for S3, gallop or murmur. +1 edema to his left ankle and foot. - Abdomen Abdomen is soft, nontender nondistended. Active bowel sounds present to all 4 abdominal quadrants. No guarding or rigidity. No organomegaly appreciated. - Integumentary Skin is warm and dry. No clubbing or cyanosis present. no rash, no abnormal pigmentation - Neurologic No focal deficits. - Musculoskeletal Moves all 4 extremities with equal strength bilateral. Generalized weakness. General debility. - Psychiatric oriented to time, oriented to person, oriented to place, speech is normal, memory intact Results - Labs 05/26/21 06:04 02/02/22 06:04 Abnormal Lab Results - Last 24 Hours (Table) 05/25/21 05/25/21 05/26/21 Range/Units 20:52 20:52 06:04 WBC 14.5 H 14.3 H (3.8-10.6) k/uL Neutrophils # 12.0 H (1.3-7.7) k/uL Sodium 134 L (137-145) mmol/L Carbon Dioxide (22-30) mmol/L BUN 24 H (9-20) mg/dL Glucose 123 H (74-99) mg/dL POC Glucose (mg/dL) (75-99) mg/dL Hemoglobin A1c (0.0-6.0) % Total Protein 6.1 L (6.3-8.2) g/dL Albumin 3.2 L (3.5-5.0) g/dL 05/26/21 05/26/21 05/26/21 Range/Units 06:04 06:04 11:47 WBC (3.8-10.6) k/uL Neutrophils # (1.3-7.7) k/uL Sodium 136 L (137-145) mmol/L Carbon Dioxide 33 H (22-30) mmol/L BUN 31 H (9-20) mg/dL Glucose 107 H (74-99) mg/dL POC Glucose (mg/dL) 122 H (75-99) mg/dL Hemoglobin A1c 8.2 H (0.0-6.0) % Total Protein (6.3-8.2) g/dL Albumin (3.5-5.0) g/dL Diabetes panel 05/25/21 05/26/21 05/26/21 Range/Units 20:52 06:04 06:04 Sodium 134 L 136 L (137-145) mmol/L Potassium 4.0 3.8 (3.5-5.1) mmol/L Chloride 100 101 (98-107) mmol/L Carbon Dioxide 29 33 H (22-30) mmol/L BUN 24 H 31 H (9-20) mg/dL Creatinine 1.06 1.18 (0.66-1.25) mg/dL Glucose 123 H 107 H (74-99) mg/dL Hemoglobin A1c 8.2 H (0.0-6.0) % Calcium 9.1 9.2 (8.4-10.2) mg/dL AST 21 (17-59) U/L ALT 17 (4-49) U/L Alkaline Phosphatase 100 (38-126) U/L Total Protein 6.1 L (6.3-8.2) g/dL Albumin 3.2 L (3.5-5.0) g/dL Calcium panel 05/25/21 05/26/21 Range/Units 20:52 06:04 Calcium 9.1 9.2 (8.4-10.2) mg/dL Albumin 3.2 L (3.5-5.0) g/dL Pituitary panel 05/25/21 05/26/21 Range/Units 20:52 06:04 Sodium 134 L 136 L (137-145) mmol/L Potassium 4.0 3.8 (3.5-5.1) mmol/L Chloride 100 101 (98-107) mmol/L Carbon Dioxide 29 33 H (22-30) mmol/L BUN 24 H 31 H (9-20) mg/dL Creatinine 1.06 1.18 (0.66-1.25) mg/dL Glucose 123 H 107 H (74-99) mg/dL Calcium 9.1 9.2 (8.4-10.2) mg/dL Adrenal panel 05/25/21 05/26/21 Range/Units 20:52 06:04 Sodium 134 L 136 L (137-145) mmol/L Potassium 4.0 3.8 (3.5-5.1) mmol/L Chloride 100 101 (98-107) mmol/L Carbon Dioxide 29 33 H (22-30) mmol/L BUN 24 H 31 H (9-20) mg/dL Creatinine 1.06 1.18 (0.66-1.25) mg/dL Glucose 123 H 107 H (74-99) mg/dL Calcium 9.1 9.2 (8.4-10.2) mg/dL Total Bilirubin 0.5 (0.2-1.3) mg/dL AST 21 (17-59) U/L ALT 17 (4-49) U/L Alkaline Phosphatase 100 (38-126) U/L Total Protein 6.1 L (6.3-8.2) g/dL Albumin 3.2 L (3.5-5.0) g/dL - Imaging Chest x-ray: report reviewed, image reviewed CT scan - chest: report reviewed, image reviewed Assessment and Plan Assessment: 1. Bilateral pleural effusions, with a recent left thoracentesis on 05/12/2021, cytology positive for metastatic esophageal adenocarcinoma 2. Acute exacerbation of COPD, on 3 L home oxygen 3. Acute on chronic congestive heart failure 4. Dyspnea on exertion secondary to above 5. History of hypertension 6. Hyperlipidemia 7. Thyroid disorder 8. History of coronary artery disease status post 5 vessel coronary artery bypass grafting in 2015 9. Peripheral vascular disease with history of left fem-pop bypass in 2014 10. History of esophageal cancer status post chemotherapy and radiation in 2018 with recurrence in February of 2021 11. Insulin-dependent diabetes mellitus 12. History of renal cell carcinoma with partial right nephrectomy in 2008 13. History of prostate cancer status post prostatectomy in 2009 14. History of basal cell carcinoma with history of Mohs procedure 15. Chronic ongoing tobacco dependence 16. History of depression 17. History of recent weight loss of 20 pounds, currently on Marinol for n utritional support 18. Vaccinated with Moderna 2 doses and a booster against COVID-19 Plan: The patient was seen and examined at his bedside on the fourth floor medical pineda rgical unit. His chart diagnostics reviewed. His case was discussed in detail with Dr. Jori Simon from cardiothoracic surgery. Treatment options were discussed with the patient including bilateral Pleurx catheter placement. Knowing and understanding the risks of bilateral Pleurx catheter placement he wishes to proceed with the surgical option. The patient will be made nothing by mouth after midnight and will be scheduled for bilateral Pleurx catheter placement tomorrow 05/27/2021 to be performed by Dr. Romie Felton or Dr. Jori Simon. The importance of risk modification including smoking cessation has been discussed with the patient. We will order an incentive spirometry and encourage use 10 times every hour while awake. Medical management other comorbidities per primary care service. Pulmonary management recommendations per Dr. Pisano. More recommendations to follow based on patient's clinical course. Lovenox will be discontinued for tomorrow 05/27/2021 and will be restarted on 05/28/2021. Thank you Dr. Pisano for this consult and we look forward to working with you in the care of this patient. Time with Patient: Greater than 30
[2021-05-26 20:09] LABS: Glucose,Whole Blood 146 mg/dL (75-99)
[2021-05-26] MEDS: BUDESONIDE 1 MG/2 ML NEBU INHALATION PRN (21:17)
[2021-05-26] MEDS: FORMOTEROL FUMARATE 20 MCG/2 ML NEBU INHALATION SCH (21:17)
[2021-05-26] MEDS: LATANOPROST 0.005% OPHTH DROPS 2.5 ML BTL RIGHT EYE SCH (22:00)
[2021-05-26] MEDS: CEPHALEXIN 500 MG CAP PO SCH (23:34)
[2021-05-27 04:53] LABS: HCT 45.6 % (39.0-53.0); HGB 15.1 gm/dL (13.0-17.5); MCH 29.7 pg (25.0-35.0); MCHC 33.1 g/dL (31.0-37.0); MCV 89.8 fL (80.0-100.0); Mean Platelet Volume 7.2; Platelet Count 379 k/uL (150-450); RBC 5.08 m/uL (4.30-5.90); RDW 13.9 % (11.5-15.5); WBC 13.7 k/uL (3.8-10.6)
[2021-05-27 05:21] LABS: African American GFR (CKD) 84 (>60 ml/min/1.73 sqM); Anion Gap 11 mmol/L; Blood Urea Nitrogen 33 mg/dL (9-20); Calcium 9.6 mg/dL (8.4-10.2); Carbon Dioxide 25 mmol/L (22-30); Chloride 98 mmol/L (98-107); Glucose 138 mg/dL (74-99); Magnesium 1.9 mg/dL (1.6-2.3); Non-African American GFR(CKD) 73 (>60 ml/min/1.73 sqM); Sodium 134 mmol/L (137-145)
[2021-05-27] MEDS: IPRATROPIUM-ALBUTEROL 3 ML NEB INHALATION SCH ×4 (07:29→21:27)
[2021-05-27] MEDS: FORMOTEROL FUMARATE 20 MCG/2 ML NEBU INHALATION SCH ×2 (07:29→21:27)
[2021-05-27] MEDS: BUDESONIDE 1 MG/2 ML NEBU INHALATION PRN (07:29)
[2021-05-27] MEDS: LEVOTHYROXINE 50 MCG TAB PO SCH (07:35)
[2021-05-27] MEDS: LEVOTHYROXINE 100 MCG TAB PO SCH (07:35)
[2021-05-27] MEDS: SODIUM CHLORIDE 0.9% 1,000 ML IV SCH (07:36)
[2021-05-27 07:47] LABS: Glucose,Whole Blood 176 mg/dL (75-99)
[2021-05-27] MEDS: methylPREDNISolone SOD SUCCI 125 MG/2 ML VIAL IV SCH ×2 (08:13→17:52)
[2021-05-27] MEDS: FUROSEMIDE 10 MG/ML 4 ML VIAL IV SCH ×2 (08:13→21:54)
[2021-05-27] MEDS: NICOTINE 21MG/24HR PATCH TRANSDERM SCH (08:14)
[2021-05-27] MEDS: INSULIN DETEMIR (LEVEMIR) 100 UNIT/ML SYR SQ SCH (08:14)
[2021-05-27] MEDS: INSULIN ASPART (NovoLOG) 100 UNIT/ML VIAL SQ SCH ×4 (08:14→22:21)
[2021-05-27] MEDS: prednisoLONE ACETATE 1% OPHTH DROPS 5 ML BTL RIGHT EYE SCH ×2 (11:09→21:55)
--- NOTE | 2021-05-27 11:24 | P.PN ---
Subjective Progress Note Date: 05/27/21 Principal diagnosis: Esophageal, recent progression He is feeling ok during exam this am. He will have pleurex drains placed today. On self exam he noted right increased adenopathy, felt to correlate with mediport catheter, we will further evaluate this with ultrasound prior to access and flush. Objective - Vital Signs Vital signs: Vital Signs Temp 98.4 F 05/27/21 07:57 Pulse 104 H 05/27/21 07:57 Resp 18 05/27/21 07:57 BP 143/82 05/27/21 07:57 Pulse Ox 94 L 05/27/21 07:57 Intake & Output 05/26/21 05/27/21 05/27/21 18:59 06:59 18:59 Intake Total 1080 Balance 1080 Weight 71.214 kg Intake: Oral 1080 Other: Voiding Method Toilet Urinal # Voids 3 3 - Labs CBC & Chem 7: 05/27/21 04:21 05/27/21 04:21 Labs: Abnormal Lab Results - Last 24 Hours (Table) 05/26/21 05/26/21 05/26/21 Range/Units 11:47 16:34 20:08 WBC (3.8-10.6) k/uL Sodium (137-145) mmol/L BUN (9-20) mg/dL Glucose (74-99) mg/dL POC Glucose (mg/dL) 122 H 230 H 146 H (75-99) mg/dL 05/27/21 05/27/21 05/27/21 Range/Units 04:21 04:21 07:46 WBC 13.7 H (3.8-10.6) k/uL Sodium 134 L (137-145) mmol/L BUN 33 H (9-20) mg/dL Glucose 138 H (74-99) mg/dL POC Glucose (mg/dL) 176 H (75-99) mg/dL Assessment and Plan (1) Esophageal adenocarcinoma Narrative/Plan: Planning next line therapy for recent progression with Carboplatin, keytruda, and xeloda He is feeling ok during exam this am. He will have pleurex drains placed today. On self exam he noted right increased adenopathy, felt to correlate with mediport catheter, we will further evaluate this with ultrasound prior to access and flush. Current Visit: Yes Status: Acute Code(s): C15.9 - MALIGNANT NEOPLASM OF ESOPHAGUS, UNSPECIFIED SNOMED Code(s): 936019190 (2) Acute CHF Current Visit: No Status: Acute Code(s): I50.9 - HEART FAILURE, UNSPECIFIED SNOMED Code(s): 74942898 (3) Bilateral pleural effusion Narrative/Plan: 05.12.21: Thoracentesis cytology revealing progression Esophageal Carcinoma Current Visit: No Status: Acute Code(s): J90 - PLEURAL EFFUSION, NOT ELSEWHERE CLASSIFIED SNOMED Code(s): 366681792 Plan: Right neck palpable node, appears to be in same space as mediport catheter. Ultrasound to assess for involvement of supraclavicular vein.
[2021-05-27] MEDS: carvediloL 3.125 MG TAB PO SCH ×2 (12:04→17:38)
[2021-05-27] MEDS: ATORVASTATIN 10 MG TAB PO SCH (12:04)
[2021-05-27] MEDS: GABAPENTIN 100 MG CAP PO SCH ×3 (12:04→22:22)
[2021-05-27] MEDS: ASPIRIN 81 MG PO SCH (12:04)
[2021-05-27] MEDS: CEPHALEXIN 500 MG CAP PO SCH ×2 (12:05→22:22)
[2021-05-27] MEDS: SPIRONOLACTONE 25 MG TAB PO SCH ×2 (12:05→21:55)
[2021-05-27] MEDS: LOSARTAN 50 MG TAB PO SCH (12:05)
[2021-05-27 12:11] LABS: Glucose,Whole Blood 126 mg/dL (75-99)
[2021-05-27] MEDS ORDERED: LACTATED RINGERS 1,000 ML IV ONE (13:08)
[2021-05-27] MEDS ORDERED: fentaNYL (PF) 50 MCG/ML 2 ML AMP ONE (13:19)
[2021-05-27] MEDS ORDERED: PROPOFOL 10 MG/ML 20 ML VIAL IV ONE (13:19)
[2021-05-27] MEDS ORDERED: diphenhydrAMINE 50 MG/ML 1 ML VIAL ONE (13:19)
[2021-05-27] MEDS ORDERED: MIDAZOLAM 2 MG/2 ML VIAL ONE (13:19)
[2021-05-27] MEDS ORDERED: LIDOCAINE 1% INJ 10MG/ML (20 ML MDV) SQ ONE ×2 (13:43)
--- NOTE | 2021-05-27 13:57 | P.PN ---
Subjective Progress Note Date: 05/27/21 (delayed charting seen at 1015) Principal diagnosis: shortness of breath Patient is a 70 yo CM with a past medical history of esophageal cancer, as I'll congestive heart failure, COPD, and chronic hypoxic respiratory failure on 3 L nasal cannula who presented to the hospital with shortness of breath. Who was recently admitted here from 05/10 through 05/13 secondary to bilateral pleural effusions. During that hospital stay he had a thoracentesis which did come back consistent with metastatic adenocarcinoma with signet rings consistent with upper GI tract primary. He was seen by cardiothoracic and limbs are for Pleurx catheter placement. Seen and examined at bedside. Reports that he is feeling much better than yesterday. Breathing easier. His lower extremity edema has resolved. No nausea or vomiting. 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 General: non toxic, no distress, appears at stated age Derm: warm, dry Head: atraumatic, normocephalic, symmetric Eyes: EOMI, no lid lag, anicteric sclera Mouth: no lip lesion, mucus membranes moist Cardiovascular: S1S2 reg, no murmur, positive posterior tibial pulse bilateral, Lungs: Rhonchi bilaterally , no accessory muscle use Abdominal: soft, nontender to palpation, no guarding, no appreciable organomegaly Ext: no gross muscle atrophy, no lower extremity edema, no contractures Neuro: CN II-XI grossly intact, no focal neuro deficits Psych: Alert, oriented, appropriate affect Recurrent Left Pleural Effusion Acute exacerabtion of COPD Chronic Hypoxic Respiratory Failure - Pulmonary recommendations. -IV steroids -Bronchodilators -CTA chest: No PE, b/l pleural effusion -No indication for antibiotic at this time -Cardiothoracic recommendations appreciated. Plan is for Pleurx catheter today. Recurrent Esophageal Ca -Oncology recommendations Acute exacerbation of Diastolic congestive heart failure with ejection fraction 55-60% - Coreg, Lasix, Aldactone, Cozaar -Strict I's and O's, daily weight DM II -Levemir -Sliding-scale insulin - A1C 8.2 HTN, controlled -Continue with Norvasc, Coreg -Follow blood pressures Chronic: JUSTIN-Cpap Hypothyroidism Right eye blindness CAD HLD DVT prophylaxis: Heparin Discussed with: Patient, Nursing Anticipated discharge: In a.m. Anticipated discharge place: Home with home health A total of 35 minutes was spent on the care of this complex patient more than 50% of the time was spent in counseling and care coordination. Objective - Vital Signs Vital signs: Vital Signs Temp 97.9 F 05/27/21 13:09 Pulse 104 H 05/27/21 13:09 Resp 22 05/27/21 13:09 BP 119/71 05/27/21 13:09 Pulse Ox 93 L 05/27/21 13:09 Intake & Output 05/26/21 05/27/21 05/27/21 18:59 06:59 18:59 Intake Total 1080 50 Balance 1080 50 Weight 71.214 kg Intake: IV 50 Oral 1080 Other: Voiding Method Toilet Urinal # Voids 3 3 - Labs CBC & Chem 7: 05/27/21 04:21 05/27/21 04:21 Labs: Abnormal Lab Results - Last 24 Hours (Table) 05/26/21 05/26/21 05/27/21 Range/Units 16:34 20:08 04:21 WBC 13.7 H (3.8-10.6) k/uL Sodium (137-145) mmol/L BUN (9-20) mg/dL Glucose (74-99) mg/dL POC Glucose (mg/dL) 230 H 146 H (75-99) mg/dL 05/27/21 05/27/21 05/27/21 Range/Units 04:21 07:46 12:10 WBC (3.8-10.6) k/uL Sodium 134 L (137-145) mmol/L BUN 33 H (9-20) mg/dL Glucose 138 H (74-99) mg/dL POC Glucose (mg/dL) 176 H 126 H (75-99) mg/dL
--- NOTE | 2021-05-27 14:24 | P.PN ---
Subjective Progress Note Date: 05/27/21 Principal diagnosis: Shortness of breath 70-year-old white male patient was recently hospitalized in April 2021 for acute exacerbation of CHF, bilateral pleural effusions, and patient underwent left-sided thoracentesis on May 12 2021, and the pleural fluid analysis was positive for metastatic adenocarcinoma with signet ringed features consistent with upper gastrointestinal tract primary. Patient has previous history of esophageal cancer status post chemoradiation in 2018, and recurrence and post chemotherapy in February 2021. 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 Since his last hospitalization patient was seen by Dr. Riddle in follow-up on 05/20/2021, and discussed starting immunotherapy, and carboplatinum chemotherapy. However patient has not been given a start date yet. Patient presented to the emergency department on 05/25/2021 with worsening dyspnea, orthopnea, patient states he could not lay down flat, was feeling very short of breath. Patient is on home oxygen for his history of COPD, normally wears 3 L/min. Denies any fever or chills, his cough has not changed patient is producing little bit of clear sputum. Patient reports some slight increase in his leg edema worse on the left although he is always has somewhat of a increased swelling in the left leg despite taking 2 diuretics at home. His chest x-ray showing blunting the costophrenic angles, pulmonary vessel congestion, pulmonary congestion pleural fluid are increased compared to his last exam on 05/21/2021. Patient tested negative for COVID-19. His lab work showed white blood cell count of 14.5, hemoglobin of 14.6, his platelet count is 378, correlation profile is within normal limits, sodium is 134, Angelique electrolytes are unremarkable, BUN is 24, creatinine is 1.06, LFTs were within normal limits, troponin was 0.013, proBNP was within normal limits at 325. Patient was placed on IV Lasix at 40 mg every 12 hours, he is given nebulized bronchodilators, he was started on IV Solu-Medrol, he is coughing, he is quite wheezy bronchospastic on today's exam. On 05/27/2021 patient seen in follow-up on medical surgical floor. No worsening dyspnea, still has exertional dyspnea, no complete chest discomfort, he remains on 4 L of oxygen pulse ox is 94%, has had no acute events overnight, CTA of the chest has been reviewed showing no evidence of pulmonary embolism, moderate bilateral pleural effusions with basilar atelectasis. CT surgery has been consulted for placement of bilateral Pleurx catheters. Patient has been scheduled for the procedure today by Dr. Simon. In the meantime patient remains on Lasix 40 mg every 12 hours, breathing treatments, and IV steroids for acute exacerbation of COPD. Breathing a little easier on today's exam. Has had no acute events overnight. Objective - Vital Signs Vital signs: Vital Signs Temp 97.9 F 05/27/21 13:09 Pulse 104 H 05/27/21 13:09 Resp 22 05/27/21 13:09 BP 119/71 05/27/21 13:09 Pulse Ox 93 L 05/27/21 13:09 Intake & Output 05/26/21 05/27/21 05/27/21 18:59 06:59 18:59 Intake Total 1080 250 Output Total 5 Balance 1080 245 Weight 71.214 kg Intake: IV 250 Oral 1080 Output: Estimated Blood Loss 5 Other: Voiding Method Toilet Urinal # Voids 3 3 - Exam GENERAL EXAM: Alert, very pleasant, 70-year-old white male, room air pulse ox is 93% comfortable in no apparent distress. HEAD: Normocephalic/atraumatic. EYES: Normal reaction of pupils, equal size. Conjunctiva pink, sclera white. NOSE: Clear with pink turbinates. THROAT: No erythema or exudates. NECK: No masses, no JVD, no thyroid enlargement, no adenopathy. CHEST: No chest wall deformity. Symmetrical expansion. LUNGS: Equal air entry with diffuse wheezes, and diminished breath sounds at bilateral bases CVS: Regular rate and rhythm, normal S1 and S2, no gallops, no murmurs, no rubs ABDOMEN: Soft, nontender. No hepatosplenomegaly, normal bowel sounds, no guarding or rigidity. EXTREMITIES: No clubbing, 1+ edema in lupe lower extremities, no cyanosis, 2+ pulses and upper and lower extremities. MUSCULOSKELETAL: Muscle strength and tone normal. SPINE: No scoliosis or deformity SKIN: No rashes CENTRAL NERVOUS SYSTEM: Alert and oriented -3. No focal deficits, tone is normal in all 4 extremities. PSYCHIATRIC: Alert and oriented -3. Appropriate affect. Intact judgment and insight. - Labs CBC & Chem 7: 05/27/21 04:21 05/27/21 04:21 Labs: Abnormal Lab Results - Last 24 Hours (Table) 05/26/21 05/26/21 05/27/21 Range/Units 16:34 20:08 04:21 WBC 13.7 H (3.8-10.6) k/uL Sodium (137-145) mmol/L BUN (9-20) mg/dL Glucose (74-99) mg/dL POC Glucose (mg/dL) 230 H 146 H (75-99) mg/dL 05/27/21 05/27/21 05/27/21 Range/Units 04:21 07:46 12:10 WBC (3.8-10.6) k/uL Sodium 134 L (137-145) mmol/L BUN 33 H (9-20) mg/dL Glucose 138 H (74-99) mg/dL POC Glucose (mg/dL) 176 H 126 H (75-99) mg/dL Assessment and Plan Plan: Assessment: #1. Acute exacerbation of COPD #2. Bilateral right greater than left pleural effusions, related to metastatic esophageal adenocarcinoma, and chronic diastolic CHF #3. Status post left-sided thoracentesis on 05/12/2021 with the removal of 1.4 liters of yellow-colored pleural fluid, with positive cytology for upper GI tract adenocarcinoma, related to esophageal adenocarcinoma #4. Chronic and ongoing history of tobacco dependency #5. History of CAD with previous history of coronary artery bypass grafting in 2015 #6. Hypertension #7. Hyperlipidemia #8. Hypothyroidism #9. History of prostate cancer with previous radical prostatectomy in 2008 #10. History of esophageal cancer status post chemoradiation in 2018, recurrence is status post chemotherapy in February 2021 #11. Diabetes mellitus type 2 #12. History of peripheral vascular disease with previous left fem-pop bypass in 2014 #13. History of renal cell carcinoma with partial right nephrectomy #14. 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 Plan: Continue current medical treatment Continue IV steroids, IV Lasix, breathing treatments Patient has been scheduled for Pleurx catheter placement today by Dr. Simon We'll continue following the patient in the postoperative period Education on Pleurx catheter by CT surgery Follow-up chest x-ray in the morning I performed a history & physical examination of the patient and discussed their management with my nurse practitioner, Shyann Cummings. I reviewed the nurse practitioner's note and agree with the documented findings and plan of care. Lung sounds are positive for dim breath soundsthroughout the lung bello. The findings and the impression was discussed with the patient. I attest to the documentation by the nurse practitioner. Time with Patient: Less than 30
--- NOTE | 2021-05-27 14:25 | P.OP ---
Date of Procedure: 05/27/21 Preoperative Diagnosis: Recurrent bilateral malignant pleural effusions Postoperative Diagnosis: Same Procedure(s) Performed: Bilateral pleurX catheter insertion under flouroscopy Implants: PleurX x 2 Anesthesia: MAC, local Surgeon: Jori Simon Pathology: none sent Condition: stable Disposition: PACU Indications for Procedure: This is a 70 year-old male with a known history of metastatic esophageal/gastric cancer who presented with recurrent bilateral effusions and shortness of breath. Given his underlying metastatic malignancy and chance for potential recurrence and re-admission we recommended bilateral pleurX cathethers. The patient was in agreement and informed consent was obtained. Operative Findings: 1850cc of total fluid evacuated R>L. Description of Procedure: The patient was brought back to the operating room and placed in the supine position. The ansesthesia team sedated the patient and his chest was prepped and draped in the usual sterile fashion after we identified a transition zone on the chest wall by percussion indicating fluid level. Antibiotics were given and a time-out was performed. The local was injected into the skin and then into the pleural cavity until yellow fluid was withdrawn confirming entry into the effusion. A needle and guidewire were then threading into the pleura. Placement was confirmed with flouroscopy and the skin was incised 1.5cm here around the needle. A 1cm counter incision was made anteriorly near at the costal margin and the catheter was threaded to the introducer site subcutaneously. The dilator and introducer sheath were placed into the chest over the wire under flouroscopic guidance and the wire and dilator were removed. The catheter was threaded into the chest cavity and secured at the skin with a silk stitch and the introducer site was closed with a 3-0 vicryl. The exact same procedure was conducted on the left side using the same technique. All counts were correct at the end of the procedure and a total of 1850cc of fluid was evacuated from bilateral pleural cavities. The patient was transported to recovery in stable condition.
--- NOTE | 2021-05-27 14:43 | FL ---
Fluoroscopy HISTORY: Pleurx catheter placement 12 seconds fluoroscopy time supplied to the referring clinician. 1 intraoperative C-arm images docum ent the procedure. See dictated report from cardiothoracic surgery
--- NOTE | 2021-05-27 15:23 | XR ---
EXAMINATION TYPE: XR chest 1V portable DATE OF EXAM: 05/27/2021 COMPARISON: Chest x-ray 05/25/2021 HISTORY: Status post Pleurx catheter placement TECHNIQUE: Single frontal view of the chest is obtained. FINDINGS: There is been interval placement of Pleurx catheters bilaterally. There is interval improv ed aeration at the lung bases. Minimal apical pneumothoraces are present bilaterally. No other signif icant interval change. IMPRESSION: Minimal apical pneumothoraces post Pleurx catheter placements bilaterally A Red level critical message alert has been initiated for Kamla Atkinson via the [employer] on 05/27/2021 3:17 PM. This message alert has been sent to Kamla Atkinson via the [employer] ences provided by the clinician for the receipt of Radiology Critical Findings. Message ID [id number].
[2021-05-27 15:24] VITALS: RESP 18
[2021-05-27 16:37] LABS: Glucose,Whole Blood 224 mg/dL (75-99)
[2021-05-27 21:05] LABS: Glucose,Whole Blood 159 mg/dL (75-99)
[2021-05-27 21:54] LABS: Glucose,Whole Blood 211 mg/dL (75-99)
[2021-05-27] MEDS: LATANOPROST 0.005% OPHTH DROPS 2.5 ML BTL RIGHT EYE SCH (21:55)
[2021-05-28] MEDS: methylPREDNISolone SOD SUCCI 125 MG/2 ML VIAL IV SCH ×2 (00:23→09:11)
[2021-05-28] MEDS: SODIUM CHLORIDE 0.9% 1,000 ML IV SCH (00:26)
[2021-05-28] MEDS: LEVOTHYROXINE 100 MCG TAB PO SCH (06:07)
[2021-05-28] MEDS: LEVOTHYROXINE 50 MCG TAB PO SCH (06:07)
[2021-05-28 07:00] LABS: Glucose,Whole Blood 147 mg/dL (75-99)
--- NOTE | 2021-05-28 07:24 | XR ---
EXAMINATION TYPE: XR chest 1V portable DATE OF EXAM: 05/28/2021 HISTORY: Follow-up pneumothoraces COMPARISON: 05/27/2021 TECHNIQUE: Single view of the chest is submitted. FINDINGS: Bilateral chest tubes are in place. Small less than 10% pneumothoraces are seen bilaterally left grea ter than right. Patchy basilar infiltrates persist. The heart is stable. Hilar and mediastinal structures are within normal limits. Degenerative changes are seen of the dorsal spine. IMPRESSION: 1. Small less than 10% pneumothoraces are seen bilaterally left greater than right. Patchy basilar i nfiltrates persist.
[2021-05-28] MEDS: BUDESONIDE 1 MG/2 ML NEBU INHALATION PRN (08:01)
[2021-05-28] MEDS: IPRATROPIUM-ALBUTEROL 3 ML NEB INHALATION SCH ×2 (08:01→11:31)
[2021-05-28] MEDS: FORMOTEROL FUMARATE 20 MCG/2 ML NEBU INHALATION SCH (08:01)
[2021-05-28 08:35] VITALS: BP 131/79; TEMP 97.6
[2021-05-28] MEDS ORDERED: ENOXAPARIN 40 MG/0.4 ML SYRINGE SQ SCH (09:00)
[2021-05-28] MEDS: ATORVASTATIN 10 MG TAB PO SCH (09:09)
[2021-05-28] MEDS: LOSARTAN 50 MG TAB PO SCH (09:09)
[2021-05-28] MEDS: ASPIRIN 81 MG PO SCH (09:10)
[2021-05-28] MEDS: GABAPENTIN 100 MG CAP PO SCH (09:10)
[2021-05-28] MEDS: carvediloL 3.125 MG TAB PO SCH (09:10)
[2021-05-28] MEDS: NICOTINE 21MG/24HR PATCH TRANSDERM SCH (09:11)
[2021-05-28] MEDS: FUROSEMIDE 10 MG/ML 4 ML VIAL IV SCH (09:12)
[2021-05-28] MEDS: INSULIN ASPART (NovoLOG) 100 UNIT/ML VIAL SQ SCH ×2 (09:12→12:24)
[2021-05-28] MEDS: INSULIN DETEMIR (LEVEMIR) 100 UNIT/ML SYR SQ SCH (09:12)
--- NOTE | 2021-05-28 09:29 | P.DS ---
Providers Date of admission: 05/28/21 07:57 Expected date of discharge: 05/28/21 Attending physician: Esau Mcmillan MD Consults: 05/26/21 00:56 Consult Physician Routine Consulting Provider: Brunilda Pisano Consult Reason/Comments: pleural effusion, COPD Do you want consulting provider notified?: Yes 05/26/21 01:30 Consult Physician Routine Consulting Provider: Davin Polk Consult Reason/Comments: Esophageal cancer Do you want consulting provider notified?: Yes 05/26/21 14:58 Consult Physician Routine Consulting Provider: Jori Simon Consult Reason/Comments: bilateral pleural effusions, malignant Do you want consulting provider notified?: Yes Primary care physician: Toby [facility] Course: Discharge Diagnosis: Recurrent Left Pleural Effusion Acute exacerabtion of COPD Chronic Hypoxic Respiratory Failure Recurrent Esophageal Ca Acute exacerbation of Diastolic congestive heart failure with ejection fraction 55-60% DM II HTN, controlled JUSTIN-Cpap Hypothyroidism Right eye blindness CAD HLD Hospital Course: Patient is a 70 yo CM with a past medical history of esophageal cancer, Iqbal tolic Congestive heart failure, COPD, and chronic hypoxic respiratory failure on 3 L nasal cannula who presented to the hospital with shortness of breath. Who was recently admitted here from 05/10 through 05/13 secondary to bilateral pleural effusions. During that hospital stay he had a thoracentesis which did come back consistent with metastatic adenocarcinoma with signet rings consistent with upp er GI tract primary. He was seen by cardiothoracic and underwent Pleurx catheter placement on 05/27 for recurrentl malignant effusion. He conitnued to improve and was determined stable for discharge. He will follow-up with Dr. Polk as scheduled, Dr. Pisano in 2 weeks, adn Dr. Long in 5-7 days. He will complete Prednisone for 5 additional days, Have home health for management for his pleurx-cath, he will take performist twice dialy via his nebulaizer. Patient seen and examined at bedside. Feeling better and coughing less. No chest pain, no nausea. eating well. Vital signs reviewed and stable. General: non toxic, no distress, appears at stated age, frail, temportal wasting Derm: warm, dry Head: atraumatic, normocephalic, symmetric Eyes: EOMI, no lid lag, anicteric sclera Mouth: no lip lesion, mucus membranes moist Cardiovascular: S1S2 reg, no murmur, positive posterior tibial pulse bilateral, Lungs: ronchi bilateral , no accessory muscle use Abdominal: soft, nontender to palpation, no guarding, no appreciable organomegaly Ext: no gross muscle atrophy, no edema, no contractures Neuro: CN II-XI grossly intact, no focal neuro deficits Psych: Alert, oriented, appropriate affect A total of 37 minutes of time were spent preparing this complex discharge summary . Patient Condition at Discharge: Stable Plan - Discharge Summary New Discharge Prescriptions: New predniSONE [Deltasone] 40 mg PO DAILY #10 tab Formoterol Fumarate [Perforomist] 20 mcg INHALATION RT-BID #60 ml Continue Losartan [Cozaar] 50 mg PO DAILY Levothyroxine Sodium [Synthroid] 200 mcg PO DAILY DULoxetine HCL [Cymbalta] 30 mg PO DAILY amLODIPine [Norvasc] 5 mg PO DAILY PRN PRN Reason: HOLD FOR SYSTOLIC LESS 120 DULoxetine HCL [Cymbalta] 60 mg PO DAILY Levothyroxine Sodium [Synthroid] 50 mcg PO DAILY Albuterol Inhaler [Ventolin Hfa Inhaler] 2 puff INHALATION RT-Q4H PRN PRN Reason: Shortness Of Breath Atorvastatin [Lipitor] 10 mg PO DAILY INSULIN ASPART (NovoLOG) [NovoLOG (formulary)] See Protocol SQ AC-TID PRN PRN Reason: HIGH BLOOD SUGAR dronabinoL [Dronabinol] 5 mg PO HS Furosemide [Lasix] 40 mg PO BID predniSONE 5 mg PO DAILY Budesonide 1 mg INHALATION RT-DAILY PRN PRN Reason: Shortness Of Breath Gabapentin [Neurontin] 200 mg PO TID Ipratropium-Albuterol Nebulize [Duoneb 0.5 mg-3 mg/3 ml Soln] 3 ml INHALATION RT-Q4H PRN PRN Reason: Shortness Of Breath Insulin Glargine,Hum.rec.anlog [Lantus Solostar Pen] 26 unit SQ AC-BRKFST Spironolactone [Aldactone] 25 mg PO BID Nicotine 21Mg/24Hr Patch [Habitrol] 1 patch TRANSDERM DAILY PRN PRN Reason: Nicotine Cravings Aspirin 81 mg PO DAILY 30 Days #30 tab carvediloL [Coreg] 3.125 mg PO BID-W/MEALS 30 Days #60 tab prednisoLONE ACETATE [Pred Forte 1%] 1 drop RIGHT EYE BID Latanoprost [Xalatan 0.005%] 1 drop RIGHT EYE HS Discontinued Cephalexin [Keflex] 500 mg PO Q12H Discharge Medication List Losartan [Cozaar] 50 mg PO DAILY 06/05/15 [History] DULoxetine HCL [Cymbalta] 30 mg PO DAILY 11/19/18 [History] Levothyroxine Sodium [Synthroid] 200 mcg PO DAILY 11/19/18 [History] DULoxetine HCL [Cymbalta] 60 mg PO DAILY 07/10/20 [History] Levothyroxine Sodium [Synthroid] 50 mcg PO DAILY 07/10/20 [History] amLODIPine [Norvasc] 5 mg PO DAILY PRN 07/10/20 [History] Albuterol Inhaler [Ventolin Hfa Inhaler] 2 puff INHALATION RT-Q4H PRN 05/06/21 [History] Atorvastatin [Lipitor] 10 mg PO DAILY 05/06/21 [History] Budesonide 1 mg INHALATION RT-DAILY PRN 05/06/21 [History] Gabapentin [Neurontin] 200 mg PO TID 05/06/21 [History] INSULIN ASPART (NovoLOG) [NovoLOG (formulary)] See Protocol SQ AC-TID PRN 05/06/21 [History] Ipratropium-Albuterol Nebulize [Duoneb 0.5 mg-3 mg/3 ml Soln] 3 ml INHALATION RT-Q4H PRN 05/06/21 [History] Insulin Glargine,Hum.rec.anlog [Lantus Solostar Pen] 26 unit SQ AC-BRKFST 05/10/21 [History] Nicotine 21Mg/24Hr Patch [Habitrol] 1 patch TRANSDERM DAILY PRN 05/10/21 [History] Spironolactone [Aldactone] 25 mg PO BID 05/10/21 [History] Aspirin 81 mg PO DAILY 30 Days #30 tab 05/13/21 [Rx] carvediloL [Coreg] 3.125 mg PO BID-W/MEALS 30 Days #60 tab 05/13/21 [Rx] Furosemide [Lasix] 40 mg PO BID 05/25/21 [History] Latanoprost [Xalatan 0.005%] 1 drop RIGHT EYE HS 05/25/21 [History] dronabinoL [Dronabinol] 5 mg PO HS 05/25/21 [History] predniSONE 5 mg PO DAILY 05/25/21 [History] prednisoLONE ACETATE [Pred Forte 1%] 1 drop RIGHT EYE BID 05/25/21 [History] Formoterol Fumarate [Perforomist] 20 mcg INHALATION RT-BID #60 ml 05/28/21 [Rx] predniSONE [Deltasone] 40 mg PO DAILY #10 tab 05/28/21 [Rx] Follow up Appointment(s)/Referral(s): Toby Long MD [Primary Care Provider] - 1-2 days Davin Polk MD [STAFF PHYSICIAN] - As Needed (as scheduled prior ) [facility] Visiting Nurse, [NON-STAFF] - ([facility] will call you to schedule the time for your first visit for 05/30/21.) Activity/Diet/Wound Care/Special Instructions: Activity: as tolerated Diet: carb consistent Special Instructions: [] Discharge Disposition: HOME WITH HOME HEALTH SERVICES
[2021-05-28 09:35] LABS: HCT 45.5 % (39.6-50.0); HGB 14.9 g/dL (13.0-17.0); MCH 28.4 pg (27.0-32.0); MCHC 32.7 g/dL (32.0-37.0); MCV 86.8 fL (80.0-97.0); Mean Platelet Volume 10.2 fL (9.5-12.2); NRBC Per 100 WBC 0 /100 WBCS (0.0-0.0); Platelet Count 386 X 10*3/uL (140-440); RBC 5.24 X 10*6/uL (4.40-5.60); RDW 14.1 % (11.5-14.5); WBC 22.49 X 10*3/uL (4.50-10.00)
[2021-05-28 09:37] LABS: African American GFR (CKD) 77.3 (60.0-200.0); Anion Gap 12.4 mmol/L (10.00-18.00); BUN/Creat Ratio 32.36 Ratio (12.00-20.00); Blood Urea Nitrogen 35.6 mg/dL (9.0-27.0); Calcium 9.7 mg/dL (8.7-10.3); Carbon Dioxide 27.6 mmol/L (20.0-27.5); Magnesium 2.4 mg/dL (1.5-2.4); Non-African American GFR(CKD) 66.7 (60.0-200.0); Potassium 4.7 mmol/L (3.5-5.5)
[2021-05-28] MEDS: prednisoLONE ACETATE 1% OPHTH DROPS 5 ML BTL RIGHT EYE SCH (09:46)
[2021-05-28] MEDS: CEPHALEXIN 500 MG CAP PO SCH (11:04)
[2021-05-28] MEDS: SPIRONOLACTONE 25 MG TAB PO SCH (11:05)
[2021-05-28 11:28] LABS: Glucose,Whole Blood 276 mg/dL (75-99)
[2021-05-28 11:42] VITALS: PULSE 100
--- NOTE | 2021-05-28 13:09 | P.PN ---
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 Toby Long for his primary care service. The patient has a past medical history for hypertension, hyperlipidemia, thyroid disorder, insulin-dependent diabetes mellitus, peripheral neuropathy, depression, peripheral vascular disease, status post left fem-pop in 2014, coronary artery disease status post CABG 5 in 2015, COPD on 3 L nasal cannula at home, ongoing nicotine dependence, renal cell carcinoma status post partial right nephrectomy in 2008, prostate cancer status post prostatectomy in 2009, and esophageal cancer status post radiation and chemotherapy in 2019. The patient also reports he takes Marinol on a daily basis due to a 20 pound weight loss over the past month. He had a recent admission in April 2001 for an acute exacerbation of CHF, bilateral pleural effusions requiring a left-sided thoracentesis on 05/12/2021 with 1.4 L of slightly yellow fluid drained which showed positive for metastatic adenocarcinoma with significant features consistent with upper gastrointestinal tract primary. Due to the findings of metastatic adenocarcinoma on follow-up with his oncologist on 05/20/2021 he was discussed with the patient starting immunotherapy and carboplatinum chemotherapy, although a start date has not been set. Over the past few days the patient reports he has progressively become more short of breath with exertion with orthopnea and due to his symptoms presented to the emergency department here at [facility] yesterday 05/25/2021. He denies any recent fever, chills, nausea, vomiting, chest pain, hemoptysis, hematemesis, diarrhea or constipation. The patient does admit to having a productive cough with thin white sputum. On admission his laboratory results showed a WBC count of 14.5, hemoglobin 14.6, platelets 378, INR 1.0, PTT 22.8, sodium 134, potassium 4.0, BUN 24, creatinine 1.06, glucose 123, proBNP 325 and albumin 3.2. The patient reports he has vaccinated and boosted with Moderna vaccine for COVID-19 and a coronavirus PCR was completed in the emergency department which showed not detected. A chest x-ray was completed which showed congestive heart failure with bilateral pleural effusions, and pulmonary congestion. For further evaluation a CT chest in September of her PE protocol was completed which showed no evidence for pulmonary embolism, moderate bilateral pleural effusions with basilar atelectasis and/or infiltrates. Due to the patient's presenting symptoms, and findings of bilateral pleural effusions a consult was placed to pulmonary/critical care medicine and also to cardiothoracic surgery for further evaluation and treatment recommendations including placement of bilateral Pleurx catheters. POD #1 bilateral Pleurx catheter insertion under fluoroscopy. The patient was seen in follow-up today 05/28/2021 at his bedside on the fourth floor medical surgical unit. Currently sitting up to the bedside chair, is awake, alert and oriented 3 and is in no acute distress. The patient denies any complaints of pain and reports his breathing feels much improved today after undergoing the Pleurx catheter insertions yesterday. He is still complaining of a productive cough with clear pinkish tinged sputum. Bedside Pleurx catheter teaching was completed with the patient with the patient during a return demonstration of caring for and draining his Pleurx catheters. 250 mL of serous color pleural fluid was drained from his left Pleurx catheter and 450 mL of ser ous colored pleural fluid was drained from his right Pleurx catheter. Objective - Vital Signs Vital signs: Vital Signs Temp 97.6 F 05/28/21 08:11 Pulse 100 05/28/21 11:42 Resp 18 05/28/21 11:42 BP 131/79 05/28/21 08:11 Pulse Ox 100 05/28/21 11:34 Intake & Output 05/27/21 05/28/21 05/28/21 18:59 06:59 18:59 Intake Total 250 Output Total 5 Balance 245 Intake: IV 250 Output: Estimated Blood Loss 5 Other: # Voids 2 2 - Exam CONSTITUTIONAL: Sitting up to the bedside chair on the medical surgical unit, appears comfortable, cooperative, no apparent acute distress. HEENT: Neck is supple, no JVD, palpable lymphadenopathy to his right neck. RESPIRATORY: Lungs sounds with scattered rhonchi throughout, diminished to his bilateral bases. Respirations are symmetrical and nonlabored. Currently on 3 L nasal cannula with oxygen saturations 100 percent. Strong cough. CARDIOVASCULAR: Regular rhythm and rate. S1 and S2 present, negative for S3, gallop or murmur. GASTROINTESTINAL: Abdomen soft, nontender, nondistended. Active bowel sounds present 4 quadrants. Tolerating diet. Passing flatus. No guarding or rigidity. GENITOURINARY: Continues to void. INTEGUMENTARY: Skin is warm and dry with no evidence of clubbing or cyanosis. Dressings are clean, dry and intact to his bilateral chest Pleurx catheter drains. NEUROLOGIC: Cranial nerves II through XII intact. No focal deficits. MUSKULOSKELETAL: Able to move all extremities, strength equal bilaterally, generalized weakness. PSYCHIATRIC: Alert and oriented to person place and time, appropriate affect, intact judgment and insight. - Allied health notes Allied health notes reviewed: nursing - Labs CBC & Chem 7: 05/28/21 04:38 05/28/21 04:38 Labs: Abnormal Lab Results - Last 24 Hours (Table) 05/27/21 05/27/21 05/27/21 Range/Units 16:35 21:03 21:52 WBC (4.50-10.00) X 10*3/uL Carbon Dioxide (20.0-27.5) mmol/L BUN (9.0-27.0) mg/dL BUN/Creatinine Ratio (12.00-20.00) Ratio Glucose (70-110) mg/dL POC Glucose (mg/dL) 224 H 159 H 211 H (75-99) mg/dL 05/28/21 05/28/21 05/28/21 Range/Units 04:38 04:38 06:57 WBC 22.49 H (4.50-10.00) X 10*3/uL Carbon Dioxide 27.6 H (20.0-27.5) mmol/L BUN 35.6 H (9.0-27.0) mg/dL BUN/Creatinine Ratio 32.36 H (12.00-20.00) Ratio Glucose 125 H (70-110) mg/dL POC Glucose (mg/dL) 147 H (75-99) mg/dL 05/28/21 Range/Units 11:20 WBC (4.50-10.00) X 10*3/uL Carbon Dioxide (20.0-27.5) mmol/L BUN (9.0-27.0) mg/dL BUN/Creatinine Ratio (12.00-20.00) Ratio Glucose (70-110) mg/dL POC Glucose (mg/dL) 276 H (75-99) mg/dL - Imaging and Cardiology Chest x-ray: report reviewed, image reviewed Assessment and Plan Assessment: 1. Bilateral pleural effusions, with a recent left thoracentesis on 05/12/2021, cytology positive for metastatic esophageal adenocarcinoma, status post bilateral Pleurx catheter drain placement 2. Acute exacerbation of COPD, on 3 L home oxygen 3. Acute on chronic congestive heart failure 4. Dyspnea on exertion secondary to above 5. History of hypertension 6. Hyperlipidemia 7. Thyroid disorder 8. History of coronary artery disease status post 5 vessel coronary artery bypass grafting in 2015 9. Peripheral vascular disease with history of left fem-pop bypass in 2014 10. History of esophageal cancer status post chemotherapy and radiation in 2018 with recurrence in February of 2021 11. Insulin-dependent diabetes mellitus 12. History of renal cell carcinoma with partial right nephrectomy in 2008 13. History of prostate cancer status post prostatectomy in 2009 14. History of basal cell carcinoma with history of Mohs procedure 15. Chronic ongoing tobacco dependence 16. History of depression 17. History of recent weight loss of 20 pounds, currently on Marinol for nutritional support 18. Vaccinated with Moderna 2 doses and a booster against COVID-19 Plan: 1. Bedside teaching with return demonstration on his Pleurx catheters was completed with the patient. His questions were answered. 2. Pain control per current when necessary orders. 3. Per the cardiothoracic surgery standpoint the patient to be discharged home with home health care when okay with primary care service and other consultants. Discussed with the patient went to drain his Pleurx catheters and to call the cardiothoracic surgery office once his drainage is down to 50 mL with 3 consecutive drains for possible removal of the Pleurx catheters. 4. We will continue to follow the patient on an as-needed basis. Time with Patient: Greater than 30
--- NOTE | 2021-05-28 13:48 | P.PN ---
Subjective Progress Note Date: 05/28/21 Principal diagnosis: Shortness of breath 70-year-old white male patient was recently hospitalized in April 2021 for acute exacerbation of CHF, bilateral pleural effusions, and patient underwent left-sided thoracentesis on May 12 2021, and the pleural fluid analysis was positive for metastatic adenocarcinoma with signet ringed features consistent with upper gastrointestinal tract primary. Patient has previous history of esophageal cancer status post chemoradiation in 2018, and recurrence and post chemotherapy in February 2021. 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 Since his last hospitalization patient was seen by Dr. Riddle in follow-up on 05/20/2021, and discussed starting immunotherapy, and carboplatinum chemotherapy. However patient has not been given a start date yet. Patient presented to the emergency department on 05/25/2021 with worsening dyspnea, orthopnea, patient states he could not lay down flat, was feeling very short of breath. Patient is on home oxygen for his history of COPD, normally wears 3 L/min. Denies any fever or chills, his cough has not changed patient is producing little bit of clear sputum. Patient reports some slight increase in his leg edema worse on the left although he is always has somewhat of a increased swelling in the left leg despite taking 2 diuretics at home. His chest x-ray showing blunting the costophrenic angles, pulmonary vessel congestion, pulmonary congestion pleural fluid are increased compared to his last exam on 05/21/2021. Patient tested negative for COVID-19. His lab work showed white blood cell count of 14.5, hemoglobin of 14.6, his platelet count is 378, correlation profile is within normal limits, sodium is 134, Angelique electrolytes are unremarkable, BUN is 24, creatinine is 1.06, LFTs were within normal limits, troponin was 0.013, proBNP was within normal limits at 325. Patient was placed on IV Lasix at 40 mg every 12 hours, he is given nebulized bronchodilators, he was started on IV Solu-Medrol, he is coughing, he is quite wheezy bronchospastic on today's exam. On 05/27/2021 patient seen in follow-up on medical surgical floor. No worsening dyspnea, still has exertional dyspnea, no complete chest discomfort, he remains on 4 L of oxygen pulse ox is 94%, has had no acute events overnight, CTA of the chest has been reviewed showing no evidence of pulmonary embolism, moderate bilateral pleural effusions with basilar atelectasis. CT surgery has been consulted for placement of bilateral Pleurx catheters. Patient has been scheduled for the procedure today by Dr. Simon. In the meantime patient remains on Lasix 40 mg every 12 hours, breathing treatments, and IV steroids for acute exacerbation of COPD. Breathing a little easier on today's exam. Has had no acute events overnight. On 05/28/2021 patient seen in follow-up on medical surgical floor. Patient had bilateral Pleurx catheters put in yesterday by CT surgery Dr. Simon. There was a total of 1850 mL of total fluid evacuated from both sides during initial insertion of the Pleurx catheters. Patient has received education today from CT surgery on how to care for Pleurix catheters. Acute events overnight, he had additional 450 ml of serous colored pleural fluid drained from his right Pleurx catheter, and 250 mL of serous pleural fluid from the left Pleurx catheter today by the CT surgery. Currently breathing comfortable, he is sitting up in the recliner, he is fully dressed, he is getting ready to be discharged home today, he is on 3 L of oxygen pulse ox is 100%, vital signs have been stable, no acute events overnight. Today's labs have been normal, with a 22.4, hemoglobin is 14.9, platelet count is 386, sodium was 138, potassium is 4.7, chloride is 98 BUN is 35 creatinine is 1.1. Patient was also diuresed, and she will be resuming his home dose Lasix 40 mg twice daily. Otherwise no acute events overnight, he is going home today with outpatient follow-up with CT surgery and pulmonology on the as-needed basis. he is supposed to start treatment with im munotherapy on an outpatient basis. Objective - Vital Signs Vital signs: Vital Signs Temp 97.6 F 05/28/21 08:11 Pulse 100 05/28/21 11:42 Resp 18 02/04/22 11:42 BP 131/79 05/28/21 08:11 Pulse Ox 100 05/28/21 11:34 Intake & Output 05/27/21 05/28/21 05/28/21 18:59 06:59 18:59 Intake Total 250 Output Total 5 Balance 245 Weight 71.214 kg Intake: IV 250 Output: Estimated Blood Loss 5 Other: # Voids 2 2 - Exam GENERAL EXAM: Alert, very pleasant, 70-year-old white male, 3 L oxygen the process 100% comfortable in no apparent distress. HEAD: Normocephalic/atraumatic. EYES: Normal reaction of pupils, equal size. Conjunctiva pink, sclera white. NOSE: Clear with pink turbinates. THROAT: No erythema or exudates. NECK: No masses, no JVD, no thyroid enlargement, no adenopathy. CHEST: No chest wall deformity. Symmetrical expansion. Anterior chest bilateral lower chest catheter is covered with a surgical dressing, clean dry and intact LUNGS: Equal air entry with diffuse wheezes, and diminished breath sounds at bilateral bases CVS: Regular rate and rhythm, normal S1 and S2, no gallops, no murmurs, no rubs ABDOMEN: Soft, nontender. No hepatosplenomegaly, normal bowel sounds, no guarding or rigidity. EXTREMITIES: No clubbing, 1+ edema in lupe lower extremities, no cyanosis, 2+ pulses and upper and lower extremities. MUSCULOSKELETAL: Muscle strength and tone normal. SPINE: No scoliosis or deformity SKIN: No rashes CENTRAL NERVOUS SYSTEM: Alert and oriented -3. No focal deficits, tone is normal in all 4 extremities. PSYCHIATRIC: Alert and oriented -3. Appropriate affect. Intact judgment and insight. - Labs CBC & Chem 7: 05/28/21 04:38 05/28/21 04:38 Labs: Abnormal Lab Results - Last 24 Hours (Table) 05/27/21 05/27/21 05/27/21 Range/Units 16:35 21:03 21:52 WBC (4.50-10.00) X 10*3/uL Carbon Dioxide (20.0-27.5) mmol/L BUN (9.0-27.0) mg/dL BUN/Creatinine Ratio (12.00-20.00) Ratio Glucose (70-110) mg/dL POC Glucose (mg/dL) 224 H 159 H 211 H (75-99) mg/dL 05/28/21 05/28/21 05/28/21 Range/Units 04:38 04:38 06:57 WBC 22.49 H (4.50-10.00) X 10*3/uL Carbon Dioxide 27.6 H (20.0-27.5) mmol/L BUN 35.6 H (9.0-27.0) mg/dL BUN/Creatinine Ratio 32.36 H (12.00-20.00) Ratio Glucose 125 H (70-110) mg/dL POC Glucose (mg/dL) 147 H (75-99) mg/dL 05/28/21 Range/Units 11:20 WBC (4.50-10.00) X 10*3/uL Carbon Dioxide (20.0-27.5) mmol/L BUN (9.0-27.0) mg/dL BUN/Creatinine Ratio (12.00-20.00) Ratio Glucose (70-110) mg/dL POC Glucose (mg/dL) 276 H (75-99) mg/dL Assessment and Plan Plan: Assessment: #1. Acute exacerbation of COPD #2. Bilateral right greater than left pleural effusions, related to metastatic esophageal adenocarcinoma, status post bilateral Pleurx catheter on 05/27/2021 #3. Status post left-sided thoracentesis on 05/12/2021 with the removal of 1.4 liters of yellow-colored pleural fluid, with positive cytology for upper GI tract adenocarcinoma, related to esophageal adenocarcinoma #4. Chronic and ongoing history of tobacco dependency #5. History of CAD with previous history of coronary artery bypass grafting in 2015 #6. Hypertension #7. Hyperlipidemia #8. Hypothyroidism #9. History of prostate cancer with previous radical prostatectomy in 2008 #10. History of esophageal cancer status post chemoradiation in 2018, recurrence is status post chemotherapy in February 2021 #11. Diabetes mellitus type 2 #12. History of peripheral vascular disease with previous left fem-pop bypass in 2014 #13. History of renal cell carcinoma with partial right nephrectomy #14. 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 Moctezuma or Dr. Pisano in pulmonary clinic on as-needed basis I performed a history & physical examination of the patient and discussed their management with my nurse practitioner, Shyann Cummings. I reviewed the nurse practitioner's note and agree with the documented findings and plan of care. Lung sounds are positive for dim breath soundsthroughout the lung bello. The findings and the impression was discussed with the patient. I attest to the documentation by the nurse practitioner. Time with Patient: Less than 30
--- NOTE | 2021-05-28 14:53 | P.PN ---
Subjective Progress Note Date: 05/28/21 Principal diagnosis: Esophageal, recent progression ultrasounfd of supravivular vasculature not performed yet, order sent to RN to please follow-up. Objective - Vital Signs Vital signs: Vital Signs Temp 97.6 F 05/28/21 08:11 Pulse 100 05/28/21 11:42 Resp 18 05/28/21 11:42 BP 131/79 05/28/21 08:11 Pulse Ox 100 05/28/21 11:34 Intake & Output 05/27/21 05/28/21 05/28/21 18:59 06:59 18:59 Intake Total 250 Output Total 5 Balance 245 Weight 71.214 kg Intake: IV 250 Output: Estimated Blood Loss 5 Other: # Voids 2 2 - Exam - Constitutional General appearance: cooperative - EENT Eyes: EOMI ENT: hard of hearing, Right neck adenopathy, port cath involvement? - Neck Neck: normal ROM - Respiratory Respiratory: bilateral: diminished Bilateeral pleurex, dressing on bialateral anterior chest CDI - Cardiovascular Rhythm: regularly irregular - Gastrointestinal General gastrointestinal: soft - Integumentary Integumentary: pale - Musculoskeletal Musculoskeletal: generalized weakness - Psychiatric Psychiatric: A&O x's 3, appropriate affect, intact judgment & insight - Labs CBC & Chem 7: 05/28/21 04:38 05/28/21 04:38 Labs: Abnormal Lab Results - Last 24 Hours (Table) 05/27/21 05/27/21 05/27/21 Range/Units 16:35 21:03 21:52 WBC (4.50-10.00) X 10*3/uL Carbon Dioxide (20.0-27.5) mmol/L BUN (9.0-27.0) mg/dL BUN/Creatinine Ratio (12.00-20.00) Ratio Glucose (70-110) mg/dL POC Glucose (mg/dL) 224 H 159 H 211 H (75-99) mg/dL 05/28/21 05/28/21 05/28/21 Range/Units 04:38 04:38 06:57 WBC 22.49 H (4.50-10.00) X 10*3/uL Carbon Dioxide 27.6 H (20.0-27.5) mmol/L BUN 35.6 H (9.0-27.0) mg/dL BUN/Creatinine Ratio 32.36 H (12.00-20.00) Ratio Glucose 125 H (70-110) mg/dL POC Glucose (mg/dL) 147 H (75-99) mg/dL 05/28/21 Range/Units 11:20 WBC (4.50-10.00) X 10*3/uL Carbon Dioxide (20.0-27.5) mmol/L BUN (9.0-27.0) mg/dL BUN/Creatinine Ratio (12.00-20.00) Ratio Glucose (70-110) mg/dL POC Glucose (mg/dL) 276 H (75-99) mg/dL Assessment and Plan (1) Esophageal adenocarcinoma Status: Acute Code(s): C15.9 - MALIGNANT NEOPLASM OF ESOPHAGUS, UNSPECIFIED SNOMED Code(s): 132509172 (2) Acute CHF Status: Acute Code(s): I50.9 - HEART FAILURE, UNSPECIFIED SNOMED Code(s): 65209456 (3) Bilateral pleural effusion Status: Acute Code(s): J90 - PLEURAL EFFUSION, NOT ELSEWHERE CLASSIFIED SNOMED Code(s): 510201392
== END 2021-05-28 13:05 | disposition home health service (06) | DRG 374 ==
LOC: EC 19:55 → 4SSUR 05-26 02:00 → OBSVTOIN 05-28 07:57
PROVIDERS: ADMIT Internal Medicine; ATTEND Internal Medicine
PROC: 0W9930Z Drainage of Right Pleural Cavity with Drainage Device, Percutaneous Approach (ICD-10-PCS; 2021-05-27)
PROC: 0W9B30Z Drainage of Left Pleural Cavity with Drainage Device, Percutaneous Approach (ICD-10-PCS; principal; 2021-05-27 10:45)
DX: C16.0 Malignant neoplasm of cardia (principal); I50.33 Acute on chronic diastolic (congestive) heart failure; J91.0 Malignant pleural effusion; J44.1 Chronic obstructive pulmonary disease with (acute) exacerbation; J96.11 Chronic respiratory failure with hypoxia; D72.829 Elevated white blood cell count, unspecified; E03.9 Hypothyroidism, unspecified; E78.5 Hyperlipidemia, unspecified; F17.200 Nicotine dependence, unspecified, uncomplicated; G47.33 Obstructive sleep apnea (adult) (pediatric); E11.42 Type 2 diabetes mellitus with diabetic polyneuropathy; G89.29 Other chronic pain; H54.8 Legal blindness, as defined in USA; I25.10 Atherosclerotic heart disease of native coronary artery without angina pectoris; I25.2 Old myocardial infarction; I11.0 Hypertensive heart disease with heart failure; Z20.822 Contact with and (suspected) exposure to COVID-19; E11.51 Type 2 diabetes mellitus with diabetic peripheral angiopathy without gangrene; F32.A Depression, unspecified; R13.10 Dysphagia, unspecified; Z79.4 Long term (current) use of insulin; Z79.82 Long term (current) use of aspirin; Z79.890 Hormone replacement therapy; Z79.899 Other long term (current) drug therapy; Z80.1 Family history of malignant neoplasm of trachea, bronchus and lung; Z80.3 Family history of malignant neoplasm of breast; Z83.3 Family history of diabetes mellitus; Z85.01 Personal history of malignant neoplasm of esophagus; Z92.21 Personal history of antineoplastic chemotherapy; Z92.3 Personal history of irradiation; Z85.028 Personal history of other malignant neoplasm of stomach; Z85.46 Personal history of malignant neoplasm of prostate; Z85.528 Personal history of other malignant neoplasm of kidney; Z85.819 Personal history of malignant neoplasm of unspecified site of lip, oral cavity, and pharynx; Z85.828 Personal history of other malignant neoplasm of skin; Z87.442 Personal history of urinary calculi; Z90.5 Acquired absence of kidney; Z90.79 Acquired absence of other genital organ(s); Z95.1 Presence of aortocoronary bypass graft; Z99.81 Dependence on supplemental oxygen; K22.2 Esophageal obstruction
CPT/HCPCS: 36415; 71045; 71046; 71275; 80048; 80053; 83036; 83735; 83880; 84484; 85025; 85027; 85610; 85730; 87635; 93005; 94640; 94667; 94760; 99285

== ENCOUNTER 2021-06-08 23:23 | Emergency (ER) | payer MEDICARE ==
[2021-06-09] MEDS ORDERED: LORazepam 2 MG/ML INJ ONE (01:42)
[2021-06-09] MEDS ORDERED: GLUCAGON 1 MG/ML VIAL ONE (01:42)
[2021-06-09 05:30] LABS: Basophils % (A) 0 %; Eosinophils % (A) 0 %; HCT 44.7 % (39.0-53.0); Lymphocytes # (A) 0.6 k/uL (1.0-4.8); Lymphocytes % (A) 4 %; MCHC 33.6 g/dL (31.0-37.0); MCV 89.3 fL (80.0-100.0); Mean Platelet Volume 8.3; Monocytes # (A) 0.4 k/uL (0-1.0); Monocytes % (A) 3 %; Neutrophils # (A) 13.4 k/uL (1.3-7.7); Neutrophils % (A) 92 %; Platelet Count 393 k/uL (150-450); RBC 5.01 m/uL (4.30-5.90); RDW 13.7 % (11.5-15.5); WBC 14.5 k/uL (3.8-10.6)
[2021-06-09 05:52] LABS: Albumin 3.1 g/dL (3.5-5.0); Potassium 4.7 mmol/L (3.5-5.1); Total Bilirubin 0.5 mg/dL (0.2-1.3); Total Protein 5.8 g/dL (6.3-8.2)
--- NOTE | 2021-06-09 09:07 | XR ---
EXAM: XR Chest, 2 Views CLINICAL HISTORY: Pt has esophageal CA, states he feels like food stuck in his abdomen. TECHNIQUE: Frontal and lateral views of the chest. COMPARISON: No relevant prior studies available. FINDINGS: There is a right IJ approach Port-A-Cath in place of the distal tip at the SVC/RA junction. Lungs: Findings concerning for bronchitis with pneumonitis and small consolidation at the left lung base. Pleural space: Unremarkable. No pneumothorax. Heart: Unremarkable. No cardiomegaly. Mediastinum: Unremarkable. Bones/joints: Patient is status post median sternotomy with fracturing of the most cephalad sternal wire. IMPRESSION: Findings concerning for bronchitis with pneumonitis and small consolidation at the left lung base.
--- NOTE | 2021-06-09 09:07 | XR ---
EXAM: XR Abdomen, 2 Views CLINICAL HISTORY: Pt has esophageal CA, states he feels like food stuck in his abdomen. TECHNIQUE: Frontal view of the abdomen/pelvis with upright view of the abdomen. COMPARISON: No relevant prior studies available. FINDINGS: There are surgical yusuf in the mid pelvis and inferior to the left hip. There is surgical staple line at the GE junction. Intraperitoneal space: No free air. Gastrointestinal tract: Unremarkable. No dilation. Bones/joints: Unremarkable. IMPRESSION: No evidence of acute intra-abdominal pathology.
== END 2021-06-09 03:39 | disposition home or self-care (01) ==
LOC: EC 23:23
DX: T18.128A Food in esophagus causing other injury, initial encounter (principal); J18.9 Pneumonia, unspecified organism; J44.9 Chronic obstructive pulmonary disease, unspecified; Z87.891 Personal history of nicotine dependence; X58.XXXA Exposure to other specified factors, initial encounter
CPT/HCPCS: 99283; 36415; 80053; 85025; 85730; 71046; 74018; J2060; J1610

== ENCOUNTER 2021-06-10 18:33 | Inpatient (IN) | payer MEDICARE ==
[2021-06-10] MEDS ORDERED: SODIUM CHLORIDE 0.9% 1,000 ML IV STA (18:55)
[2021-06-10] MEDS ORDERED: AZITHROMYCIN 500 MG in SODIUM CHLORIDE 0.9% 250 ML IVPB STA (19:03)
[2021-06-10] MEDS ORDERED: PNEUMONIA PROTOCOL UTILIZED 1 EACH MISC PO PRN (19:03)
[2021-06-10] MEDS ORDERED: IPRATROPIUM-ALBUTEROL 3 ML NEB INHALATION STA (19:04)
--- NOTE | 2021-06-10 19:08 | ED ---
Weakness HPI - General Chief complaint: Weakness Stated complaint: Dizziness Time Seen by Provider: 06/10/21 18:50 Source: patient, RN notes reviewed Mode of arrival: wheelchair Limitations: no limitations - History of Present Illness Initial comments: This is a pleasant 70-year-old male with a history of coronary artery disease, esophageal cancer, heart failure, COPD, diabetes mellitus and multiple other medical comorbidities. He presents here today complaining of generalized weakness, productive cough, and increasing inability to swallow normally secondary to esophageal cancer. In here 2 days ago and treated for an esophageal foreign body. Patient had adequate relief with glucagon. Patient was sent home on antibiotics due to adventitious lung sounds. She has only been able take one dose of each of these antibiotics. Complaining of difficulty swallowing, lightheadedness. No vertiginous symptoms no fall or syncope. No headache, no fever or chills, no changes in vision or hearing, no sore throat or difficulty with speech, no neck pain, no chest pain , no abdominal pain, no nausea or vomiting, no changes in urination or bowel movements, no numbness or tingling, no extremity pain, no skin rashes or lesions. Note that the patient continues to smoke cigarettes. - Related Data Home Medications Medication Instructions Recorded Confirmed Losartan [Cozaar] 50 mg PO DAILY 06/05/15 05/25/21 DULoxetine HCL [Cymbalta] 30 mg PO DAILY 11/19/18 05/25/21 Levothyroxine Sodium [Synthroid] 200 mcg PO DAILY 11/19/18 05/25/21 DULoxetine HCL [Cymbalta] 60 mg PO DAILY 07/10/20 05/25/21 Levothyroxine Sodium [Synthroid] 50 mcg PO DAILY 07/10/20 05/25/21 amLODIPine [Norvasc] 5 mg PO DAILY PRN 07/10/20 05/25/21 Albuterol Inhaler [Ventolin Hfa 2 puff INHALATION RT-Q4H PRN 05/06/21 05/25/21 Inhaler] Atorvastatin [Lipitor] 10 mg PO DAILY 05/06/21 05/25/21 Budesonide 1 mg INHALATION RT-DAILY PRN 05/06/21 05/25/21 Gabapentin [Neurontin] 200 mg PO TID 05/06/21 05/25/21 INSULIN ASPART (NovoLOG) [NovoLOG See Protocol SQ AC-TID PRN 05/06/21 05/25/21 (formulary)] Ipratropium-Albuterol Nebulize 3 ml INHALATION RT-Q4H PRN 05/06/21 05/25/21 [Duoneb 0.5 mg-3 mg/3 ml Soln] Insulin Glargine,Hum.rec.anlog 26 unit SQ AC-BRKFST 05/10/21 05/25/21 [Lantus Solostar Pen] Nicotine 21Mg/24Hr Patch [Habitrol] 1 patch TRANSDERM DAILY PRN 05/10/21 0 05/25/21 Spironolactone [Aldactone] 25 mg PO BID 05/10/21 05/25/21 Furosemide [Lasix] 40 mg PO BID 05/25/21 05/25/21 Latanoprost [Xalatan 0.005%] 1 drop RIGHT EYE HS 05/25/21 05/25/21 dronabinoL [Dronabinol] 5 mg PO HS 05/25/21 05/25/21 predniSONE 5 mg PO DAILY 05/25/21 05/25/21 prednisoLONE ACETATE [Pred Forte 1 drop RIGHT EYE BID 05/25/21 05/25/21 1%] Previous Rx's Medication Instructions Recorded Aspirin 81 mg PO DAILY 30 Days #30 tab 05/13/21 carvediloL [Coreg] 3.125 mg PO BID-W/MEALS 30 Days 05/13/21 #60 tab Formoterol Fumarate [Perforomist] 20 mcg INHALATION RT-BID #60 ml 05/28/21 predniSONE [Deltasone] 40 mg PO DAILY #10 tab 05/28/21 Allergies Allergy/AdvReac Type Severity Reaction Status Date / Time No Known Allergies Allergy Verified 06/10/21 18:46 Review of Systems ROS Statement: Those systems with pertinent positive or pertinent negative responses have been documented in the HPI. ROS Other: All systems not noted in ROS Statement are negative. Past Medical History Past Medical History: Coronary Artery Disease (CAD), Cancer, Heart Failure, COPD, Diabetes Mellitus, Eye Disorder, GI Bleed, Hyperlipidemia, Hypertension, Myocardial Infarction (NH), Prostate Disorder, Sleep Apnea/CPAP/BIPAP, Syncope, Thyroid Disorder, Vascular Disorder Additional Past Medical History / Comment(s): Prostate, renal cell, and basal cell cancers. GastroEsophageal cancer. - treated with chem/rad october 2018 HX kidney stones. Right eye blind. GE CA Currently. Uses CPAP. esophageal stricture. Reports he is blind to his right eye. Last Myocardial Infarction Date:: MAY 2015 History of Any Multi-Drug Resistant Organisms: None Reported Past Surgical History: Coronary Bypass/CABG, Heart Catheterization, Prostate Surgery Additional Past Surgical History / Comment(s): Partial Rt nephrectomy, Lt fem pop bypass in 04/07, which became infected and his is still on oral abx. PROCEDURE OF BASAL CELL OF UPPER LIP. Radical Prostatectomy. CABG X5. EGD, Colonoscopy 11/21/18. Past Anesthesia/Blood Transfusion Reactions: No Reported Reaction Past Psychological History: Depression Smoking Status: Current every day smoker Past Alcohol Use History: None Reported Past Drug Use History: None Reported General Exam - General Exam Comments Initial Comments: Patient in moderate distress. Noted to be hypotensive with a systolic blood pressure in the 80s. Limitations: no limitations General appearance: alert, in no apparent distress Head exam: Present: atraumatic, normocephalic, normal inspection Eye exam: Present: normal appearance, PERRL, EOMI. Absent: scleral icterus, c onjunctival injection, periorbital swelling ENT exam: Present: normal exam, mucous membranes moist Neck exam: Present: normal inspection, full ROM. Absent: tenderness, meningismus, lymphadenopathy Respiratory exam: Present: normal lung sounds bilaterally, wheezes, rales, rhonchi, other (Generalized wheezes, rhonchi, and rales.). Absent: respiratory distress, stridor, chest wall tenderness, accessory muscle use Cardiovascular Exam: Present: regular rate, normal rhythm, normal heart sounds. Absent: systolic murmur, diastolic murmur, rubs, gallop, clicks GI/Abdominal exam: Present: soft, normal bowel sounds. Absent: distended, tenderness, guarding, rebound, rigid Extremities exam: Present: normal inspection, full ROM, normal capillary refill. Absent: tenderness, pedal edema, joint swelling, calf tenderness Back exam: Present: normal inspection Neurological exam: Present: alert, oriented X3, CN II-XII intact Psychiatric exam: Present: normal affect, normal mood Skin exam: Present: warm, dry, intact, normal color. Absent: rash Course Vital Signs 06/10/21 06/10/21 06/10/21 18:43 18:48 19:54 Temperature 97 F L Pulse Rate 81 62 Respiratory 18 Rate Blood Pressure 74/47 O2 Sat by Pulse 97 Oximetry 06/10/21 06/10/21 20:02 20:22 Temperature Pulse Rate 65 65 Respiratory 20 Rate Blood Pressure 95/60 O2 Sat by Pulse 98 Oximetry - Reevaluation(s) Reevaluation #1: 06/10/21 20:34 Medical record is reviewed Symptoms are improved here in the emergency department Patient is informed of results and questions answered Patient in no distress Reevaluation #2: 06/10/21 20:41 Medical record is reviewed Patient normotensive after IV fluids. Patient is informed of results and questions answered Patient in no distress EKG Findings - EKG Comments: EKG Findings:: EKG shows sinus rhythm with a rate of 70, moderate T wave abnormality, J-point elevation noted in V2 and V3. Baseline artifact. Normal intervals. Rate is 70. Normal axis. Medical Decision Making - Medical Decision Making Patient presents with probable dehydration and possible pneumonia secondary to chronic lung disease as well as possible aspiration. We'll treat with Rocephin and Zithromax initially. Fluid bolus ordered due to the patient's hypotension. Basic septic workup ordered.Medical record is reviewed Symptoms are improved here in the emergency department Patient is informed of results and questions answered Patient in no distress Case was discussed with general surgery, Dr. Carrillo. Discussed with Dr. Mcmillan from [facility]. Patient Will Likely Need Feeding Tube Placement. - Lab Data Result diagrams: 06/10/21 19:32 06/10/21 19:32 Lab Results 06/10/21 06/10/21 06/10/21 Range/Units 19:32 19:32 19:32 WBC 16.0 H (3.8-10.6) k/uL RBC 4.92 (4.30-5.90) m/uL Hgb 14.9 (13.0-17.5) gm/dL Hct 44.5 (39.0-53.0) % MCV 90.4 (80.0-100.0) fL MCH 30.3 (25.0-35.0) pg MCHC 33.5 (31.0-37.0) g/dL RDW 13.7 (11.5-15.5) % Plt Count 376 (150-450) k/uL MPV 7.9 Neutrophils % 87 % Lymphocytes % 6 % Monocytes % 6 % Eosinophils % 0 % Basophils % 0 % Neutrophils # 14.0 H (1.3-7.7) k/uL Lymphocytes # 1.0 (1.0-4.8) k/uL Monocytes # 0.9 (0-1.0) k/uL Eosinophils # 0.1 (0-0.7) k/uL Basophils # 0.0 (0-0.2) k/uL PT 10.6 (9.0-12.0) sec INR 1.0 (<1.2) APTT 22.0 (22.0-30.0) sec Sodium 131 L (137-145) mmol/L Potassium 4.7 (3.5-5.1) mmol/L Chloride 99 (98-107) mmol/L Carbon Dioxide 27 (22-30) mmol/L Anion Gap 5 mmol/L BUN 85 H (9-20) mg/dL Creatinine 1.90 H (0.66-1.25) mg/dL Est GFR (CKD-EPI)AfAm 40 (>60 ml/min/1.73 sqM) Est GFR (CKD-EPI)NonAf 34 (>60 ml/min/1.73 sqM) Glucose 70 L (74-99) mg/dL Plasma Lactic Acid Darrin (0.7-2.0) mmol/L Calcium 8.7 (8.4-10.2) mg/dL Magnesium 2.8 H (1.6-2.3) mg/dL Total Bilirubin 0.5 (0.2-1.3) mg/dL AST 20 (17-59) U/L ALT 19 (4-49) U/L Alkaline Phosphatase 85 (38-126) U/L Troponin I (0.000-0.034) ng/mL C-Reactive Protein <0.5 (<1.0) mg/dL NT-Pro-B Natriuret Pep pg/mL Total Protein 5.3 L (6.3-8.2) g/dL Albumin 2.7 L (3.5-5.0) g/dL Coronavirus (PCR) (Not Detectd) Influenza Type A RNA (Not Detectd) Influenza Type B (PCR) (Not Detectd) 06/10/21 06/10/21 06/10/21 Range/Units 19:32 19:32 19:32 WBC (3.8-10.6) k/uL RBC (4.30-5.90) m/uL Hgb (13.0-17.5) gm/dL Hct (39.0-53.0) % MCV (80.0-100.0) fL MCH (25.0-35.0) pg MCHC (31.0-37.0) g/dL RDW (11.5-15.5) % Plt Count (150-450) k/uL MPV Neutrophils % % Lymphocytes % % Monocytes % % Eosinophils % % Basophils % % Neutrophils # (1.3-7.7) k/uL Lymphocytes # (1.0-4.8) k/uL Monocytes # (0-1.0) k/uL Eosinophils # (0-0.7) k/uL Basophils # (0-0.2) k/uL PT (9.0-12.0) sec INR (<1.2) APTT (22.0-30.0) sec Sodium (137-145) mmol/L Potassium (3.5-5.1) mmol/L Chloride (98-107) mmol/L Carbon Dioxide (22-30) mmol/L Anion Gap mmol/L BUN (9-20) mg/dL Creatinine (0.66-1.25) mg/dL Est GFR (CKD-EPI)AfAm (>60 ml/min/1.73 sqM) Est GFR (CKD-EPI)NonAf (>60 ml/min/1.73 sqM) Glucose (74-99) mg/dL Plasma Lactic Acid Darrin 1.7 (0.7-2.0) mmol/L Calcium (8.4-10.2) mg/dL Magnesium (1.6-2.3) mg/dL Total Bilirubin (0.2-1.3) mg/dL AST (17-59) U/L ALT (4-49) U/L Alkaline Phosphatase (38-126) U/L Troponin I 0.033 (0.000-0.034) ng/mL C-Reactive Protein (<1.0) mg/dL NT-Pro-B Natriuret Pep 704 pg/mL Total Protein (6.3-8.2) g/dL Albumin (3.5-5.0) g/dL Coronavirus (PCR) (Not Detectd) Influenza Type A RNA (Not Detectd) Influenza Type B (PCR) (Not Detectd) 06/10/21 06/10/21 Range/Units 19:40 19:40 WBC (3.8-10.6) k/uL RBC (4.30-5.90) m/uL Hgb (13.0-17.5) gm/dL Hct (39.0-53.0) % MCV (80.0-100.0) fL MCH (25.0-35.0) pg MCHC (31.0-37.0) g/dL RDW (11.5-15.5) % Plt Count (150-450) k/uL MPV Neutrophils % % Lymphocytes % % Monocytes % % Eosinophils % % Basophils % % Neutrophils # (1.3-7.7) k/uL Lymphocytes # (1.0-4.8) k/uL Monocytes # (0-1.0) k/uL Eosinophils # (0-0.7) k/uL Basophils # (0-0.2) k/uL PT (9.0-12.0) sec INR (<1.2) APTT (22.0-30.0) sec Sodium (137-145) mmol/L Potassium (3.5-5.1) mmol/L Chloride (98-107) mmol/L Carbon Dioxide (22-30) mmol/L Anion Gap mmol/L BUN (9-20) mg/dL Creatinine (0.66-1.25) mg/dL Est GFR (CKD-EPI)AfAm (>60 ml/min/1.73 sqM) Est GFR (CKD-EPI)NonAf (>60 ml/min/1.73 sqM) Glucose (74-99) mg/dL Plasma Lactic Acid Darrin (0.7-2.0) mmol/L Calcium (8.4-10.2) mg/dL Magnesium (1.6-2.3) mg/dL Total Bilirubin (0.2-1.3) mg/dL AST (17-59) U/L ALT (4-49) U/L Alkaline Phosphatase (38-126) U/L Troponin I (0.000-0.034) ng/mL C-Reactive Protein (<1.0) mg/dL NT-Pro-B Natriuret Pep pg/mL Total Protein (6.3-8.2) g/dL Albumin (3.5-5.0) g/dL Coronavirus (PCR) Not Detected (Not Detectd) Influenza Type A RNA Not Detected (Not Detectd) Influenza Type B (PCR) Not Detected (Not Detectd) Disposition Clinical Impression: Dysphagia, Acute kidney injury, History of esophageal cancer, Dehydration Disposition: ADMITTED IP TO THIS HOSP Condition: Fair Referrals: Toby Long MD [Primary Care Provider] - 1-2 days Decision to Admit Reason: Admit from EC Decision Time: 20:35
[2021-06-10 19:38] LABS: Basophils % (A) 0 %; Eosinophils # (A) 0.1 k/uL (0-0.7); Eosinophils % (A) 0 %; HCT 44.5 % (39.0-53.0); HGB 14.9 gm/dL (13.0-17.5); Lymphocytes % (A) 6 %; MCH 30.3 pg (25.0-35.0); MCHC 33.5 g/dL (31.0-37.0); MCV 90.4 fL (80.0-100.0); Mean Platelet Volume 7.9; Monocytes # (A) 0.9 k/uL (0-1.0); Monocytes % (A) 6 %; Neutrophils % (A) 87 %; Platelet Count 376 k/uL (150-450); RBC 4.92 m/uL (4.30-5.90); RDW 13.7 % (11.5-15.5)
[2021-06-10 19:46] LABS: Prothrombin Time 10.6 sec (9.0-12.0)
[2021-06-10 19:50] LABS: ALT 19 U/L (4-49); AST 20 U/L (17-59); African American GFR (CKD) 40 (>60 ml/min/1.73 sqM); Albumin 2.7 g/dL (3.5-5.0); Alkaline Phosphatase 85 U/L (38-126); Anion Gap 5 mmol/L; Blood Urea Nitrogen 85 mg/dL (9-20); Calcium 8.7 mg/dL (8.4-10.2); Carbon Dioxide 27 mmol/L (22-30); Chloride 99 mmol/L (98-107); Glucose 70 mg/dL (74-99); Magnesium 2.8 mg/dL (1.6-2.3); Non-African American GFR(CKD) 34 (>60 ml/min/1.73 sqM); Potassium 4.7 mmol/L (3.5-5.1); Sodium 131 mmol/L (137-145); Total Bilirubin 0.5 mg/dL (0.2-1.3); Total Protein 5.3 g/dL (6.3-8.2)
[2021-06-10 20:00] LABS: C Reactive Protein <0.5 mg/dL (<1.0)
[2021-06-10] MEDS ORDERED: ONDANSETRON 4 MG/2 ML VIAL IVP PRN (20:36)
[2021-06-10] MEDS ORDERED: NALOXONE 0.4 MG/ML 1 ML VIAL IV PRN (20:36)
--- NOTE | 2021-06-10 20:45 | XR ---
EXAMINATION TYPE: XR chest 2V DATE OF EXAM: 06/10/2021 7:48 PM COMPARISON:Multiple radiographs, with the most recent on 12/07/2021 TECHNIQUE: XR chest 2V Frontal and lateral views of the chest. CLINICAL INDICATION:Male, 70 years old with history of difficulty breathing; FINDINGS: Lungs/Pleura: There is no evidence of focal consolidation, or pneumothorax. Imaging of the left cost ophrenic angle. Pulmonary vascularity: Unremarkable. Heart/mediastinum: Cardiomediastinal silhouette is unremarkable. Musculoskeletal: No acute osseous pathology. Midline sternotomy wires are noted and stable. Lines/Tubes: [id number] projecting over the right hemithorax with distal tip at the cavoatrial junction. IMPRESSION: 1. Similar surgical changes chronic interstitial lung markings represent chronic bronchitis. 2. Similar small left pleural effusion.
[2021-06-10] MEDS ORDERED: ACETAMINOPHEN TAB 500 MG TAB PO STA (20:56)
[2021-06-10] MEDS: SODIUM CHLORIDE 0.9% 1,000 ML IV SCH (21:23)
[2021-06-10] MEDS: PANTOPRAZOLE 40 MG/10 ML VIAL IV SCH (21:28)
[2021-06-10] MEDS: NICOTINE 14MG/24HR PATCH TRANSDERM SCH (21:34)
[2021-06-10 23:09] LABS: Glucose,Whole Blood 89 mg/dL (75-99)
[2021-06-10] MEDS ORDERED: amLODIPine 5 MG TAB PO PRN (23:53)
[2021-06-10] MEDS ORDERED: ONDANSETRON 4 MG TAB PO PRN (23:53)
--- NOTE | 2021-06-10 23:56 | P.HPIM ---
History of Present Illness H&P Date: 06/10/21 Patient is a 70-year-old male with a PMH of esophageal cancer status post multiple rounds of chemotherapy and relapse 2, CAD status post CABG, diastolic CHF, chronic hypoxic respiratory failure on 3 L of cannula oxygen at home, COPD, type II DM, hyperlipidemia, and hypertension presents to the emergency room with complaints of dysphagia, generalized weakness, and a persistent cough. Of note, the patient was recently admitted to the hospital on 05/26/2021 for shortness of breath and underwent Pleurx catheter placement for recurrent pleural effusion. The patient was subsequently seen 2 days ago in the emergency room for food bolus impaction which was resolved with glucagon and the patient was sent home. Patient now reports that he has been unable to eat or drink much due to persistent dysphagia. He also reports losing weight and feeling fatigued. He further reports a persistent nonproductive cough. Denied chest discomfort, nausea, vomiting, abdominal pain, diarrhea. Laboratory evaluation in the emergency room was remarkable for leukocytosis of 16, BUN 85, creatinine 1.9, glucose 70. Chest x-ray revealed findings consistent with chronic bronchitis. EKG revealed sinus rhythm at 70 bpm. Review of systems: Pertinent positives and negatives as discussed in HPI, a complete review of systems was performed and all other systems are negative. Physical examination: General: Chronically ill-appearing male, no distress, appears older than stated age, normal weight Derm: no unusual rashes/lesions no unusual ecchymoses, warm, dry Head: atraumatic, normocephalic, symmetric Eyes: EOMI, no lid lag, anicteric sclera, pupils equal round reactive to light ENT: Nose and ears atraumatic, no thrush, no pharyngeal erythema Neck: No thyromegaly, no cervical lymphadenopathy, trachea midline, supple Mouth: no lip lesion, mucus membranes dry Cardiovascular: S1S2 reg, no murmur, positive posterior tibial pulse bilateral, no edema, capillary refill less than 2 seconds Lungs: Scattered rhonchi, no accessory muscle use, catheter is in place Abdominal: soft, nontender to palpation, no guarding, no appreciable organomegaly, normal bowel sounds Ext: no gross muscle atrophy, muscle strength 5 out of 5 in all 4 extremities grossly, no contractures, Neuro: CN II-XI grossly intact, light touch intact all 4 extremities, finger to nose within normal limits, Psych: Alert, oriented, appropriate affect Assessment/plan Dysphagia in patient with esophageal cancer -Surgery consulted for possible PEG tube placement -IV fluids Acute kidney injury, suspected secondary to dehydration with poor oral intake -IV fluids -Monitor BMP Cough with leukocytosis -Obtain pro-calcitonin -Possible aspiration in setting of recent food bolus impactions -Hold off on antibiotics at this time Chronic conditions: Coronary artery disease, COPD, type II DM, hyperlipidemia, hypertension -Continue with home meds -Check A1c -Insulin sliding scale -Blood glucose monitoring -Hold diuretics DVT prophylaxis -Lovenox The patient is admitted with an anticipated greater than 2 midnight stay for evaluation of dysphagia CODE STATUS: Full Code Discussed with: Patient Anticipated discharge date: 2-[address]: Home Past Medical History Past Medical History: Coronary Artery Disease (CAD), Cancer, Heart Failure, COPD, Diabetes Mellitus, Eye Disorder, GI Bleed, Hyperlipidemia, Hypertension, Myocardial Infarction (NH), Prostate Disorder, Sleep Apnea/CPAP/BIPAP, Syncope, Thyroid Disorder, Vascular Disorder Additional Past Medical History / Comment(s): Prostate, renal cell, and basal cell cancers. GastroEsophageal cancer. - treated with chem/rad october 2018 HX kidney stones. Right eye blind. eBrevia Currently. Uses CPAP. esophageal stricture. Reports he is blind to his right eye. Last Myocardial Infarction Date:: MAY 2015 History of Any Multi-Drug Resistant Organisms: None Reported Past Surgical History: Coronary Bypass/CABG, Heart Catheterization, Prostate Surgery Additional Past Surgical History / Comment(s): Partial Rt nephrectomy, Lt fem pop bypass in 04/07, which became infected and his is still on oral abx. PROCEDURE OF BASAL CELL OF UPPER LIP. Radical Prostatectomy. CABG X5. EGD, Colonoscopy 11/21/18. Past Anesthesia/Blood Transfusion Reactions: No Reported Reaction Past Psychological History: Depression Smoking Status: Current every day smoker Past Alcohol Use History: None Reported Past Drug Use History: None Reported Medications and Allergies Home Medications Medication Instructions Recorded Confirmed Type DULoxetine HCL [Cymbalta] 30 mg PO DAILY 11/19/18 06/10/21 History Levothyroxine Sodium [Synthroid] 200 mcg PO DAILY 11/19/18 06/10/21 History DULoxetine HCL [Cymbalta] 60 mg PO DAILY 07/10/20 06/10/21 History Levothyroxine Sodium [Synthroid] 50 mcg PO DAILY 07/10/20 06/10/21 History amLODIPine [Norvasc] 5 mg PO DAILY PRN 07/10/20 06/10/21 History Albuterol Inhaler [Ventolin Hfa 2 puff INHALATION RT-Q4H PRN 05/06/21 06/10/21 History Inhaler] Atorvastatin [Lipitor] 10 mg PO DAILY 05/06/21 06/10/21 History Budesonide 1 mg INHALATION RT-DAILY PRN 05/06/21 06/10/21 History Gabapentin [Neurontin] 200 mg PO TID 05/06/21 06/10/21 History INSULIN ASPART (NovoLOG) [NovoLOG See Protocol SQ AC-TID PRN 05/06/21 06/10/21 History (formulary)] Ipratropium-Albuterol Nebulize 3 ml INHALATION RT-Q4H PRN 05/06/21 06/10/21 History [Duoneb 0.5 mg-3 mg/3 ml Soln] Insulin Glargine,Hum.rec.anlog 26 unit SQ AC-BRKFST 05/10/21 06/10/21 History [Lantus Solostar Pen] Nicotine 21Mg/24Hr Patch [Habitrol] 1 patch TRANSDERM DAILY PRN 05/10/21 06/10/21 History Spironolactone [Aldactone] 25 mg PO BID 05/10/21 06/10/21 History Aspirin 81 mg PO DAILY 30 Days #30 tab 05/13/21 06/10/21 Rx carvediloL [Coreg] 3.125 mg PO BID-W/MEALS 30 Days 05/13/21 06/10/21 Rx #60 tab Furosemide [Lasix] 40 mg PO BID 05/25/21 06/10/21 History Latanoprost [Xalatan 0.005%] 1 drop RIGHT EYE HS 05/25/21 06/10/21 History dronabinoL [Dronabinol] 5 mg PO HS 05/25/21 06/10/21 History prednisoLONE ACETATE [Pred Forte 1 drop RIGHT EYE BID 05/25/21 06/10/21 History 1%] Azithromycin [Zithromax Z-pack (6 See Taper PO DIRECTED 06/10/21 06/10/21 History tabs)] Capecitabine [Xeloda] 1,000 mg PO BID 06/10/21 06/10/21 History Capecitabine [Xeloda] 450 mg PO BID 06/10/21 06/10/21 History Cefdinir 300 mg PO BID 06/10/21 06/10/21 History Losartan [Cozaar] 25 mg PO BID 06/10/21 06/10/21 History Ondansetron [Zofran] 4 mg PO Q8HR PRN 06/10/21 06/10/21 History Scopolamine [Scopolamine 1 MG/72 1 patch TRANSDERM Q72H 06/10/21 06/10/21 History HR patch] Allergies Allergy/AdvReac Type Severity Reaction Status Date / Time No Known Allergies Allergy Verified 06/10/21 21:50 Physical Exam Vitals: Vital Signs Temp Pulse Resp BP Pulse Ox 06/10/21 21:00 71 18 90/54 98 06/10/21 20:40 74 20 99/59 98 06/10/21 20:22 65 20 95/60 98 06/10/21 20:02 65 06/10/21 19:54 62 06/10/21 18:48 74/47 06/10/21 18:43 97 F L 81 18 97 Intake and Output 06/10/21 06/10/21 06/11/21 14:59 22:59 06:59 Other: Weight 63.957 kg Results CBC & Chem 7: 06/10/21 19:32 06/10/21 19:32 Labs: Abnormal Lab Results - Last 24 Hours (Table) 06/10/21 06/10/21 Range/Units 19:32 19:32 WBC 16.0 H (3.8-10.6) k/uL Neutrophils # 14.0 H (1.3-7.7) k/uL Sodium 131 L (137-145) mmol/L BUN 85 H (9-20) mg/dL Creatinine 1.90 H (0.66-1.25) mg/dL Glucose 70 L (74-99) mg/dL Magnesium 2.8 H (1.6-2.3) mg/dL Total Protein 5.3 L (6.3-8.2) g/dL Albumin 2.7 L (3.5-5.0) g/dL
[2021-06-11 06:03] LABS: Basophils % (A) 0 %; Eosinophils # (A) 0.1 k/uL (0-0.7); Eosinophils % (A) 1 %; HCT 43.8 % (39.0-53.0); HGB 14.2 gm/dL (13.0-17.5); Lymphocytes # (A) 0.9 k/uL (1.0-4.8); Lymphocytes % (A) 7 %; MCH 29.6 pg (25.0-35.0); MCHC 32.3 g/dL (31.0-37.0); MCV 91.6 fL (80.0-100.0); Monocytes # (A) 0.7 k/uL (0-1.0); Monocytes % (A) 5 %; Neutrophils # (A) 11.9 k/uL (1.3-7.7); Neutrophils % (A) 87 %; Platelet Count 326 k/uL (150-450); RBC 4.78 m/uL (4.30-5.90); RDW 13.6 % (11.5-15.5); WBC 13.7 k/uL (3.8-10.6)
[2021-06-11 06:14] LABS: Albumin 2.5 g/dL (3.5-5.0); Calcium 8.5 mg/dL (8.4-10.2); Potassium 4.6 mmol/L (3.5-5.1); Prothrombin Time 11.3 sec (9.0-12.0); Total Bilirubin 0.5 mg/dL (0.2-1.3)
[2021-06-11] MEDS: LEVOTHYROXINE 100 MCG TAB PO SCH (06:15)
[2021-06-11 07:16] LABS: Glucose,Whole Blood 80 mg/dL (75-99)
[2021-06-11] MEDS: carvediloL 3.125 MG TAB PO SCH ×2 (08:03→18:13)
[2021-06-11] MEDS: INSULIN ASPART (NovoLOG) 100 UNIT/ML VIAL SQ SCH ×4 (08:04→21:13)
[2021-06-11] MEDS: LOSARTAN 25 MG TAB PO SCH ×2 (08:04→21:13)
[2021-06-11] MEDS: CEFDINIR 300 MG CAP PO SCH ×2 (08:04→21:12)
[2021-06-11] MEDS: DULoxetine HCL 30 MG CAPSULE.DR PO SCH (08:04)
[2021-06-11] MEDS: DULoxetine HCL 60 MG CAPSULE.DR PO SCH (08:04)
[2021-06-11] MEDS: ASPIRIN 81 MG PO SCH (08:04)
[2021-06-11] MEDS: ATORVASTATIN 10 MG TAB PO SCH (08:04)
[2021-06-11] MEDS: GABAPENTIN 100 MG CAP PO SCH ×3 (08:04→21:18)
[2021-06-11] MEDS: SODIUM CHLORIDE 0.9% 1,000 ML IV SCH ×2 (09:25→18:12)
[2021-06-11] MEDS: ENOXAPARIN 40 MG/0.4 ML SYRINGE SQ SCH (09:27)
[2021-06-11] MEDS: PANTOPRAZOLE 40 MG/10 ML VIAL IV SCH (09:27)
[2021-06-11] MEDS: prednisoLONE ACETATE 1% OPHTH DROPS 5 ML BTL RIGHT EYE SCH ×2 (09:27→21:13)
[2021-06-11] MEDS: NICOTINE 14MG/24HR PATCH TRANSDERM SCH (09:37)
--- NOTE | 2021-06-11 10:57 | P.GSCN ---
History of Present Illness Consult date: 06/11/21 Reason for Consult: Malnutrition History of present illness: 70-year-old male with history of esophageal cancer. Patient never did have surgery. He has undergone chemotherapy with relapse on 2 separate occasions. Patient has had generalized malaise and lack of appetite. He has had significant weight loss. He does have intermittent episodes of dysphagia. He has not had for quite some time. He was admitted for fluid hydration and for attempts at PEG tube placement. We were consulted for PEG tube. Review of Systems The patient denies any acute changes in vision or hearing, no dysuria or hematuria, no headache, no runny nose, no rectal bleeding or melena Past Medical History Past Medical History: Coronary Artery Disease (CAD), Cancer, Heart Failure, COPD, Diabetes Mellitus, Eye Disorder, GI Bleed, Hyperlipidemia, Hypertension, Myocardial Infarction (SD), Prostate Disorder, Sleep Apnea/CPAP/BIPAP, Syncope, Thyroid Disorder, Vascular Disorder Additional Past Medical History / Comment(s): Prostate, renal cell, and basal cell cancers. GastroEsophageal cancer. - treated with chem/rad october 2018 HX kidney stones. Right eye blind. [employer] [place] Currently. Uses CPAP. esophageal stricture. Reports he is blind to his right eye. Last Myocardial Infarction Date:: MAY 2015 History of Any Multi-Drug Resistant Organisms: None Reported Past Surgical History: Coronary Bypass/CABG, Heart Catheterization, Prostate Surgery Additional Past Surgical History / Comment(s): Partial Rt nephrectomy, Lt fem pop bypass in 04/07, which became infected and his is still on oral abx. PROCEDURE OF BASAL CELL OF UPPER LIP. Radical Prostatectomy. CABG X5. EGD, Colonoscopy 11/21/18. Past Anesthesia/Blood Transfusion Reactions: No Reported Reaction Past Psychological History: Depression Smoking Status: Current every day smoker Past Alcohol Use History: None Reported Past Drug Use History: None Reported Medications and Allergies Home Medications Medication Instructions Recorded Confirmed Type DULoxetine HCL [Cymbalta] 30 mg PO DAILY 11/19/18 06/10/21 History Levothyroxine Sodium [Synthroid] 200 mcg PO DAILY 11/19/18 06/10/21 History DULoxetine HCL [Cymbalta] 60 mg PO DAILY 07/10/20 06/10/21 History Levothyroxine Sodium [Synthroid] 50 mcg PO DAILY 07/10/20 06/10/21 History amLODIPine [Norvasc] 5 mg PO DAILY PRN 07/10/20 06/10/21 History Albuterol Inhaler [Ventolin Hfa 2 puff INHALATION RT-Q4H PRN 05/06/21 06/10/21 History Inhaler] Atorvastatin [Lipitor] 10 mg PO DAILY 05/06/21 06/10/21 History Budesonide 1 mg INHALATION RT-DAILY PRN 05/06/21 06/10/21 History Gabapentin [Neurontin] 200 mg PO TID 05/06/21 06/10/21 History INSULIN ASPART (NovoLOG) [NovoLOG See Protocol SQ AC-TID PRN 05/06/21 06/10/21 History (formulary)] Ipratropium-Albuterol Nebulize 3 ml INHALATION RT-Q4H PRN 05/06/21 06/10/21 History [Duoneb 0.5 mg-3 mg/3 ml Soln] Insulin Glargine,Hum.rec.anlog 26 unit SQ AC-BRKFST 05/10/21 06/10/21 History [Lantus Solostar Pen] Nicotine 21Mg/24Hr Patch [Habitrol] 1 patch TRANSDERM DAILY PRN 05/10/21 06/10/21 History Spironolactone [Aldactone] 25 mg PO BID 05/10/21 06/10/21 History Aspirin 81 mg PO DAILY 30 Days #30 tab 05/13/21 06/10/21 Rx carvediloL [Coreg] 3.125 mg PO BID-W/MEALS 30 Days 05/13/21 06/10/21 Rx #60 tab Furosemide [Lasix] 40 mg PO BID 05/25/21 06/10/21 History Latanoprost [Xalatan 0.005%] 1 drop RIGHT EYE HS 05/25/21 06/10/21 History dronabinoL [Dronabinol] 5 mg PO HS 05/25/21 06/10/21 History prednisoLONE ACETATE [Pred Forte 1 drop RIGHT EYE BID 05/25/21 06/10/21 History 1%] Azithromycin [Zithromax Z-pack (6 See Taper PO DIRECTED 06/10/21 06/10/21 History tabs)] Capecitabine [Xeloda] 1,000 mg PO BID 06/10/21 06/10/21 History Capecitabine [Xeloda] 450 mg PO BID 06/10/21 06/10/21 History Cefdinir 300 mg PO BID 06/10/21 06/10/21 History Losartan [Cozaar] 25 mg PO BID 06/10/21 06/10/21 History Ondansetron [Zofran] 4 mg PO Q8HR PRN 06/10/21 06/10/21 History Scopolamine [Scopolamine 1 MG/72 1 patch TRANSDERM Q72H 06/10/21 06/10/21 Histor y HR patch] Allergies Allergy/AdvReac Type Severity Reaction Status Date / Time No Known Allergies Allergy Verified 06/10/21 21:50 Surgical - Exam Vital Signs Temp Pulse Resp Pulse Ox 97 F L 81 18 97 06/10/21 18:43 06/10/21 18:43 06/10/21 18:43 06/10/21 18:43 Physical exam: General: Well-developed, malnourished appearing HEENT: Normocephalic, sclerae nonicteric Abdomen: Nontender, nondistended, Pleurx catheters with exit sites bilateral upper quadrant costal margins Extremities: No edema Neuro: Alert and oriented Results - Labs 06/11/21 05:36 06/11/21 05:36 Abnormal Lab Results - Last 24 Hours (Table) 06/10/21 06/10/21 06/11/21 Range/Units 19:32 19:32 05:36 WBC 16.0 H 13.7 H (3.8-10.6) k/uL Neutrophils # 14.0 H 11.9 H (1.3-7.7) k/uL Lymphocytes # 0.9 L (1.0-4.8) k/uL Sodium 131 L (137-145) mmol/L BUN 85 H (9-20) mg/dL Creatinine 1.90 H (0.66-1.25) mg/dL Glucose 70 L (74-99) mg/dL Hemoglobin A1c (0.0-6.0) % Magnesium 2.8 H (1.6-2.3) mg/dL Total Protein 5.3 L (6.3-8.2) g/dL Albumin 2.7 L (3.5-5.0) g/dL 06/11/21 06/11/21 Range/Units 05:36 05:36 WBC (3.8-10.6) k/uL Neutrophils # (1.3-7.7) k/uL Lymphocytes # (1.0-4.8) k/uL Sodium 134 L (137-145) mmol/L BUN 78 H (9-20) mg/dL Creatinine 1.60 H (0.66-1.25) mg/dL Glucose (74-99) mg/dL Hemoglobin A1c 7.6 H (0.0-6.0) % Magnesium (1.6-2.3) mg/dL Total Protein 5.0 L (6.3-8.2) g/dL Albumin 2.5 L (3.5-5.0) g/dL Diabetes panel 06/10/21 06/11/21 06/11/21 Range/Units 19:32 05:36 05:36 Sodium 131 L 134 L (137-145) mmol/L Potassium 4.7 4.6 (3.5-5.1) mmol/L Chloride 99 105 (98-107) mmol/L Carbon Dioxide 27 25 (22-30) mmol/L BUN 85 H 78 H (9-20) mg/dL Creatinine 1.90 H 1.60 H (0.66-1.25) mg/dL Glucose 70 L 79 (74-99) mg/dL Hemoglobin A1c 7.6 H (0.0-6.0) % Calcium 8.7 8.5 (8.4-10.2) mg/dL AST 20 21 (17-59) U/L ALT 19 17 (4-49) U/L Alkaline Phosphatase 85 79 (38-126) U/L Total Protein 5.3 L 5.0 L (6.3-8.2) g/dL Albumin 2.7 L 2.5 L (3.5-5.0) g/dL Calcium panel 06/10/21 06/11/21 Range/Units 19:32 05:36 Calcium 8.7 8.5 (8.4-10.2) mg/dL Albumin 2.7 L 2.5 L (3.5-5.0) g/dL Pituitary panel 06/10/21 06/11/21 Range/Units 19:32 05:36 Sodium 131 L 134 L (137-145) mmol/L Potassium 4.7 4.6 (3.5-5.1) mmol/L Chloride 99 105 (98-107) mmol/L Carbon Dioxide 27 25 (22-30) mmol/L BUN 85 H 78 H (9-20) mg/dL Creatinine 1.90 H 1.60 H (0.66-1.25) mg/dL Glucose 70 L 79 (74-99) mg/dL Calcium 8.7 8.5 (8.4-10.2) mg/dL Adrenal panel 06/10/21 06/11/21 Range/Units 19:32 05:36 Sodium 131 L 134 L (137-145) mmol/L Potassium 4.7 4.6 (3.5-5.1) mmol/L Chloride 99 105 (98-107) mmol/L Carbon Dioxide 27 25 (22-30) mmol/L BUN 85 H 78 H (9-20) mg/dL Creatinine 1.90 H 1.60 H (0.66-1.25) mg/dL Glucose 70 L 79 (74-99) mg/dL Calcium 8.7 8.5 (8.4-10.2) mg/dL Total Bilirubin 0.5 0.5 (0.2-1.3) mg/dL AST 20 21 (17-59) U/L ALT 19 17 (4-49) U/L Alkaline Phosphatase 85 79 (38-126) U/L Total Protein 5.3 L 5.0 L (6.3-8.2) g/dL Albumin 2.7 L 2.5 L (3.5-5.0) g/dL Assessment and Plan (1) Malnutrition Narrative/Plan: Will proceed with EGD and PEG tube placement at this time. Risks of bleeding, infection, inability to place catheter, leak, abscess, fistula, bowel injury, anesthesia complications reviewed. He understands and wishes to proceed. Current Visit: Yes Status: Acute Code(s): E46 - UNSPECIFIED PROTEIN-CALORIE MALNUTRITION SNOMED Code(s): 02488296
[2021-06-11 11:10] LABS: Glucose,Whole Blood 79 mg/dL (75-99)
[2021-06-11] MEDS ORDERED: PROPOFOL 10 MG/ML 20 ML VIAL IV ONE (11:26)
[2021-06-11] MEDS ORDERED: LIDOCAINE 1% INJ 10MG/ML (20 ML MDV) ONE (11:26)
[2021-06-11] MEDS ORDERED: IV FLUID CONTINUATION 1,000 ML IV ONE (11:28)
--- NOTE | 2021-06-11 11:57 | P.PCN ---
Date of Procedure: 06/11/21 Procedure(s) Performed: PREOPERATIVE DIAGNOSIS: Malnutrition, history of esophageal cancer POSTOPERATIVE DIAGNOSIS: Gastritis, proximal gastric ulcer, esophageal stricture, proximal esophageal superficial ulceration PROCEDURE: EGD with PEG tube placement and biopsy SURGEON: Gerardo EBL: Minimal ANESTHESIA: Sedation COMPLICATIONS: None OPERATIVE PROCEDURE: The patient was placed in the supine position on the endoscopy table. The patient was sedated per anesthesia that time. The Olympus gastroscope was inserted into the oropharynx and passed under direct visualization to the second portion of the duodenum. No obstruction was seen. The pylorus was widely patent. The stomach was carefully inspected. The stomach was fully insufflated with air. The abdominal wall was inspected. The light was seen shining through the abdominal wall in the left upper quadrant. This site was chosen for PEG tube placement. The area was prepped in the usual sterile fashion. This area was then localized with lidocaine. No air was evident when aspirating while advancing the localizing needle into the stomach until the stomach was reached. A small vertical incision was made using the scalpel. The Seldinger needle was advanced into the lumen of the stomach the wire was advanced. The wire was grasped with an endoscopic snare. The wire was pulled through the oropharynx. The catheter was then threaded over the guidewire and the guidewire and catheter were pulled anteriorly until the hub of the PEG tube catheter was seated against the anterior wall the stomach. The circular bolster was applied and tightened down. The endoscope was then readvanced into the stomach. There was no evidence of any bleeding and there was appropriate tightness on the bolster. The catheter was cut appropriately. The dual port feeding adapter was applied. The stomach had evidence of mild gastritis. Proximally the stomach the gastritis was more impressive and there was a ulceration with sharp edges. This measured 1.5 cm in size. Biopsies were taken of the ulcer margin. The esophagus was then inspected. The patient had evidence of narrowing of the distal esophagus consistent with mild stricture formation. No mucosal abnormalities were present there. At 20 cm there was a superficial ulceration that was biopsied. The remainder the esophagus appeared normal. DISPOSITION: Stable to recovery room
--- NOTE | 2021-06-11 13:19 | P.PN ---
Subjective Progress Note Date: 06/11/21 Principal diagnosis: Patient feels okay still aspirating atient is a 70-year-old male with a PMH of esophageal cancer status post multiple rounds of chemotherapy and relapse 2, CAD status post CABG, diastolic CHF, chronic hypoxic respiratory failure on 3 L of cannula oxygen at home, COPD, type II DM, hyperlipidemia, and hypertension presents to the emergency room with complaints of dysphagia, generalized weakness, and a persistent cough. Of note, the patient was recently admitted to the hospital on 05/26/2021 for shortness of breath and underwent Pleurx catheter placement for recurrent pleural effusion. The patient was subsequently seen 2 days ago in the emergency room for food bolus impaction which was resolved with glucagon and the patient was sent home. Patient now reports that he has been unable to eat or drink much due to persistent dysphagia. He also reports losing weight and feeling fatigued. He further reports a persistent nonproductive cough. Denied chest discomfort, nausea, vomiting, abdominal pain, diarrhea. Laboratory evaluation in the emergency room was remarkable for leukocytosis of 16, BUN 85, creatinine 1.9, glucose 70. Chest x-ray revealed findings consistent with chronic bronchitis. EKG revealed sinus rhythm at 70 bpm. Review of systems: Pertinent positives and negatives as discussed in HPI, a complete review of systems was performed and all other systems are negative. Physical examination: General: Chronically ill-appearing male, no distress, appears older than stated age, normal weight Derm: no unusual rashes/lesions no unusual ecchymoses, warm, dry Head: atraumatic, normocephalic, symmetric Eyes: EOMI, no lid lag, anicteric sclera, pupils equal round reactive to light ENT: Nose and ears atraumatic, no thrush, no pharyngeal erythema Neck: No thyromegaly, no cervical lymphadenopathy, trachea midline, supple Mouth: no lip lesion, mucus membranes dry Cardiovascular: S1S2 reg, no murmur, positive posterior tibial pulse bilateral, no edema, capillary refill less than 2 seconds Lungs: Scattered rhonchi, no accessory muscle use, catheter is in place Abdominal: soft, nontender to palpation, no guarding, no appreciable o rganomegaly, normal bowel sounds Ext: no gross muscle atrophy, muscle strength 5 out of 5 in all 4 extremities grossly, no contractures, Neuro: CN II-XI grossly intact, light touch intact all 4 extremities, finger to nose within normal limits, Psych: Alert, oriented, appropriate affect Assessment/plan Dysphagia in patient with esophageal cancer -Surgery consulted for possible PEG tube placement -IV fluids Acute kidney injury, suspected secondary to dehydration with poor oral intake -IV fluids -Monitor BMP Cough with leukocytosis -Obtain pro-calcitonin -Possible aspiration in setting of recent food bolus impactions -Hold off on antibiotics at this time Chronic conditions: Coronary artery disease, COPD, type II DM, hyperlipidemia, hypertension -Continue with home meds -Check A1c -Insulin sliding scale -Blood glucose monitoring -Hold diuretics Patient did have episodes of aspiration difficulty swallowing no swallow eval needed at this time patient needs PEG tube Objective - Vital Signs Vital signs: Vital Signs Temp 97.6 F 06/11/21 11:38 Pulse 74 06/11/21 11:38 Resp 16 06/11/21 11:38 BP 123/76 06/11/21 11:38 Pulse Ox 96 06/11/21 11:38 Intake & Output 06/10/21 06/11/21 06/11/21 18:59 06:59 18:59 Intake Total 400 Balance 400 Weight 63.957 kg 63.957 kg 63.957 kg Intake: IV 400 - Labs CBC & Chem 7: 06/11/21 05:36 06/11/21 05:36 Labs: Abnormal Lab Results - Last 24 Hours (Table) 06/10/21 06/10/21 06/10/21 Range/Units 19:32 19:32 23:05 WBC 16.0 H (3.8-10.6) k/uL Neutrophils # 14.0 H (1.3-7.7) k/uL Lymphocytes # (1.0-4.8) k/uL Sodium 131 L (137-145) mmol/L BUN 85 H (9-20) mg/dL Creatinine 1.90 H (0.66-1.25) mg/dL Glucose 70 L (74-99) mg/dL Hemoglobin A1c (0.0-6.0) % Magnesium 2.8 H (1.6-2.3) mg/dL Total Protein 5.3 L (6.3-8.2) g/dL Albumin 2.7 L (3.5-5.0) g/dL Procalcitonin 0.35 H (0.02-0.09) ng/mL 06/11/21 06/11/21 06/11/21 Range/Units 05:36 05:36 05:36 WBC 13.7 H (3.8-10.6) k/uL Neutrophils # 11.9 H (1.3-7.7) k/uL Lymphocytes # 0.9 L (1.0-4.8) k/uL Sodium 134 L (137-145) mmol/L BUN 78 H (9-20) mg/dL Creatinine 1.60 H (0.66-1.25) mg/dL Glucose (74-99) mg/dL Hemoglobin A1c 7.6 H (0.0-6.0) % Magnesium (1.6-2.3) mg/dL Total Protein 5.0 L (6.3-8.2) g/dL Albumin 2.5 L (3.5-5.0) g/dL Procalcitonin (0.02-0.09) ng/mL
[2021-06-11] MEDS: ALBUTEROL NEBULIZED 2.5 MG/3 ML INHALATION PRN ×2 (13:53→20:02)
[2021-06-11] MEDS ORDERED: LEVOTHYROXINE 50 MCG TAB PO SCH (15:00)
[2021-06-11] MEDS ORDERED: SCOPOLAMINE 1.5MG/72HR PATCH TRANSDERM SCH (16:00)
[2021-06-11 17:11] LABS: Glucose,Whole Blood 108 mg/dL (75-99)
[2021-06-11] MEDS: BUDESONIDE 1 MG/2 ML NEBU INHALATION PRN (20:02)
[2021-06-11 20:30] LABS: Glucose,Whole Blood 97 mg/dL (75-99)
[2021-06-11] MEDS: MELATONIN 3 MG TABLET PO SCH (21:13)
[2021-06-11] MEDS: LATANOPROST 0.005% OPHTH DROPS 2.5 ML BTL RIGHT EYE SCH (21:13)
[2021-06-12] MEDS: LORazepam 2 MG/ML INJ IV PRN (02:53)
[2021-06-12] MEDS: ALBUTEROL NEBULIZED 2.5 MG/3 ML INHALATION PRN ×5 (05:17→19:45)
[2021-06-12 07:40] LABS: Glucose,Whole Blood 110 mg/dL (75-99)
[2021-06-12] MEDS: ATORVASTATIN 10 MG TAB PO SCH (08:47)
[2021-06-12] MEDS: DULoxetine HCL 60 MG CAPSULE.DR PO SCH (08:47)
[2021-06-12] MEDS: GABAPENTIN 100 MG CAP PO SCH ×3 (08:47→21:06)
[2021-06-12] MEDS: carvediloL 3.125 MG TAB PO SCH ×2 (08:47→17:52)
[2021-06-12] MEDS: LOSARTAN 25 MG TAB PO SCH ×2 (08:48→21:04)
[2021-06-12] MEDS: DULoxetine HCL 30 MG CAPSULE.DR PO SCH (08:48)
[2021-06-12] MEDS: CEFDINIR 300 MG CAP PO SCH ×2 (08:48→21:03)
[2021-06-12] MEDS: LEVOTHYROXINE 100 MCG TAB PO SCH (08:48)
[2021-06-12] MEDS: ENOXAPARIN 40 MG/0.4 ML SYRINGE SQ SCH (08:48)
[2021-06-12] MEDS: PANTOPRAZOLE 40 MG/10 ML VIAL IV SCH (08:48)
[2021-06-12] MEDS: ASPIRIN 81 MG PO SCH (08:48)
[2021-06-12] MEDS: NICOTINE 14MG/24HR PATCH TRANSDERM SCH (08:49)
[2021-06-12] MEDS: SODIUM CHLORIDE 0.9% 1,000 ML IV SCH ×2 (08:49→16:41)
[2021-06-12] MEDS: INSULIN ASPART (NovoLOG) 100 UNIT/ML VIAL SQ SCH ×4 (08:49→21:04)
[2021-06-12] MEDS: prednisoLONE ACETATE 1% OPHTH DROPS 5 ML BTL RIGHT EYE SCH ×2 (08:50→21:04)
[2021-06-12] MEDS: BUDESONIDE 1 MG/2 ML NEBU INHALATION PRN (08:52)
[2021-06-12 08:55] LABS: Basophils # (A) 0.03 X 10*3/uL (0.00-0.10); Basophils % (A) 0.2 %; Eosinophils # (A) 0.05 X 10*3/uL (0.04-0.35); Eosinophils % (A) 0.4 %; HCT 41.3 % (39.6-50.0); HGB 13.2 g/dL (13.0-17.0); Immature Grans, Automated 0.7 %; Lymphocytes # (A) 1.06 X 10*3/uL (0.90-5.00); Lymphocytes % (A) 8.8 %; MCH 29.1 pg (27.0-32.0); MCV 91.2 fL (80.0-97.0); Mean Platelet Volume 10.7 fL (9.5-12.2); Monocytes # (A) 0.89 X 10*3/uL (0.20-1.00); Monocytes % (A) 7.4 %; NRBC Per 100 WBC 0 /100 WBCS (0.0-0.0); Neutrophils # (A) 9.94 X 10*3/uL (1.80-7.70); Neutrophils % (A) 82.5 %; Platelet Count 323 X 10*3/uL (140-440); RBC 4.53 X 10*6/uL (4.40-5.60); RDW 14.5 % (11.5-14.5); WBC 12.06 X 10*3/uL (4.50-10.00)
[2021-06-12 09:03] LABS: African American GFR (CKD) 77.3 (60.0-200.0); Albumin 2.7 g/dL (3.8-4.9); Albumin/Globulin Ratio 1.42 (1.60-3.17); Anion Gap 10.5 mmol/L (10.00-18.00); BUN/Creat Ratio 44.09 Ratio (12.00-20.00); Blood Urea Nitrogen 48.5 mg/dL (9.0-27.0); Calcium 8.4 mg/dL (8.7-10.3); Carbon Dioxide 21.5 mmol/L (20.0-27.5); Globulin 1.9 g/dL (1.6-3.3); Non-African American GFR(CKD) 66.7 (60.0-200.0); Potassium 4.4 mmol/L (3.5-5.5); Total Bilirubin 0.4 mg/dL (0.30-1.20); Total Protein 4.6 g/dL (6.2-8.2)
[2021-06-12 11:52] LABS: Glucose,Whole Blood 92 mg/dL (75-99)
--- NOTE | 2021-06-12 13:35 | P.PN ---
Subjective Progress Note Date: 06/12/21 Principal diagnosis: Patient feels okay no chest pain Patient feels okay still aspirating atient is a 70-year-old male with a PMH of esophageal cancer status post multiple rounds of chemotherapy and relapse 2, CAD status post CABG, diastolic CHF, chronic hypoxic respiratory failure on 3 L of cannula oxygen at home, COPD, type II DM, hyperlipidemia, and hypertension presents to the emergency room with complaints of dysphagia, generalized weakness, and a persistent cough. Of note, the patient was recently admitted to the hospital on 05/26/2021 for shortness of breath and underwent Pleurx catheter placement for recurrent pleural effusion. The patient was subsequently seen 2 days ago in the emergency room for food bolus impaction which was resolved with glucagon and the patient was sent home. Patient now reports that he has been unable to eat or drink much due to persist ent dysphagia. He also reports losing weight and feeling fatigued. He further reports a persistent nonproductive cough. Denied chest discomfort, nausea, vomiting, abdominal pain, diarrhea. Laboratory evaluation in the emergency room was remarkable for leukocytosis of 16, BUN 85, creatinine 1.9, glucose 70. Chest x-ray revealed findings consistent with chronic bronchitis. EKG revealed sinus rhythm at 70 bpm. Review of systems: Pertinent positives and negatives as discussed in HPI, a complete review of systems was performed and all other systems are negative. Physical examination: General: Chronically ill-appearing male, no distress, appears older than stated age, normal weight Derm: no unusual rashes/lesions no unusual ecchymoses, warm, dry Head: atraumatic, normocephalic, symmetric Eyes: EOMI, no lid lag, anicteric sclera, pupils equal round reactive to light ENT: Nose and ears atraumatic, no thrush, no pharyngeal erythema Neck: No thyromegaly, no cervical lymphadenopathy, trachea midline, supple Mouth: no lip lesion, mucus membranes dry Cardiovascular: S1S2 reg, no murmur, positive posterior tibial pulse bilateral, no edema, capillary refill less than 2 seconds Lungs: Scattered rhonchi, no accessory muscle use, catheter is in place Abdominal: soft, nontender to palpation, no guarding, no appreciable organomegaly, normal bowel sounds Ext: no gross muscle atrophy, muscle strength 5 out of 5 in all 4 extremities grossly, no contractures, Neuro: CN II-XI grossly intact, light touch intact all 4 extremities, finger to nose within normal limits, Psych: Alert, oriented, appropriate affect Assessment/plan Dysphagia in patient with esophageal cancer -Surgery consulted for possible PEG tube placement -IV fluids Acute kidney injury, suspected secondary to dehydration with poor oral intake -IV fluids -Monitor BMP Cough with leukocytosis -Obtain pro-calcitonin -Possible aspiration in setting of recent food bolus impactions -Hold off on antibiotics at this time Overall stable for PACU place Chronic conditions: Coronary artery disease, COPD, type II DM, hyperlipidemia, hypertension -Continue with home meds -Check A1c -Insulin sliding scale -Blood glucose monitoring -Hold diuretics Patient did have episodes of aspiration difficulty swallowing no swallow eval needed at this time patient needs PEG tube Objective - Vital Signs Vital signs: Vital Signs Temp 97.7 F 06/12/21 04:53 Pulse 80 06/12/21 12:00 Resp 18 06/12/21 08:50 BP 146/79 06/12/21 08:50 Pulse Ox 95 06/12/21 08:50 Intake & Output 06/11/21 06/12/21 06/12/21 18:59 06:59 18:59 Intake Total 760 Balance 760 Weight 63.957 kg 67.5 kg Intake: IV 400 Oral 360 - Labs CBC & Chem 7: 06/12/21 06:13 06/12/21 06:13 Labs: Abnormal Lab Results - Last 24 Hours (Table) 06/11/21 06/12/21 06/12/21 Range/Units 17:09 06:13 06:13 WBC 12.06 H (4.50-10.00) X 10*3/uL Immature Gran # 0.09 H (0.00-0.04) X 10*3/uL Neutrophils # 9.94 H (1.80-7.70) X 10*3/uL BUN 48.5 H (9.0-27.0) mg/dL BUN/Creatinine Ratio 44.09 H (12.00-20.00) Ratio POC Glucose (mg/dL) 108 H (75-99) mg/dL Calcium 8.4 L (8.7-10.3) mg/dL Total Protein 4.6 L (6.2-8.2) g/dL Albumin 2.7 L (3.8-4.9) g/dL Albumin/Globulin Ratio 1.42 L (1.60-3.17) g/dL 06/12/21 Range/Units 07:39 WBC (4.50-10.00) X 10*3/uL Immature Gran # (0.00-0.04) X 10*3/uL Neutrophils # (1.80-7.70) X 10*3/uL BUN (9.0-27.0) mg/dL BUN/Creatinine Ratio (12.00-20.00) Ratio POC Glucose (mg/dL) 110 H (75-99) mg/dL Calcium (8.7-10.3) mg/dL Total Protein (6.2-8.2) g/dL Albumin (3.8-4.9) g/dL Albumin/Globulin Ratio (1.60-3.17) g/dL Microbiology - Last 24 Hours (Table) 06/12/21 03:00 Sputum Culture - Preliminary Sputum 06/10/21 20:41 Blood Culture - Preliminary Blood No Growth after 24 hours 06/10/21 20:20 Blood Culture - Preliminary Blood No Growth after 24 hours
--- NOTE | 2021-06-12 15:27 | P.PN ---
Subjective Progress Note Date: 06/12/21 CHIEF COMPLAINT: Esophageal cancer HISTORY OF PRESENT ILLNESS: The patient is a 70-year-old male with adequate oral protein intake is status post EGD with gastrostomy tube placement. He is resting comfortably. No new issues overnight. ROS: No fevers or chills. No new chest pain. PHYSICAL EXAM: VITAL SIGNS: Reviewed CONSTITUTIONAL: Well developed and in no acute distress. EYES: Conjuctivae without sclera icterus. Extraocular movements grossly intact. HEAD, EARS, NOSE, THROAT: Moist buccal mucosa. Head is atraumatic, normocephalic. Hears conversational speech. No nasal drainage. RESPIRATORY: Non-labored respirations and equal bilateral excursions. CARDIOVASCULAR: Palpable 2+ radial pulses. ABDOMEN: Gastrostomy tube intact. MUSCULOSKELETAL: No gross deformity of the lower extremities noted. No clubbing. No cyanosis. SKIN: Good skin turgor. Well perfused. NEUROLOGIC: Cranial nerves II through XII grossly intact. No focal or lateralizing signs. PSYCH: Appropriate affect. Alert and oriented to person, place and time. CLINICAL LABS: Reviewed. WBC count 13.7-12.0. ASSESSMENT: 1. Esophageal cancer PLAN: 1. Tube feeds goal per dietitian Objective - Vital Signs Vital signs: Vital Signs Temp 97.7 F 06/12/21 04:53 Pulse 80 06/12/21 12:00 Resp 18 06/12/21 08:50 BP 146/79 06/12/21 08:50 Pulse Ox 95 06/12/21 08:50 Intake & Output 06/11/21 06/12/21 06/12/21 18:59 06:59 18:59 Intake Total 760 Balance 760 Weight 63.957 kg 67.5 kg Intake: IV 400 Oral 360 - Labs CBC & Chem 7: 06/12/21 06:13 06/12/21 06:13 Labs: Abnormal Lab Results - Last 24 Hours (Table) 06/11/21 06/12/21 06/12/21 Range/Units 17:09 06:13 06:13 WBC 12.06 H (4.50-10.00) X 10*3/uL Immature Gran # 0.09 H (0.00-0.04) X 10*3/uL Neutrophils # 9.94 H (1.80-7.70) X 10*3/uL BUN 48.5 H (9.0-27.0) mg/dL BUN/Creatinine Ratio 44.09 H (12.00-20.00) Ratio POC Glucose (mg/dL) 108 H (75-99) mg/dL Calcium 8.4 L (8.7-10.3) mg/dL Total Protein 4.6 L (6.2-8.2) g/dL Albumin 2.7 L (3.8-4.9) g/dL Albumin/Globulin Ratio 1.42 L (1.60-3.17) g/dL 06/12/21 Range/Units 07:39 WBC (4.50-10.00) X 10*3/uL Immature Gran # (0.00-0.04) X 10*3/uL Neutrophils # (1.80-7.70) X 10*3/uL BUN (9.0-27.0) mg/dL BUN/Creatinine Ratio (12.00-20.00) Ratio POC Glucose (mg/dL) 110 H (75-99) mg/dL Calcium (8.7-10.3) mg/dL Total Protein (6.2-8.2) g/dL Albumin (3.8-4.9) g/dL Albumin/Globulin Ratio (1.60-3.17) g/dL Microbiology - Last 24 Hours (Table) 06/12/21 03:00 Sputum Culture - Preliminary Sputum 06/10/21 20:41 Blood Culture - Preliminary Blood No Growth after 24 hours 06/10/21 20:20 Blood Culture - Preliminary Blood No Growth after 24 hours
[2021-06-12 17:26] LABS: Glucose,Whole Blood 163 mg/dL (75-99)
[2021-06-12 20:06] LABS: Glucose,Whole Blood 144 mg/dL (75-99)
[2021-06-12] MEDS: MELATONIN 3 MG TABLET PO SCH (21:03)
[2021-06-12] MEDS: LATANOPROST 0.005% OPHTH DROPS 2.5 ML BTL RIGHT EYE SCH (21:04)
[2021-06-13] MEDS: LORazepam 2 MG/ML INJ IV PRN ×2 (02:11→17:34)
[2021-06-13] MEDS: ALBUTEROL NEBULIZED 2.5 MG/3 ML INHALATION PRN ×2 (05:17→08:33)
[2021-06-13] MEDS: LEVOTHYROXINE 100 MCG TAB PO SCH (06:15)
[2021-06-13 07:24] LABS: Glucose,Whole Blood 128 mg/dL (75-99)
[2021-06-13] MEDS: GABAPENTIN 100 MG CAP PO SCH ×3 (07:49→21:00)
[2021-06-13] MEDS: PANTOPRAZOLE 40 MG/10 ML VIAL IV SCH (07:49)
[2021-06-13] MEDS: ENOXAPARIN 40 MG/0.4 ML SYRINGE SQ SCH (07:49)
[2021-06-13] MEDS: NICOTINE 14MG/24HR PATCH TRANSDERM SCH (07:49)
[2021-06-13] MEDS: INSULIN ASPART (NovoLOG) 100 UNIT/ML VIAL SQ SCH ×4 (07:50→21:02)
[2021-06-13] MEDS: carvediloL 3.125 MG TAB PO SCH ×2 (07:50→17:37)
[2021-06-13] MEDS: LOSARTAN 25 MG TAB PO SCH ×2 (07:50→21:00)
[2021-06-13] MEDS: ASPIRIN 81 MG PO SCH (07:50)
[2021-06-13] MEDS: SODIUM CHLORIDE 0.9% 1,000 ML IV SCH ×2 (07:50→13:06)
[2021-06-13] MEDS: DULoxetine HCL 60 MG CAPSULE.DR PO SCH (07:50)
[2021-06-13] MEDS: DULoxetine HCL 30 MG CAPSULE.DR PO SCH (07:50)
[2021-06-13] MEDS: ATORVASTATIN 10 MG TAB PO SCH (07:50)
[2021-06-13] MEDS: CEFDINIR 300 MG CAP PO SCH ×2 (07:50→21:00)
[2021-06-13] MEDS: prednisoLONE ACETATE 1% OPHTH DROPS 5 ML BTL RIGHT EYE SCH ×2 (07:52→20:59)
[2021-06-13] MEDS: BUDESONIDE 1 MG/2 ML NEBU INHALATION PRN (08:33)
[2021-06-13 11:00] LABS: Basophils # (A) 0.02 X 10*3/uL (0.00-0.10); Basophils % (A) 0.2 %; Eosinophils # (A) 0.06 X 10*3/uL (0.04-0.35); Eosinophils % (A) 0.6 %; HCT 40.7 % (39.6-50.0); Immature Grans, Automated 0.6 %; Lymphocytes # (A) 0.75 X 10*3/uL (0.90-5.00); Lymphocytes % (A) 7.1 %; MCH 28.8 pg (27.0-32.0); MCHC 31.9 g/dL (32.0-37.0); Mean Platelet Volume 10.5 fL (9.5-12.2); Monocytes # (A) 0.57 X 10*3/uL (0.20-1.00); Monocytes % (A) 5.4 %; NRBC Per 100 WBC 0 /100 WBCS (0.0-0.0); Neutrophils # (A) 9.11 X 10*3/uL (1.80-7.70); Neutrophils % (A) 86.1 %; Platelet Count 301 X 10*3/uL (140-440); RBC 4.52 X 10*6/uL (4.40-5.60); RDW 14.4 % (11.5-14.5); WBC 10.57 X 10*3/uL (4.50-10.00)
[2021-06-13 11:57] LABS: African American GFR (CKD) 98.5 (60.0-200.0); Albumin 2.7 g/dL (3.8-4.9); Albumin/Globulin Ratio 1.5 (1.60-3.17); Anion Gap 9.7 mmol/L (10.00-18.00); BUN/Creat Ratio 39.44 Ratio (12.00-20.00); Blood Urea Nitrogen 35.5 mg/dL (9.0-27.0); Calcium 8.1 mg/dL (8.7-10.3); Carbon Dioxide 21.3 mmol/L (20.0-27.5); Globulin 1.8 g/dL (1.6-3.3); Potassium 4.6 mmol/L (3.5-5.5); Total Bilirubin 0.3 mg/dL (0.30-1.20); Total Protein 4.5 g/dL (6.2-8.2)
--- NOTE | 2021-06-13 12:22 | P.PN ---
Subjective Progress Note Date: 06/13/21 Have shortness of breath at rest Patient feels okay no chest pain Patient feels okay still aspirating atient is a 70-year-old male with a PMH of esophageal cancer status post multiple rounds of chemotherapy and relapse 2, CAD status post CABG, diastolic CHF, chronic hypoxic respiratory failure on 3 L of cannula oxygen at home, COPD, type II DM, hyperlipidemia, and hypertension presents to the emergency room with complaints of dysphagia, generalized weakness, and a persistent cough. Of note, the patient was recently admitted to the hospital on 05/26/2021 for shortness of breath and underwent Pleurx catheter placement for recurrent pleural effusion. The patient was subsequently seen 2 days ago in the emergency room for food bolus impaction which was resolved with glucagon and the patient was sent home. Patient now reports that he has been unable to eat or drink much due to persistent dysphagia. He also reports losing weight and feeling fatigued. He further reports a persistent nonproductive cough. Denied chest discomfort, nausea, vomiting, abdominal pain, diarrhea. Laboratory evaluation in the emergency room was remarkable for leukocytosis of 16, BUN 85, creatinine 1.9, glucose 70. Chest x-ray revealed findings consistent with chronic bronchitis. EKG revealed sinus rhythm at 70 bpm. Review of systems: Pertinent positives and negatives as discussed in HPI, a complete review of s ystems was performed and all other systems are negative. Physical examination: General: Chronically ill-appearing male, no distress, appears older than stated age, normal weight Derm: no unusual rashes/lesions no unusual ecchymoses, warm, dry Head: atraumatic, normocephalic, symmetric Eyes: EOMI, no lid lag, anicteric sclera, pupils equal round reactive to light ENT: Nose and ears atraumatic, no thrush, no pharyngeal erythema Neck: No thyromegaly, no cervical lymphadenopathy, trachea midline, supple Mouth: no lip lesion, mucus membranes dry Cardiovascular: S1S2 reg, no murmur, positive posterior tibial pulse bilateral, no edema, capillary refill less than 2 seconds Lungs: Scattered rhonchi, no accessory muscle use, catheter is in place Abdominal: soft, nontender to palpation, no guarding, no appreciable organomegaly, normal bowel sounds Ext: no gross muscle atrophy, muscle strength 5 out of 5 in all 4 extremities grossly, no contractures, Neuro: CN II-XI grossly intact, light touch intact all 4 extremities, finger to nose within normal limits, Psych: Alert, oriented, appropriate affect Assessment/plan Dysphagia in patient with esophageal cancer -Status post PEG tube placement -IV fluids Acute kidney injury, suspected secondary to dehydration with poor oral intake -IV fluids -Monitor BMP Cough with leukocytosis -Obtain pro-calcitonin -Possible aspiration in setting of recent food bolus impactions -Hold off on antibiotics at this time Overall stable for PACU place Chronic conditions: Coronary artery disease, COPD, type II DM, hyperlipidemia, hypertension -Continue with home meds -Check A1c -Insulin sliding scale -Blood glucose monitoring -Hold diuretics Patient did have episodes of aspiration difficulty swallowing no swallow eval needed at this time patient needs PEG tube Shortness of breath and crackles Will repeat chest x-ray Objective - Vital Signs Vital signs: Vital Signs Temp 97.6 F 06/13/21 04:59 Pulse 80 06/13/21 08:46 Resp 20 06/13/21 08:00 BP 111/68 06/13/21 04:59 Pulse Ox 91 L 06/13/21 04:59 Intake & Output 06/12/21 06/13/21 06/13/21 18:59 06:59 18:59 Output Total 1500 900 Balance -1500 -900 Weight 67.5 kg 64.5 kg Output: Drainage 1500 900 Left Lower Chest 800 475 Right Lower Chest 700 425 - Labs CBC & Chem 7: 06/13/21 07:26 06/13/21 07:26 Labs: Abnormal Lab Results - Last 24 Hours (Table) 06/12/21 06/12/21 06/13/21 Range/Units 17:24 20:05 07:22 WBC (4.50-10.00) X 10*3/uL MCHC (32.0-37.0) g/dL Immature Gran # (0.00-0.04) X 10*3/uL Neutrophils # (1.80-7.70) X 10*3/uL Lymphocytes # (0.90-5.00) X 10*3/uL Anion Gap (10.00-18.00) mmol/L BUN (9.0-27.0) mg/dL BUN/Creatinine Ratio (12.00-20.00) Ratio Glucose (70-110) mg/dL POC Glucose (mg/dL) 163 H 144 H 128 H (75-99) mg/dL Calcium (8.7-10.3) mg/dL Total Protein (6.2-8.2) g/dL Albumin (3.8-4.9) g/dL Albumin/Globulin Ratio (1.60-3.17) g/dL 06/13/21 06/13/21 Range/Units 07:26 07:26 WBC 10.57 H (4.50-10.00) X 10*3/uL MCHC 31.9 L (32.0-37.0) g/dL Immature Gran # 0.06 H (0.00-0.04) X 10*3/uL Neutrophils # 9.11 H (1.80-7.70) X 10*3/uL Lymphocytes # 0.75 L (0.90-5.00) X 10*3/uL Anion Gap 9.70 L (10.00-18.00) mmol/L BUN 35.5 H (9.0-27.0) mg/dL BUN/Creatinine Ratio 39.44 H (12.00-20.00) Ratio Glucose 137 H (70-110) mg/dL POC Glucose (mg/dL) (75-99) mg/dL Calcium 8.1 L (8.7-10.3) mg/dL Total Protein 4.5 L (6.2-8.2) g/dL Albumin 2.7 L (3.8-4.9) g/dL Albumin/Globulin Ratio 1.50 L (1.60-3.17) g/dL Microbiology - Last 24 Hours (Table) 06/12/21 03:00 Gram Stain - Preliminary Sputum Sputum Culture - Preliminary Yeast species 06/10/21 20:41 Blood Culture - Preliminary Blood No Growth after 48 hours 06/10/21 20:20 Blood Culture - Preliminary Blood No Growth after 48 hours
[2021-06-13 12:42] LABS: Glucose,Whole Blood 135 mg/dL (75-99)
--- NOTE | 2021-06-13 12:48 | XR ---
EXAMINATION TYPE: XR chest 1V DATE OF EXAM: 06/13/2021 COMPARISON: 06/10/2021 HISTORY: 70-year-old male shortness of breath TECHNIQUE: Single frontal view of the chest is obtained. FINDINGS: Patient is rotated toward the left upper normal heart and mediastinal contours. Left-sided pleural ca theter is present. An additional catheter projects at the right base. Right anterior chest wall injec tion port with catheter tip in the upper right atrium. Median sternotomy wires are present. Interstit ial prominence. Possible small left pleural effusion. Continued patchy left basilar opacity. Median s ternotomy wires. IMPRESSION: 1. Limited, rotated exam. Bilateral basilar pleural catheters are present. 2. Continued interstitial changes. Correlate for mild pulmonary vascular congestion. No significant c hange. 3. Continued small left pleural effusion with adjacent atelectasis and/or consolidation.
--- NOTE | 2021-06-13 14:42 | P.PN ---
Subjective Progress Note Date: 06/13/21 CHIEF COMPLAINT: Esophageal cancer HISTORY OF PRESENT ILLNESS: The patient is a 70-year-old male with adequate oral protein intake is status post EGD with gastrostomy tube placement. He is sitting up in chair. He denies abdominal pain. Tube feeds near goal 50 mL/hr. ROS: No fevers or chills. No new chest pain. Has dysphagia. PHYSICAL EXAM: VITAL SIGNS: Reviewed CONSTITUTIONAL: Well developed and in no acute distress. EYES: Conjuctivae without sclera icterus. Extraocular movements grossly intact. HEAD, EARS, NOSE, THROAT: Moist buccal mucosa. Head is atraumatic, normocephalic. Hears conversational speech. No nasal drainage. RESPIRATORY: Non-labored respirations and equal bilateral excursions. CARDIOVASCULAR: Palpable 2+ radial pulses. ABDOMEN: Gastrostomy tube intact. MUSCULOSKELETAL: No gross deformity of the lower extremities noted. No clubbing. No cyanosis. SKIN: Good skin turgor. Well perfused. NEUROLOGIC: Cranial nerves II through XII grossly intact. No focal or lat eralizing signs. PSYCH: Appropriate affect. Alert and oriented to person, place and time. CLINICAL LABS: Reviewed. WBC count 13.7-12.0, now 10.5. Hgb 13.0, normal ASSESSMENT: 1. Esophageal cancer 2. Status post gastrostomy tube placement PLAN: 1. Tube feeds goal per dietitian 2. Monitor for bleeding. Objective - Vital Signs Vital signs: Vital Signs Temp 97.6 F 06/13/21 04:59 Pulse 80 06/13/21 08:46 Resp 20 06/13/21 08:00 BP 111/68 06/13/21 04:59 Pulse Ox 91 L 06/13/21 04:59 Intake & Output 06/12/21 06/13/21 06/13/21 18:59 06:59 18:59 Output Total 1500 900 Balance -1500 -900 Weight 67.5 kg 64.5 kg Output: Drainage 1500 900 Left Lower Chest 800 475 Right Lower Chest 700 425 - Labs CBC & Chem 7: 06/13/21 07:26 06/13/21 07:26 Labs: Abnormal Lab Results - Last 24 Hours (Table) 06/12/21 06/12/21 06/13/21 Range/Units 17:24 20:05 07:22 WBC (4.50-10.00) X 10*3/uL MCHC (32.0-37.0) g/dL Immature Gran # (0.00-0.04) X 10*3/uL Neutrophils # (1.80-7.70) X 10*3/uL Lymphocytes # (0.90-5.00) X 10*3/uL Anion Gap (10.00-18.00) mmol/L BUN (9.0-27.0) mg/dL BUN/Creatinine Ratio (12.00-20.00) Ratio Glucose (70-110) mg/dL POC Glucose (mg/dL) 163 H 144 H 128 H (75-99) mg/dL Calcium (8.7-10.3) mg/dL Total Protein (6.2-8.2) g/dL Albumin (3.8-4.9) g/dL Albumin/Globulin Ratio (1.60-3.17) g/dL 06/13/21 06/13/21 06/13/21 Range/Units 07:26 07:26 12:40 WBC 10.57 H (4.50-10.00) X 10*3/uL MCHC 31.9 L (32.0-37.0) g/dL Immature Gran # 0.06 H (0.00-0.04) X 10*3/uL Neutrophils # 9.11 H (1.80-7.70) X 10*3/uL Lymphocytes # 0.75 L (0.90-5.00) X 10*3/uL Anion Gap 9.70 L (10.00-18.00) mmol/L BUN 35.5 H (9.0-27.0) mg/dL BUN/Creatinine Ratio 39.44 H (12.00-20.00) Ratio Glucose 137 H (70-110) mg/dL POC Glucose (mg/dL) 135 H (75-99) mg/dL Calcium 8.1 L (8.7-10.3) mg/dL Total Protein 4.5 L (6.2-8.2) g/dL Albumin 2.7 L (3.8-4.9) g/dL Albumin/Globulin Ratio 1.50 L (1.60-3.17) g/dL Microbiology - Last 24 Hours (Table) 06/12/21 03:00 Gram Stain - Preliminary Sputum Sputum Culture - Preliminary Yeast species 06/10/21 20:41 Blood Culture - Preliminary Blood No Growth after 48 hours 06/10/21 20:20 Blood Culture - Preliminary Blood No Growth after 48 hours Assessment and Plan (1) Gastrostomy in place Current Visit: Yes Status: Acute Code(s): Z93.1 - GASTROSTOMY STATUS SNOMED Code(s): 792833428 (2) Dysphagia Current Visit: Yes Status: Acute Code(s): R13.10 - DYSPHAGIA, UNSPECIFIED SNOMED Code(s): 53411833 (3) History of esophageal cancer Current Visit: Yes Status: Acute Code(s): Z85.01 - PERSONAL HISTORY OF MALIGNANT NEOPLASM OF ESOPHAGUS SNOMED Code(s): 412567894
[2021-06-13 17:23] LABS: Glucose,Whole Blood 117 mg/dL (75-99)
[2021-06-13 20:03] LABS: Glucose,Whole Blood 126 mg/dL (75-99)
[2021-06-13] MEDS: LATANOPROST 0.005% OPHTH DROPS 2.5 ML BTL RIGHT EYE SCH (20:59)
[2021-06-13] MEDS: MELATONIN 3 MG TABLET PO SCH (21:06)
[2021-06-14] MEDS: ALBUTEROL NEBULIZED 2.5 MG/3 ML INHALATION PRN ×3 (02:29→11:53)
[2021-06-14 05:07] VITALS: BP 115/65; RESP 20; TEMP 98.2
[2021-06-14] MEDS: LEVOTHYROXINE 100 MCG TAB PO SCH (06:07)
[2021-06-14 06:58] LABS: Glucose,Whole Blood 141 mg/dL (75-99)
[2021-06-14] MEDS: NICOTINE 14MG/24HR PATCH TRANSDERM SCH (07:18)
[2021-06-14] MEDS: INSULIN ASPART (NovoLOG) 100 UNIT/ML VIAL SQ SCH ×2 (07:18→11:45)
[2021-06-14] MEDS: ASPIRIN 81 MG PO SCH (07:19)
[2021-06-14] MEDS: GABAPENTIN 100 MG CAP PO SCH (07:19)
[2021-06-14] MEDS: PANTOPRAZOLE 40 MG/10 ML VIAL IV SCH (07:19)
[2021-06-14] MEDS: ENOXAPARIN 40 MG/0.4 ML SYRINGE SQ SCH (07:19)
[2021-06-14] MEDS: ATORVASTATIN 10 MG TAB PO SCH (07:20)
[2021-06-14] MEDS: carvediloL 3.125 MG TAB PO SCH (07:20)
[2021-06-14] MEDS: CEFDINIR 300 MG CAP PO SCH (07:20)
[2021-06-14] MEDS: DULoxetine HCL 30 MG CAPSULE.DR PO SCH (07:20)
[2021-06-14] MEDS: DULoxetine HCL 60 MG CAPSULE.DR PO SCH (07:20)
[2021-06-14] MEDS: LOSARTAN 25 MG TAB PO SCH (07:20)
[2021-06-14] MEDS: prednisoLONE ACETATE 1% OPHTH DROPS 5 ML BTL RIGHT EYE SCH (07:24)
[2021-06-14] MEDS: BUDESONIDE 1 MG/2 ML NEBU INHALATION PRN (07:32)
[2021-06-14 10:17] LABS: Basophils # (A) 0.02 X 10*3/uL (0.00-0.10); Basophils % (A) 0.2 %; Eosinophils # (A) 0.07 X 10*3/uL (0.04-0.35); Eosinophils % (A) 0.6 %; HCT 39.2 % (39.6-50.0); HGB 12.4 g/dL (13.0-17.0); Immature Grans, Automated 1.2 %; Lymphocytes # (A) 0.82 X 10*3/uL (0.90-5.00); Lymphocytes % (A) 7.2 %; MCH 28.7 pg (27.0-32.0); MCHC 31.6 g/dL (32.0-37.0); MCV 90.7 fL (80.0-97.0); Mean Platelet Volume 10.8 fL (9.5-12.2); Monocytes # (A) 0.42 X 10*3/uL (0.20-1.00); Monocytes % (A) 3.7 %; NRBC Per 100 WBC 0 /100 WBCS (0.0-0.0); Neutrophils # (A) 9.88 X 10*3/uL (1.80-7.70); Neutrophils % (A) 87.1 %; Platelet Count 264 X 10*3/uL (140-440); RBC 4.32 X 10*6/uL (4.40-5.60); RDW 14.3 % (11.5-14.5); WBC 11.35 X 10*3/uL (4.50-10.00)
[2021-06-14 10:28] LABS: Albumin 2.6 g/dL (3.8-4.9); Albumin/Globulin Ratio 1.37 (1.60-3.17); Anion Gap 9.5 mmol/L (10.00-18.00); BUN/Creat Ratio 39.98 Ratio (12.00-20.00); Blood Urea Nitrogen 33.1 mg/dL (9.0-27.0); Calcium 8.4 mg/dL (8.7-10.3); Carbon Dioxide 21.1 mmol/L (20.0-27.5); Globulin 1.9 g/dL (1.6-3.3); Potassium 5.1 mmol/L (3.5-5.5); Total Bilirubin 0.3 mg/dL (0.30-1.20); Total Protein 4.5 g/dL (6.2-8.2)
[2021-06-14 11:17] LABS: Glucose,Whole Blood 106 mg/dL (75-99)
[2021-06-14 12:05] VITALS: PULSE 85
--- NOTE | 2021-06-14 12:06 | P.PN ---
<Nikki Hobson - Last Filed: 06/14/21 12:02> Subjective Progress Note Date: 06/14/21 CHIEF COMPLAINT: Esophageal cancer HISTORY OF PRESENT ILLNESS: Patient is status post EGD with PEG tube placement. His 2 feedings are at goal at 60 mL per hour. He did have 125 mL residual. Patient is requesting bolus feedings instead of continuous feedings. He'll be seen by the dietitian. He is able to tolerate clear liquids. He denies any nausea vomiting. Denies any abdominal pain. Reports having bowel movements. Afebrile. WBC is 11.35 hemoglobin 12.4 PHYSICAL EXAM: VITAL SIGNS: Reviewed. GENERAL: Well-developed in no acute distress. HEENT: No sclera icterus. Extraocular movements grossly intact. Moist buccal mucosa. Head is atraumatic, normocephalic. ABDOMEN: Soft. Nondistended. Nontender. PEG tube site clean dry and intact NEUROLOGIC: Alert and oriented. Cranial nerves II through XII grossly intact. ASSESSMENT: 1. Esophageal cancer status post PEG tube placement 2. Severe protein calorie malnutrition 3. Status post EGD revealing gastritis, proximal gastric ulcer, esophageal stricture, proximal esophageal superficial ulceration PLAN: -Continue tube feedings per dietitian recommendations -Continue supportive care -Continue PPI Physician Airline Station Agent note has been reviewed by physician. Signing provider agrees with the documented findings, assessment, and plan of care. Objective - Vital Signs Vital signs: Vital Signs Temp 98.2 F 06/14/21 05:00 Pulse 84 06/14/21 11:54 Resp 20 06/14/21 05:00 BP 115/65 06/14/21 05:00 Pulse Ox 98 06/14/21 05:00 Intake & Output 06/13/21 06/14/21 06/14/21 18:59 06:59 18:59 Output Total 900 Balance -900 Weight 72 kg Output: Drainage 900 Left Lower Chest 475 Right Lower Chest 425 Other: # Bowel Movements 1 - Labs CBC & Chem 7: 06/14/21 05:22 06/14/21 05:22 Labs: Abnormal Lab Results - Last 24 Hours (Table) 06/13/21 06/13/21 06/13/21 Range/Units 12:40 17:18 20:02 WBC (4.50-10.00) X 10*3/uL RBC (4.40-5.60) X 10*6/uL Hgb (13.0-17.0) g/dL Hct (39.6-50.0) % MCHC (32.0-37.0) g/dL Immature Gran # (0.00-0.04) X 10*3/uL Neutrophils # (1.80-7.70) X 10*3/uL Lymphocytes # (0.90-5.00) X 10*3/uL Anion Gap (10.00-18.00) mmol/L BUN (9.0-27.0) mg/dL BUN/Creatinine Ratio (12.00-20.00) Ratio Glucose (70-110) mg/dL POC Glucose (mg/dL) 135 H 117 H 126 H (75-99) mg/dL Calcium (8.7-10.3) mg/dL Total Protein (6.2-8.2) g/dL Albumin (3.8-4.9) g/dL Albumin/Globulin Ratio (1.60-3.17) g/dL 06/14/21 06/14/21 06/14/21 Range/Units 05:22 05:22 06:56 WBC 11.35 H (4.50-10.00) X 10*3/uL RBC 4.32 L (4.40-5.60) X 10*6/uL Hgb 12.4 L (13.0-17.0) g/dL Hct 39.2 L (39.6-50.0) % MCHC 31.6 L (32.0-37.0) g/dL Immature Gran # 0.14 H (0.00-0.04) X 10*3/uL Neutrophils # 9.88 H (1.80-7.70) X 10*3/uL Lymphocytes # 0.82 L (0.90-5.00) X 10*3/uL Anion Gap 9.50 L (10.00-18.00) mmol/L BUN 33.1 H (9.0-27.0) mg/dL BUN/Creatinine Ratio 39.98 H (12.00-20.00) Ratio Glucose 134 H (70-110) mg/dL POC Glucose (mg/dL) 141 H (75-99) mg/dL Calcium 8.4 L (8.7-10.3) mg/dL Total Protein 4.5 L (6.2-8.2) g/dL Albumin 2.6 L (3.8-4.9) g/dL Albumin/Globulin Ratio 1.37 L (1.60-3.17) g/dL 06/14/21 Range/Units 11:16 WBC (4.50-10.00) X 10*3/uL RBC (4.40-5.60) X 10*6/uL Hgb (13.0-17.0) g/dL Hct (39.6-50.0) % MCHC (32.0-37.0) g/dL Immature Gran # (0.00-0.04) X 10*3/uL Neutrophils # (1.80-7.70) X 10*3/uL Lymphocytes # (0.90-5.00) X 10*3/uL Anion Gap (10.00-18.00) mmol/L BUN (9.0-27.0) mg/dL BUN/Creatinine Ratio (12.00-20.00) Ratio Glucose (70-110) mg/dL POC Glucose (mg/dL) 106 H (75-99) mg/dL Calcium (8.7-10.3) mg/dL Total Protein (6.2-8.2) g/dL Albumin (3.8-4.9) g/dL Albumin/Globulin Ratio (1.60-3.17) g/dL Microbiology - Last 24 Hours (Table) 06/12/21 03:00 Gram Stain - Final Sputum Sputum Culture - Final Natalee sp,not albicans/galbr 06/10/21 20:41 Blood Culture - Preliminary Blood No Growth after 72 hours 06/10/21 20:20 Blood Culture - Preliminary Blood No Growth after 72 hours <Scott Carrillo - Last Filed: 06/14/21 16:39> Subjective I have personally seen and examined the patient, reviewed the HYDRO TECHNICIAN /PAs history, exam and MDM and agree with the assessment and plan as written. Based on total visit time, I have performed more than 50% of the visit. As above: Patient doing better today. Pain improved. May discharge from our point of view. Follow-up one week. Await biopsy results. Objective - Vital Signs Vital signs: Vital Signs Temp 98.2 F 06/14/21 05:00 Pulse 85 06/14/21 12:04 Resp 20 06/14/21 05:00 BP 115/65 06/14/21 05:00 Pulse Ox 98 06/14/21 05:00 Intake & Output 06/13/21 06/14/21 06/14/21 18:59 06:59 18:59 Output Total 900 Balance -900 Weight 72 kg 72 kg Output: Drainage 900 Left Lower Chest 475 Right Lower Chest 425 Other: # Bowel Movements 1 - Labs CBC & Chem 7: 06/14/21 05:22 06/14/21 05:22 Labs: Abnormal Lab Results - Last 24 Hours (Table) 06/13/21 06/13/21 06/14/21 Range/Units 17:18 20:02 05:22 WBC 11.35 H (4.50-10.00) X 10*3/uL RBC 4.32 L (4.40-5.60) X 10*6/uL Hgb 12.4 L (13.0-17.0) g/dL Hct 39.2 L (39.6-50.0) % MCHC 31.6 L (32.0-37.0) g/dL Immature Gran # 0.14 H (0.00-0.04) X 10*3/uL Neutrophils # 9.88 H (1.80-7.70) X 10*3/uL Lymphocytes # 0.82 L (0.90-5.00) X 10*3/uL Anion Gap (10.00-18.00) mmol/L BUN (9.0-27.0) mg/dL BUN/Creatinine Ratio (12.00-20.00) Ratio Glucose (70-110) mg/dL POC Glucose (mg/dL) 117 H 126 H (75-99) mg/dL Calcium (8.7-10.3) mg/dL Total Protein (6.2-8.2) g/dL Albumin (3.8-4.9) g/dL Albumin/Globulin Ratio (1.60-3.17) g/dL 06/14/21 06/14/21 06/14/21 Range/Units 05:22 06:56 11:16 WBC (4.50-10.00) X 10*3/uL RBC (4.40-5.60) X 10*6/uL Hgb (13.0-17.0) g/dL Hct (39.6-50.0) % MCHC (32.0-37.0) g/dL Immature Gran # (0.00-0.04) X 10*3/uL Neutrophils # (1.80-7.70) X 10*3/uL Lymphocytes # (0.90-5.00) X 10*3/uL Anion Gap 9.50 L (10.00-18.00) mmol/L BUN 33.1 H (9.0-27.0) mg/dL BUN/Creatinine Ratio 39.98 H (12.00-20.00) Ratio Glucose 134 H (70-110) mg/dL POC Glucose (mg/dL) 141 H 106 H (75-99) mg/dL Calcium 8.4 L (8.7-10.3) mg/dL Total Protein 4.5 L (6.2-8.2) g/dL Albumin 2.6 L (3.8-4.9) g/dL Albumin/Globulin Ratio 1.37 L (1.60-3.17) g/dL Microbiology - Last 24 Hours (Table) 06/12/21 03:00 Gram Stain - Final Sputum Sputum Culture - Final Natalee sp,not albicans/galbr 06/10/21 20:41 Blood Culture - Preliminary Blood No Growth after 72 hours 06/10/21 20:20 Blood Culture - Preliminary Blood No Growth after 72 hours Assessment and Plan (1) Malnutrition Status: Acute Code(s): E46 - UNSPECIFIED PROTEIN-CALORIE MALNUTRITION SNOMED Code(s): 53559942
--- NOTE | 2021-06-14 12:11 | P.DS ---
Providers Date of admission: 06/11/21 13:32 Expected date of discharge: 06/14/21 Attending physician: Esau Mcmillan MD Consults: 06/10/21 20:36 Consult Physician Stat Consulting Provider: Scott Carrillo Reason/Comments: Dysphagia Do you want consulting provider notified?: Already Contacted Primary care physician: [facility] Course: 70-year-old male with past medical history esophageal cancer admitted to the hospital with dysphagia and recurrent aspiration the patient needed a feeding tube which was placed patient continued to have episodes of shortness of breath and wheezy but the patient wants to go home today feels better Constitutional: No acute distress, conversant, pleasant Eyes: Anicteric sclerae, moist conjunctiva, no lid-lag PERRLA ENMT: NC/AT Oropharynx clear, no erythema, exudates Neck: Supple, FROM, no masses, or JVD No carotid bruits No thyromegaly Lungs: Wheezy Cardiovascular: Heart regular in rate and rhythm, No murmurs, gallops, or rubs No peripheral edema Abdominal: Soft Nontender, no guarding, rebound or rigidity Abdomen moving with respiration Normoactive bowel sounds No hepatomegaly, No splenomegaly No palpable mass No abdominal wall hernia noted Skin: Normal temperature, tone, texture, turgor No induration No subcutaneous nodules No rash, lesions No ulcers Extremities: No digital cyanosis No clubbing Pedal pulses intact and symmetrical Radial pulses intact and symmetrical Normal gait and station No calf tenderness Psychiatric:Alert and oriented to person, place and time Appropriate affect Intact judgement Neuro: Muscles Strength 5/5 in all 4 extremities Sensation to light touch grossly present throughout Cranial nerves II-XII grossly intact No focal sensory deficits Dysphagia status post PEG tube placement Esophageal cancer Generalized weakness Patient follow-up with surgery and primary care physician Patient Condition at Discharge: Fair Plan - Discharge Summary New Discharge Prescriptions: New Omeprazole [PriLOSEC] 40 mg PO AC-BRKFST #90 cap Continue Levothyroxine Sodium [Synthroid] 200 mcg PO DAILY DULoxetine HCL [Cymbalta] 30 mg PO DAILY amLODIPine [Norvasc] 5 mg PO DAILY PRN PRN Reason: HOLD FOR SYSTOLIC LESS 120 DULoxetine HCL [Cymbalta] 60 mg PO DAILY Levothyroxine Sodium [Synthroid] 50 mcg PO DAILY Albuterol Inhaler [Ventolin Hfa Inhaler] 2 puff INHALATION RT-Q4H PRN PRN Reason: Shortness Of Breath Atorvastatin [Lipitor] 10 mg PO DAILY INSULIN ASPART (NovoLOG) [NovoLOG (formulary)] See Protocol SQ AC-TID PRN PRN Reason: HIGH BLOOD SUGAR dronabinoL [Dronabinol] 5 mg PO HS Furosemide [Lasix] 40 mg PO BID Capecitabine [Xeloda] 1,000 mg PO BID Azithromycin [Zithromax Z-pack (6 tabs)] See Taper PO DIRECTED Budesonide 1 mg INHALATION RT-DAILY PRN PRN Reason: Shortness Of Breath Gabapentin [Neurontin] 200 mg PO TID Ipratropium-Albuterol Nebulize [Duoneb 0.5 mg-3 mg/3 ml Soln] 3 ml INHALATION RT-Q4H PRN PRN Reason: Shortness Of Breath Insulin Glargine,Hum.rec.anlog [Lantus Solostar Pen] 26 unit SQ AC-BRKFST Spironolactone [Aldactone] 25 mg PO BID Nicotine 21Mg/24Hr Patch [Habitrol] 1 patch TRANSDERM DAILY PRN PRN Reason: Nicotine Cravings Aspirin 81 mg PO DAILY 30 Days #30 tab carvediloL [Coreg] 3.125 mg PO BID-W/MEALS 30 Days #60 tab prednisoLONE ACETATE [Pred Forte 1%] 1 drop RIGHT EYE BID Latanoprost [Xalatan 0.005%] 1 drop RIGHT EYE HS Scopolamine [Scopolamine 1 MG/72 HR patch] 1 patch TRANSDERM Q72H Ondansetron [Zofran] 4 mg PO Q8HR PRN PRN Reason: Nausea And Vomiting Losartan [Cozaar] 25 mg PO BID Cefdinir 300 mg PO BID Capecitabine [Xeloda] 450 mg PO BID Discharge Medication List DULoxetine HCL [Cymbalta] 30 mg PO DAILY 11/19/18 [History] Levothyroxine Sodium [Synthroid] 200 mcg PO DAILY 11/19/18 [History] DULoxetine HCL [Cymbalta] 60 mg PO DAILY 07/10/20 [History] Levothyroxine Sodium [Synthroid] 50 mcg PO DAILY 07/10/20 [History] amLODIPine [Norvasc] 5 mg PO DAILY PRN 07/10/20 [History] Albuterol Inhaler [Ventolin Hfa Inhaler] 2 puff INHALATION RT-Q4H PRN 05/06/21 [History] Atorvastatin [Lipitor] 10 mg PO DAILY 05/06/21 [History] Budesonide 1 mg INHALATION RT-DAILY PRN 05/06/21 [History] Gabapentin [Neurontin] 200 mg PO TID 05/06/21 [History] INSULIN ASPART (NovoLOG) [NovoLOG (formulary)] See Protocol SQ AC-TID PRN 05/06/21 [History] Ipratropium-Albuterol Nebulize [Duoneb 0.5 mg-3 mg/3 ml Soln] 3 ml INHALATION RT-Q4H PRN 05/06/21 [History] Insulin Glargine,Hum.rec.anlog [Lantus Solostar Pen] 26 unit SQ AC-BRKFST 05/10/21 [History] Nicotine 21Mg/24Hr Patch [Habitrol] 1 patch TRANSDERM DAILY PRN 05/10/21 [History] Spironolactone [Aldactone] 25 mg PO BID 05/10/21 [History] Aspirin 81 mg PO DAILY 30 Days #30 tab 05/13/21 [Rx] carvediloL [Coreg] 3.125 mg PO BID-W/MEALS 30 Days #60 tab 05/13/21 [Rx] Furosemide [Lasix] 40 mg PO BID 05/25/21 [History] Latanoprost [Xalatan 0.005%] 1 drop RIGHT EYE HS 05/25/21 [History] dronabinoL [Dronabinol] 5 mg PO HS 05/25/21 [History] prednisoLONE ACETATE [Pred Forte 1%] 1 drop RIGHT EYE BID 05/25/21 [History] Azithromycin [Zithromax Z-pack (6 tabs)] See Taper PO DIRECTED 06/10/21 [History] Capecitabine [Xeloda] 1,000 mg PO BID 06/10/21 [History] Capecitabine [Xeloda] 450 mg PO BID 06/10/21 [History] Cefdinir 300 mg PO BID 06/10/21 [History] Losartan [Cozaar] 25 mg PO BID 06/10/21 [History] Ondansetron [Zofran] 4 mg PO Q8HR PRN 06/10/21 [History] Scopolamine [Scopolamine 1 MG/72 HR patch] 1 patch TRANSDERM Q72H 06/10/21 [History] Omeprazole [PriLOSEC] 40 mg PO AC-BRKFST #90 cap 06/11/21 [Rx] Follow up Appointment(s)/Referral(s): Scott Carrillo MD [Medical Doctor] - 1 Week Toby Long MD [Primary Care Provider] - 1-2 days Patient Instructions/Handouts: Heart Failure (DC), Type 2 Diabetes in Adults: New Diagnosis (GEN), PEG Tube Insertion (DC) Discharge Disposition: HOME WITH HOME HEALTH SERVICES Care Plan Goals (MU): PEG tube Formula: Glucerna 1.2 Continuous Goal rate of 60 mL/hr 30 mL free water flush every 4 hours Bolus feeding 1440 mL total/day = 6 cans of Glucerna 1.2/day 30 mL free water flush before and after each can
[2021-06-14 13:19] VITALS: BMI 24.8
== END 2021-06-14 14:37 | disposition home health service (06) | DRG 391 ==
LOC: EC 18:33 → 5NMEDONC 21:58 → OBSVTOIN 06-11 13:32
PROVIDERS: ADMIT Internal Medicine; ATTEND Internal Medicine
PROC: 0DB58ZX Excision of Esophagus, Via Natural or Artificial Opening Endoscopic, Diagnostic (ICD-10-PCS; 2021-06-11)
PROC: 0DB68ZX Excision of Stomach, Via Natural or Artificial Opening Endoscopic, Diagnostic (ICD-10-PCS; 2021-06-11)
PROC: 0DB38ZX Excision of Lower Esophagus, Via Natural or Artificial Opening Endoscopic, Diagnostic (ICD-10-PCS; 2021-06-11)
PROC: 0DH63UZ Insertion of Feeding Device into Stomach, Percutaneous Approach (ICD-10-PCS; principal; 2021-06-11 07:30)
PROC: 3E0G76Z Introduction of Nutritional Substance into Upper GI, Via Natural or Artificial Opening (ICD-10-PCS; 2021-06-11 07:30)
DX: K22.2 Esophageal obstruction (principal); E43 Unspecified severe protein-calorie malnutrition; C15.9 Malignant neoplasm of esophagus, unspecified; I50.32 Chronic diastolic (congestive) heart failure; J96.11 Chronic respiratory failure with hypoxia; N17.9 Acute kidney failure, unspecified; D72.829 Elevated white blood cell count, unspecified; E11.9 Type 2 diabetes mellitus without complications; Z20.822 Contact with and (suspected) exposure to COVID-19; E78.5 Hyperlipidemia, unspecified; E86.0 Dehydration; F17.210 Nicotine dependence, cigarettes, uncomplicated; F32.A Depression, unspecified; H54.61 Unqualified visual loss, right eye, normal vision left eye; I11.0 Hypertensive heart disease with heart failure; I25.10 Atherosclerotic heart disease of native coronary artery without angina pectoris; I25.2 Old myocardial infarction; J44.9 Chronic obstructive pulmonary disease, unspecified; K25.9 Gastric ulcer, unspecified as acute or chronic, without hemorrhage or perforation; K29.70 Gastritis, unspecified, without bleeding; Z79.82 Long term (current) use of aspirin; Z79.890 Hormone replacement therapy; Z79.899 Other long term (current) drug therapy; Z85.01 Personal history of malignant neoplasm of esophagus; Z87.11 Personal history of peptic ulcer disease; Z87.442 Personal history of urinary calculi; Z90.5 Acquired absence of kidney; Z92.21 Personal history of antineoplastic chemotherapy; Z95.1 Presence of aortocoronary bypass graft
CPT/HCPCS: 36415; 43239; 43246; 71045; 71046; 80053; 83036; 83605; 83735; 83880; 84145; 84484; 85025; 85610; 85730; 86140; 87040; 87070; 87205; 87502; 87635; 88305; 88312; 88341; 88342; 93005; 94640; 94760; 96360; 96361; 99285

== ENCOUNTER → 2021-08-13 | Outpatient (CLI) | payer MEDICARE | END | disposition home or self-care (01) | LOC: RADPETMAIN 09:41 | PROVIDERS: ATTEND Internal Medicine Hematology & Oncology | DX: Z53.9 Procedure and treatment not carried out, unspecified reason (principal) | CPT/HCPCS: 78815 ==

== ENCOUNTER → 2021-08-21 | Outpatient (CLI) | payer MEDICARE ==
--- NOTE | 2021-08-24 06:25 | PE ---
EXAMINATION TYPE: PET CT fusion skull to thigh DATE OF EXAM: 08/21/2021 COMPARISON: Prior PET/CT June 04, 2021 and older studies HISTORY: Esophageal cancer progress study originally diagnosed 2018. Completed chemotherapy July. History of radiation treatment to stomach. History of right-sided renal cell cancer and prost ate cancer. TECHNIQUE: Following the intravenous administration of 12.37 mCi of F-18 FDG, whole body images are performed from the skull base to the midthigh. Images are reviewed on the computer in the coronal, a xial, and sagittal planes. Reconstructed rotating images are created on independent workstation and reviewed on the computer. A localization and attenuation correction CT is performed in conjunction with the PET scan. Blood glucose level equals 109 SCAN: Subsequent Scan FINDINGS: SKULL BASE AND NECK: No new areas of suspicious hypermetabolic uptake in the neck. There are persist ent oval low dense lesions in the subcutaneous tissue of the lateral left upper extremity with mild h ypermetabolic uptake,max SUV is less than 2.5 on current study CHEST, MEDIASTINUM, AND HILAR REGION: New mildly hypermetabolic bilateral axillary lymph nodes being borderline enlarged in size, max SUV i n the right is 2.00 on axial image 79 and is 2.21 on the left on axial image 76. Findings favor react lesly. Abnormal soft tissue in the right anterior superior mediastinum with loss of fat plane again seen, lo w density material containing calcifications redemonstrated. No definitive new abnormal hypermetaboli c uptake at this level. No new or recurrent areas of suspicious hypermetabolic uptake including along course of the esophagus. Persistent areas of moderate to severe concentric wall thickening on curren t study for reference distally axial image 118 just above the diaphragm. \ABDOMEN AND PELVIS: Normal excretion is seen. No new suspicious hypermetabolic uptake. Prostate glan d redemonstrated surgically absent. 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 Correlate for infection or inflammation advised as no additional new areas of abnorm al hypermetabolic uptake are seen in osseous structures. OTHER CT: Moderate to severe calcified plaque right carotid bulb redemonstrated. Stable right internal jugular Mediport catheter. 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 Small bilateral pleural effusions slightly more prominent despite bilateral percutaneous drainage cat heters redemonstrated in the bases. There is a new PEG tube noted. Tiny nonobstructing bilateral renal calculi are redemonstrated. Surgic al clips in the pelvis present from prostatectomy are redemonstrated. Small fat-containing left ingui nal hernia. Surgical clips left groin region. Moderate to advanced atherosclerotic change aorta exten ding into branch vessels. Multilevel spurring in the spine. Facet arthropathy lower lumbar levels redemonstrated. IMPRESSION: Abnormal hypermetabolic uptake in the sternum as detailed above favors infectious or less likely inflammatory change. No additional areas of significant abnormal hypermetabolic uptake to def initively suggest residual or active metastatic neoplasm.
== END | disposition home or self-care (01) ==
LOC: RADPETMAIN 09:55
PROVIDERS: ATTEND Internal Medicine Hematology & Oncology
DX: C15.5 Malignant neoplasm of lower third of esophagus (principal); Z85.46 Personal history of malignant neoplasm of prostate; Z85.528 Personal history of other malignant neoplasm of kidney; Z92.3 Personal history of irradiation
CPT/HCPCS: 78815; A9552